=== PATIENT | female | born 1980 | race Two or more races ===

== ENCOUNTER 2019-12-21 | Outpatient (REF) | payer OTHER, SELFPAY | END 2019-12-23 00:01 | disposition home or self-care (01) | LOC: CF | PROVIDERS: Visit Provider Surgery Vascular Surgery | DX: K76.9 Liver disease, unspecified (principal); D50.0 Iron deficiency anemia secondary to blood loss (chronic) | CPT/HCPCS: 99213 ==

== ENCOUNTER → 2020-01-06 10:26 | Outpatient (BNVA) | payer OTHER, SELFPAY | PROVIDERS: PCP Internal Medicine; Referring Provider Internal Medicine; Visit Provider Internal Medicine Gastroenterology | DX: D50.0 Iron deficiency anemia secondary to blood loss (chronic) (principal); N92.0 Excessive and frequent menstruation with regular cycle; K21.9 Gastro-esophageal reflux disease without esophagitis; K76.9 Liver disease, unspecified; R18.8 Other ascites; D69.6 Thrombocytopenia, unspecified; Z87.19 Personal history of other diseases of the digestive system | CPT/HCPCS: 99213 ==

== ENCOUNTER 2020-01-19 09:05 | Emergency (ER) | payer OTHER, SELFPAY ==
--- NOTE | 2020-01-19 10:04 | XR_ITS ---
EXAMINATION: BILATERAL FOOT X-RAY CLINICAL INFORMATION: Atraumatic bilateral plantar foot pain COMPARISON: None TECHNIQUE: 3 views of each foot FINDINGS: Left: Bone alignment is normal. No fracture or dislocation is. The joint spaces are normal. There is an accessory peroneal ossicle. There is a small plantar calcaneal spur. Soft tissues are otherwise unremarkable. Right: Bone alignment is normal. No fracture or dislocation is seen. Joint spaces are normal. There is a small accessory peroneal ossicle. There is a small plantar calcaneal spur. Soft tissues are otherwise normal. XR/XR foot LT min 3V IMPRESSION: Bilateral calcaneal spurs.
--- NOTE | 2020-01-19 10:04 | XR_ITS ---
EXAMINATION: BILATERAL FOOT X-RAY CLINICAL INFORMATION: Atraumatic bilateral plantar foot pain COMPARISON: None TECHNIQUE: 3 views of each foot FINDINGS: Left: Bone alignment is normal. No fracture or dislocation is. The joint spaces are normal. There is an accessory peroneal ossicle. There is a small plantar calcaneal spur. Soft tissues are otherwise unremarkable. Right: Bone alignment is normal. No fracture or dislocation is seen. Joint spaces are normal. There is a small accessory peroneal ossicle. There is a small plantar calcaneal spur. Soft tissues are otherwise normal. XR/XR foot RT min 3V IMPRESSION: Bilateral calcaneal spurs.
--- NOTE | 2020-01-19 10:05 | ED.LOWEXIN ---
HPI - Extremity Injury (Lower) General Chief Complaint: Extremity Injury, Lower Stated Complaint: bilateral foot pain,no inj Time Seen by Provider: 01/19/20 09:56 Source: patient Mode of arrival: ambulatory Limitations: language barrier (Cypriot-speaking) History of Present Illness HPI Narrative: 39yoF c PMHx of chronic pain of both feet, varicose veins of right lower extremity with inflammation, hypertension, be liver disease, ascites, iron deficiency anemia due to chronic blood loss, thrombocytopenia, GERD, dementia and depression presenting to the ED with complaints of worsening pain to her chronic bilateral feet for the past few days worse today where she has to use a cane due to when walking she has extreme pain. Denies any other symptoms complaints or concerns. Denies any injuries. Related Data Home Medications Medication Instructions Recorded Confirmed albuterol sulfate 90 mcg/actuation 2 puff PO Q6H PRN 12/21/19 01/06/20 aerosol inhaler famotidine 20 mg tablet mg PO 12/21/19 01/06/20 ferrous sulfate 325 mg (65 mg 325 mg PO TID 12/21/19 01/06/20 iron) tablet ibuprofen 600 mg tablet 600 mg PO TID 12/21/19 01/06/20 pantoprazole 40 mg tablet,delayed 40 mg PO DAILY 12/21/19 01/06/20 release trazodone 50 mg tablet 50 mg PO BEDTIME 12/21/19 01/06/20 Previous Rx's Medication Instructions Recorded furosemide 20 mg tablet 20 mg PO QAM 30 Days #30 tab 01/06/20 sertraline 50 mg tablet 50 mg PO DAILY #30 tab 01/06/20 spironolactone 50 mg tablet 50 mg PO QAM 30 Days #30 tab 01/06/20 fluticasone propionate 50 1 spray INTRANASAL DAILY #16 ml 01/10/20 mcg/actuation nasal spray,suspension hydrocodone-acetaminophen [Bastian] 1 tab PO Q8H PRN #10 tab 01/19/20 Allergies Allergy/AdvReac Type Severity Reaction Status Date / Time aspirin [ASPIRIN] Allergy Intermediate ULCER; GI Verified 01/11/20 14:24 UPSET, internal bleeding sertraline [SERTRALINE] Allergy Intermediate CONFUSION; Verified 12/21/19 15:09 GI UPSET Review of Systems Review of Systems: Constitutional :No Fever, No Chills Cardiovascular : No Chest Pain, No SOB, No Dyspnea on Exertion, No Orthopnea, No Edema, No Palpitations Respiratory : No Cough, No Sputum, No Wheezing, No Smoke Exposure, No Dyspnea Musculoskeletal : + joint pain, No Myalgias, No Joint Swelling Skin : No Skin Lesions, No rash Neuro : No Weakness, No Numbness, No Paresthesias, No Loss of Consciousness, No Dizziness, No Headache Psych : No Anxiety/Panic, No Depression, No SI/HI/AH/VH, No Social Issues, Heme/Lymph: No Lymphadenopathy Yes all other systems are reviewed and are negative PENDING SALE TO [facility] Past Medical History Attestation statement: The following information was validated with the patient. Medical History Ascites Chronic pain of both feet Dementia Depression GERD (gastroesophageal reflux disease) History of esophageal varices Hypertension IBS (irritable bowel syndrome) Iron deficiency anemia due to chronic blood loss Liver disease Sprain of left knee Thrombocytopenia Varicose veins of right lower extremity with inflammation Surgical History History of esophagogastroduodenoscopy (EGD) History of liver biopsy (~04/2002) S/P TIPS (transjugular intrahepatic portosystemic shunt) (~10/2015) Family History Family History Father Diabetes mellitus Mother Diabetes mellitus Alzheimer's dementia Pneumothorax Maternal Aunt Ovarian cancer Daughter No problems noted. Maternal Aunt Cervical cancer Maternal Grandfather Pancreatic cancer Social History Social History Alcohol intake: never Smoking Status: Current every day smoker Tobacco Type: Cigarette Advance Directives: Yes Advance Directives Information Provided: Yes Advance Directives on File: No Physical Exam Vital Signs: Vital Signs: Vital Signs Temp Pulse Resp BP Pulse Ox 01/19/20 10:26 98.5 F 60 16 119/68 97 Body Mass Index 31.1 vital signs have been reviewed as normal and appeared to be correct. Blood pressure normal. Heart rate normal. Respiration rate normal. Temperature normal. Oxygen saturation normal. Appearance: Alert. Oriented X3. No acute distress. Head: Normal external exam. Normocephalic. Eyes: PERRLA. EOMI. Conjunctiva and sclera normal. Eyelids normal. ENT: Pharynx normal. Uvula midline. Moist mucous membranes. Neck: Normal inspection. Neck supple. FROM. No meningeal signs. CVS: Normal heart rate and rhythm. Heart sound normal. No murmurs noted. Pulses normal throughout. Respiratory: No respiratory distress. Painless inspiration. Breath sounds normal. No wheezes/rales/rhonchi noted. Chest nontender. No accessory muscle usage noted or decreased air movement noted. Back: Full range of motion noted. Skin: Skin warm and dry. Normal skin color. Normal skin turgor. No rashes/lesions/lacerations noted. Extremities: Pt ttp of b/l heels of plantar aspect of b/l feet worse c dorsiflexion while I palpate over the plantar fascia from the heel to the forefoot. No lower extremity edema. Extremities exhibit normal range of motion. Extremities nontender. All tendons appear to be intact. All ligaments appear to be intact. Neuro: Oriented X 3. No motor deficit. No sensory deficit. Reflexes normal. Course Course Course Narrative: 39yoF c PMHx of chronic pain of both feet, varicose veins of right lower extremity with inflammation, hypertension, be liver disease, ascites, iron deficiency anemia due to chronic blood loss, thrombocytopenia, GERD, dementia and depression presenting to the ED with complaints of worsening pain to her chronic bilateral feet for the past few days worse today where she has to use a cane due to when walking she has extreme pain. Denies any other symptoms complaints or concerns. Denies any injuries. - concern for bone spur versus plantar fasciitis. 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 Patient understands agrees the plan. MDM - Extremity Injury (Lower) Medical Records Attestation: I reviewed the patient's medical records. Imaging Data b/l foot xrays: Attestation: I personally reviewed and interpreted this imaging study as follows: Radiologist's impression: FINDINGS: Left: Bone alignment is normal. No fracture or dislocation is. The joint spaces are normal. There is an accessory peroneal ossicle. There is a small plantar calcaneal spur. Soft tissues are otherwise unremarkable. Right: Bone alignment is normal. No fracture or dislocation is seen. Joint spaces are normal. There is a small accessory peroneal ossicle. There is a small plantar calcaneal spur. Soft tissues are otherwise normal. XR/XR foot LT min 3V IMPRESSION: Bilateral calcaneal spurs. Discharge Plan Discharge Clinical Impression: Plantar fasciitis, Bone spur of foot Patient Disposition: Home, Self-Care Instructions: Plantar Fasciitis (ED), Plantar Fasciitis Exercises (ED) Prescriptions: New hydrocodone-acetaminophen [Bastian] 5-325 mg tablet 1 tab PO Q8H PRN (Reason: pain) Qty: 10 RF: 0 No Action sertraline 50 mg tablet 50 mg PO DAILY Qty: 30 RF: 5 fluticasone propionate 50 mcg/actuation spray,suspension 1 spray intranasal DAILY Qty: 16 RF: 0 albuterol sulfate 90 mcg/actuation HFA aerosol inhaler 2 puff PO Q6H PRNRF: 0 ferrous sulfate 325 mg (65 mg iron) tablet 325 mg PO TID RF: 0 famotidine 20 mg tablet PO RF: 0 trazodone 50 mg tablet 50 mg PO BEDTIME RF: 0 pantoprazole 40 mg tablet,delayed release (DR/EC) 40 mg PO DAILY RF: 0 ibuprofen 600 mg tablet 600 mg PO TID RF: 0 spironolactone 50 mg tablet 50 mg PO QAM 30 Days Qty: 30 RF: 3 furosemide [Lasix] 20 mg tablet 20 mg PO QAM 30 Days Qty: 30 RF: 3 Referrals: Sukhdeep Lemus [Physician] - 1 day (sherri buckner jorje appointment ) Stand Alone Forms: Work/School Release Print Language: Ukrainian
[2020-01-19 10:26] VITALS: BP 119/68; PULSE 60; RESP 16; TEMP 36.9; O2SAT 97; BMI 31.1
[2020-01-19] MEDS: HYDROcodone Bit/Acetam 5/325 TABLET 1 TAB PO (10:54)
[2020-01-19] MEDS: dexAMETHasone 2 MG TABLET 10 MG PO (10:54)
== END 2020-01-19 11:16 | disposition home or self-care (01) ==
PROVIDERS: Emergency Provider Emergency Medicine; PCP Internal Medicine
DX: M72.2 Plantar fascial fibromatosis (principal); M77.32 Calcaneal spur, left foot; M77.31 Calcaneal spur, right foot; M79.672 Pain in left foot; M79.671 Pain in right foot; Z79.899 Other long term (current) drug therapy
CPT/HCPCS: 73630; 99283; J8540

== ENCOUNTER 2020-01-24 11:54 | Outpatient (REF) | payer OTHER, SELFPAY ==
[2020-01-24 15:47] LABS: Basophils Percent Auto 0.6 % (0-2); MANUAL DIFF FLAG SCAN; PLT CLUMP 1; Red Cell Distribution Width 13.8 % (11.0-16.0); SCAN SMEAR FLAG 1
[2020-01-24 15:49] LABS: Eosinophils Absolute Auto 0.1 X10*3/uL (0.0-0.4); Eosinophils Percent Auto 1.7 % (0-4); Hematocrit 30.6 % (37-47); Imm Gran Abs Auto 0.01 X10*3/uL (0.00-0.03); Imm Gran Pct Auto 0.3 % (0.0-0.4); Lymphocytes Absolute Auto 0.7 X10*3/uL (1.2-4.9); Lymphocytes Percent Auto 19.9 % (20-40); Mean Corpuscular HGB Conc 32.7 g/dl (31.0-35.0); Mean Corpuscular Hemoglobin 25.8 pg (27.0-33.0); Mean Corpuscular Volume 79.1 fL (80-98); Mean Platelet Volume 11.8 fL (9.4-12.3); Monocytes Absolute Auto 0.2 X10*3/uL (0.1-1.2); Monocytes Percent Auto 6.9 % (2-11); Neutrophils Absolute Auto 2.5 X10*3/uL (2.0-8.3); Neutrophils Percent Auto 70.6 % (45-73); Red Blood Count 3.87 X10*6/uL (4.20-5.50); White Blood Count 3.5 X10*3/uL (4.8-10.8)
[2020-01-24 15:55] LABS: Platelet Count 52 X10*3/uL (160-400)
[2020-01-24 15:57] LABS: INTERNATIONAL NORM RATIO 1.3 (0.9-1.1); Prothrombin Time 15.1 SEC (10.8-13.0)
[2020-01-24 16:17] LABS: SLIDE REVIEW VERIFIED
[2020-01-24 16:21] LABS: Alanine Aminotransferase 23 U/L (0-31); Alkaline Phosphatase 63 U/L (39-117); Anion Gap 12 (12-20); Aspartate Amino Transferase 20 U/L (5-31); Bilirubin Total 0.5 mg/dL (0.0-1.0); Blood Urea Nitrogen 13 mg/dL (9-16); Calcium 8.4 mg/dL (8.4-10.2); Carbon Dioxide 23 mmol/L (22-29); Chloride 105 mmol/L (96-108); Estimated Glomerular Filt Rate > 60; Glucose Random 155 mg/dL (60-115); Potassium 3.8 mmol/l (3.3-5.1); Sodium 136 mmol/L (135-145); Total Protein 6.7 g/dL (6.5-8.0)
[2020-01-24 16:44] LABS: Ferritin 2 ng/mL (10-250)
== END 2020-01-24 11:55 | disposition home or self-care (01) ==
LOC: HO.LAB 11:54
PROVIDERS: PCP Internal Medicine; Visit Provider Internal Medicine Gastroenterology
DX: K76.9 Liver disease, unspecified (principal); D50.0 Iron deficiency anemia secondary to blood loss (chronic)
CPT/HCPCS: 36415; 80053; 82728; 85025; 85610

== ENCOUNTER → 2020-02-01 08:55 | Outpatient (BNV) | payer OTHER, SELFPAY | PROVIDERS: Visit Provider Internal Medicine | DX: D61.818 Other pancytopenia (principal); R16.1 Splenomegaly, not elsewhere classified | CPT/HCPCS: 99213; 99214; G2211 ==

== ENCOUNTER 2020-03-09 22:29 | Emergency (ER) | payer OTHER, SELFPAY ==
[2020-03-09 22:47] VITALS: BP 146/82; BP 147/72; PULSE 65; PULSE 97; RESP 19; TEMP 36.6; O2SAT 100; BMI 32.1
--- NOTE | 2020-03-09 22:50 | ED.URI ---
HPI - URI/Sore Throat General Chief Complaint: General Medical Stated Complaint: flu ?covid Source: patient and EMS Mode of arrival: EMS Limitations: language barrier History of Present Illness HPI Narrative: 39-year-old female with past medical history of anxiety and depression, splenomegaly, IBS, hypertension, GERD, dementia, liver disease, iron deficiency anemia, and chronic pain presents via EMS for upper respiratory symptoms. She was seen on 03/07/2020 by her primary care and given azithromycin and prednisone for similar complaints. MD elicited complaint: cough and nasal congestion Onset (ago): day(s) (Several) Consistency: constant Severity: moderate Description of mucous: clear and watery Able to tolerate fluids by mouth: Yes Relieving factors: nothing Associated symptoms: fever, chills, myalgias, headache, nasal congestion and cough Treatments prior to arrival: antibiotics Related Data Home Medications Medication Instructions Recorded Confirmed albuterol sulfate 90 mcg/actuation 2 puff PO Q6H PRN 12/21/19 02/01/20 aerosol inhaler ferrous sulfate 325 mg (65 mg 325 mg PO TID 12/21/19 02/01/20 iron) tablet ibuprofen 600 mg tablet 600 mg PO TID 12/21/19 02/01/20 pantoprazole 40 mg tablet,delayed 40 mg PO DAILY 12/21/19 02/01/20 release trazodone 50 mg tablet 50 mg PO BEDTIME 12/21/19 02/01/20 hydrochlorothiazide 12.5 mg tablet 12.5 mg PO DAILY 01/28/20 02/01/20 loratadine 10 mg tablet 10 mg PO DAILY 01/28/20 02/01/20 Previous Rx's Medication Instructions Recorded furosemide 20 mg tablet 20 mg PO QAM 30 Days #30 tab 01/06/20 sertraline 50 mg tablet 50 mg PO DAILY #30 tab 01/06/20 spironolactone 50 mg tablet 50 mg PO QAM 30 Days #30 tab 01/06/20 hydrocodone-acetaminophen [[place]] 1 tab PO Q8H PRN #10 tab 01/19/20 famotidine 20 mg tablet 20 mg PO BID 30 Days #60 tab 02/01/20 tramadol 50 mg tablet 50 mg PO TID PRN 15 Days #45 tab 02/14/20 fluticasone propionate 50 1 spray INTRANASAL DAILY #16 ml 12/20/20 mcg/actuation nasal spray,suspension azithromycin 250 mg tablet 250 mg PO DAILY 5 Days #6 tab 03/07/20 prednisone 10 mg tablet 10 mg PO DAILY 9 Days #18 tab 03/07/20 sertraline 100 mg tablet 100 mg PO DAILY 20 Days #20 tab 03/07/20 zolpidem 5 mg tablet 5 mg PO BEDTIME PRN 20 Days #20 tab 03/07/20 Allergies Allergy/AdvReac Type Severity Reaction Status Date / Time aspirin [ASPIRIN] AdvReac Intermediate ULCER; GI Verified 03/07/20 14:58 UPSET, internal bleeding sertraline [SERTRALINE] AdvReac Intermediate CONFUSION; Verified 01/31/20 01:03 GI UPSET Review of Systems Review of Systems: Constitutional: positive Fever, positive Chills, positive fatigue, positive Malaise ENT/Mouth: positive sore throat, positive runny nose Eyes: No Discharge Cardiovascular: No Chest Pain, No SOB Respiratory: No Cough, No Sputum, No Wheezing, No Smoke Exposure, No Dyspnea Gastrointestinal: No Nausea, No Vomiting, No Diarrhea Genitourinary: no irregular bleeding, No Dysuria, No Urinary Frequency, No Hematuria, No Urinary Incontinence, No Urgency, No Flank Pain, Musculoskeletal: positive Myalgia Skin: No rash Neuro: No Headache Yes all other systems are reviewed and are negative PMFSH Past Medical History Attestation statement: The following information was validated with the patient. Medical History (Updated 03/09/20 @ 23:10 by Yadira Schroeder NP) Anxiety and depression Ascites Bilateral calcaneal spurs Chronic pain of both feet Common cold Dementia Depression GERD (gastroesophageal reflux disease) History of esophageal varices Hypersplenism Hypertension IBS (irritable bowel syndrome) Iron deficiency anemia due to chronic blood loss Liver disease Obesity (BMI 30-39.9) Pancytopenia Smoker Sprain of left knee Thrombocytopenia Varicose veins of right lower extremity with inflammation Surgical History History of D&C History of esophagogastroduodenoscopy (EGD) History of liver biopsy (~04/2002) S/P TIPS (transjugular intrahepatic portosystemic shunt) (~10/2015) Family History Family History Father Diabetes mellitus Mother Diabetes mellitus Alzheimer's dementia Pneumothorax Maternal Aunt Ovarian cancer Daughter No problems noted. Maternal Aunt Cervical cancer Maternal Grandfather Pancreatic cancer Social History Social History Alcohol intake: never Smoking Status: Current every day smoker Tobacco Type: Cigarette Cigarettes Per Day: 8 Use of substances other than those prescribed or required for medical reasons: No Advance Directives: No Advance Directives Information Provided: No Physical Exam Vital Signs: Vital Signs: Last Vital Signs Temp 98 F 03/09/20 22:53 Pulse 97 03/09/20 22:53 Resp 19 03/09/20 22:53 BP 147/72 H 03/09/20 22:53 Pulse Ox 100 03/09/20 22:53 Body Mass Index 32.1 Appearance: Alert. Oriented X3. No acute distress. Eyes: Pupils equal, round and reactive to light. ENT: Pharynx normal. Neck: Normal inspection. Neck supple. CVS: Normal heart rate and rhythm. Pulses normal. Respiratory: No respiratory distress. Breath sounds normal. Abdomen: Soft and nontender. Skin: Skin warm and dry. Normal skin color. Normal skin turgor. Extremities: No lower extremity edema. Neuro: No motor deficit. No sensory deficit. Course Course Course Narrative: 39-year-old female presents via EMS for upper respiratory symptoms. In review of her medical records it is noted that she was given azithromycin and prednisone on 03/07/2020 during her office visit 2 days ago. Plan of care is for COVID-19 swab and discharged home. Patient verbalized understanding of and agrees to plan of care. MDM - URI/Sore Throat Differential Diagnosis Differential diagnosis: Likely upper respiratory infection, sinusitis, viral infection and influenza Medical Records Attestation: I reviewed the patient's medical records. Lab Data Attestation: I reviewed the patient's lab results. Imaging Data Chest x-ray: Attestation: I personally reviewed and interpreted this imaging study as follows: Discharge Plan Discharge Clinical Impression: Symptoms of upper respiratory infection (URI) Patient Disposition: Home, Self-Care Instructions: Viral Syndrome (ED), Cold Symptoms (ED) Additional Instructions: Se le evaluaron para los s?ntomas de las v?as respiratorias superiores. Herrera prueba COVID-19 est? pendiente y resultar? en aproximadamente 4 d?as. Por favor, mantenga el aislamiento social para las pautas estatales y federales. Por favor, contin?e tomando la azitromicina y la prednisona que le fueron prescritas el 03/07/2020. Gabrielle por elegir galina departamento de emergencias para la evaluaci?n. Por favor, elodia un seguimiento con el m?dico de atenci?n primaria seg?n sea necesario. Regrese al servicio de urgencias para cualquier s?ntoma nuevo, preocupante o que empeore. You were evaluated for upper respiratory symptoms. Her COVID-19 test is pending and will result in approximately 4 days. Please maintain social isolation for State and Federal guidelines. Please continue to take the azithromycin and the prednisone that was prescribed to you on 03/07/2020. Thank you for choosing this emergency department for evaluation. Please follow-up with primary care physician as needed. Return to the emergency department for any new, concerning, or worsening symptoms. Prescriptions: No Action sertraline 50 mg tablet 50 mg PO DAILY Qty: 30 RF: 5 famotidine 20 mg tablet 20 mg PO BID 30 Days Qty: 60 RF: 2 tramadol 50 mg tablet 50 mg PO TID PRN (Reason: pain) 15 Days Qty: 45 RF: 0 fluticasone propionate 50 mcg/actuation spray,suspension 1 spray intranasal DAILY Qty: 16 RF: 0 hydrocodone-acetaminophen [[place]] 5-325 mg tablet 1 tab PO Q8H PRN (Reason: pain) Qty: 10 RF: 0 hydrochlorothiazide 12.5 mg tablet 12.5 mg PO DAILY RF: 0 loratadine 10 mg tablet 10 mg PO DAILY RF: 0 sertraline 100 mg tablet 100 mg PO DAILY 20 Days Qty: 20 RF: 0 zolpidem [Ambien] 5 mg tablet 5 mg PO BEDTIME PRN (Reason: sleep) 20 Days Qty: 20 RF: 0 azithromycin 250 mg tablet 250 mg PO DAILY 5 Days Qty: 6 RF: 0 prednisone 10 mg tablet 10 mg PO DAILY 9 Days Qty: 18 RF: 0 albuterol sulfate 90 mcg/actuation HFA aerosol inhaler 2 puff PO Q6H PRN (Reason: Wheezing) RF: 0 ferrous sulfate 325 mg (65 mg iron) tablet 325 mg PO TID RF: 0 trazodone 50 mg tablet 50 mg PO BEDTIME RF: 0 pantoprazole 40 mg tablet,delayed release (DR/EC) 40 mg PO DAILY RF: 0 ibuprofen 600 mg tablet 600 mg PO TID RF: 0 spironolactone 50 mg tablet 50 mg PO QAM 30 Days Qty: 30 RF: 3 furosemide [Lasix] 20 mg tablet 20 mg PO QAM 30 Days Qty: 30 RF: 3 Interventions: ED Discharge Assessment Last Done: 03/09/20 23:29 Discharge Date/Time: 03/09/20 23:30
[2020-03-09 22:53] VITALS: BP 147/72; PULSE 97; RESP 19; TEMP 36.6; O2SAT 100
== END 2020-03-09 23:30 | disposition home or self-care (01) ==
PROVIDERS: Nurse Practitioner Family; Emergency Provider Internal Medicine
DX: J06.9 Acute upper respiratory infection, unspecified (principal); Z20.828 Contact with and (suspected) exposure to other viral communicable diseases; I10 Essential (primary) hypertension; F03.90 Unspecified dementia, unspecified severity, without behavioral disturbance, psychotic disturbance, mood disturbance, and anxiety; F41.9 Anxiety disorder, unspecified; Z79.899 Other long term (current) drug therapy
CPT/HCPCS: 99283; 99284; U0003

== ENCOUNTER 2020-04-06 11:44 | Outpatient (REF) | payer OTHER, SELFPAY ==
[2020-04-06 18:32] LABS: Basophils Percent Auto 0.9 % (0-2); Eosinophils Percent Auto 1.2 % (0-4); Hematocrit 30.4 % (37-47); Hemoglobin 9.2 g/dl (12.0-16.0); Imm Gran Abs Auto 0.01 X10*3/uL (0.00-0.03); Imm Gran Pct Auto 0.3 % (0.0-0.4); Lymphocytes Absolute Auto 0.7 X10*3/uL (1.2-4.9); Lymphocytes Percent Auto 19.9 % (20-40); MANUAL DIFF FLAG SCAN; Mean Corpuscular HGB Conc 30.3 g/dl (31.0-35.0); Mean Corpuscular Hemoglobin 21.9 pg (27.0-33.0); Mean Corpuscular Volume 72.4 fL (80-98); Mean Platelet Volume 10.6 fL (9.4-12.3); Monocytes Absolute Auto 0.3 X10*3/uL (0.1-1.2); Monocytes Percent Auto 8.5 % (2-11); Neutrophils Absolute Auto 2.3 X10*3/uL (2.0-8.3); Neutrophils Percent Auto 69.2 % (45-73); Red Cell Distribution Width 16.1 % (11.0-16.0); SCAN SMEAR FLAG 1; White Blood Count 3.3 X10*3/uL (4.8-10.8)
[2020-04-06 18:39] LABS: INTERNATIONAL NORM RATIO 1.3 (0.9-1.1); Prothrombin Time 15.3 SEC (10.8-13.0)
[2020-04-06 18:52] LABS: Platelet Count 66 X10*3/uL (160-400)
[2020-04-06 18:53] LABS: SLIDE REVIEW VERIFIED
[2020-04-06 18:58] LABS: Cholesterol 138 mg/dL; HDL Cholesterol 59 mg/dL; LDL Cholesterol Calculated 58 mg/dl; Triglycerides 108 mg/dL
[2020-04-06 19:04] LABS: Alanine Aminotransferase 13 U/L (0-31); Albumin Level 4.4 g/dL (3.5-5.0); Alkaline Phosphatase 69 U/L (39-117); Anion Gap 12 (12-20); Aspartate Amino Transferase 16 U/L (5-31); Bilirubin Total 0.4 mg/dL (0.0-1.0); Blood Urea Nitrogen 13 mg/dL (9-16); Calcium 8.9 mg/dL (8.4-10.2); Carbon Dioxide 24 mmol/L (22-29); Chloride 105 mmol/L (96-108); Estimated Glomerular Filt Rate > 60; Glucose Random 80 mg/dL (60-115); Iron 17 mcg/dL (30-160); Percent Iron Saturation 4 % (15-50); Potassium 3.9 mmol/l (3.3-5.1); Sodium 137 mmol/L (135-145); Total Iron Binding Capacity 426 mcg/dL (228-428); Total Protein 7.1 g/dL (6.5-8.0); Unsaturated Iron Binding 409 ug/dL
[2020-04-06 19:21] LABS: Ferritin 2 ng/mL (10-250)
== END 2020-04-06 11:45 | disposition home or self-care (01) ==
LOC: HO.LAB 11:44
PROVIDERS: Internal Medicine; PCP Internal Medicine; Referring Provider Internal Medicine; Visit Provider Internal Medicine Gastroenterology
DX: D50.0 Iron deficiency anemia secondary to blood loss (chronic) (principal); K76.9 Liver disease, unspecified; K59.09 Other constipation; Z98.890 Other specified postprocedural states; Z79.899 Other long term (current) drug therapy; Z79.891 Long term (current) use of opiate analgesic; F17.210 Nicotine dependence, cigarettes, uncomplicated
CPT/HCPCS: 36415; 80053; 80061; 82728; 83540; 85025; 85610

== ENCOUNTER 2020-05-17 07:50 | Outpatient (REF) | payer OTHER, SELFPAY | END 2020-05-17 07:51 | disposition home or self-care (01) | LOC: HO.MDS 07:50 | PROVIDERS: Visit Provider Internal Medicine | DX: D50.9 Iron deficiency anemia, unspecified (principal) | CPT/HCPCS: 96365; 96366; 96375; J1200; J1750; Q0163 ==

== ENCOUNTER 2020-09-05 15:39 | Outpatient (REF) | payer OTHER, SELFPAY ==
--- NOTE | ~2020-09-05 | XR_ITS ---
EXAMINATION: XR KNEE, BILATERAL CLINICAL INFORMATION: Bilateral knee pain. COMPARISON: 08/04/2018 TECHNIQUE: Three views each knee. FINDINGS: There may be some minimal narrowing of the medial compartments bilaterally but no other abnormality is seen. No joint effusion. No erosions or sclerosis. When compared to the study from 08/04/2018, there has been no significant interval change. XR/XR knee RT 3V IMPRESSION: Some equivocal narrowing of the medial compartments bilaterally. The knees otherwise appear normal.
--- NOTE | ~2020-09-05 | XR_ITS ---
EXAMINATION: XR KNEE, BILATERAL CLINICAL INFORMATION: Bilateral knee pain. COMPARISON: 08/04/2018 TECHNIQUE: Three views each knee. FINDINGS: There may be some minimal narrowing of the medial compartments bilaterally but no other abnormality is seen. No joint effusion. No erosions or sclerosis. When compared to the study from 08/04/2018, there has been no significant interval change. XR/XR knee LT 3V IMPRESSION: Some equivocal narrowing of the medial compartments bilaterally. The knees otherwise appear normal.
== END 2020-09-05 15:40 | disposition home or self-care (01) ==
LOC: HO.XRAY 15:39
PROVIDERS: PCP Internal Medicine; Visit Provider Internal Medicine
DX: M25.561 Pain in right knee (principal); M25.562 Pain in left knee
CPT/HCPCS: 73562

== ENCOUNTER 2020-09-05 16:54 | Emergency (ER) | payer OTHER, SELFPAY ==
[2020-09-05 17:16] VITALS: BP 132/70; PULSE 62; RESP 18; TEMP 37.1; O2SAT 99; BMI 34.7
--- NOTE | 2020-09-05 18:25 | ED.GENADULT ---
HPI - General Adult General Chief complaint: Extremity Injury, Lower Stated complaint: knee pain Time Seen by Provider: 09/05/20 18:03 History of Present Illness HPI narrative: wall patient complains of worsening pain in the left knee, she has had pain off and on left knee for years, no new injury, this is similar to prior episodes there is no fever no other complaint, pain is moderate and it is been worsening over past few days Related Data Home Medications Medication Instructions Recorded Confirmed trazodone 50 mg tablet 50 mg PO BEDTIME 12/21/19 08/09/20 hydrochlorothiazide 12.5 mg tablet 12.5 mg PO DAILY 01/28/20 08/09/20 prazosin 1 mg capsule 1 mg PO BEDTIME 05/10/20 08/23/20 clonidine HCl 0.2 mg tablet 0.2 mg PO BEDTIME 08/09/20 08/23/20 Previous Rx's Medication Instructions Recorded sertraline 100 mg tablet 100 mg PO DAILY 20 Days #20 tab 03/07/20 fluticasone propionate 50 1 spray INTRANASAL DAILY #16 ml 04/01/20 mcg/actuation nasal spray,suspension furosemide 20 mg tablet 20 mg PO QAM 30 Days #30 tab 04/27/20 famotidine 20 mg tablet 20 mg PO BID 30 Days #60 tab 05/10/20 loratadine 10 mg tablet 10 mg PO DAILY PRN 90 Days #90 tab 06/07/20 spironolactone 50 mg tablet 50 mg PO QAM 30 Days #30 tab 06/07/20 albuterol sulfate 90 mcg/actuation 2 puff PO Q6H PRN #6.7 g 09/01/20 aerosol inhaler hydrocodone-acetaminophen 1 tab PO Q6H PRN #10 tab 09/05/20 hydroxyzine pamoate 25 mg capsule 25 mg PO BID #60 cap 09/09/20 Allergies Allergy/AdvReac Type Severity Reaction Status Date / Time aspirin [ASPIRIN] AdvReac Intermediate ULCER; GI Verified 09/05/20 17:37 UPSET, internal bleeding dextran 40 AdvReac Itching Verified 09/05/20 17:37 Review of Systems Review of Systems: positive for left knee pain Negatives are no fever no chills no dizziness no weakness no fainting no headache no neck pain no back pain no radiating pain no numbness weakness or tingling no skin rash Yes all other systems are reviewed and are negative [facility] Past Medical History Source: nursing notes reviewed Medical History (Updated 09/06/20 @ 00:01 by Christopher Dawson) Allergic rhinitis Anxiety and depression Ascites Bilateral calcaneal spurs Chronic pain of both feet Common cold Dementia Depression GERD (gastroesophageal reflux disease) History of esophageal varices Hypersplenism Hypertension IBS (irritable bowel syndrome) Iron deficiency anemia due to chronic blood loss Liver disease Lower abdominal pain Obesity (BMI 30-39.9) Pancytopenia Smoker Sprain of left knee Thrombocytopenia Varicose veins of right lower extremity with inflammation Surgical History History of D&C History of esophagogastroduodenoscopy (EGD) History of liver biopsy (~04/2002) S/P TIPS (transjugular intrahepatic portosystemic shunt) (~10/2015) Family History Family History Father Diabetes mellitus Mother Diabetes mellitus Alzheimer's dementia Pneumothorax Maternal Aunt Ovarian cancer Daughter No problems noted. Maternal Aunt Cervical cancer Maternal Grandfather Pancreatic cancer Social History Social History Alcohol intake: current Alcohol intake frequency: holidays/special occasions only Patient Tobacco Use Status: Current everyday Tobacco user Cigarettes Per Day: 8 Years Smoked: 5 years Physical Exam Vital Signs: Vital Signs: Last Vital Signs Temp 98.8 F 09/05/20 17:16 Pulse 62 09/05/20 17:16 Resp 18 09/05/20 17:16 BP 132/70 09/05/20 17:16 Pulse Ox 99 09/05/20 17:16 Body Mass Index 34.7 general appearance no distress Head normocephalic atraumatic Neck is supple Respiratory no distress Extremities the left knee has some mild swelling and tenderness is no redness or warmth there is no obvious effusion, the knee extends to 180 and flexes past 90, skin is normal no wounds no rashes, neurovascular intact distal, no ligamentous laxity, patient can straight leg raise Other extremities normal Skin no rashes Neuro no gross motor or sensory deficit Course Course Course Narrative: left knee x-ray showed possible arthritic changes but no acute finding and patient is discharged home with analgesics to follow with orthopedics Discharge Plan Discharge Clinical Impression: Arthralgia Patient Disposition: Home, Self-Care Additional Instructions: You can use Tylenol or Vicodin narcotic for the knee pain Follow with orthopedist There is no evidence of infection or fracture or any dangerous condition today Prescriptions: New hydrocodone-acetaminophen 5-325 mg tablet 1 tab PO Q6H PRN (Reason: pain) Qty: 10 RF: 0 No Action fluticasone propionate 50 mcg/actuation spray,suspension 1 spray intranasal DAILY Qty: 16 RF: 2 furosemide [Lasix] 20 mg tablet 20 mg PO QAM 30 Days Qty: 30 RF: 3 loratadine 10 mg tablet 10 mg PO DAILY PRN (Reason: allergy symptoms) 90 Days Qty: 90 RF: 3 spironolactone 50 mg tablet 50 mg PO QAM 30 Days Qty: 30 RF: 3 hydroxyzine pamoate 25 mg capsule 25 mg PO BID Qty: 60 RF: 0 hydrochlorothiazide 12.5 mg tablet 12.5 mg PO DAILY RF: 0 prazosin 1 mg capsule 1 mg PO BEDTIME RF: 0 famotidine 20 mg tablet 20 mg PO BID 30 Days Qty: 60 RF: 2 sertraline 100 mg tablet 100 mg PO DAILY 20 Days Qty: 20 RF: 0 clonidine HCl 0.2 mg tablet 0.2 mg PO BEDTIME RF: 0 albuterol sulfate 90 mcg/actuation HFA aerosol inhaler 2 puff PO Q6H PRN (Reason: Wheezing) Qty: 6.7 RF: 0 trazodone 50 mg tablet 50 mg PO BEDTIME RF: 0 Referrals: Natividad Earl MD [Physician] - 2 days (Bilateral knee pain) Interventions: ED Discharge Assessment Last Done: 09/05/20 19:13 Discharge Date/Time: 09/05/20 19:15
--- NOTE | 2020-09-05 18:59 | PC.NURSE ---
RUBEN WRAPS APPLIED TO BILATERAL KNEES.
[2020-09-05] MEDS: HYDROcodone Bit/Acetam 5/325 TABLET 1 TAB PO (19:10)
== END 2020-09-05 19:15 | disposition home or self-care (01) ==
PROVIDERS: Emergency Provider Emergency Medicine; PCP Internal Medicine
DX: M25.562 Pain in left knee (principal); R22.42 Localized swelling, mass and lump, left lower limb; F17.210 Nicotine dependence, cigarettes, uncomplicated; I10 Essential (primary) hypertension
CPT/HCPCS: 99283; 99284

== ENCOUNTER → 2020-10-30 12:19 | Outpatient (BNVA) | payer OTHER, SELFPAY | PROVIDERS: PCP Internal Medicine; Visit Provider Internal Medicine Gastroenterology ==

== ENCOUNTER → 2020-12-18 08:09 | Outpatient (BNVA) | payer OTHER, SELFPAY | PROVIDERS: Visit Provider Internal Medicine Gastroenterology ==

== ENCOUNTER 2023-02-18 14:18 | Outpatient (AMB) | payer OTHER, SELFPAY ==
--- NOTE | 2023-02-18 14:23 | A.OFFPC_ITS ---
Vital Signs 02/18/23 14:24 Height 5 ft 2 in Weight 219 lb 4 oz BMI 40.1 BP 132/80 Blood Pressure Location Lt brachial Position Sitting Pulse 76 Pulse Source Pulse Oximeter Pulse Oximetry (%) 98 Oxygen Delivery Method Room Air Intake Visit Reasons: Asthma / DM Follow Up Physiology Teacher Required: No Accompanied by: Self / Same As Patient Allergies aspirin [ASPIRIN] Adverse Reaction (Intermediate, Verified 02/18/23 15:12) ULCER; GI UPSET, internal bleeding dextran 40 Adverse Reaction (Verified 02/18/23 15:12) Itching Medication List - Last Reconciled 02/18/23 by David Elizabeth MD albuterol sulfate 90 mcg/actuation 2 puffs PO Q6H PRN clonidine HCl 0.2 mg PO BEDTIME famotidine 20 mg PO BID 30 days fluticasone propionate 50 mcg/actuation 1 spray intranasal DAILY furosemide (Lasix) 20 mg PO QAM 30 days hydrochlorothiazide 12.5 mg PO DAILY hydroxyzine pamoate 25 mg PO BID loratadine 10 mg PO DAILY PRN 90 days metformin 500 mg PO DAILY prazosin 1 mg PO BEDTIME sertraline 100 mg PO DAILY 20 days spironolactone 50 mg PO QAM 30 days trazodone 50 mg PO BEDTIME Tobacco use date assessed: 02/18/23 Dental Screening Dental Screen Date: 02/18/23 Did you have a dental visit in the last 12 months?: Yes Did you have a dental problem in the last 6 months where you did not have access to dental care?: No Was dental information given to patient?: Patient has dentist HPI Asthma / DM Follow Up HPI Details Patient comes in today for her follow up visit - has not been back in over 2 years; was last seen by me on 08/09/2020 States that moved to [place] and stayed there for the past couple of years and just recently moved back here to [facility] about 2 weeks ago Relates that she was diagnosed with diabetes in [place] sometime last year and was started on Metformin Relates that she does have a strong family history of diabetes States that she will need this and all of her other Rx refilled States that she currently feels okay She denies any headaches or dizziness Denies any chest pains, no SOB - states that her asthma remains well-controlled and has been for a while now No nausea/vomiting, no abdominal pain No change in bowel habits noted [facility] Medical History (Updated 02/19/23 @ 18:15 by David Elizabeth MD) Obesity, Class III, BMI 40-49.9 (morbid obesity) Smoker Depression Anxiety Insomnia Esophageal varices Diabetes mellitus Lower abdominal pain Allergic rhinitis Common cold Anxiety and depression Obesity (BMI 30-39.9) Smoker Hypersplenism Pancytopenia Bilateral calcaneal spurs Thrombocytopenia Ascites Iron deficiency anemia due to chronic blood loss History of esophageal varices Chronic pain of both feet Varicose veins of right lower extremity with inflammation Sprain of left knee IBS (irritable bowel syndrome) GERD (gastroesophageal reflux disease) Depression Dementia Liver disease Hypertension Surgical History History of D&C S/P TIPS (transjugular intrahepatic portosystemic shunt) (~10/2015) History of liver biopsy (~04/2002) History of esophagogastroduodenoscopy (EGD) Family History Father Diabetes mellitus Mother Diabetes mellitus Alzheimer's dementia Pneumothorax Maternal Aunt Ovarian cancer Daughter No problems noted. Maternal Aunt Cervical cancer Maternal Grandfather Pancreatic cancer Social History Housing: Apartment Alcohol intake: current Alcohol intake frequency: holidays/special occasions only Patient Tobacco Use Status: Current everyday Tobacco user Cigarettes Per Day: 10 Years Smoked: 8 years Cognitive needs: No Hearing needs: No Vision needs: No Questionnaire PHQ-9 Over the last 2 weeks, how often have you been bothered by any of the following problems? 1. Little interest or pleasure in doing things: not at all 2. Feeling down, depressed, or hopeless: not at all 3. Trouble falling or staying asleep, or sleeping too much: not at all 4. Feeling tired or having little energy: not at all 5. Poor appetite or overeating: not at all 6. Feeling bad about yourself - or that you are a failure or have let yourself or your family down: not at all 7. Trouble concentrating on things, such as reading the newspaper or watching television: not at all 8. Moving or speaking so slowly that other people could have noticed. Or the opposite - being so fidgety or restless that you have been moving around a lot more than usual: not at all 9. Thoughts that you would be better off or of hurting yourself in some way: not at all Total score: 0 Depression Screening Interpretation: Negative Depression Screening Done: Yes [id number] - PHQ-9 Billing: Yes Source: Developed by Drs. Rashaad Franklin, Rosana Lechuga, Noé Neil and colleagues, with an educational marika from [employer]. Thrive Questionnaire Date Thrive assessed: 02/18/23 I am a: Patient What is your living situation today?: I have a steady place to live Within the past 12 months, did the food you bought not last and you didn't have the money to get more?: Never true Within the past 12 months, did you worry whether your food would run out before you got money to buy more?: Never true Do you have trouble paying for medicines?: No Do you have trouble getting transportation to medical appointments?: No Do you have trouble paying your heating and electricity bill?: No Do you have trouble taking care of your child, family member or friend?: No Do you have trouble with day-to-day activities such as bathing, preparing meals, shopping, managing finances, etc.?: No Are you currently unemployed and looking for a job?: No Are you interested in more education?: No Please select the resources that you would like help with: None Currently or been in a relationship where the following occur: no concerns reported AUDIT C Alcohol Use Questionnaire (AUDIT-C) 1. How often do you have a drink containing alcohol?: Monthly or less 2. How many drinks containing alcohol do you have on a typical day when you are drinking?: 1 or 2 3. How often do you have six or more drinks on one occasion?: Never Total Score: 1 Score Reviewed/Action Taken: Yes CALEB-7 AMB Questionnaire CALEB-7 Date CALEB - 7 assessed: 02/18/23 Feeling nervous, anxious, or on edge: 0 = Not at all Not being able to stop or control worryin = Not at all Worrying too much about different things: 0 = Not at all Trouble relaxin = Not at all Being so restless that it is hard to sit still: 0 = Not at all Becoming easily annoyed or irritable: 0 = Not at all Feeling afraid as if something awful might happen: 0 = Not at all Total CALEB-7 score (0-4 normal; 5-9 mild; 10-14 moderate; 15-21 severe): 0 Source: Developed by Drs. Rashaad Franklin, Rosana Lechuga, Noé Neil and colleagues, with an educational marika from [employer]. Review of Systems Const Denies chills, Denies fatigue, Denies fever(s) and Denies headache(s) ENT Denies dysphagia, Denies dizziness, Denies otalgia, Denies headache(s), Denies neck pain, Denies odynophagia and Denies sore throat Card Denies chest pain, Denies palpitations and Denies dyspnea Resp Denies cough and Denies dyspnea GI Denies abdominal pain, Denies constipation, Denies dysphagia, Denies heartburn, Denies diarrhea, Denies nausea, Denies odynophagia and Denies vomiting Denies difficulty voiding, Denies nocturia, Denies dysuria and Denies urinary urgency Musc Denies neck pain Skin/Breast Denies rash Neuro Denies dizziness and Denies headache(s) Endo Denies fatigue and Denies palpitations Physical exam (Primary Care) Vital Signs: Last Vital Signs Pulse 76 02/18/23 14:24 BP 132/80 02/18/23 14:24 Pulse Ox 98 02/18/23 14:24 Oxygen Delivery Method Room Air 02/18/23 14:24 BMI result Body Mass Index 40.1 Tobacco/Smoking Status: Tobacco use Status Tobacco use date assessed 02/18/23 02/18/23 14:25 Patient Tobacco Use Status Current everyday Tobacco 02/18/23 14:25 PHQ-9: PHQ-9 Score PHQ-9: Total score 0 02/18/23 15:13 Depression Screening Interpretation: Negative Thrive Assessment: Date of Thrive Assessment Date Thrive assessed 02/18/23 02/18/23 14:25 Currently or been in a relationship where the following occur: no concerns reported Const General: no acute distress and alert HENMT Ears: TM's normal bilaterally and EAC's normal Throat: Yes posterior oropharynx normal and Yes tonsils normal (no TP congestion) Neck Neck: Yes no lymphadenopathy and Yes supple Resp Auscultation: clear to auscultation bilaterally, no rales and no wheezes Cardio Rate: regular rate Rhythm: regular rhythm Heart sounds: no murmurs GI Palpation (GI): Soft to palpation and nontender Auscultation: normal bowel sounds General: Yes no CVA tenderness Back/Spine/Pelvis Back: no CVA tenderness Skin Rashes: no rashes Extrem General: Yes no clubbing, cyanosis or edema Results AMB Hemoglobin A1c AMB Hemoglobin A1c 7.3 % Last Edit by José Lloyd on 02/18/23 14:53 Results Reviewed Results Reviewed: Laboratory Last Values Hgb A1c (Clinic) 7.3 % (4.0-6.0) H 02/18/23 14:39 Assessment and Plan Assessment & Plan (1) Diabetes mellitus: Code(s): E11.9 - Type 2 diabetes mellitus without complications Qualifiers: Diabetes mellitus type: type 2 Diabetes mellitus group home insulin use: without superintendent terminal use Diabetes mellitus complication status: without complication Qualified Code(s): E11.9 - Type 2 diabetes mellitus without complications Plan: In-office HgbA1c done today is at 7.3% - goal is at least <7.0% Reinforced diabetic diet Was on Metformin 500 mg QD - will have her increase her Metformin now to 500 mg BID Will send her for some labs RENZO for further evaluation/follow up (2) Hypertension: Code(s): I10 - Essential (primary) hypertension Qualifiers: Hypertension type: primary hypertension Qualified Code(s): I10 - Essential (primary) hypertension Plan: Reinforced low sodium diet - goal is systolic BP of at least 130 mm or less Continue HCTZ 12.5 mg QD (3) Liver disease: Comment: Pre-hepatic portal hypertension Code(s): K76.9 - Liver disease, unspecified Plan: Patient has non-cirrhotic portal hypertension complicated by esophageal varices and with past Hx of GI bleeding She is S/P TIPS placement at [facility] in 10/2015, with no GI bleeding since She was seeing Dr. Mendoza for GI follow up but has not been back to see her since 2020 Her last imaging studies were done in 2019 - abdominal and pelvic CT in 10/2019 and abdominal US in 09/2019. Both tests showed (+) patent right TIPS stent at the time, with no free fluid or ascites noted Continue Spironolactone 50 mg QD and Furosemide 20 mg QD She is advised to reach out to GI and schedule a follow up appt with them RENZO (4) Thrombocytopenia: Code(s): D69.6 - Thrombocytopenia, unspecified Plan: Is most likely related to her hyperspenism / splenomegaly and liver disease Patient relates no increased bleeding lately Will recheck her CBC for follow up (5) Anemia: Code(s): D64.9 - Anemia, unspecified Qualifiers: Anemia type: iron deficiency Iron deficiency anemia type: chronic blood loss Qualified Code(s): D50.0 - Iron deficiency anemia secondary to blood loss (chronic) Plan: Most likely due to iron-deficiency anemia related to chronic blood loss Her H/H were normal when last checked in September 2020 She was supposed to get a hysterectomy at [facility] done a couple of years ago but cancelled this due to the COVID-19 pandemic Will recheck her CBC for follow up (6) Esophageal varices: Code(s): I85.00 - Esophageal varices without bleeding Qualifiers: Esophageal varices type: secondary Esophageal varices bleeding: without bleeding Qualified Code(s): I85.10 - Secondary esophageal varices without bleeding Plan: Are most likely secondary to her portal hypertension - has had no active bleeding lately Continue Famotidine 20 mg BID Will start her back on Pantoprazole 40 mg QD Follow up with GI as scheduled (7) Allergic rhinitis: Code(s): J30.9 - Allergic rhinitis, unspecified Qualifiers: Allergic rhinitis trigger: unspecified Allergic rhinitis seasonality: unspecified Qualified Code(s): J30.9 - Allergic rhinitis, unspecified Plan: Continue Fluticasone nasal spray 50 mcg QD PRN and Loratadine 10 mg QD PRN (8) Insomnia: Code(s): G47.00 - Insomnia, unspecified Qualifiers: Insomnia type: unspecified Qualified Code(s): G47.00 - Insomnia, unspecified Plan: Sleep hygiene reinforced Continue Trazodone 50 mg Q HS and Prazosin 1 mg Q HS (9) Anxiety: Code(s): F41.9 - Anxiety disorder, unspecified Plan: Continue Hydroxyzine 25 mg BID, Sertraline 100 mg QD and Clonidine 0.2 mg Q HS Follow up with psychiatry as scheduled (10) Depression: Code(s): F32.A - Depression, unspecified Qualifiers: Depression Type: major depressive disorder Major depression recurrence: recurrent Active/Remission status: currently active Major depression episode severity: unspecified Qualified Code(s): F33.9 - Major depressive disorder, recurrent, unspecified Plan: Continue Sertraline 100 mg QD Follow up with psychiatry as scheduled (11) Smoker: Code(s): F17.200 - Nicotine dependence, unspecified, uncomplicated Plan: Counseled again on smoking cessation (12) Obesity, Class III, BMI 40-49.9 (morbid obesity): Code(s): E66.01 - Morbid (severe) obesity due to excess calories Plan: Reinforced diet/exercise as tolerated/lose weight Plan Follow up in 2 months Orders: Orders Comprehensive [place]. Panel Fast 02/18/23 E78.00 - Pure hypercholesterolemia, unspecified Lipid Panel 02/18/23 E78.00 - Pure hypercholesterolemia, unspecified TSH reflex Free T4 02/18/23 E78.00 - Pure hypercholesterolemia, unspecified UA CC w/rflx Micro + Cult 02/18/23 R30.0 - Dysuria Vitamin D 25-OH Total 02/18/23 E55.9 - Vitamin D deficiency, unspecified IRON PROFILE 02/18/23 D50.9 - Iron deficiency anemia, unspecified AMB Hemoglobin A1c 02/18/23 Z13.9 - Encounter for screening, unspecified Complete Blood Count Auto Diff 02/18/23 I10 - Essential (primary) hypertension Microalbumin, Random (w Creat) 02/18/23 E11.9 - Type 2 diabetes mellitus without complications Liver Fibrosis Pnl 02/18/23 R79.89 - Other specified abnormal findings of blood chemistry Coding Level of Care Code Est Pt Level 4 (57328) Diagnoses Type 2 diabetes mellitus without complication, without long-term current use of insulin E11.9 Diabetes mellitus type: type 2 Diabetes mellitus group home insulin use: without group home use Diabetes mellitus complication status: without complication Primary hypertension I10 Hypertension type: primary hypertension Liver disease K76.9 Thrombocytopenia D69.6 Iron deficiency anemia due to chronic blood loss D50.0 Anemia type: iron deficiency Iron deficiency anemia type: chronic blood loss Secondary esophageal varices without bleeding I85.10 Esophageal varices type: secondary Esophageal varices bleeding: without bleeding Allergic rhinitis, unspecified seasonality, unspecified trigger J30.9 Allergic rhinitis trigger: unspecified Allergic rhinitis seasonality: unspecified Insomnia, unspecified type G47.00 Insomnia type: unspecified Anxiety F41.9 Episode of recurrent major depressive disorder, unspecified depression episode severity F33.9 Depression Type: major depressive disorder Major depression recurrence: recurrent Active/Remission status: currently active Major depression episode severity: unspecified Smoker F17.200 Obesity, Class III, BMI 40-49.9 (morbid obesity) E66.01
[2023-02-18 14:24] VITALS: BP 132/80; PULSE 76; O2SAT 98; BMI 40.1
== END 2023-02-18 15:21 | disposition home or self-care (01) ==
PROVIDERS: PCP Internal Medicine; Visit Provider Internal Medicine
DX: E11.9 Type 2 diabetes mellitus without complications (principal)
CPT/HCPCS: 83036; 99214

== ENCOUNTER 2023-03-24 08:44 | Outpatient (REF) | payer OTHER, SELFPAY ==
[2023-03-24 10:29] LABS: Alanine Aminotransferase 13 U/L (0-31); Albumin Level 4.3 g/dL (3.5-5.0); Alkaline Phosphatase 67 U/L (39-117); Anion Gap 12 (12-20); Aspartate Amino Transferase 14 U/L (5-31); Bilirubin Total 0.6 mg/dL (0.0-1.0); Blood Urea Nitrogen 9 mg/dL (9-16); Calcium 9.4 mg/dL (8.4-10.2); Carbon Dioxide 22 mmol/L (22-29); Chloride 107 mmol/L (96-108); Cholesterol 142 mg/dL (<200); Estimated Glomerular Filt Rate > 60; Glucose Fasting 134 mg/dL (60-99); HDL Cholesterol 52 mg/dL (>40); Iron 21 mcg/dL (30-160); LDL Cholesterol Calculated 70 mg/dL (<100); Percent Iron Saturation 6 % (15-50); Potassium 4.3 mmol/L (3.3-5.1); Sodium 137 mmol/L (135-145); Total Iron Binding Capacity 380 mcg/dL (228-428); Total Protein 7.2 g/dL (6.5-8.0); Triglycerides 104 mg/dL (<150); Unsaturated Iron Binding 359 ug/dL
[2023-03-24 10:45] LABS: Vitamin D 25-OH Total 29.5 ng/mL (>30)
[2023-03-31 15:04] LABS: FIB-ALT 11 U/L (6-29); FIB-Alpha-2-Macroglobulin 179 mg/dL (106-279); FIB-Apolipoprotein A1 159 mg/dL (101-198); FIB-GGT 9 U/L (3-55); FIB-Haptoglobin 67 mg/dL (43-212); FIB-Total Bilirubin 0.6 mg/dL (0.2-1.2); Liver Fibrosis Score 0.11; Liver Fibrosis Stage F0; Nec Inflam Act Grade A0; Nec Inflam Act Score 0.02
== END 2023-03-24 08:45 | disposition home or self-care (01) ==
LOC: HO.LAB 08:44
PROVIDERS: Absent Provider Internal Medicine; PCP Internal Medicine; Visit Provider Internal Medicine
DX: E78.00 Pure hypercholesterolemia, unspecified (principal); D50.9 Iron deficiency anemia, unspecified; R79.89 Other specified abnormal findings of blood chemistry; E11.9 Type 2 diabetes mellitus without complications; R30.0 Dysuria; E55.9 Vitamin D deficiency, unspecified
CPT/HCPCS: 36415; 80053; 80061; 81003; 81596; 82043; 82306; 82570; 83540; 84443

== ENCOUNTER 2023-04-03 08:10 | Outpatient (REF) | payer OTHER, SELFPAY | END 2023-04-03 08:11 | disposition home or self-care (01) | LOC: HO.MDS 08:10 | PROVIDERS: Visit Provider Internal Medicine | DX: D50.9 Iron deficiency anemia, unspecified (principal) | CPT/HCPCS: 96365; J1756 ==

== ENCOUNTER 2023-04-17 13:45 | Outpatient (REF) | payer OTHER, SELFPAY | END 2023-04-17 13:46 | disposition home or self-care (01) | LOC: HO.MDS 13:45 | PROVIDERS: Visit Provider Internal Medicine | DX: D50.9 Iron deficiency anemia, unspecified (principal) | CPT/HCPCS: 96374; J1756 ==

== ENCOUNTER 2023-04-24 13:40 | Outpatient (REF) | payer OTHER, SELFPAY | END 2023-04-24 13:41 | disposition home or self-care (01) | LOC: HO.MDS 13:40 | PROVIDERS: Visit Provider Internal Medicine | DX: D50.9 Iron deficiency anemia, unspecified (principal) | CPT/HCPCS: 96365; J1756; J2357 ==

== ENCOUNTER 2023-05-19 09:24 | Outpatient (REF) | payer OTHER, SELFPAY ==
[2023-05-22 11:39] LABS: HPV mRNA E6/E7 rflx Not Detected (Not Detected)
== END 2023-05-19 09:25 | disposition home or self-care (01) ==
LOC: HO.LNP 09:24
PROVIDERS: PCP Internal Medicine; Visit Provider Obstetrics & Gynecology
DX: Z01.419 Encounter for gynecological examination (general) (routine) without abnormal findings (principal); N85.2 Hypertrophy of uterus
CPT/HCPCS: 87624; 88142; 99386

== ENCOUNTER 2023-05-19 09:24 | Outpatient (AMB) | payer OTHER, SELFPAY ==
[2023-05-19 09:41] VITALS: BP 112/66; BMI 39.2
--- NOTE | 2023-05-19 09:41 | MHC.OFFVIS ---
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 Cyber Forensics Analyst Required: Yes Cyber Forensics Analyst Language: Shopfitter Name: Priscilla OMALLEY Information Interpreted: non-clinical & clinical Quality Assurance Test Program Manager: Quality Assurance Test Program Manager Present Accompanied by: Self / Same As Patient Allergies aspirin [ASPIRIN] Adverse Reaction (Intermediate, Verified 05/19/23 09:43) ULCER; GI UPSET, internal bleeding dextran 40 Adverse Reaction (Verified 05/19/23 09:43) Itching Is last menstrual period known: Yes (last month) Last menstrual period: 04/24/23 Post menopausal: Yes Patient : No HPI HPI Comments History of Present Illness Details Presenting for annual exam. No complaints. Last Pap/HPV was in 2019, colpo biopsy ELIJAH 1, this was preceded by ELIJAH 1 in 2017, no Pap smear since then Last Mammogram was many years ago [facility] Medical History (Updated 05/19/23 @ 10:28 by Bronson Khan MD) ELIJAH I (cervical intraepithelial neoplasia I) Obesity, Class III, BMI 40-49.9 (morbid obesity) Smoker Depression Anxiety Insomnia Esophageal varices Diabetes mellitus Lower abdominal pain Allergic rhinitis Common cold Anxiety and depression Obesity (BMI 30-39.9) Smoker Hypersplenism Pancytopenia Bilateral calcaneal spurs Thrombocytopenia Ascites Iron deficiency anemia due to chronic blood loss History of esophageal varices Chronic pain of both feet Varicose veins of right lower extremity with inflammation Sprain of left knee IBS (irritable bowel syndrome) GERD (gastroesophageal reflux disease) Depression Dementia Liver disease Hypertension Surgical History History of D&C S/P TIPS (transjugular intrahepatic portosystemic shunt) (~10/2015) History of liver biopsy (~04/2002) History of esophagogastroduodenoscopy (EGD) Family History Father Diabetes mellitus Mother Diabetes mellitus Alzheimer's dementia Pneumothorax Maternal Aunt Ovarian cancer Daughter No problems noted. Maternal Aunt Cervical cancer Maternal Grandfather Pancreatic cancer Social History Housing: Apartment Alcohol intake: current Alcohol intake frequency: holidays/special occasions only Patient Tobacco Use Status: Current everyday Tobacco user Cigarettes Per Day: 10 Years Smoked: 8 years Patient : No Cognitive needs: No Hearing needs: No Vision needs: No Female Reproductive History Menstrual Age of Menarche: 8 Duration of menses: 8-10 days Date of last menstrual period: 04/24/23 control method: none Total pregnancies: 2 Full term: 1 Ab spontaneous: 1 Review of Systems Const All systems reviewed & are unremarkable except as noted in HPI and below Card Reports as per HPI Resp Reports as per HPI GI Reports as per HPI and Reports no additional complaints Reports as per HPI Physical Exam Vital Signs: Last Vital Signs BP 112/66 05/19/23 09:41 BMI result Body Mass Index 39.2 Const General: cooperative, healthy appearing and comfortable Chest Chest palpation & inspection: normal inspection of the chest and normal palpation of entire chest wall Breast/axilla inspection: normal inspection of the breasts and normal inspection of the axillae Breast/axilla palpation: normal palpation of the breasts, normal palpation of the axillae and no axillary lymphadenopathy Resp Effort & Inspection: normal respiratory effort Auscultation: clear to auscultation bilaterally Percussion: percussion normal Cardio Palpation: normal PMI Rate: regular rate Rhythm: regular rhythm Heart sounds: no murmurs and no rubs Peripheral pulses: Peripheral pulses 2+ throughout GI Inspection: Yes normal to inspection Palpation (GI): Soft to palpation, nontender, no guarding, not rigid and No hepatosplenomegaly present Percussion: Yes normal to percussion Auscultation: normal bowel sounds Rectal Exam - Female: deferred General: Yes bladder normal to palpation External Female Exam: No lesion Speculum Exam - Vagina: normal appearance of the vagina, normal palpation, normal vaginal discharge and not erythematous Speculum Exam - Cervix: normal appearance of the cervix and normal palpation Bimanual exam- vagina & uterus: normal bimanual exam, normal palpation, uterine size normal, bladder normal to palpation, consistency normal, normal palpation and enlarged Bimanual Exam- Adnexa, other: normal adnexae, no masses and no tenderness Assessment & Plan Assessment & Plan (1) Well woman exam: Code(s): Z01.419 - Encounter for gynecological examination (general) (routine) without abnormal findings Plan: Cotesting done. Mammogram ordered. Counseled the patient about the recommended dietary allowance of 1000 mg of Calcium & 600 IU of vitamin D. The patient was instructed to perform monthly self-breast exams and to schedule an annual exam in a year; All questions answered and the patient verbalized understanding. Instructed the patient to schedule annual exam in a year (2) Enlarged uterus: Code(s): N85.2 - Hypertrophy of uterus Plan: Discussed with the patient the finding on pelvic exam, enlarged uterus. Pelvic ultrasound order. Instructions given the patient to schedule an ultrasound follow-up appointment. Orders: Orders US pelvic and transvaginal Today N85.2 - Hypertrophy of uterus MM tomosynthesis screening BI Today Z12.31 - Encounter for screening mammogram for malignant neoplasm of breast Coding Level of Care Code New Pt Prev Care 40-64y(59879) Diagnoses Well woman exam Z01.419 Enlarged uterus N85.2
== END 2023-05-19 10:31 | disposition home or self-care (01) ==
LOC: HO.HWS 09:25
PROVIDERS: PCP Internal Medicine; Visit Provider Obstetrics & Gynecology
DX: Z01.419 Encounter for gynecological examination (general) (routine) without abnormal findings (principal); N85.2 Hypertrophy of uterus
CPT/HCPCS: 99386

== ENCOUNTER 2023-05-23 10:52 | Outpatient (REF) | payer OTHER, SELFPAY ==
[2023-05-23 10:53] VITALS: BP 133/71; PULSE 66; RESP 16; TEMP 36.7; O2SAT 96
[2023-05-23] MEDS: Iron Sucrose Complex 200 MG in 0.9 % Sodium Chloride 100 ML 440 MG IV (11:26)
== END 2023-05-23 10:53 | disposition home or self-care (01) ==
LOC: HO.MDS 10:52
PROVIDERS: Visit Provider Internal Medicine
DX: D50.9 Iron deficiency anemia, unspecified (principal)
CPT/HCPCS: 96365; J1756

== ENCOUNTER 2023-06-03 11:20 | Outpatient (REF) | payer OTHER, SELFPAY ==
--- NOTE | ~2023-06-03 | US_ITS ---
EXAM: Pelvic Ultrasound CLINICAL INDICATION: Uterine hypertrophy COMPARISON: Pelvic ultrasound 10/21/2019 TECHNIQUE: The pelvis was evaluated using transabdominal and transvaginal imaging. FINDINGS: The uterus measures 12.8 x 3.7 x 4.5 cm in longitudinal by AP by transverse dimension. The endometrial stripe is thickened measuring up to 1.7 cm. There is a 1.2 cm echogenic focus within the endometrium which possibly represents a polyp. There are a few fibroids identified within the uterus, largest measuring 2.6 cm. Free fluid and nabothian cysts are noted within the cervix. There is a 1.1 cm echogenic focus within the cervix which may also represent a polyp. The left ovary measures approximately 2.2 x 2.3 x 2.0 cm and is normal. The right ovary was not clearly visualized. There is a small amount of free fluid within the pelvis. US/US pelvic and transvaginal IMPRESSION: 1. Thickened endometrium measuring up to 1.7 cm. There is a suspected 1.2 cm endometrial polyp. Direct inspection/biopsy recommended. 2. There is a 1.1 cm echogenic focus within the cervix which may also represent a polyp. Direct inspection/biopsy may be warranted. 3. Fibroid uterus. 4. Small amount of free fluid within the pelvis.
== END 2023-06-03 11:21 | disposition home or self-care (01) ==
LOC: HO.US 11:20
PROVIDERS: PCP Internal Medicine; Visit Provider Obstetrics & Gynecology
DX: N85.2 Hypertrophy of uterus (principal)
CPT/HCPCS: 76830; 76856

== ENCOUNTER 2023-06-03 13:02 | Outpatient (REF) | payer OTHER, SELFPAY ==
[2023-06-03 13:02] VITALS: BP 119/57; PULSE 73; RESP 16; TEMP 36.6; O2SAT 98
[2023-06-03] MEDS: Iron Sucrose Complex 200 MG in 0.9 % Sodium Chloride 100 ML 440 MG IV (13:11)
== END 2023-06-03 13:03 | disposition home or self-care (01) ==
LOC: HO.MDS 13:02
PROVIDERS: Visit Provider Internal Medicine
DX: D50.9 Iron deficiency anemia, unspecified (principal)
CPT/HCPCS: 96365; J1756

== ENCOUNTER 2023-06-11 14:15 | Outpatient (AMB) | payer OTHER, SELFPAY ==
--- NOTE | 2023-06-11 14:21 | A.OFFPC_ITS ---
Vital Signs 06/11/23 14:23 Height 5 ft 2 in Weight 220 lb BMI 40.2 BP 122/70 Blood Pressure Location Lt brachial Position Sitting Pulse 70 Pulse Source Pulse Oximeter Pulse Oximetry (%) 98 Oxygen Delivery Method Room Air Intake Visit Reasons: DM, liver disease Intake Note: Patient is here to follow up on DM, Liver disease. Registered Dietetic Technician Required: No Bulkhead Carpenter: Not Required per policy Accompanied by: Self / Same As Patient Allergies aspirin [ASPIRIN] Adverse Reaction (Intermediate, Verified 06/11/23 15:01) ULCER; GI UPSET, internal bleeding dextran 40 Adverse Reaction (Verified 06/11/23 15:01) Itching Medication List - Last Reconciled 06/11/23 by David Elizabeth MD albuterol sulfate 90 mcg/actuation 2 puffs PO Q6H PRN 30 days clonidine HCl 0.2 mg PO BEDTIME 30 days famotidine 20 mg PO BID 30 days fluticasone propionate 50 mcg/actuation 1 spray intranasal DAILY PRN furosemide (Lasix) 20 mg PO QAM 30 days hydrochlorothiazide 12.5 mg PO DAILY 30 days hydroxyzine pamoate 25 mg PO BID PRN 30 days loratadine 10 mg PO DAILY PRN 90 days metformin 500 mg PO BID 30 days nicotine 1 patch transdermal DAILY 7 days nicotine 1 patch transdermal DAILY 7 days nicotine 1 patch transdermal Q24H 28 days pantoprazole 40 mg PO DAILY 30 days prazosin 1 mg PO BEDTIME 30 days sertraline 100 mg PO DAILY 30 days spironolactone 50 mg PO QAM 30 days trazodone 50 mg PO BEDTIME PRN 30 days Tobacco use date assessed: 06/11/23 Dental Screening Dental Screen Date: 06/11/23 Did you have a dental visit in the last 12 months?: Yes Did you have a dental problem in the last 6 months where you did not have access to dental care?: No Was dental information given to patient?: Patient has dentist HPI DM, liver disease HPI Details Patient comes in today for her follow up visit States that she currently feels okay She received some blood transfusion through Dr. Dickens a couple of months ago and has been receiving IV Venofer since - states that she is feeling a lot better and less fatigued lately Reports that for the past few months, she has noticed that most of everything she tries to swallow feels like they get stuck in her throat often and she has a hard time clearing her throat up and pushing what she feels is stuck in her throat down even when she tries to drink a lot of water She denies any sore throat or any recent cough/cold symptoms She denies any headaches or dizziness Denies any chest pains, no SOB No nausea/vomiting, no abdominal pain No change in bowel habits noted Needs all of her Rx refilled Would also like to request for Rx for nicotine patches to help her quit smoking - states that she is currently still smoking up to 15 cigarettes a day [facility] Medical History ELIJAH I (cervical intraepithelial neoplasia I) Obesity, Class III, BMI 40-49.9 (morbid obesity) Smoker Depression Anxiety Insomnia Esophageal varices Diabetes mellitus Lower abdominal pain Allergic rhinitis Common cold Anxiety and depression Obesity (BMI 30-39.9) Smoker Hypersplenism Pancytopenia Bilateral calcaneal spurs Thrombocytopenia Ascites Iron deficiency anemia due to chronic blood loss History of esophageal varices Chronic pain of both feet Varicose veins of right lower extremity with inflammation Sprain of left knee IBS (irritable bowel syndrome) GERD (gastroesophageal reflux disease) Depression Dementia Liver disease Hypertension Surgical History History of D&C S/P TIPS (transjugular intrahepatic portosystemic shunt) (~10/2015) History of liver biopsy (~04/2002) History of esophagogastroduodenoscopy (EGD) Family History Father Diabetes mellitus Mother Diabetes mellitus Alzheimer's dementia Pneumothorax Maternal Aunt Ovarian cancer Daughter No problems noted. Maternal Aunt Cervical cancer Maternal Grandfather Pancreatic cancer Other Mental health disorder Social History Housing: Apartment Alcohol intake: current Alcohol intake frequency: holidays/special occasions only Patient Tobacco Use Status: Current everyday Tobacco user Tobacco use type: Cigarette Cigarette Packs Per Day: 0.5 Cigarettes Per Day: 10 Years Smoked: 8 years e-Cigarette/Vaping Use: Never Used Second Hand Smoke Exposure: Yes service: No Cognitive needs: No Hearing needs: No Vision needs: No Female Reproductive History Menstrual Age of Menarche: 8 Questionnaire PHQ-9 Over the last 2 weeks, how often have you been bothered by any of the following problems? 1. Little interest or pleasure in doing things: not at all 2. Feeling down, depressed, or hopeless: not at all 3. Trouble falling or staying asleep, or sleeping too much: not at all 4. Feeling tired or having little energy: not at all 5. Poor appetite or overeating: not at all 6. Feeling bad about yourself - or that you are a failure or have let yourself or your family down: not at all 7. Trouble concentrating on things, such as reading the newspaper or watching television: not at all 8. Moving or speaking so slowly that other people could have noticed. Or the opposite - being so fidgety or restless that you have been moving around a lot more than usual: not at all 9. Thoughts that you would be better off or of hurting yourself in some way: not at all Total score: 0 Depression Screening Interpretation: Negative Depression Screening Done: Yes 35051 - PHQ-9 Billing: Yes Source: Developed by Drs. Rashaad Franklin, Rosana Lechuga, Noé Neil and colleagues, with an educational marika from [employer]. Thrive Questionnaire Date Thrive assessed: 06/11/23 I am a: Patient What is your living situation today?: I have a steady place to live Within the past 12 months, did the food you bought not last and you didn't have the money to get more?: Never true Within the past 12 months, did you worry whether your food would run out before you got money to buy more?: Never true Do you have trouble paying for medicines?: No Do you have trouble getting transportation to medical appointments?: No Do you have trouble paying your heating and electricity bill?: No Do you have trouble taking care of your child, family member or friend?: No Do you have trouble with day-to-day activities such as bathing, preparing meals, shopping, managing finances, etc.?: No Are you currently unemployed and looking for a job?: No Are you interested in more education?: No Currently or been in a relationship where the following occur: no concerns reported THRIVE Score: 0 AUDIT C Alcohol Use Questionnaire (AUDIT-C) 1. How often do you have a drink containing alcohol?: Monthly or less 2. How many drinks containing alcohol do you have on a typical day when you are drinking?: 1 or 2 Total Score: 1 Score Reviewed/Action Taken: Yes CALEB-7 AMB Questionnaire CALEB-7 Date CALEB - 7 assessed: 06/11/23 Feeling nervous, anxious, or on edge: 0 = Not at all Not being able to stop or control worryin = Not at all Worrying too much about different things: 0 = Not at all Trouble relaxin = Not at all Being so restless that it is hard to sit still: 0 = Not at all Becoming easily annoyed or irritable: 0 = Not at all Feeling afraid as if something awful might happen: 0 = Not at all Total CALEB-7 score (0-4 normal; 5-9 mild; 10-14 moderate; 15-21 severe): 0 Source: Developed by Drs. Rashaad Franklin, Rosana Lechuga, Noé Neil and colleagues, with an educational marika from [employer]. Review of Systems Const Denies chills, Denies fatigue, Denies fever(s) and Denies headache(s) ENT Reports dysphagia (see HPI), Denies dizziness, Denies otalgia, Denies headache(s), Denies neck pain, Denies odynophagia and Denies sore throat Card Denies chest pain, Denies palpitations and Denies dyspnea Resp Denies cough and Denies dyspnea GI Denies abdominal pain, Denies constipation, Reports dysphagia (see HPI), Denies heartburn, Denies diarrhea, Denies nausea, Denies odynophagia and Denies vomiting Denies difficulty voiding, Denies nocturia, Denies dysuria and Denies urinary urgency Musc Denies neck pain Skin/Breast Denies rash Neuro Denies dizziness and Denies headache(s) Endo Denies fatigue and Denies palpitations Physical exam (Primary Care) Vital Signs: Last Vital Signs Pulse 70 06/11/23 14:23 BP 122/70 06/11/23 14:23 Pulse Ox 98 06/11/23 14:23 Oxygen Delivery Method Room Air 06/11/23 14:23 BMI result Body Mass Index 40.2 Tobacco/Smoking Status: Tobacco use Status Tobacco use date assessed 06/11/23 06/11/23 14:32 Patient Tobacco Use Status Current everyday Tobacco 06/11/23 14:32 Tobacco use type Cigarette 06/11/23 14:32 e-Cigarette/Vaping Use Never Used 06/11/23 14:32 PHQ-9: PHQ-9 Score PHQ-9: Total score 0 06/11/23 14:32 Depression Screening Interpretation: Negative Thrive Assessment: Date of Thrive Assessment Date Thrive assessed 06/11/23 06/11/23 14:32 Currently or been in a relationship where the following occur: no concerns reported Const General: no acute distress and alert HENMT Ears: TM's normal bilaterally and EAC's normal Throat: Yes posterior oropharynx normal and Yes tonsils normal (no TP congestion) Neck Neck: Yes no lymphadenopathy and Yes supple Thyroid: Thyroid normal Resp Auscultation: clear to auscultation bilaterally, no rales and no wheezes Cardio Rate: regular rate Rhythm: regular rhythm Heart sounds: no murmurs GI Palpation (GI): Soft to palpation and nontender Auscultation: normal bowel sounds General: Yes no CVA tenderness Back/Spine/Pelvis Back: no CVA tenderness Skin Rashes: no rashes Extrem General: Yes no clubbing, cyanosis or edema Results AMB Hemoglobin A1c AMB Hemoglobin A1c 6.0 % Last Edit by LYSSA Woo on 06/11/23 14:34 Results Reviewed Results Reviewed: Laboratory Last Values Hgb A1c (Clinic) 6.0 % (4.0-6.0) 06/11/23 14:21 Laboratory Tests 03/24/23 03/24/23 03/24/23 09:00 09:00 09:30 WBC Hgb Hct Plt Count Sodium 137 Potassium 4.3 Creatinine 0.79 Estimated GFR > 60 Fasting Glucose 134 H Calcium 9.4 Iron TIBC 380 % Saturation 6 L AST 14 ALT 13 Liver GGT 9 Liver Fibrosis Stage F0 Triglycerides 104 Cholesterol 142 LDL Cholesterol, Calc 70 HDL Cholesterol 52 25-OH Vitamin D Total 29.5 L TSH 1.20 Ur Specific [place] 1.020 Urine Protein Negative Urine Glucose (UA) Negative Urine Blood Negative Urine Nitrite Negative Ur Leukocyte Esterase Negative 03/24/23 04/03/23 09:30 10:36 WBC 4.2 L Hgb 8.2 L Hct 28.0 L Plt Count 80 L Sodium Potassium Creatinine Estimated GFR Fasting Glucose Calcium Iron 21 L TIBC % Saturation AST ALT Liver GGT Liver Fibrosis Stage Triglycerides Cholesterol LDL Cholesterol, Calc HDL Cholesterol 25-OH Vitamin D Total TSH Ur Specific [place] Urine Protein Urine Glucose (UA) Urine Blood Urine Nitrite Ur Leukocyte Esterase Assessment and Plan Assessment & Plan (1) Diabetes mellitus: Code(s): E11.9 - Type 2 diabetes mellitus without complications Qualifiers: Diabetes mellitus type: type 2 Diabetes mellitus [facility] insulin use: without truck terminal manager use Diabetes mellitus complication status: without complication Qualified Code(s): E11.9 - Type 2 diabetes mellitus without complications Plan: In-office HgbA1c done today is at 6.0%; was at 7.3% a couple of months ago - goal is at least <7.0% Reinforced diabetic diet Continue Metformin 500 mg BID Results of his labs done a couple of months ago reviewed and discussed with patient (2) Hypertension: Code(s): I10 - Essential (primary) hypertension Qualifiers: Hypertension type: primary hypertension Qualified Code(s): I10 - Essential (primary) hypertension Plan: Reinforced low sodium diet - goal is systolic BP of at least 130 mm or less Continue HCTZ 12.5 mg QD (3) Liver disease: Comment: Pre-hepatic portal hypertension Code(s): K76.9 - Liver disease, unspecified Plan: Patient has non-cirrhotic portal hypertension complicated by esophageal varices and with past Hx of GI bleeding She is S/P TIPS placement at [facility] in 10/2015, with no GI bleeding since She was seeing Dr. Mendoza for GI follow up but has not been back to see her since 2020 Her last imaging studies were done in 2019 - abdominal and pelvic CT in 10/2019 and abdominal US in 09/2019. Both tests showed (+) patent right TIPS stent at the time, with no free fluid or ascites noted Continue Spironolactone 50 mg QD and Furosemide 20 mg QD Follow up with GI as scheduled - she has appt scheduled to see Dr. Mendoza in August 2023 (4) Thrombocytopenia: Code(s): D69.6 - Thrombocytopenia, unspecified Plan: Is most likely related to her hyperspenism / splenomegaly and liver disease Patient relates no increased bleeding lately Will have her recheck her labs in 3 months for follow up (5) Anemia: Code(s): D64.9 - Anemia, unspecified Qualifiers: Anemia type: iron deficiency Iron deficiency anemia type: chronic blood loss Qualified Code(s): D50.0 - Iron deficiency anemia secondary to blood loss (chronic) Plan: Most likely due to iron-deficiency anemia related to chronic blood loss Her H/H were normal when last checked in September 2020 and again on her labs done a couple of months ago She was supposed to get a hysterectomy at [facility] done a couple of years ago but cancelled this due to the COVID-19 pandemic Follow up with Dr. Dickens as scheduled - she is now receiving IV Venofer as needed for her anemia (6) Dysphagia: Code(s): R13.10 - Dysphagia, unspecified Qualifiers: Dysphagia type: unspecified Qualified Code(s): R13.10 - Dysphagia, unspecified Plan: Will send her for a barium swallow for further evaluation (7) Esophageal varices: Code(s): I85.00 - Esophageal varices without bleeding Qualifiers: Esophageal varices type: secondary Esophageal varices bleeding: without bleeding Qualified Code(s): I85.10 - Secondary esophageal varices without bleeding Plan: Are most likely secondary to her portal hypertension - has had no active bleeding lately Continue Famotidine 20 mg BID She was started back on Pantoprazole 40 mg QD a couple of months ago Follow up with GI as scheduled (8) Allergic rhinitis: Code(s): J30.9 - Allergic rhinitis, unspecified Qualifiers: Allergic rhinitis trigger: unspecified Allergic rhinitis seasonality: unspecified Qualified Code(s): J30.9 - Allergic rhinitis, unspecified Plan: Continue Fluticasone nasal spray 50 mcg QD PRN and Loratadine 10 mg QD PRN (9) Insomnia: Code(s): G47.00 - Insomnia, unspecified Qualifiers: Insomnia type: unspecified Qualified Code(s): G47.00 - Insomnia, unspecified Plan: Sleep hygiene reinforced Continue Trazodone 50 mg Q HS and Prazosin 1 mg Q HS (10) Anxiety: Code(s): F41.9 - Anxiety disorder, unspecified Plan: Continue Hydroxyzine 25 mg BID, Sertraline 100 mg QD and Clonidine 0.2 mg Q HS Follow up with psychiatry as scheduled (11) Depression: Code(s): F32.A - Depression, unspecified Qualifiers: Depression Type: major depressive disorder Major depression recurrence: recurrent Active/Remission status: currently active Major depression episode severity: unspecified Qualified Code(s): F33.9 - Major depressive disorder, recurrent, unspecified Plan: Continue Sertraline 100 mg QD Follow up with psychiatry as scheduled (12) Smoker: Code(s): F17.200 - Nicotine dependence, unspecified, uncomplicated Plan: Counseled again on smoking cessation Per request, will send in Rx for nicotine patches to help her quit smoking (13) Obesity, Class III, BMI 40-49.9 (morbid obesity): Code(s): E66.01 - Morbid (severe) obesity due to excess calories Plan: Reinforced diet/exercise as tolerated/lose weight Plan Follow up in 3 months Orders: Orders Comprehensive [place]. Panel Fast 3 Months E78.00 - Pure hypercholesterolemia, unspecified UA CC w/rflx Micro + Cult 3 Months R30.0 - Dysuria Vitamin D 25-OH Total 3 Months E55.9 - Vitamin D deficiency, unspecified Microalbumin, Random (w Creat) 3 Months E11.9 - Type 2 diabetes mellitus without complications Hemoglobin A1c 3 Months E11.9 - Type 2 diabetes mellitus without complications AMB Hemoglobin A1c Today E11.9 - Type 2 diabetes mellitus without complications [place] barium swallow Today R13.10 - Dysphagia, unspecified Complete Blood Count Auto Diff 3 Months D64.9 - Anemia, unspecified Lipid Panel 3 Months E78.00 - Pure hypercholesterolemia, unspecified TSH reflex Free T4 3 Months E78.00 - Pure hypercholesterolemia, unspecified Medications: New nicotine 1 patch transdermal DAILY 7 days 7 ea 0RF F17.200 - Nicotine dependence, unspecified, uncomplicated nicotine 1 patch transdermal DAILY 7 days 7 ea 0RF F17.200 - Nicotine dependence, unspecified, uncomplicated nicotine 1 patch transdermal Q24H 28 days 28 ea 5RF F17.200 - Nicotine dependence, unspecified, uncomplicated Changed From albuterol sulfate 90 mcg/actuation 2 puffs PO Q6H PRN 6.7 grams 0RF Wheezing To albuterol sulfate 90 mcg/actuation 2 puffs PO Q6H 30 days PRN 8.5 grams 5RF shortness of breath or wheezing Refilled furosemide (Lasix) 20 mg PO QAM 30 days 30 tabs 2RF R18.8 - Other ascites hydrochlorothiazide 12.5 mg PO DAILY 30 days 30 tabs 2RF I10 - Essential (primary) hypertension metformin 500 mg PO BID 30 days 60 tabs 2RF pantoprazole 40 mg PO DAILY 30 days 30 tabs 2RF I85.10 - Secondary esophageal varices without bleeding prazosin 1 mg PO BEDTIME 30 days 30 caps 2RF spironolactone 50 mg PO QAM 30 days 30 tabs 2RF R18.8 - Other ascites clonidine HCl 0.2 mg PO BEDTIME 30 days 30 tabs 2RF famotidine 20 mg PO BID 30 days 60 tabs 2RF K21.9 - Gastro-esophageal reflux disease without esophagitis fluticasone propionate 50 mcg/actuation 1 spray intranasal DAILY PRN 16 mL 2RF allergy symptoms sertraline 100 mg PO DAILY 30 days 30 tabs 2RF F33.9 - Major depressive disorder, recurrent, unspecified, F41.9 - Anxiety disorder, unspecified trazodone 50 mg PO BEDTIME 30 days PRN 30 tabs 2RF insomnia Coding Level of Care Code Est Pt Level 4 (10026) Diagnoses Type 2 diabetes mellitus without complication, without long-term current use of insulin E11.9 Diabetes mellitus type: type 2 Diabetes mellitus [facility] insulin use: without truck terminal manager use Diabetes mellitus complication status: without complication Primary hypertension I10 Hypertension type: primary hypertension Liver disease K76.9 Thrombocytopenia D69.6 Iron deficiency anemia due to chronic blood loss D50.0 Anemia type: iron deficiency Iron deficiency anemia type: chronic blood loss Dysphagia, unspecified type R13.10 Dysphagia type: unspecified Secondary esophageal varices without bleeding I85.10 Esophageal varices type: secondary Esophageal varices bleeding: without bleeding Allergic rhinitis, unspecified seasonality, unspecified trigger J30.9 Allergic rhinitis trigger: unspecified Allergic rhinitis seasonality: unspecified Insomnia, unspecified type G47.00 Insomnia type: unspecified Anxiety F41.9 Episode of recurrent major depressive disorder, unspecified depression episode severity F33.9 Depression Type: major depressive disorder Major depression recurrence: recurrent Active/Remission status: currently active Major depression episode severity: unspecified Smoker F17.200 Obesity, Class III, BMI 40-49.9 (morbid obesity) E66.01
[2023-06-11 14:23] VITALS: BP 122/70; PULSE 70; O2SAT 98; BMI 40.2
== END 2023-06-11 14:54 | disposition home or self-care (01) ==
PROVIDERS: PCP Internal Medicine; Visit Provider Internal Medicine
DX: E11.9 Type 2 diabetes mellitus without complications (principal)
CPT/HCPCS: 83036; 99214

== ENCOUNTER → 2023-06-16 13:45 | Outpatient (BNV) | payer OTHER, SELFPAY | PROVIDERS: PCP Internal Medicine; Visit Provider Radiology Diagnostic Radiology | DX: Z12.31 Encounter for screening mammogram for malignant neoplasm of breast (principal) | CPT/HCPCS: 77063; 77067 ==

== ENCOUNTER 2023-06-16 13:46 | Outpatient (REF) | payer OTHER, SELFPAY ==
--- NOTE | ~2023-06-16 | MM_ITS ---
EXAMINATION: MM SCREENING DIGITAL BREAST TOMOSYNTHESIS, BILATERAL CLINICAL INFORMATION: Screening. Asymptomatic. COMPARISON: Mammography: This is a baseline mammogram. TECHNIQUE: Digital breast tomosynthesis is performed in both the craniocaudal and mediolateral oblique views along with computer-aided detection (CAD). Synthesized 2D images are generated from the tomosynthesis. FINDINGS: The breasts are heterogeneously dense, which may obscure small masses (ACR BI-RADS breast composition Category c). There are no significant masses, abnormal calcifications, or other abnormalities. MM/MM tomosynthesis screening BI IMPRESSION: No mammographic evidence of malignancy. ASSESSMENT: BI-RADS BI-RADS 1 - Negative RECOMMENDATION: Routine annual mammography screening. 1 year F/U This examination should not preclude the clinical evaluation of a suspicious palpable abnormality. This patient's information was entered into a reminder system with a target due date for their next mammogram.
== END 2023-06-16 13:47 | disposition home or self-care (01) ==
LOC: HO.MAMMO 13:46
PROVIDERS: PCP Internal Medicine; Visit Provider Obstetrics & Gynecology
DX: Z12.31 Encounter for screening mammogram for malignant neoplasm of breast (principal)
CPT/HCPCS: 77063; 77067

== ENCOUNTER 2023-06-30 11:40 | Emergency (ER) | payer OTHER, SELFPAY ==
--- NOTE | ~2023-06-30 | US_ITS ---
EXAMINATION: US PELVIS CLINICAL INFORMATION: Right ovarian torsion or cyst LMP: This month COMPARISON: Pelvic ultrasound 06/03/2023 TECHNIQUE: Ultrasound of the pelvis is performed using both transabdominal and transvaginal transducers along with Doppler. Transvaginal imaging is performed due to inadequate visualization transabdominally. Technically limited study due to body habitus and bowel gas. FINDINGS: Uterus: The uterus is anteverted and measures 11.2 x 4.7 x 5.1 cm. There are multiple fibroids including: ? 1.7 x 1.9 x 1.6 cm left fibroid,? Previously measured 2.6 x 2.4 x 2.3 cm 1.5 x 0.9 x 1.2 cm right posterior fundal fibroid previously measured 1.7 x 1.5 x 1.5 cm 1.1 x 0.8 x 0.9 cm anterior fundal fibroid previously measured 0.8 x 0.7 x 1.3 cm The endometrial thickness is 0.7 cm. Fluid is seen within the endocervical canal. Adnexa: The right ovary is not seen. The left ovary measures 1.2 x 2.5 x 1.7 cm. Volume 2.7 mL. The ovary is normal in appearance with normal arterial and venous flow. US/US pelvic and transvaginal IMPRESSION: 1. Multiple uterine fibroids. 2. Normal left ovary. 3. The right ovary is not seen.
--- NOTE | ~2023-06-30 | CT_ITS ---
EXAMINATION: CT ABDOMEN AND PELVIS WITHOUT CONTRAST CLINICAL INFORMATION: Right abdominal pain. Query kidney stone, appendicitis, ovarian cyst. COMPARISON: CT abdomen pelvis dated 10/26/2019. Pelvic ultrasound dated 06/30/2023. TECHNIQUE: Multidetector volumetric imaging was performed from the superior aspect of the liver through the pubic symphysis. Sagittal and coronal reformatted images were obtained on the technologist's workstation. This CT examination was performed using dose optimization techniques as appropriate, variously including the following: *Automated exposure control *Adjustment of mA and/or kV according to patient size (this includes techniques or standardized protocols for targeted exams where dose is matched to indication/reason for exam; i.e. extremities or head) *Use of iterative reconstruction technique DLP: 805 mGy-cm FINDINGS: LUNG BASES: The visualized lung bases are unremarkable. LIVER, GALLBLADDER, AND BILIARY TREE: The TIPS stent is redemonstrated. The liver is normal in size, shape, and attenuation. No focal hepatic lesion or biliary ductal dilatation is present. The gallbladder is unremarkable with no evidence of radiopaque gallstones, gallbladder wall thickening, or obvious pericholecystic inflammatory changes. PANCREAS: Unremarkable. SPLEEN: The spleen remains moderately enlarged, measuring up to 17 cm in length. It does appear, however, smaller than on the prior CT abdomen pelvis dated 10/26/2019. ADRENAL GLANDS: Unremarkable. KIDNEYS AND URETERS: The kidneys are normal in size, shape, and attenuation. No hydronephrosis, hydroureter, or calculi seen. No perinephric stranding. BLADDER: Unremarkable. GASTROINTESTINAL TRACT: The small bowel and colon are normal in caliber. There is no pericolonic inflammatory stranding. The appendix is normal in appearance. No free fluid within the abdomen or pelvis. ABDOMINAL WALL: Small fat-containing umbilical hernia. LYMPH NODES: No lymphadenopathy. VASCULAR: No abdominal aortic aneurysm. PELVIC VISCERA: The uterus is a lobular configuration. Suspect underlying fibroids. No adnexal mass. OSSEOUS STRUCTURES: Mild degenerative changes of the spine. CT/CT abdomen pelvis wo IV con IMPRESSION: No acute intra-abdominal/intrapelvic abnormality. The TIPS stent is redemonstrated. The spleen remains moderately enlarged, measuring up to 17 cm in length. It does appear, however, smaller than on the prior CT examination. No renal calculi. The appendix is normal in appearance. No adnexal mass lesion. Fleischner guidelines were followed.
--- NOTE | ~2023-06-30 | US_ITS ---
EXAMINATION: US PELVIS CLINICAL INFORMATION: Right ovarian torsion or cyst LMP: This month COMPARISON: Pelvic ultrasound 06/03/2023 TECHNIQUE: Ultrasound of the pelvis is performed using both transabdominal and transvaginal transducers along with Doppler. Transvaginal imaging is performed due to inadequate visualization transabdominally. Technically limited study due to body habitus and bowel gas. FINDINGS: Uterus: The uterus is anteverted and measures 11.2 x 4.7 x 5.1 cm. There are multiple fibroids including: ? 1.7 x 1.9 x 1.6 cm left fibroid,? Previously measured 2.6 x 2.4 x 2.3 cm 1.5 x 0.9 x 1.2 cm right posterior fundal fibroid previously measured 1.7 x 1.5 x 1.5 cm 1.1 x 0.8 x 0.9 cm anterior fundal fibroid previously measured 0.8 x 0.7 x 1.3 cm The endometrial thickness is 0.7 cm. Fluid is seen within the endocervical canal. Adnexa: The right ovary is not seen. The left ovary measures 1.2 x 2.5 x 1.7 cm. Volume 2.7 mL. The ovary is normal in appearance with normal arterial and venous flow. US/US pelvic ovarian doppler IMPRESSION: 1. Multiple uterine fibroids. 2. Normal left ovary. 3. The right ovary is not seen.
[2023-06-30 12:26] VITALS: BP 136/57; PULSE 75; RESP 16; TEMP 36.6; O2SAT 98; BMI 39.9
--- NOTE | 2023-06-30 12:35 | ED.GENADULT ---
HPI - General Adult General Chief complaint: Abdominal Pain Stated complaint: Back pain/Leg pain ? Time Seen by Provider: 06/30/23 13:59 Source: patient and family Mode of arrival: ambulatory Limitations: no limitations History of Present Illness HPI narrative: 43-year-old female came in for evaluation of suprapubic abdominal pain and right lower quadrant pain radiates to right flank area pain started a week ago started as intermittent pain, pain became constant since yesterday, declined dysuria, hematuria, and urinary frequency, last bowel movement was normal this morning with normal color and patient is passing flatus, no past intra-abdominal surgery, no vaginal bleed or discharge, patient declined being today. OBGYN exam by environmental protection officer last month revealed hypertrophy of uterus. Related Data Previous Rx's ?Medication ?Instructions ?Recorded loratadine 10 mg tablet 10 mg PO DAILY PRN allergy 02/19/23 symptoms 90 days #90 tabs hydroxyzine pamoate 25 mg capsule 25 mg PO BID PRN anxiety 30 days 05/19/23 #60 caps albuterol sulfate 90 mcg/actuation 2 puff PO Q6H PRN shortness of 06/11/23 aerosol inhaler breath or wheezing 30 days #8.5 grams clonidine HCl 0.2 mg tablet 0.2 mg PO BEDTIME 30 days #30 tabs 06/11/23 famotidine 20 mg tablet 20 mg PO BID 30 days #60 tabs 06/11/23 fluticasone propionate 50 1 spray intranasal DAILY PRN 06/11/23 mcg/actuation nasal allergy symptoms #16 mL spray,suspension furosemide 20 mg tablet (Lasix) 20 mg PO QAM 30 days #30 tabs 06/11/23 hydrochlorothiazide 12.5 mg tablet 12.5 mg PO DAILY 30 days #30 tabs 06/11/23 metformin 500 mg tablet 500 mg PO BID 30 days #60 tabs 06/11/23 nicotine 14 mg/24 hr daily 1 patch transdermal DAILY 7 days 06/11/23 transdermal patch #7 ea nicotine 21 mg/24 hr daily 1 patch transdermal DAILY 7 days 06/11/23 transdermal patch #7 ea nicotine 7 mg/24 hr daily 1 patch transdermal Q24H 28 days 06/11/23 transdermal patch #28 ea pantoprazole 40 mg tablet,delayed 40 mg PO DAILY 30 days #30 tabs 06/11/23 release prazosin 1 mg capsule 1 mg PO BEDTIME 30 days #30 caps 06/11/23 sertraline 100 mg tablet 100 mg PO DAILY 30 days #30 tabs 06/11/23 spironolactone 50 mg tablet 50 mg PO QAM 30 days #30 tabs 06/11/23 trazodone 50 mg tablet 50 mg PO BEDTIME PRN insomnia 30 06/11/23 days #30 tabs Allergies Allergy/AdvReac Type Severity Reaction Status Date / Time aspirin [ASPIRIN] AdvReac Intermediate ULCER; GI Verified 06/30/23 12:27 UPSET, internal bleeding dextran 40 AdvReac Itching Verified 06/30/23 12:27 Review of Systems Review of Systems: all other systems are reviewed and are negative Constitutional: Reports as per HPI and Reports no additional constitutional complaints Eyes: Reports as per HPI and Reports no additional eye complaints Reports system reviewed and no additional complaints, except as documented Cardiovascular: Reports as per HPI and Reports no additional cardiovascular complaints Respiratory: Reports as per HPI and Reports no additional respiratory complaints Gastrointestinal: Reports as per HPI and Reports no additional gastrointestinal complaints Genitourinary: Reports no additional female genitourinary complaints Musculoskeletal: Reports no additional musculoskeletal complaints Skin/Breast: Reports system reviewed and no additional complaints, except as docu Psychiatric: Reports no additional psychiatric complaints Endocrine: Reports no additional endocrine complaints Hematologic/Lymphatic: Reports no additional hematologic/lymphatic complaints Allergic/Immunologic: Reports no additional allergic/immunologic complaints Reports system reviewed and no additional complaints, except as documented and Reports Abnormal speech present [facility] Past Medical History Medical History ELIJAH I (cervical intraepithelial neoplasia I) Obesity, Class III, BMI 40-49.9 (morbid obesity) Smoker Depression Anxiety Insomnia Esophageal varices Diabetes mellitus Lower abdominal pain Allergic rhinitis Common cold Anxiety and depression Obesity (BMI 30-39.9) Smoker Hypersplenism Pancytopenia Bilateral calcaneal spurs Thrombocytopenia Ascites Iron deficiency anemia due to chronic blood loss History of esophageal varices Chronic pain of both feet Varicose veins of right lower extremity with inflammation Sprain of left knee IBS (irritable bowel syndrome) GERD (gastroesophageal reflux disease) Depression Dementia Liver disease Hypertension Surgical History History of D&C S/P TIPS (transjugular intrahepatic portosystemic shunt) (~10/2015) History of liver biopsy (~04/2002) History of esophagogastroduodenoscopy (EGD) Family History Family History Father Diabetes mellitus Mother Diabetes mellitus Alzheimer's dementia Pneumothorax Maternal Aunt Ovarian cancer Daughter No problems noted. Maternal Aunt Cervical cancer Maternal Grandfather Pancreatic cancer Other Mental health disorder Social History Social History Housing: Apartment Alcohol intake: current Alcohol intake frequency: holidays/special occasions only Patient Tobacco Use Status: Current everyday Tobacco user Tobacco use type: Cigarette Cigarette Packs Per Day: 0.5 Cigarettes Per Day: 10 Years Smoked: 8 years e-Cigarette/Vaping Use: Never Used Second Hand Smoke Exposure: Yes Advance Directives: No Advance Directives Information Provided: No service: No Cognitive needs: No Hearing needs: No Vision needs: No Physical Exam ED Vital Signs: Vital Signs - 24 hr 06/30/23 12:26 06/30/23 15:27 Temperature 97.8 F 98.1 F Pulse Rate 75 53 Respiratory Rate 16 16 Blood Pressure 136/57 L 130/55 L Pulse Oximetry 98 99 Oxygen Delivery Method Room Air Room Air BMI result Body Mass Index 39.9 Vital signs have been reviewed and appear to be correct. Blood pressure elevated. Heart rate normal. Respiratory rate normal. Temperature normal. Oxygen saturation normal. Appearance: Alert. Oriented X3. No acute distress. Head: Normal external exam. Normocephalic. Atraumatic. No Patterson signs noted. No raccoon eyes noted Eyes: PERRLA. EOMI. Conjunctiva and sclera normal. Eyelids normal. ENT: TM's Normal. Pharynx normal. Uvula midline. Moist mucous membranes. No trismus noted. No drooling noted. No muffled voice noted. Neck: Normal inspection. Neck supple. FROM. No adenopathy. Thyroid Normal. No meningeal signs. No neck mass noted. CVS: Normal heart rate and rhythm. Heart sound normal. No murmurs noted. Pulses normal throughout. Respiratory: No respiratory distress. Painless inspiration. Breath sounds normal. No wheezes/rales/rhonchi noted. Chest nontender. No accessory muscle usage noted or decreased air movement noted. Abdomen: mild RLQ tenderness, no rebound tenderness, guarding.Bowel sounds normal in all 4 quadrants. No distention noted. No organomegaly noted. No visible injury noted. Back: R CVA tenderness. Full range of motion noted. Skin: Skin warm and dry. Normal skin color. Normal skin turgor. No rashes/lesions/lacerations noted. Extremities: No lower extremity edema. Extremities exhibit normal range of motion. Extremities nontender. Neuro: Oriented X 3. Cranial nerve exam: II-XII are grossly intact No motor deficit. No sensory deficit. Reflexes normal. Course Course Course Narrative: RME- 43-year-old female presents for evaluation of lower abdominal pain that radiates around to her right flank. Plan for labs and UA Reevaluation(s) Reevaluation #1: 43-year-old female presented for evaluation of chronic lower abdominal pain, CT abdomen pelvis reveals no acute intra abdominal pathology, ultrasound of the pelvis is consistent with multiple uterine fibroids, patient was instructed to follow-up with OBGYN. CBC/ chemistry/UA are unremarkable. Time: 17:46 Medical Decision Making Differential Diagnosis Differential Diagnoses: The differential diagnosis associated with the presentation includes ( Acute appendicitis, colitis, diverticulitis, renal colic, pyelonephritis, ovarian cyst, ovarian torsion, fibroid uterus, UTI, , electrolyte derangement, severe anemia.) Admission/Observation Consideration of admission/observation: Escalation of care including admission/observation considered Lab Data MDM Lab Attestation statement: I reviewed the patient's lab results. 06/30/23 14:10 06/30/23 14:10 Labs: Lab Results 06/30/23 06/30/23 06/30/23 Range/Units 14:10 14:39 15:30 WBC 4.8 (4.8-10.8) X10*3/uL RBC 4.46 (4.20-5.50) X10*6/uL Hgb 11.7 L D (12.0-16.0) g/dl Hct 35.7 L D (37.0-47.0) % MCV 80.0 (80.0-98.0) fL MCH 26.2 L (27.0-33.0) pg MCHC 32.8 (31.0-35.0) g/dl RDW 16.8 H (11.0-16.0) % Plt Count 75 L (160-400) X10*3/uL MPV 10.1 (9.4-12.3) fL Immature Gran % (Auto) 0.2 (0.0-0.4) % Neut % (Auto) 67.2 (45-73) % Lymph % (Auto) 24.6 (20-40) % [place] % (Auto) 6.4 (2-11) % Eos % (Auto) 1.0 (0-4) % Baso % (Auto) 0.6 (0-2) % Lymph # (Auto) 1.2 (1.2-4.9) X10*3/uL [place] # (Auto) 0.3 (0.1-1.2) X10*3/uL Eos # (Auto) 0.1 (0.0-0.4) X10*3/uL Baso # (Auto) 0.0 (0.0-0.2) X10*3/uL Abs Immat Gran (auto) 0.01 (0.00-0.03) X10*3/uL Absolute Neuts (auto) 3.2 (2.0-8.3) x10*3/uL Absolute Nucleated RBC 0.000 (0.0-0.012) X10*3/uL Nucleated RBC % (auto) 0.0 (0.0-0.2) /100WBC Sodium 138 (135-145) mmol/L Potassium 4.2 (3.3-5.1) mmol/L Chloride 106 (96-108) mmol/L Carbon Dioxide 25 (22-29) mmol/L Anion Gap 11 L (12-20) BUN 13 (9-16) mg/dL Creatinine 0.74 (0.5-1.4) mg/dL Estim Creat Clear Calc 106.7 Estimated GFR > 60 Random Glucose 136 H (60-115) mg/dL Calcium 9.6 (8.4-10.2) mg/dL Total Bilirubin 0.4 (0.0-1.0) mg/dL AST 19 (5-31) U/L ALT 20 (0-31) U/L Alkaline Phosphatase 62 (39-117) U/L Total Protein 7.0 (6.5-8.0) g/dL Albumin 4.1 (3.5-5.0) g/dL Lipase 24 (8-78) U/L Urine Color Yellow Urine Appearance Clear Urine pH 5.5 (5.0-9.0) Ur Specific [place] 1.015 (1.005-1.025) Urine Protein Negative (Neg-Trace) mg/dL Urine Glucose (UA) Negative (Negative) mg/dL Urine Ketones Trace (Negative) mg/dL Urine Blood Negative (Negative) Urine Nitrite Negative (Negative) Ur Leukocyte Esterase Negative (Negative) Urine RBC 0-2 (0-2) /HPF Urine WBC 0-5 (0-5) /HPF Ur Squamous Epith Cells 0-2 (0-2) /HPF Urine Bacteria None Seen (None Seen) Hyaline Casts 0-2 (0-2) /LPF Urine Test NEGATIVE (NEGATIVE) Independent Interpretation I performed an independent interpretation of an: Ultrasound ( Pelvis:1. Multiple uterine fibroids. 2. Normal left ovary. 3. The right ovary is not seen. ) and CT Scan ( CT abdomen pelvis:No acute intra-abdominal/intrapelvic abnormality. The TIPS stent is redemonstrated. The spleen remains moderately enlarged, measuring up to 17 cm in length. It does appear, however, smaller than on the prior CT examination. No renal calculi. The appendix is normal in appearan) Radiology Impression Discussion of test interpretation with radiology: I have reviewed the radiologist's reading. Discharge Plan Discharge Clinical Impression: Abdominal pain, Fibroid uterus Patient Disposition: Home, Self-Care Instructions: Abdominal Pain (ED) Prescriptions: No Action loratadine 10 mg tablet 10 mg PO DAILY PRN (Reason: allergy symptoms) 90 Days Qty: 90 3RF hydroxyzine pamoate 25 mg capsule 25 mg PO BID PRN (Reason: anxiety) 30 Days Qty: 60 0RF albuterol sulfate 90 mcg/actuation HFA aerosol inhaler 2 puff PO Q6H PRN (Reason: shortness of breath or wheezing) 30 Days Qty: 8.5 5RF clonidine HCl 0.2 mg tablet 0.2 mg PO BEDTIME 30 Days Qty: 30 2RF famotidine 20 mg tablet 20 mg PO BID 30 Days Qty: 60 2RF fluticasone propionate 50 mcg/actuation spray,suspension 1 spray intranasal DAILY PRN (Reason: allergy symptoms) Qty: 16 2RF furosemide [Lasix] 20 mg tablet 20 mg PO QAM 30 Days Qty: 30 2RF hydrochlorothiazide 12.5 mg tablet 12.5 mg PO DAILY 30 Days Qty: 30 2RF metformin 500 mg tablet 500 mg PO BID 30 Days Qty: 60 2RF pantoprazole 40 mg tablet,delayed release (DR/EC) 40 mg PO DAILY 30 Days Qty: 30 2RF prazosin 1 mg capsule 1 mg PO BEDTIME 30 Days Qty: 30 2RF sertraline 100 mg tablet 100 mg PO DAILY 30 Days Qty: 30 2RF spironolactone 50 mg tablet 50 mg PO QAM 30 Days Qty: 30 2RF trazodone 50 mg tablet 50 mg PO BEDTIME PRN (Reason: insomnia) 30 Days Qty: 30 2RF nicotine 21 mg/24 hr patch 24 hour 1 patch transdermal DAILY 7 Days Qty: 7 0RF nicotine 14 mg/24 hr patch 24 hour 1 patch transdermal DAILY 7 Days Qty: 7 0RF nicotine 7 mg/24 hr patch 24 hour 1 patch transdermal Q24H 28 Days Qty: 28 5RF Referrals: David Elizabeth MD [Primary Care Provider] - Bronson Khan MD [Physician] - Print Language: Uzbek
[2023-06-30 14:14] LABS: MANUAL DIFF FLAG NO
[2023-06-30 14:17] LABS: Basophils Percent Auto 0.6 % (0-2); Eosinophils Absolute Auto 0.1 X10*3/uL (0.0-0.4); Hematocrit 35.7 % (37.0-47.0); Hemoglobin 11.7 g/dl (12.0-16.0); Imm Gran Abs Auto 0.01 X10*3/uL (0.00-0.03); Imm Gran Pct Auto 0.2 % (0.0-0.4); Lymphocytes Absolute Auto 1.2 X10*3/uL (1.2-4.9); Lymphocytes Percent Auto 24.6 % (20-40); Mean Corpuscular HGB Conc 32.8 g/dl (31.0-35.0); Mean Corpuscular Hemoglobin 26.2 pg (27.0-33.0); Mean Platelet Volume 10.1 fL (9.4-12.3); Monocytes Absolute Auto 0.3 X10*3/uL (0.1-1.2); Monocytes Percent Auto 6.4 % (2-11); Neutrophils Absolute Auto 3.2 x10*3/uL (2.0-8.3); Neutrophils Percent Auto 67.2 % (45-73); Platelet Count 75 X10*3/uL (160-400); Red Blood Count 4.46 X10*6/uL (4.20-5.50); Red Cell Distribution Width 16.8 % (11.0-16.0); White Blood Count 4.8 X10*3/uL (4.8-10.8)
[2023-06-30 14:29] LABS: Alanine Aminotransferase 20 U/L (0-31); Albumin Level 4.1 g/dL (3.5-5.0); Alkaline Phosphatase 62 U/L (39-117); Anion Gap 11 (12-20); Aspartate Amino Transferase 19 U/L (5-31); Bilirubin Total 0.4 mg/dL (0.0-1.0); Blood Urea Nitrogen 13 mg/dL (9-16); Calcium 9.6 mg/dL (8.4-10.2); Carbon Dioxide 25 mmol/L (22-29); Chloride 106 mmol/L (96-108); Creatinine Clr Calc Pharmacy 106.7; Estimated Glomerular Filt Rate > 60; Glucose Random 136 mg/dL (60-115); Lipase 24 U/L (8-78); Potassium 4.2 mmol/L (3.3-5.1); Sodium 138 mmol/L (135-145)
[2023-06-30 14:46] LABS: Appearance Urine Clear; Color Urine Yellow; Glucose Urine UA Negative (Negative); Leukocyte Esterase Urine Negative (Negative); Nitrite Urine Negative (Negative); PH 5.5 (5.0-9.0); Specific Gravity - Urine 1.015 (1.005-1.025); Urine Blood Negative (Negative); Urine Ketones Trace mg/dL (Negative); Urine Protein Negative (Neg-Trace)
[2023-06-30 14:48] LABS: Bacteria Urine None Seen (None Seen); Hyaline Casts Urine 0-2 /LPF (0-2); RBC Urine 0-2 /HPF (0-2); Squamous Epithelial Cell Urine 0-2 /HPF (0-2); WBC Urine 0-5 /HPF (0-5)
[2023-06-30 15:27] VITALS: BP 130/55; PULSE 53; RESP 16; TEMP 36.7; O2SAT 99
[2023-06-30 15:53] LABS: UPreg QC Valid YES; Urine Pregnancy NEGATIVE (NEGATIVE)
[2023-06-30 18:07] VITALS: BP 130/55; PULSE 53; RESP 16; TEMP 36.7; O2SAT 99
== END 2023-06-30 18:08 | disposition home or self-care (01) ==
PROVIDERS: Physician Assistant; Emergency Provider Emergency Medicine; PCP Internal Medicine
DX: R10.31 Right lower quadrant pain (principal); D25.9 Leiomyoma of uterus, unspecified; E11.9 Type 2 diabetes mellitus without complications; I10 Essential (primary) hypertension
CPT/HCPCS: 36415; 74176; 76830; 76856; 80053; 81001; 81025; 83690; 85025; 93975; 99283; 99284

== ENCOUNTER 2023-08-05 09:03 | Outpatient (AMB) | payer OTHER, SELFPAY ==
[2023-08-05 10:13] VITALS: BP 110/72; BMI 39.9
--- NOTE | 2023-08-05 10:13 | MHC.OFFVIS ---
Vital Signs 08/05/23 10:13 Height 5 ft 2 in Weight 218 lb BMI 39.9 BP 110/72 Blood Pressure Location Lt brachial Position Sitting Intake Visit Reasons: Pre op Allergies aspirin [ASPIRIN] Adverse Reaction (Intermediate, Verified 07/14/23 15:39) ULCER; GI UPSET, internal bleeding dextran 40 Adverse Reaction (Verified 07/14/23 15:39) Itching HPI Comments Details: Presenting for ultrasound follow-up. The patient is complaining of heavy menstrual cycles associated with passage of blood clot. Pelvic ultrasound done in 06/07 showed the following: Uterus: The uterus is anteverted and measures 11.2 x 4.7 x 5.1 cm. There are multiple fibroids including: ? 1.7 x 1.9 x 1.6 cm left fibroid,? Previously measured 2.6 x 2.4 x 2.3 cm 1.5 x 0.9 x 1.2 cm right posterior fundal fibroid previously measured 1.7 x 1.5 x 1.5 cm 1.1 x 0.8 x 0.9 cm anterior fundal fibroid previously measured 0.8 x 0.7 x 1.3 cm The endometrial thickness is 0.7 cm. Fluid is seen within the endocervical canal. Adnexa: The right ovary is not seen. The left ovary measures 1.2 x 2.5 x 1.7 cm. Volume 2.7 mL. The ovary is normal in appearance with normal arterial and venous flow. Co testing done in 06/07 was negative Last mammogram in 07/08 was BI-RADS 1 [facility] Medical History ELIJAH I (cervical intraepithelial neoplasia I) Obesity, Class III, BMI 40-49.9 (morbid obesity) Smoker Depression Anxiety Insomnia Esophageal varices Diabetes mellitus Lower abdominal pain Allergic rhinitis Common cold Anxiety and depression Obesity (BMI 30-39.9) Smoker Hypersplenism Pancytopenia Bilateral calcaneal spurs Thrombocytopenia Ascites Iron deficiency anemia due to chronic blood loss History of esophageal varices Chronic pain of both feet Varicose veins of right lower extremity with inflammation Sprain of left knee IBS (irritable bowel syndrome) GERD (gastroesophageal reflux disease) Depression Dementia Liver disease Hypertension Surgical History History of D&C S/P TIPS (transjugular intrahepatic portosystemic shunt) (~10/2015) History of liver biopsy (~04/2002) History of esophagogastroduodenoscopy (EGD) Family History Father Diabetes mellitus Mother Diabetes mellitus Alzheimer's dementia Pneumothorax Maternal Aunt Ovarian cancer Daughter No problems noted. Maternal Aunt Cervical cancer Maternal Grandfather Pancreatic cancer Other Mental health disorder Social History Housing: Apartment Alcohol intake: current Alcohol intake frequency: holidays/special occasions only Patient Tobacco Use Status: Current everyday Tobacco user Tobacco use type: Cigarette Cigarette Packs Per Day: 0.5 Cigarettes Per Day: 10 Years Smoked: 8 years e-Cigarette/Vaping Use: Never Used Second Hand Smoke Exposure: Yes service: No Cognitive needs: No Hearing needs: No Vision needs: No Female Reproductive History Menstrual Age of Menarche: 8 Review of Systems Const All systems reviewed & are unremarkable except as noted in HPI and below Reports as per HPI and Reports no additional complaints GI Reports no additional complaints Reports no additional complaints Physical Exam Vital Signs: Last Vital Signs BP 110/72 08/05/23 10:13 BMI result Body Mass Index 39.9 Assessment & Plan Assessment & Plan (1) Fibroid uterus: Code(s): D25.9 - Leiomyoma of uterus, unspecified Category: Medical Plan: Discussed with the patient the results of the ultrasound and the size of the myomas. Discussed with the patient risk of myosarcoma and symptoms that are caused by myomas including but not limited to pelvic pain, pressure symptoms, abnormal uterine bleeding. In addition discussed with the patient options of treatment for myomas including: Serial ultrasounds periodically to follow-up on the size of the myoma while targeting the treatment against fibroids related symptoms ( control pills, Mirena IUD, progesterone treatment, GnRH agonist/antagonist, uterine artery embolization or endometrial ablation) versus surgical treatment including hysterectomy and or myomectomy. All pros and cons, risks and benefits of all options were discussed with the patient. The patient understands that delay in surgical treatment in case of myosarcoma can affect her prognosis, after further discussion, the patient decided to think about it and get back to us next visit (2) Abnormal uterine bleeding (AUB): Code(s): N93.9 - Abnormal uterine and vaginal bleeding, unspecified Category: Medical Plan: Co testing recently done and were negative, CBC, TSH, prolactin, HCG,ordered. Discussed with the patient the different causes of abnormal bleeding including thyroid disorders, uterine and ovarian pathology, endometrial hyperplasia, carcinoma and other potential causes. Discussed with the patient the work up including CBC (to r/o anemia), TSH, prolactin, pelvic Ultrasound, endometrial biopsy to r/o endometrial pathology. All questions answered and the patient verbalized understanding. Instructed the patient to schedule an appointment for an endometrial biopsy with GC/CT in 2 weeks. Orders: Orders Prolactin Today N93.9 - Abnormal uterine and vaginal bleeding, unspecified HCG Quantitative Today N93.9 - Abnormal uterine and vaginal bleeding, unspecified Complete Blood Count no Diff Today N93.9 - Abnormal uterine and vaginal bleeding, unspecified TSH reflex Free T4 Today N93.9 - Abnormal uterine and vaginal bleeding, unspecified Coding Level of Care Code Est Pt Level 3 (92296) Diagnoses Fibroid uterus D25.9 Abnormal uterine bleeding (AUB) N93.9
== END 2023-08-05 10:28 | disposition home or self-care (01) ==
LOC: HO.HWS 09:03
PROVIDERS: PCP Internal Medicine; Visit Provider Obstetrics & Gynecology
DX: D25.9 Leiomyoma of uterus, unspecified (principal); N93.9 Abnormal uterine and vaginal bleeding, unspecified
CPT/HCPCS: 99213

== ENCOUNTER → 2023-08-05 09:03 | Outpatient (BNVA) | payer OTHER, SELFPAY | PROVIDERS: PCP Internal Medicine; Visit Provider Obstetrics & Gynecology | DX: D25.9 Leiomyoma of uterus, unspecified (principal); N93.9 Abnormal uterine and vaginal bleeding, unspecified | CPT/HCPCS: 99212 ==

== ENCOUNTER 2023-09-04 07:14 | Outpatient (AMB) | payer OTHER, SELFPAY ==
--- NOTE | 2023-09-04 07:19 | MHC.OFFVIS ---
Vital Signs 09/04/23 07:21 Height 5 ft 2 in Weight 218 lb 4.122 oz BMI 39.9 BP 136/64 Blood Pressure Location Lt brachial Position Sitting Pulse 67 Intake Visit Reasons: follow up req by Intake Note: Georgie presents in the office as a follow up today requested by Dr Dickens. CC: She states that she is not having any concerns at this time. 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 Required: Yes 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 Name: [id number] [place] Allergies aspirin [ASPIRIN] Adverse Reaction (Intermediate, Verified 10/16/23 09:25) ULCER; GI UPSET, internal bleeding dextran 40 Adverse Reaction (Verified 10/16/23 09:25) Itching Medication List - Last Reconciled 09/04/23 by Obed Mendoza MD albuterol sulfate 90 mcg/actuation 2 puffs PO Q6H PRN 30 days bupropion HCl XL 150 mg PO QAM clonidine HCl 0.2 mg PO BEDTIME 30 days famotidine 20 mg PO BID 30 days fluticasone propionate 50 mcg/actuation 1 spray intranasal DAILY PRN furosemide (Lasix) 20 mg PO QAM 30 days hydrochlorothiazide 12.5 mg PO DAILY 30 days hydroxyzine pamoate 25 mg PO BID PRN 30 days loratadine 10 mg PO DAILY PRN 90 days metformin 500 mg PO BID 30 days pantoprazole 40 mg PO DAILY 30 days prazosin 1 mg PO BEDTIME 30 days sertraline 100 mg PO DAILY 30 days spironolactone 50 mg PO QAM 30 days trazodone 50 mg PO BEDTIME PRN 30 days HPI HPI follow up req by : Details: GI CLINIC VISIT FOR THIS 43-YEAR-OLD FRENCH-SPEAKING FEMALE FOR for FU of NONCIRRHOTIC PORTAL HYPERTENSION COMPLICATED BY ESOPHAGEAL VARICES AND PAST HISTORY OF GI BLEEDING. Patient is status post TIPPS placement at [facility] in 10/2015 without subsequent bleeding. Patient returns after hiatus of 3 years (Last seen in 12/2020) Patient was advised to follow up in the GI clinic by Dr. Dickens for recurrent anemia: In September her hemoglobin dropped significantly and she required blood transfusion. She has iron deficiency, she is intolerant of oral iron. She has tolerated iron infusions well in the past. She received Venofer infusions which she tolerated well in April 2023. She was also advised to follow-up with GI she may have occult GI bleeding secondary to esophageal varices. She will be closely for recurrent anemia . ? CHRONIC ILLNESSES:?hypertension, liver disease - pre hepatic portal hypertension, dementia, depression, GERD (gastroesophageal reflux disease), Sprain of left knee and IBS (irritable bowel syndrome) ? LABS IN [facility]:?09/22/19 H & H of 10.5 & 35.6, plt 48 K, Haptoglobin was 47 - normal, INR 1.3, ? LFTs were normal, Iron studies cw WEN ? 08/02 Liver Fibrosis Score of 0.16 with Fibrosis Stage of F0, GEORGIE was negative ?IMAGING STUDIES: 06/30/[address] SCAN SHOWED: No acute intra-abdominal/intrapelvic abnormality. The TIPS stent is redemonstrated. The spleen remains moderately enlarged, measuring up to 17 cm in length. It does appear, however, smaller than on the prior CT examination. No renal calculi. The appendix is normal in appearance. No adnexal mass lesion. 09/29/19 abdominal ultrasound showed: ? Small gallbladder echogenic polyps. No lytic stones or hydronephrosis seen. ? Echogenic liver without focal lesion. A focal lesion seen. ? Mild splenomegaly. ? Widely patent stent with normal velocities visualized through the stent and distally at the hepatic/IVC confluence. The splenic vein and hepatic veins are patent. ?TODAY'S VISIT ? 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 Pt complains of intermittent RUQ pain sometimes associated with constipation. Denies taking any medications for constipation Denies black stools or rectal bleeding. Admits to wt gain ?PAST VISITS: Did not go for abd US due to lack of transportation - willing to reschedule ?In September her hemoglobin dropped significantly and she required blood transfusion.? She has iron deficiency, she is intolerant of oral iron.? Since her recent iron infusion, her blood counts have improved, anemia is better.? Platelet counts are stable. ? Doing so so.? Did not have a hysterectomy due to COVID 19 pandemic. ? Continues to feel tired with low energy.? Stopped taking iron pills two months ago due to side effects (upset stomach and abdominal pain) ? I have pains in my legs and pain in my belly - present for past several yrs. ? Notes burning and stinging in the legs and unable to sleep due to the pain. ? Pt was transfused 2 units of PRBC end of September/ early October. ? Fatigue improved after blood transfusion. ? ? ? Pt was seen by Computer Sciences Professor and is waiting for a call from [facility] to schedule a hysterectomy. ?? ? Complains of upset stomach due to iron and was advised to decrease iron from twice daily to once a day and monitor labs. ?? ? current weight is 175 lbs? -? increased from 145 lbs a year ago [facility] Medical History ELIJAH I (cervical intraepithelial neoplasia I) Obesity, Class III, BMI 40-49.9 (morbid obesity) Smoker Depression Anxiety Insomnia Esophageal varices Diabetes mellitus Lower abdominal pain Allergic rhinitis Common cold Anxiety and depression Obesity (BMI 30-39.9) Smoker Hypersplenism Pancytopenia Bilateral calcaneal spurs Thrombocytopenia Ascites Iron deficiency anemia due to chronic blood loss History of esophageal varices Chronic pain of both feet Varicose veins of right lower extremity with inflammation Sprain of left knee IBS (irritable bowel syndrome) GERD (gastroesophageal reflux disease) Depression Dementia Liver disease Hypertension Surgical History History of D&C S/P TIPS (transjugular intrahepatic portosystemic shunt) (~10/2015) History of liver biopsy (~04/2002) History of esophagogastroduodenoscopy (EGD) Family History Father Diabetes mellitus Mother Diabetes mellitus Alzheimer's dementia Pneumothorax Maternal Aunt Ovarian cancer Daughter No problems noted. Maternal Aunt Cervical cancer Maternal Grandfather Pancreatic cancer Other Mental health disorder Social History Housing: Apartment Alcohol intake: current Alcohol intake frequency: holidays/special occasions only Patient Tobacco Use Status: Current everyday Tobacco user Tobacco use type: Cigarette Cigarette Packs Per Day: 0.5 Cigarettes Per Day: 12 Years Smoked: 8 years e-Cigarette/Vaping Use: Never Used Second Hand Smoke Exposure: Yes service: No Current occupational status: unemployed Current occupational exposures/hazards: No Cognitive needs: No Hearing needs: No Vision needs: No Female Reproductive History Menstrual Age of Menarche: 8 Physical Exam Vital Signs: Last Vital Signs Pulse 67 09/04/23 07:21 BP 136/64 09/04/23 07:21 BMI result Body Mass Index 39.9 Const General: healthy appearing and no acute distress Nutritional Appearance: obese Orientation/consciousness: patient oriented x3 Limitations: language barrier HEENT Head: Yes normal to inspection Ears: hearing grossly normal bilaterally Eyes Sclerae: sclerae normal Pupils: Equal, round and reactive pupils present Neck Neck: Yes normal visual inspection Chest Chest palpation & inspection: normal inspection of the chest Resp Effort & Inspection: normal respiratory effort Auscultation: clear to auscultation bilaterally Cardio Palpation: normal PMI Rate: regular rate Rhythm: regular rhythm Heart sounds: S1 normal heart sound present, S2 normal heart sound present and no murmurs GI Palpation (GI): Soft to palpation, nontender and No hepatosplenomegaly present Auscultation: normal bowel sounds Rectal Exam - Female: deferred Skin General skin exam: no rashes or lesions noted Neuro General: patient oriented x3, gait normal and moves all extremities Cranial nerves: Yes Equal, round and reactive pupils present Psych Appearance: grossly normal Mental Status: mental status grossly normal Assessment & Plan Assessment & Plan (1) GERD (gastroesophageal reflux disease): Code(s): K21.9 - Gastro-esophageal reflux disease without esophagitis Category: Medical Qualifiers: Esophagitis presence: without esophagitis Qualified Code(s): K21.9 - Gastro-esophageal reflux disease without esophagitis (2) IBS (irritable bowel syndrome): Code(s): K58.9 - Irritable bowel syndrome without diarrhea Category: Medical (3) Esophageal varices: Code(s): I85.00 - Esophageal varices without bleeding Category: Medical Qualifiers: Esophageal varices bleeding: without bleeding Esophageal varices type: secondary Qualified Code(s): I85.10 - Secondary esophageal varices without bleeding (4) S/P TIPS (transjugular intrahepatic portosystemic shunt): Onset Date: ~10/2015 Comment: at [place] Code(s): Z95.828 - Presence of other vascular implants and grafts Category: Surgical Plan 43 year-old Slovenian-speaking female followed in GI for non cirrhotic portal hypertension complicated by esophageal varices with past history of GI Bleed. Patient is status post TIPPS placement at [facility] in 10/2015 without subsequent bleeding. She likely has early cirrhosis since past abdominal US showed ascites - no ascites seen on recent US. Patient has had intermittent GI FU and has not been taking her medications. Liver Fibrosis Score of 0.16 with Fibrosis Stage of F0, INR is 1.3. Plan is to monitor labs to assess her liver disease. A duplex US confirmed TIPPS patency and no free fluid was seen - she is over due for FU US. History of esophageal varices with bleeding: Likely resolved after TIPPS placement. Iron deficiency anemia is likely related to menstrual blood loss. Follow-up with the OBGYN. Pt postponed her hysterectomy due to COVID-19 pandemic 09/04/23 Pt states she was in [place] x 3 years. Pt complains of intermittent RUQ pain sometimes associated with constipation. Pt advised to schedule an abd US, an EGD and a colonoscopy GI follow-up in 6 month Orders: Orders US abdomen complete 09/04/23 Z95.828 - Presence of other vascular implants and grafts Medications: New sennosides-docusate sodium 8.6-50 mg (Senna with Docusate Sodium) Please take daily at bedtime 1 tab-cap PO BEDTIME 60 tabs 2RF 60 days Coding Level of Care Code Est Pt Level 4 (89626) Diagnoses Gastroesophageal reflux disease without esophagitis K21.9 Esophagitis presence: without esophagitis IBS (irritable bowel syndrome) K58.9 Secondary esophageal varices without bleeding I85.10 Esophageal varices bleeding: without bleeding Esophageal varices type: secondary S/P TIPS (transjugular intrahepatic portosystemic shunt) Z95.828 Time Spent (min) 20
[2023-09-04 07:21] VITALS: BP 136/64; PULSE 67; BMI 39.9
== END 2023-09-04 08:02 | disposition home or self-care (01) ==
PROVIDERS: PCP Internal Medicine; Visit Provider Internal Medicine Gastroenterology
DX: K21.9 Gastro-esophageal reflux disease without esophagitis (principal); K58.9 Irritable bowel syndrome, unspecified; I85.10 Secondary esophageal varices without bleeding; Z95.828 Presence of other vascular implants and grafts
CPT/HCPCS: 99214

== ENCOUNTER → 2023-09-04 07:14 | Outpatient (BNVA) | payer OTHER, SELFPAY | PROVIDERS: PCP Internal Medicine; Visit Provider Internal Medicine Gastroenterology | DX: K76.6 Portal hypertension (principal); I85.10 Secondary esophageal varices without bleeding; K21.9 Gastro-esophageal reflux disease without esophagitis; K58.9 Irritable bowel syndrome, unspecified; Z95.828 Presence of other vascular implants and grafts | CPT/HCPCS: 99212 ==

== ENCOUNTER 2023-09-29 09:58 | Outpatient (AMB) | payer OTHER, SELFPAY ==
[2023-09-29 10:08] VITALS: BP 140/78; PULSE 79; O2SAT 96; BMI 40.4
--- NOTE | 2023-09-29 10:08 | A.OFFPC_ITS ---
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 Allergies aspirin [ASPIRIN] Adverse Reaction (Intermediate, Verified 09/29/23 10:28) ULCER; GI UPSET, internal bleeding dextran 40 Adverse Reaction (Verified 09/29/23 10:28) Itching Medication List - Last Reconciled 09/29/23 by Amy Gutierrez PA-C albuterol sulfate 90 mcg/actuation 2 puffs PO Q6H PRN 30 days bupropion HCl XL 150 mg PO QAM clonidine HCl 0.2 mg PO BEDTIME 30 days famotidine 20 mg PO BID 30 days fluticasone propionate 50 mcg/actuation 1 spray intranasal DAILY PRN furosemide (Lasix) 20 mg PO QAM 30 days hydrochlorothiazide 12.5 mg PO DAILY 30 days hydroxyzine pamoate 25 mg PO BID PRN 30 days loratadine 10 mg PO DAILY PRN 90 days metformin 500 mg PO BID 30 days pantoprazole 40 mg PO DAILY 30 days prazosin 1 mg PO BEDTIME 30 days sennosides-docusate sodium 8.6-50 mg (Senna with Docusate Sodium) 1 tab-cap PO BEDTIME 60 days sertraline 100 mg PO DAILY 30 days spironolactone 50 mg PO QAM 30 days trazodone 50 mg PO BEDTIME PRN 30 days Tobacco use date assessed: 06/11/23 Dental Screening Dental Screen Date: 06/11/23 HPI Follow Up HPI Details 43-year-old female with past medical his tory of liver disease status post tips procedure with ascites and esophageal varices, dementia, GERD, hypertension, and diabetes mellitus last seen by Dr. Elizabeth 06/11/2023 coming in for follow up. In review of the notes patient was seen by GI 09/04/23 for follow up on non cirrhotic portal hypertension.?She received Venofer infusions April 2023. Abdominal CT done 06/30/23 which showed a tips stent intact and splenomegaly. Advised to follow up in 6 months. Patient also seen by Gynecology 08/05/23 after pelvic ultrasound which found several myomas. Treatment options were discussed and will follow up 10/16/23. Seen by Hematology for 12/05/23 and is followed closely for recurrent anemia follow up in 4 months. Patient completed mammogram 06/16/23 BI-RADS 1. Patient was seen in the [facility] [place] [facility] 07/01/23 for suprapubic abdominal pain in right lower quadrant pain. CT abdomen pelvis reveals no acute intra-abdominal pathology, ultrasound of the pelvis consistent with multiple uterine fibroids was discharged to follow up with Gynecology. interpreter and translator was used for the duration of this appointment. Patient states had to reschedule barium swallow which is now scheduled for 10/13/23. She is also following with GI and states they are arranging for a colonoscopy and endoscopy for her. She endorses continued difficulty swallowing with heartburn and is using the pantoprazole and famotidine with good relief, certain foods make it worse. She has not required anymore infusions but we will continue to follow with Hematology Oncology. She denies any symptoms of bleeding. She does complain of swelling in the feet which appears to be chronic along with occasional numbness and tingling. [facility] Medical History ELIJAH I (cervical intraepithelial neoplasia I) Obesity, Class III, BMI 40-49.9 (morbid obesity) Smoker Depression Anxiety Insomnia Esophageal varices Diabetes mellitus Lower abdominal pain Allergic rhinitis Common cold Anxiety and depression Obesity (BMI 30-39.9) Smoker Hypersplenism Pancytopenia Bilateral calcaneal spurs Thrombocytopenia Ascites Iron deficiency anemia due to chronic blood loss History of esophageal varices Chronic pain of both feet Varicose veins of right lower extremity with inflammation Sprain of left knee IBS (irritable bowel syndrome) GERD (gastroesophageal reflux disease) Depression Dementia Liver disease Hypertension Surgical History History of D&C S/P TIPS (transjugular intrahepatic portosystemic shunt) (~10/2015) History of liver biopsy (~04/2002) History of esophagogastroduodenoscopy (EGD) Family History Father Diabetes mellitus Mother Diabetes mellitus Alzheimer's dementia Pneumothorax Maternal Aunt Ovarian cancer Daughter No problems noted. Maternal Aunt Cervical cancer Maternal Grandfather Pancreatic cancer Other Mental health disorder Social History Housing: Apartment Alcohol intake: current Alcohol intake frequency: holidays/special occasions only Patient Tobacco Use Status: Current everyday Tobacco user Tobacco use type: Cigarette Cigarette Packs Per Day: 0.5 Cigarettes Per Day: 12 Years Smoked: 8 years e-Cigarette/Vaping Use: Never Used Second Hand Smoke Exposure: Yes service: No Current occupational status: unemployed Current occupational exposures/hazards: No Cognitive needs: No Hearing needs: No Vision needs: No Female Reproductive History Menstrual Age of Menarche: 8 Questionnaire PHQ-9 Over the last 2 weeks, how often have you been bothered by any of the following problems? 1. Little interest or pleasure in doing things: not at all 2. Feeling down, depressed, or hopeless: not at all 3. Trouble falling or staying asleep, or sleeping too much: not at all 4. Feeling tired or having little energy: not at all 5. Poor appetite or overeating: not at all 6. Feeling bad about yourself - or that you are a failure or have let yourself or your family down: not at all 7. Trouble concentrating on things, such as reading the newspaper or watching television: not at all 8. Moving or speaking so slowly that other people could have noticed. Or the opposite - being so fidgety or restless that you have been moving around a lot more than usual: not at all 9. Thoughts that you would be better off or of hurting yourself in some way: not at all Total score: 0 Depression Screening Interpretation: Negative Depression Screening Done: Yes 30303 - PHQ-9 Billing: Yes Source: Developed by Drs. Rashaad Franklin, Rosana Lechuga, Noé Neil and colleagues, with an educational marika from [employer]. Thrive Questionnaire Date Thrive assessed: 06/11/23 AUDIT C Alcohol Use Questionnaire (AUDIT-C) 1. How often do you have a drink containing alcohol?: Monthly or less 2. How many drinks containing alcohol do you have on a typical day when you are drinking?: 1 or 2 Total Score: 1 Score Reviewed/Action Taken: Yes CALEB-7 AMB Questionnaire CALEB-7 Date CALEB - 7 assessed: 06/11/23 Source: Developed by Drs. Rashaad Franklin, Rosana Lechuga, Noé Neil and colleagues, with an educational marika from [employer]. Review of Systems Const Denies body aches, Denies chills, Denies fever(s), Denies headache(s) and Denies poor appetite Eyes Reports no additional complaints ENT Reports dysphagia, Denies dizziness, Denies headache(s) and Denies odynophagia Card Details: Chronic bilateral leg and foot swelling Denies chest pain, Denies syncope, Denies edema, Denies irregular heart rhythm, Denies lightheadedness and Denies dyspnea Resp Denies cough and Denies dyspnea GI Denies abdominal pain, Denies constipation, Reports dysphagia, Denies diarrhea, Denies nausea, Denies odynophagia and Denies vomiting Reports no additional complaints Musc Reports no additional complaints and Denies abnormal gait Skin/Breast Reports system reviewed and no additional complaints, except as documented Neuro Denies abnormal gait, Denies dizziness, Denies syncope and Denies headache(s) Psych Reports no additional complaints Physical exam (Primary Care) Vital Signs: Last Vital Signs Pulse 79 09/29/23 10:08 BP 140/78 H 09/29/23 10:08 Pulse Ox 96 09/29/23 10:08 Oxygen Delivery Method Room Air 09/29/23 10:08 BMI result Body Mass Index 40.4 Tobacco/Smoking Status: Tobacco use Status Tobacco use date assessed 06/11/23 09/29/23 10:10 Patient Tobacco Use Status Current everyday Tobacco 09/29/23 10:10 Tobacco use type Cigarette 09/29/23 10:10 e-Cigarette/Vaping Use Never Used 09/29/23 10:10 PHQ-9: PHQ-9 Score PHQ-9: Total score 0 09/29/23 11:43 Depression Screening Interpretation: Negative Thrive Assessment: Date of Thrive Assessment Date Thrive assessed 06/11/23 09/29/23 10:10 Const General: cooperative, healthy appearing, comfortable and no acute distress Orientation/consciousness: patient oriented x3 HENMT Head: Yes normocephalic Ears: hearing grossly normal bilaterally General nose exam: Normal external nose present Eyes General: appearance normal, both eyes and all related structures Conjunctivae: conjunctivae normal Neck Neck: Yes full ROM and Yes no lymphadenopathy Resp Effort & Inspection: normal respiratory effort Auscultation: clear to auscultation bilaterally, no crackles, no rales, no rhonchi and no wheezes Cardio Rate: regular rate Rhythm: regular rhythm Skin General skin exam: no rashes or lesions noted Neuro General: patient oriented x3 Gait exam (Neuro): Normal gait present Extrem Other: Bilateral lower extremity 1+ pitting edema. No overlying skin changes or redness. No tenderness to palpation General: Yes normal to inspection and Yes full ROM Psych Affect: normal affect Attitude: cooperative Insight: Good insight present (Psych) Judgement: Good judgement present (Psych) Results AMB Hemoglobin A1c AMB Hemoglobin A1c 6.7 % Last Edit by Ginger Delcid CMA on 09/29/23 10 :34 Results Reviewed Results Reviewed: Laboratory Last Values Hgb A1c (Clinic) 6.7 % (4.0-6.0) H 09/29/23 10:10 Assessment and Plan Assessment & Plan (1) Diabetes mellitus: Code(s): E11.9 - Type 2 diabetes mellitus without complications Qualifiers: Diabetes mellitus complication status: without complication Diabetes mellitus alf insulin use: without alf use Diabetes mellitus type: type 2 Qualified Code(s): E11.9 - Type 2 diabetes mellitus without complications Plan: In-office HgbA1c done today is at 6.7%; was at 6.0% at last visit which is still within goal less than 7% however with the large increase we will refer to diet and nutrition. Decrease the amount of carbohydrates such as pasta, bread, rice, and potatoes and limit the amount of sweets. Although fruits are generally healthy they should be eaten in moderation as they are still high in sugar. Continue Metformin 500 mg BID. We will follow up in 3 months to further monitor A1c. (2) Hypertension: Code(s): I10 - Essential (primary) hypertension Qualifiers: Hypertension type: primary hypertension Qualified Code(s): I10 - Essential (primary) hypertension Plan: Continue on HCTZ 12.5 mg QD. Avoid salt intake and encourage healthy diet and regular exercise. Goal is less than 140/90. (3) Liver disease: Comment: Pre-hepatic portal hypertension Code(s): K76.9 - Liver disease, unspecified Plan: Patient has non-cirrhotic portal hypertension complicated by esophageal varices and with past Hx of GI bleeding. She is S/P TIPS placement at [facility] in 10/2015, with no GI bleeding since. Recently seen by GI who is arranging for endoscopy and colonoscopy per patient report. Abdominal CT showed patent right TIPS stent. Continue Spironolactone 50 mg and Furosemide 20 mg. Next GI follow up 02/26/2024. (4) Anemia: Code(s): D64.9 - Anemia, unspecified Qualifiers: Anemia type: iron deficiency Iron deficiency anemia type: chronic blood loss Qualified Code(s): D50.0 - Iron deficiency anemia secondary to blood loss (chronic) Plan: Has not required additional IV Venofer since April. Her last labs were considered stable we will continue to follow with Hematology Oncology. Reminded patient about overdue labs. (5) Dysphagia: Code(s): R13.10 - Dysphagia, unspecified Qualifiers: Dysphagia type: unspecified Qualified Code(s): R13.10 - Dysphagia, unspecified Plan: Barium swallow ordered and will be completed later this month. (6) Esophageal varices: Code(s): I85.00 - Esophageal varices without bleeding Qualifiers: Esophageal varices bleeding: without bleeding Esophageal varices type: secondary Qualified Code(s): I85.10 - Secondary esophageal varices without bleeding Plan: Are most likely secondary to her portal hypertension - has had no active bleeding lately. Continue Famotidine 20 mg and Pantoprazole 40 mg. Continue to follow up with GI as scheduled Plan Thank you for allowing me to participate in the care of this patient. I personally spent 30 minutes reviewing, examining and charting on this patient. 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
== END 2023-09-29 10:44 | disposition home or self-care (01) ==
PROVIDERS: PCP Internal Medicine
DX: E11.9 Type 2 diabetes mellitus without complications (principal); I85.10 Secondary esophageal varices without bleeding; I10 Essential (primary) hypertension; K76.9 Liver disease, unspecified; D50.0 Iron deficiency anemia secondary to blood loss (chronic); R13.10 Dysphagia, unspecified; F17.210 Nicotine dependence, cigarettes, uncomplicated
CPT/HCPCS: 83036; 99214

== ENCOUNTER 2023-09-29 10:58 | Outpatient (REF) | payer OTHER, SELFPAY ==
[2023-09-29 11:14] LABS: MANUAL DIFF FLAG NO
[2023-09-29 11:36] LABS: Basophils Percent Auto 0.7 % (0-2); Hematocrit 31.5 % (37.0-47.0); Hemoglobin 9.8 g/dl (12.0-16.0); Imm Gran Abs Auto 0.01 X10*3/uL (0.00-0.03); Imm Gran Pct Auto 0.2 % (0.0-0.4); Lymphocytes Percent Auto 24.2 % (20-40); Mean Corpuscular HGB Conc 31.1 g/dl (31.0-35.0); Mean Corpuscular Hemoglobin 23.4 pg (27.0-33.0); Mean Corpuscular Volume 75.4 fL (80.0-98.0); Mean Platelet Volume 10.7 fL (9.4-12.3); Monocytes Absolute Auto 0.3 X10*3/uL (0.1-1.2); Neutrophils Absolute Auto 2.8 x10*3/uL (2.0-8.3); Neutrophils Percent Auto 67.9 % (45-73); Red Blood Count 4.18 X10*6/uL (4.20-5.50); White Blood Count 4.2 X10*3/uL (4.8-10.8)
[2023-09-29 11:40] LABS: Hematocrit 32.2 % (37.0-47.0); Hemoglobin 9.8 g/dl (12.0-16.0); Mean Corpuscular HGB Conc 30.4 g/dl (31.0-35.0); Mean Corpuscular Hemoglobin 23.1 pg (27.0-33.0); Mean Corpuscular Volume 75.8 fL (80.0-98.0); Mean Platelet Volume 11.1 fL (9.4-12.3); Platelet Count 92 X10*3/uL (160-400); Platelet Count 93 X10*3/uL (160-400); Red Blood Count 4.25 X10*6/uL (4.20-5.50); Red Cell Distribution Width 14.9 % (11.0-16.0); White Blood Count 4.1 X10*3/uL (4.8-10.8)
[2023-09-29 11:45] LABS: Estimated Average Glucose 140 mg/dL; Hemoglobin A1c % 6.5 % (<6.0)
[2023-09-29 12:28] LABS: Alanine Aminotransferase 15 U/L (0-31); Albumin Level 4.1 g/dL (3.5-5.0); Alkaline Phosphatase 67 U/L (39-117); Anion Gap 11 (12-20); Aspartate Amino Transferase 14 U/L (5-31); Bilirubin Total 0.4 mg/dL (0.0-1.0); Blood Urea Nitrogen 9 mg/dL (9-16); Calcium 9.1 mg/dL (8.4-10.2); Carbon Dioxide 24 mmol/L (22-29); Chloride 109 mmol/L (96-108); Cholesterol 146 mg/dL (<200); Estimated Glomerular Filt Rate > 60; Glucose Fasting 124 mg/dL (60-99); HDL Cholesterol 51 mg/dL (>40); LDL Cholesterol Calculated 74 mg/dL (<100); Potassium 4.1 mmol/L (3.3-5.1); Sodium 140 mmol/L (135-145); Total Protein 6.7 g/dL (6.5-8.0); Triglycerides 106 mg/dL (<150)
[2023-09-29 12:39] LABS: HCG Quantitative < 2 mIU/mL; TSH reflex Free T4 1.28 uIU/mL (0.32-4.0); TSH reflex Free T4 1.29 uIU/mL (0.32-4.0); Vitamin D 25-OH Total 30.8 ng/mL (>30)
[2023-09-29 13:22] LABS: Appearance Urine Clear; Color Urine Yellow; Glucose Urine UA Negative (Negative); Leukocyte Esterase Urine Negative (Negative); Nitrite Urine Negative (Negative); PH 5.5 (5.0-9.0); UMIC TRIGGER UACC YES; Urine Blood Large (3+) (Negative); Urine Ketones Negative (Negative); Urine Protein Trace mg/dL (Neg-Trace)
[2023-09-29 13:31] LABS: Bacteria Urine None Seen (None Seen); Hyaline Casts Urine 0-2 /LPF (0-2); RBC Urine >20 /HPF (0-2); Squamous Epithelial Cell Urine 0-2 /HPF (0-2); WBC Urine 0-5 /HPF (0-5)
[2023-09-29 14:03] LABS: Creatinine Urine 111.67 mg/dL; Microalbum/Creatinine Ratio Ur 51.9 ug/mg cr (<30)
[2023-09-30 08:18] LABS: Prolactin 7.4 ng/mL
== END 2023-09-29 10:59 | disposition home or self-care (01) ==
LOC: HO.LAB 10:58
PROVIDERS: Absent Provider Internal Medicine; PCP Internal Medicine; Visit Provider Obstetrics & Gynecology
DX: N93.9 Abnormal uterine and vaginal bleeding, unspecified (principal); R30.0 Dysuria; E55.9 Vitamin D deficiency, unspecified; E78.00 Pure hypercholesterolemia, unspecified; E11.9 Type 2 diabetes mellitus without complications; D64.9 Anemia, unspecified
CPT/HCPCS: 36415; 80053; 80061; 81001; 81003; 82043; 82306; 82570; 83036; 84146; 84443; 84702; 85025; 85027

== ENCOUNTER 2023-10-01 08:44 | Outpatient (REF) | payer OTHER, SELFPAY ==
--- NOTE | ~2023-10-01 | US_ITS ---
EXAMINATION: US ABDOMEN COMPLETE CLINICAL INFORMATION: Presence of other vascular implants and grafts. Ultrasound with Doppler to check TIPPS patency. COMPARISON: CT abdomen and pelvis 06/30/2023. Ultrasound abdomen 09/29/2019 and 10/13/2018. MRI abdomen 03/04/2015. TECHNIQUE: Real-time imaging of the abdominal viscera. FINDINGS: PANCREAS: Visualized portions of the pancreas are unremarkable however portions are obscured by bowel gas limiting evaluation. ABDOMINAL AORTA: The proximal, mid, and distal segments are normal in caliber. INFERIOR VENA CAVA: Visualized portions are normal. LIVER: The liver is normal in size. The liver contour is normal. Heterogeneous parenchymal echogenicity which can be seen in the setting of underlying liver disease. TIPS shunt catheter in place and patent. Yunior hepatic varices. No focal hepatic lesion. There is no intrahepatic biliary duct dilatation seen. GALLBLADDER: Few tiny 2 mm gallbladder polyps. The gallbladder is physiologically distended without evidence of stones, sludge, wall thickening or pericholecystic fluid. COMMON BILE DUCT: Normal in caliber measuring 0.4 cm in diameter. RIGHT KIDNEY: Normal. No hydronephrosis. No renal calculi or focal parenchymal lesions. The kidney measures 11.4 cm in maximum dimension. LEFT KIDNEY: Normal. No hydronephrosis. No renal calculi or focal parenchymal lesions. The kidney measures 12.8 cm in maximum dimension. SPLEEN: The spleen is enlarged. The spleen measures 15.3 cm in maximum dimension. FREE FLUID: None. US/US abdomen complete IMPRESSION: 1. TIPS shunt catheter is patent. 2. Heterogeneous parenchymal echogenicity which can be seen in the setting of underlying liver disease. 3. Few tiny 2 mm gallbladder polyps. 4. Splenomegaly and yunior hepatic varices.
== END 2023-10-01 08:45 | disposition home or self-care (01) ==
LOC: HO.US 08:44
PROVIDERS: PCP Internal Medicine; Visit Provider Internal Medicine Gastroenterology
DX: Z95.828 Presence of other vascular implants and grafts (principal)
CPT/HCPCS: 76700

== ENCOUNTER 2023-10-13 08:11 | Outpatient (REF) | payer OTHER, SELFPAY ==
--- NOTE | ~2023-10-13 | FL_ITS ---
EXAMINATION: XR FLUOROSCOPY UPPER GI WITH AIR CLINICAL INFORMATION: Dysphagia COMPARISON: None TECHNIQUE: Fluoroscopic air contrast upper GI examination was performed utilizing standard techniques with thin and thick barium and effervescent granules. Numerous spot images were obtained. FINDINGS: Lateral cine images of the oropharynx and hypopharynx demonstrate normal swallow mechanism with normal epiglottic inversion and soft palate elevation. There is trace laryngeal penetration with thick barium. No tracheal penetration, glottic or subglottic aspiration identified. No nasopharyngeal reflux present. Hypopharyngeal structures appear normal without evidence of mass or diverticulum. There was no significant cricopharyngeal achalasia. Dual and single contrast images of the esophagus demonstrate a patulous esophagus. No evidence of stricture, mass, or ulcerations identified. Esophageal peristalsis was normal. A small type I hiatal hernia is present. Significant gastroesophageal reflux is seen up to the thoracic inlet. The GE junction demonstrates smooth moderate narrowing, suggestive of achalasia. Dual contrast and single contrast images of the stomach demonstrated a normal contour. There are multiple foci of contrast pooling in the body the stomach that may represent small superficial aphthous ulcers. No masses are present. Contrast freely passed into the gastric antrum and duodenal bulb without delay. Single and air-contrast images of the duodenal bulb demonstrate no abnormality. The duodenal sweep has a normal appearance, course, and mucosal fold appearance. The imaged proximal jejunum demonstrates mild diffuse fold thickening. A metal stent is present in the right upper quadrant consistent with history of TIPS. FLUOROSCOPY TIME: 4 minutes 20 seconds Number of Spot Images: 8 Number of Cine: 15 DOSE AREA PRODUCT: 3188 uGy-m2 (microgray-meter squared) FL/FL barium swallow with air IMPRESSION: 1. Trace pharyngeal penetration with thick barium. No subglottic aspiration. 2. Dilated esophagus, with moderate smooth narrowing at the GE junction suggestive of moderate achalasia. 3. Small type I hiatal hernia with severe gastroesophageal reflux 4. Multiple foci of contrast pooling in the body the stomach that may represent small superficial aphthous ulcers. Recommend correlation with EGD. 5. Mild fold thickening in the proximal jejunum suggesting jejunitis versus small bowel edema. 6. TIPS stent in place. This procedure was performed by Harley Valiente PA-C, and supervised by Dr. Rebolledo
== END 2023-10-13 08:12 | disposition home or self-care (01) ==
LOC: HO.XRAY 08:11
PROVIDERS: PCP Internal Medicine; Visit Provider Internal Medicine
DX: R13.10 Dysphagia, unspecified (principal)
CPT/HCPCS: 74221

== ENCOUNTER → 2023-10-13 08:12 | Outpatient (BNV) | payer OTHER, SELFPAY | PROVIDERS: PCP Internal Medicine; Visit Provider Physician Assistant Surgical | DX: R13.10 Dysphagia, unspecified (principal) | CPT/HCPCS: 74246 ==

== ENCOUNTER 2023-10-16 08:44 | Outpatient (REF) | payer OTHER, SELFPAY ==
[2023-10-16 15:49] LABS: CT PCR NOT DETECTED (Not Detect.); NG PCR NOT DETECTED (Not Detect.)
== END 2023-10-16 08:45 | disposition home or self-care (01) ==
LOC: HO.LNP 08:44
PROVIDERS: PCP Internal Medicine; Visit Provider Obstetrics & Gynecology
DX: Z32.02 Encounter for pregnancy test, result negative (principal); N93.9 Abnormal uterine and vaginal bleeding, unspecified
CPT/HCPCS: 58100; 81025; 87491; 87591; 88305

== ENCOUNTER 2023-10-16 08:44 | Outpatient (AMB) | payer OTHER, SELFPAY ==
--- NOTE | 2023-10-16 09:10 | MHC.OFFVIS ---
Vital Signs 10/16/23 09:20 Height 5 ft 2 in Weight 220 lb 7.396 oz BMI 40.3 Intake Visit Reasons: EMB/GC cultures/DO NOT RS Senior Clinical Study Manager Required: Yes Senior Clinical Study Manager Language: Knocker Off Services: Senior Clinical Study Manager Present (in person) Senior Clinical Study Manager Name: Priscilla OMALLEY Information Interpreted: non-clinical & clinical Multimedia Instructional Designer: Multimedia Instructional Designer Present (Priscilla OMALLEY) Accompanied by: Self / Same As Patient Allergies aspirin [ASPIRIN] Adverse Reaction (Intermediate, Verified 10/16/23 09:25) ULCER; GI UPSET, internal bleeding dextran 40 Adverse Reaction (Verified 10/16/23 09:25) Itching HPI Comments Details: Presenting for EMB and GC /CT [facility] Medical History ELIJAH I (cervical intraepithelial neoplasia I) Obesity, Class III, BMI 40-49.9 (morbid obesity) Smoker Depression Anxiety Insomnia Esophageal varices Diabetes mellitus Lower abdominal pain Allergic rhinitis Common cold Anxiety and depression Obesity (BMI 30-39.9) Smoker Hypersplenism Pancytopenia Bilateral calcaneal spurs Thrombocytopenia Ascites Iron deficiency anemia due to chronic blood loss History of esophageal varices Chronic pain of both feet Varicose veins of right lower extremity with inflammation Sprain of left knee IBS (irritable bowel syndrome) GERD (gastroesophageal reflux disease) Depression Dementia Liver disease Hypertension Surgical History History of D&C S/P TIPS (transjugular intrahepatic portosystemic shunt) (~10/2015) History of liver biopsy (~04/2002) History of esophagogastroduodenoscopy (EGD) Family History Father Diabetes mellitus Mother Diabetes mellitus Alzheimer's dementia Pneumothorax Maternal Aunt Ovarian cancer Daughter No problems noted. Maternal Aunt Cervical cancer Maternal Grandfather Pancreatic cancer Other Mental health disorder Social History Housing: Apartment Alcohol intake: current Alcohol intake frequency: holidays/special occasions only Patient Tobacco Use Status: Current everyday Tobacco user Tobacco use type: Cigarette Cigarette Packs Per Day: 0.5 Cigarettes Per Day: 12 Years Smoked: 8 years e-Cigarette/Vaping Use: Never Used Second Hand Smoke Exposure: Yes service: No Current occupational status: unemployed Current occupational exposures/hazards: No Cognitive needs: No Hearing needs: No Vision needs: No Female Reproductive History Menstrual Age of Menarche: 8 Review of Systems Const All systems reviewed & are unremarkable except as noted in HPI and below Physical Exam General: Yes no CVA tenderness External Female Exam: normal external appearance and normal appearance of the urethra Speculum Exam - Vagina: normal appearance of the vagina, normal palpation, no lesions and no masses Speculum Exam - Cervix: normal appearance of the cervix, normal palpation, no lesions, no masses and nontender Bimanual exam- vagina & uterus: normal bimanual exam, normal palpation, uterine size normal, normal palpation, uterine shape normal, No Cervical tenderness present and non-tender Bimanual Exam- Adnexa, other: normal adnexae Back/Spine/Pelvis Back: no CVA tenderness Office Procedures Endometrial Biopsy Details: The patient was counseled regarding the indication and benefits of endometrial sampling to rule out endometrial pathology including not limited to endometrial hyperplasia or endometrial cancer and others; The alternatives (Either do nothing vs. hysteroscopy D&C) & the risks were discussed with the patient including but not limited: pain, uterine perforation, bleeding, infection, possible injury to bladder, bowel, ureter, possible need for blood transfusion with all its possible risks. The patient verbalized understanding all questions answered and signed consent. Urine test done in the office was negative The patient was placed into the dorsal lithotomy position; a speculum was inserted in the vagina. Using aseptic technique for the procedure, the cervix was cleansed with Betadine. The anterior lip of the cervix was grasped with a single tooth tenaculum. The uterus was sounded to 10 cm with a 4 mm Pipelle was used. Tissues samples were obtained and placed in formalin, in a patient labeled container and sent to the pathology department. At the end of the procedure, there was minimal bleeding noted The patient tolerated the procedure well and was discharged in good condition with the following instructions: Nothing in the vagina until the bleeding stops. No sex until the bleeding stops, to call if any of the following occurs: fever (>100.4), flu-like symptoms, abdominal pain, heavy bleeding, four smelling vaginal discharge. The patient was instructed to schedule a Follow up appointment in 2 weeks to discuss pathology results of the biopsy and treatment options. This note was generated with a voice recognition program. Some errors may have been overlooked during the review of this note. Sometimes these errors may affect the content or meaning of a given sentence. 08165-[id number] Biopsy Assessment & Plan Assessment & Plan (1) Abnormal uterine bleeding (AUB): Code(s): N93.9 - Abnormal uterine and vaginal bleeding, unspecified Category: Medical Plan: GC/CT collected, EMB done, see procedure note Orders: Orders AMB Endometrial Biopsy Today N93.9 - Abnormal uterine and vaginal bleeding, unspecified Coding Level of Care Code Procedure Only Diagnoses Abnormal uterine bleeding (AUB) N93.9 CPT Codes Endometrial Biopsy - CPT: 08168-Vypfnvrsaei Biopsy ([id number])
[2023-10-16 09:20] VITALS: BMI 40.3
== END 2023-10-16 09:27 | disposition home or self-care (01) ==
PROVIDERS: PCP Internal Medicine; Visit Provider Obstetrics & Gynecology
DX: N93.9 Abnormal uterine and vaginal bleeding, unspecified (principal); Z32.02 Encounter for pregnancy test, result negative
CPT/HCPCS: 58100

== ENCOUNTER 2023-11-25 08:53 | Outpatient (AMB) | payer OTHER, SELFPAY ==
[2023-11-25 09:12] VITALS: BMI 39.7
--- NOTE | 2023-11-25 09:12 | MHC.AMNUTRGE ---
VS Expanded 11/25/23 09:12 11/25/23 09:25 Height 5 ft 2 in 5 ft 2 in Weight 216 lb 14.958 oz 217 lb BMI 39.7 39.7 Intake Visit Reasons: T2DM Allergies aspirin [ASPIRIN] Adverse Reaction (Intermediate, Verified 11/12/23 09:38) ULCER; GI UPSET, internal bleeding dextran 40 Adverse Reaction (Verified 11/12/23 09:38) Itching Nutrition Presentation Details: Pt presents for MNT for T2DM. Pt was referred by PCP Pt reports having irregular eating patterns. Typically 10 am Breakfast: hot cereal : farina or cornmeal read or sand (ham/cheese/lettuce/tomato) , coffee snack on crackers , juices, breads 7 pm : nuggets/potato or rice/beans/chicken or sand, water or juice physical activity: daily life etoh: 1-2 weekend smokin cig/day (no changes) food frequency fish: 0-2 x/m dairy: 0-1/d (reports gassiness with dairy) fruits: 0/d veg : 1 /day BS Monitoring Most Recent Diabetes Results: Microalb/Creat Ratio 51.9 ug/mg cr (<30) H 09/29/23 Cholesterol 146 mg/dL (<200) 09/29/23 HDL Cholesterol 51 mg/dL (>40) 09/29/23 Triglycerides 106 mg/dL (<150) 09/29/23 Creatinine 0.77 mg/dL (0.5-1.4) 09/29/23 Blood Urea Nitrogen 9 mg/dL (9-16) 09/29/23 Sodium 140 mmol/L (135-145) 09/29/23 Potassium 4.1 mmol/L (3.3-5.1) 09/29/23 Chloride 109 mmol/L (96-108) H 09/29/23 Carbon Dioxide 24 mmol/L (22-29) 09/29/23 Calcium 9.1 mg/dL (8.4-10.2) 09/29/23 AST 14 U/L (5-31) 09/29/23 ALT 15 U/L (0-31) 09/29/23 Total Protein 6.7 g/dL (6.5-8.0) 09/29/23 Albumin 4.1 g/dL (3.5-5.0) 09/29/23 LMX-Zozvahb-Ms.Jeor Equation Height: 5 ft 2 in Weight: 217 lb Resting Metabolic Rate: 1590.08 Calculated Activity Level: Sedentary Calories Needed to Maintain Weight: 1908.10 Diagnosis Nutrition problem #1: food nutri know defi As related to (etiology) #1: diagnosis As evidenced by (sign/symptom) #1: knowledge deficit of diet [facility] Medical History ELIJAH I (cervical intraepithelial neoplasia I) Obesity, Class III, BMI 40-49.9 (morbid obesity) Smoker Depression Anxiety Insomnia Esophageal varices Diabetes mellitus Lower abdominal pain Allergic rhinitis Common cold Anxiety and depression Obesity (BMI 30-39.9) Smoker Hypersplenism Pancytopenia Bilateral calcaneal spurs Thrombocytopenia Ascites Iron deficiency anemia due to chronic blood loss History of esophageal varices Chronic pain of both feet Varicose veins of right lower extremity with inflammation Sprain of left knee IBS (irritable bowel syndrome) GERD (gastroesophageal reflux disease) Depression Dementia Liver disease Hypertension Surgical History History of D&C S/P TIPS (transjugular intrahepatic portosystemic shunt) (~10/2015) History of liver biopsy (~04/2002) History of esophagogastroduodenoscopy (EGD) Family History Father Diabetes mellitus Mother Diabetes mellitus Alzheimer's dementia Pneumothorax Maternal Aunt Ovarian cancer Daughter No problems noted. Maternal Aunt Cervical cancer Maternal Grandfather Pancreatic cancer Other Mental health disorder Social History Housing: Apartment Alcohol intake: current Alcohol intake frequency: holidays/special occasions only Patient Tobacco Use Status: Current everyday Tobacco user Tobacco use type: Cigarette Cigarette Packs Per Day: 0.5 Cigarettes Per Day: 12 Years Smoked: 8 years e-Cigarette/Vaping Use: Never Used Second Hand Smoke Exposure: Yes service: No Current occupational status: unemployed Current occupational exposures/hazards: No Cognitive needs: No Hearing needs: No Vision needs: No Female Reproductive History Menstrual Age of Menarche: 8 Assessment & Plan Assessment & Plan (1) Diabetes mellitus: Code(s): E11.9 - Type 2 diabetes mellitus without complications Category: Medical Qualifiers: Diabetes mellitus type: type 2 Diabetes mellitus technician terminal and repeater insulin use: without retirement use Diabetes mellitus complication status: without complication Qualified Code(s): E11.9 - Type 2 diabetes mellitus without complications Plan: Wt: 99 Kg ( 12/08 ) Est kcal needs as per MSJ: 1900 (40% carb, 30% protein/fat) Est fluid needs as per 25-30 ml/d: 3000 Est prot per day as per 1 g/kg bw: 99 Recommend fiber intake : 8-10 g per day and gradually increase to 25-28 g per day for women and 35-38 g for men or as tolerated Recommend sodium intake per day : less than 2000 mg Educated patient on: ( R = reviewed V = verbalizes understanding N/R = needs review N/A = not applicable Food sources of carbohydrate, adequate serving sizes and its role in various health conditions: R Differences between complex carbohydrates a simple carbohydrates, role of fiber in diet: R Lean protein sources of foods: R Differences between types of fats and role in diet (mono on saturated fat fatty acids, saturated fatty acids, trans fats): R V N/R Food sources of sodium in salt and healthy modifications for heart health in kidney health: R V R/V Vitamins and minerals: R V N/R Healthy plate method concept: R Physical activity: Benefits a precaution: R V N/R Hypoglycemia protocol (rule of 15): R V N/R Dietary prevention of Hyperglycemia: R Patient Instructions: Work on having 3 meals per day following the healthy plate method Have water with meals Coding Level of Care Code Nutr Indiv Intake (33623) Diagnoses Type 2 diabetes mellitus without complication, without long-term current use of insulin E11.9 Diabetes mellitus type: type 2 Diabetes mellitus technician terminal and repeater insulin use: without technician terminal and repeater use Diabetes mellitus complication status: without complication Time Spent (min) 30
[2023-11-25 09:25] VITALS: BMI 39.7
== END 2023-11-25 09:49 | disposition home or self-care (01) ==
PROVIDERS: PCP Internal Medicine; Visit Provider Dietitian, Registered
DX: E11.9 Type 2 diabetes mellitus without complications (principal)

== ENCOUNTER → 2023-11-25 08:53 | Outpatient (BNVA) | payer OTHER, SELFPAY | PROVIDERS: PCP Internal Medicine; Visit Provider Dietitian, Registered | DX: E11.9 Type 2 diabetes mellitus without complications (principal) | CPT/HCPCS: 97802 ==

== ENCOUNTER 2023-12-01 16:33 | Emergency (ER) | payer OTHER, SELFPAY ==
--- NOTE | ~2023-12-01 | CT_ITS ---
EXAMINATION: CT ABDOMEN AND PELVIS WITHOUT CONTRAST CLINICAL INFORMATION: Right-sided renal colic. COMPARISON: Abdominal ultrasound from 10/01/2023. CT abdomen and pelvis from 06/30/2023.. TECHNIQUE: Multidetector volumetric imaging was performed from the lung bases to the pubic without contrast. Sagittal and coronal reformatted images were obtained on the technologist workstation. This CT examination was performed using dose optimization techniques as appropriate, variously including the following: *Automated exposure control. *Adjustment of mA and/or kV according to patient size (this includes techniques or standardized protocols for targeted exams where dose is matched to indication/reason for exam; i.e. extremities or head). *Use of iterative reconstruction technique. DLP: 731 mGy-cm FINDINGS: LUNG BASES: Mild bilateral dependent atelectasis. Otherwise, no abnormalities of the visualized lung bases. Global cardiac enlargement. Small pericardial effusion. ABDOMEN/PELVIS: Liver, Biliary Ducts, and Gallbladder: Changes of prior TIPS. The unenhanced liver is small in size and normal in attenuation without focal hepatic lesions or biliary ductal dilatation. The gallbladder is physiologically distended without radiopaque gallstones, pericholecystic fluid, or significant gallbladder wall thickening. Pancreas: The pancreas is normal in appearance. Adrenal Glands: The adrenal glands are normal in appearance. Spleen: Chronic enlargement of the spleen, measuring up to 17.2 cm in long axis. No demonstrated additional focal splenic lesions. Kidneys and Ureters: The unenhanced kidneys are normal in size without evidence of nephrolithiasis or hydronephrosis. No ureterolithiasis or hydroureter. Urinary Bladder: The urinary bladder is partially distended without focal wall thickening. No bladder calculi are demonstrated. Gastrointestinal System: The stomach is decompressed and therefore not well evaluated on this exam. The small bowel is of normal caliber. The colon is normal in appearance without focal wall thickening or pericolonic inflammatory change. The appendix is not definitively visualized; however, there is no demonstrated inflammatory change in its expected location to suggest appendicitis. Genitourinary: No demonstrated adnexal soft tissue masses. Intra-abdominal and Retroperitoneal Spaces: No intra-abdominal free fluid collections or gas. No mesenteric, retroperitoneal, or inguinal lymphadenopathy. VASCULATURE: The abdominal aorta is of normal contour and caliber. MUSCULOSKELETAL: Transitional vertebral anatomy. There is partial lumbarization of S1 with rudimentary S1-S2 intervertebral disc. Mild multilevel degenerative changes of the spine. No lytic or sclerotic osseous lesions demonstrated. No soft tissue masses demonstrated. CT/CT abdomen pelvis wo IV con IMPRESSION: 1. No evidence of nephrolithiasis or hydronephrosis/hydroureter. 2. Changes of prior TIPS. Chronic splenomegaly. 3. Cardiomegaly. Small pericardial effusion. 4. No additional CT abnormalities of the abdomen and pelvis to explain the patient's symptoms. Electronically signed by: Srikanth Ladd DO 12/02/2023 01:44 AM EDT
--- NOTE | ~2023-12-01 | XR_ITS ---
EXAMINATION: XR HIP, RIGHT CLINICAL INFORMATION: Atraumatic right hip pain COMPARISON: CT abdomen pelvis June 30, 2023 TECHNIQUE: Two views of the right hip. FINDINGS: Visualized portion of the proximal right femur demonstrate no fracture. Right femoral head is well-seated within the acetabulum. Right femoral acetabular joint space is well maintained. No appreciable degenerative changes of the right hip. The pelvic ring is intact. Sacroiliac joints appear symmetric. Limited imaging of the left hip is grossly unremarkable. XR/XR hip RT w PEL1V IMPRESSION: Unremarkable radiographs of the right hip. Electronically signed by: Hakeem Calero MD 12/01/2023 05:53 PM EDT
[2023-12-01 16:51] VITALS: BP 146/92; PULSE 67; RESP 20; TEMP 37.2; O2SAT 100; BMI 34.7
--- NOTE | 2023-12-01 16:52 | ED.BACK ---
HPI - Back Pain/Injury General Chief Complaint: General Medical Stated Complaint: back pain into legs Time Seen by Provider: 12/01/23 20:39 Source: patient Mode of arrival: ambulatory Limitations: no limitations History of Present Illness ED Provider: rocky BLAKE Narrative: Patient's history of noncirrhotic portal hypertension complicated by esophageal varices status post tips placement comes here for pain in the right flank area with dysuria and frequency no fever no chills patient does have a remote history of kidney stone but CT scan in 07/08 was negative no fever no chills Related Data Home Medications ?Medication ?Instructions ?Recorded ?Confirmed bupropion HCl 150 mg 24 hr tablet, 150 mg PO QAM 09/04/23 11/12/23 extended release Previous Rx's ?Medication ?Instructions ?Recorded loratadine 10 mg tablet 10 mg PO DAILY PRN allergy 02/19/23 symptoms 90 days #90 tabs hydroxyzine pamoate 25 mg capsule 25 mg PO BID PRN anxiety 30 days 05/19/23 #60 caps albuterol sulfate 90 mcg/actuation 2 puff PO Q6H PRN shortness of 06/11/23 aerosol inhaler breath or wheezing 30 days #8.5 grams famotidine 20 mg tablet 20 mg PO BID 30 days #60 tabs 06/11/23 fluticasone propionate 50 1 spray intranasal DAILY PRN 06/11/23 mcg/actuation nasal allergy symptoms #16 mL spray,suspension hydrochlorothiazide 12.5 mg tablet 12.5 mg PO DAILY 30 days #30 tabs 06/11/23 pantoprazole 40 mg tablet,delayed 40 mg PO DAILY 30 days #30 tabs 06/11/23 release prazosin 1 mg capsule 1 mg PO BEDTIME 30 days #30 caps 06/11/23 sertraline 100 mg tablet 100 mg PO DAILY 30 days #30 tabs 08/12/23 trazodone 50 mg tablet 50 mg PO BEDTIME PRN insomnia 30 08/12/23 days #30 tabs sennosides 8.6 mg-docusate sodium 1 tab-cap PO BEDTIME 60 days #60 09/04/23 50 mg tablet (Senna with Docusate tabs Sodium) furosemide 20 mg tablet (Lasix) 20 mg PO QAM 30 days #30 tabs 09/08/23 spironolactone 50 mg tablet 50 mg PO QAM 30 days #30 tabs 09/08/23 clonidine HCl 0.2 mg tablet 0.2 mg PO BEDTIME 30 days #30 tabs 11/15/23 metformin 500 mg tablet 500 mg PO BID #180 tabs 11/28/23 cefuroxime axetil 250 mg tablet 250 mg PO BID 7 days #14 tabs 12/02/23 Allergies Allergy/AdvReac Type Severity Reaction Status Date / Time aspirin [ASPIRIN] AdvReac Intermediate ULCER; GI Verified 12/01/23 16:54 UPSET, internal bleeding dextran 40 AdvReac Itching Verified 12/01/23 16:54 Review of Systems Review of Systems: Yes all other systems are reviewed and are negative [facility] Past Medical History Medical History ELIJAH I (cervical intraepithelial neoplasia I) Obesity, Class III, BMI 40-49.9 (morbid obesity) Smoker Depression Anxiety Insomnia Esophageal varices Diabetes mellitus Lower abdominal pain Allergic rhinitis Common cold Anxiety and depression Obesity (BMI 30-39.9) Smoker Hypersplenism Pancytopenia Bilateral calcaneal spurs Thrombocytopenia Ascites Iron deficiency anemia due to chronic blood loss History of esophageal varices Chronic pain of both feet Varicose veins of right lower extremity with inflammation Sprain of left knee IBS (irritable bowel syndrome) GERD (gastroesophageal reflux disease) Depression Dementia Liver disease Hypertension Surgical History History of D&C S/P TIPS (transjugular intrahepatic portosystemic shunt) (~10/2015) History of liver biopsy (~04/2002) History of esophagogastroduodenoscopy (EGD) Family History Family History Father Diabetes mellitus Mother Diabetes mellitus Alzheimer's dementia Pneumothorax Maternal Aunt Ovarian cancer Daughter No problems noted. Maternal Aunt Cervical cancer Maternal Grandfather Pancreatic cancer Other Mental health disorder Social History Social History Housing: Apartment Alcohol intake: never Patient Tobacco Use Status: Current everyday Tobacco user Tobacco use type: Cigarette Cigarette Packs Per Day: 0.5 Cigarettes Per Day: 12 Years Smoked: 8 years Smoked in Last 30 Days: No e-Cigarette/Vaping Use: Never Used Second Hand Smoke Exposure: Yes Any prior treatment program specific to substance use: No Advance Directives: No Advance Directives Information Provided: No Do you have a plan to hurt others: No Plan Patient : No service: No Current occupational status: unemployed Current occupational exposures/hazards: No Cognitive needs: No Hearing needs: No Vision needs: No Physical Exam Vital Signs: Vital Signs: Last Vital Signs Temp 98.2 F 12/02/23 02:20 Pulse 69 12/02/23 02:20 Resp 18 12/02/23 02:20 BP 122/57 L 12/02/23 02:20 Pulse Ox 100 12/02/23 02:20 O2 Del Method Room Air 12/02/23 02:20 BMI result Body Mass Index 34.7 Appearance: Alert. Oriented X3. No acute distress. Eyes: No pallor ENT: Pharynx normal. Oral Mucosa moist Neck: Normal inspection. Neck supple. CVS: Normal heart rate and rhythm. Pulses normal. Respiratory: No respiratory distress. Equal air entry bilateral, no wheezing/rales/rhonchi Abdomen: Soft and nontender. Bowel sounds are present, no mass palpable, right CVA tenderness Skin: Skin warm and dry. Normal skin color. Normal skin turgor. Extremities: No lower extremity edema. No calf tenderness Neuro: Oriented X 3. No motor deficit. Course Course Course Narrative: This is a Rapid Medical Examination (RME) performed by Greg Akers PA-C in triage. Full HPI, ROS, assessment and treatment plan per primary provider in the Main ED. 43 yo female hx of HTN, anxiety, depression, splenomegaly, IBS, GERD, dementia, liver disease, iron deficiency anemia, and chronic pain here for eval of right low back/ hip pain beginning yesterday, now radiating down right LE. pain is worse w/ movement. admits to hx of renals stones - states pain is similar. + no midline spinous tenderness or step off. no cvat. Plan: labs, UA, xr Medications Administered Discontinued Medications Generic Name Dose Route Start Last Admin Trade Name Freq PRN Reason Stop Dose Admin Cefuroxime Axetil 250 mg 12/02/23 01:56 12/02/23 02:13 Cefuroxime Axetil 250 Mg Tablet PO 09/17/24 01:57 250 mg ONCE ONE Administration Morphine Sulfate 15 mg 12/01/23 21:58 12/01/23 22:19 Morphine Sulfate Immed Release 15 Mg Tablet PO 12/01/23 21:59 15 mg ONCE ONE Administration Ondansetron HCl 4 mg 12/01/23 21:21 12/01/23 22:19 Ondansetron Hcl 4 Mg/2 Ml Vial IVPUSH 12/01/23 21:22 Not Given ONCE ONE Medical Decision Making Medical Decision Making [facility] Narrative: Patient with UTI CT scan negative for kidney stone any major pathology will discharge patient home on Ceftin Differential Diagnosis Differential Diagnoses: The differential diagnosis associated with the presentation includes UTI/pyelonephritis/kidney stone Admission/Observation Consideration of admission/observation: Escalation of care including admission/observation considered Lab Data [facility] Lab Attestation statement: I reviewed the patient's lab results. 12/01/23 19:58 12/01/23 18:03 Labs: Lab Results 12/01/23 12/01/23 Range/Units 18:03 19:58 WBC 4.4 L (4.8-10.8) X10*3/uL RBC 4.30 (4.20-5.50) X10*6/uL Hgb 9.4 L (12.0-16.0) g/dl Hct 30.9 L (37.0-47.0) % MCV 71.9 L (80.0-98.0) fL MCH 21.9 L (27.0-33.0) pg MCHC 30.4 L (31.0-35.0) g/dl RDW 20.9 H (11.0-16.0) % Plt Count 79 L (160-400) X10*3/uL MPV 10.7 (9.4-12.3) fL Immature Gran % (Auto) 0.2 (0.0-0.4) % Neut % (Auto) 66.9 (45-73) % Lymph % (Auto) 24.7 (20-40) % Butts % (Auto) 5.9 (2-11) % Eos % (Auto) 1.6 (0-4) % Baso % (Auto) 0.7 (0-2) % Lymph # (Auto) 1.1 L (1.2-4.9) X10*3/uL Butts # (Auto) 0.3 (0.1-1.2) X10*3/uL Eos # (Auto) 0.1 (0.0-0.4) X10*3/uL Baso # (Auto) 0.0 (0.0-0.2) X10*3/uL Abs Immat Gran (auto) 0.01 (0.00-0.03) X10*3/uL Absolute Neuts (auto) 2.9 (2.0-8.3) x10*3/uL Absolute Nucleated RBC 0.000 (0.0-0.012) X10*3/uL Nucleated RBC % (auto) 0.0 (0.0-0.2) /100WBC Sodium 137 (135-145) mmol/L Potassium 4.4 (3.3-5.1) mmol/L Chloride 111 H (96-108) mmol/L Carbon Dioxide 19 L (22-29) mmol/L Anion Gap 11 L (12-20) BUN 12 (9-16) mg/dL Creatinine 0.83 (0.5-1.4) mg/dL Estim Creat Clear Calc 101.8 Estimated GFR > 60 Random Glucose 112 (60-115) mg/dL Calcium 9.2 (8.4-10.2) mg/dL Magnesium 2.0 (1.6-2.6) mg/dL Total Bilirubin 0.4 (0.0-1.0) mg/dL AST 32 H (5-31) U/L ALT 19 (0-31) U/L Alkaline Phosphatase 62 (39-117) U/L Total Protein 6.9 (6.5-8.0) g/dL Albumin 4.1 (3.5-5.0) g/dL Lipase 39 (8-78) U/L Urine Color Dark Yellow Urine Appearance Cloudy Urine pH 5.5 (5.0-9.0) Ur Specific [place] >= 1.030 H (1.005-1.025) Urine Protein Trace (Neg-Trace) mg/dL Urine Glucose (UA) Negative (Negative) mg/dL Urine Ketones Trace (Negative) mg/dL Urine Blood Negative (Negative) Urine Nitrite Negative (Negative) Ur Leukocyte Esterase Trace H (Negative) Urine RBC 0-2 (0-2) /HPF Urine WBC 11-20 H (0-5) /HPF Ur Squamous Epith Cells 11-20 (0-2) /HPF Urine Bacteria 2+ (None Seen) Hyaline Casts 0-2 (0-2) /LPF Urine Test NEGATIVE (NEGATIVE) Independent Interpretation I performed an independent interpretation of an: CT Scan Radiology Impression Discussion of test interpretation with radiology: I have reviewed the radiologist's reading. Radiologist Impression: CT/CT abdomen pelvis wo IV con IMPRESSION: 1. No evidence of nephrolithiasis or hydronephrosis/hydroureter. 2. Changes of prior TIPS. Chronic splenomegaly. 3. Cardiomegaly. Small pericardial effusion. 4. No additional CT abnormalities of the abdomen and pelvis to explain the patient's symptoms. Electronically signed by: Srikanth Ladd DO 12/02/2023 01:44 AM EDT RP Discharge Plan Discharge Clinical Impression: UTI (urinary tract infection) Patient Disposition: Home, Self-Care Instructions: Urinary Tract Infection in Women (ED) Additional Instructions: Drink plenty of fluids Antibiotic as prescribed for UTI Your CT scan negative for acute pathology no stones were seen Follow with your PCP Prescriptions: New cefuroxime axetil 250 mg tablet 250 mg PO BID 7 Days Qty: 14 0RF No Action loratadine 10 mg tablet 10 mg PO DAILY PRN (Reason: allergy symptoms) 90 Days Qty: 90 3RF hydroxyzine pamoate 25 mg capsule 25 mg PO BID PRN (Reason: anxiety) 30 Days Qty: 60 0RF trazodone 50 mg tablet 50 mg PO BEDTIME PRN (Reason: insomnia) 30 Days Qty: 30 2RF sertraline 100 mg tablet 100 mg PO DAILY 30 Days Qty: 30 2RF spironolactone 50 mg tablet 50 mg PO QAM 30 Days Qty: 30 2RF furosemide [Lasix] 20 mg tablet 20 mg PO QAM 30 Days Qty: 30 2RF clonidine HCl 0.2 mg tablet 0.2 mg PO BEDTIME 30 Days Qty: 30 2RF metformin 500 mg tablet 500 mg PO BID Qty: 180 0RF albuterol sulfate 90 mcg/actuation HFA aerosol inhaler 2 puff PO Q6H PRN (Reason: shortness of breath or wheezing) 30 Days Qty: 8.5 5RF famotidine 20 mg tablet 20 mg PO BID 30 Days Qty: 60 2RF fluticasone propionate 50 mcg/actuation spray,suspension 1 spray intranasal DAILY PRN (Reason: allergy symptoms) Qty: 16 2RF hydrochlorothiazide 12.5 mg tablet 12.5 mg PO DAILY 30 Days Qty: 30 2RF pantoprazole 40 mg tablet,delayed release (DR/EC) 40 mg PO DAILY 30 Days Qty: 30 2RF prazosin 1 mg capsule 1 mg PO BEDTIME 30 Days Qty: 30 2RF bupropion HCl 150 mg tablet extended release 24 hr 150 mg PO QAM sennosides-docusate sodium [Senna with Docusate Sodium] 8.6-50 mg tablet 1 tab-cap PO BEDTIME 60 Days Qty: 60 2RF Rx Instructions: Please take daily at bedtime Interventions: ED Discharge Assessment Last Done: 12/02/23 02:20 Discharge Date/Time: 12/02/23 02:15 Print Language: Syriac
[2023-12-01 18:16] LABS: Appearance Urine Cloudy; Color Urine Dark Yellow; Glucose Urine UA Negative (Negative); Leukocyte Esterase Urine Trace (Negative); Nitrite Urine Negative (Negative); PH 5.5 (5.0-9.0); Specific Gravity - Urine >= 1.030 (1.005-1.025); UMIC TRIGGER UACC YES; Urine Blood Negative (Negative); Urine Ketones Trace mg/dL (Negative); Urine Protein Trace mg/dL (Neg-Trace)
[2023-12-01 18:33] LABS: Alanine Aminotransferase 19 U/L (0-31); Albumin Level 4.1 g/dL (3.5-5.0); Alkaline Phosphatase 62 U/L (39-117); Anion Gap 11 (12-20); Aspartate Amino Transferase 32 U/L (5-31); Bilirubin Total 0.4 mg/dL (0.0-1.0); Blood Urea Nitrogen 12 mg/dL (9-16); Calcium 9.2 mg/dL (8.4-10.2); Carbon Dioxide 19 mmol/L (22-29); Chloride 111 mmol/L (96-108); Creatinine Clr Calc Pharmacy 101.8; Estimated Glomerular Filt Rate > 60; Glucose Random 112 mg/dL (60-115); Lipase 39 U/L (8-78); Potassium 4.4 mmol/L (3.3-5.1); Sodium 137 mmol/L (135-145); Total Protein 6.9 g/dL (6.5-8.0)
[2023-12-01 18:52] LABS: Bacteria Urine 2+ (None Seen); Hyaline Casts Urine 0-2 /LPF (0-2); RBC Urine 0-2 /HPF (0-2); UACC Culture Trigger YES
[2023-12-01 20:05] LABS: MANUAL DIFF FLAG NO
[2023-12-01 20:06] LABS: Basophils Percent Auto 0.7 % (0-2); Eosinophils Absolute Auto 0.1 X10*3/uL (0.0-0.4); Eosinophils Percent Auto 1.6 % (0-4); Hematocrit 30.9 % (37.0-47.0); Hemoglobin 9.4 g/dl (12.0-16.0); Imm Gran Abs Auto 0.01 X10*3/uL (0.00-0.03); Imm Gran Pct Auto 0.2 % (0.0-0.4); Lymphocytes Absolute Auto 1.1 X10*3/uL (1.2-4.9); Lymphocytes Percent Auto 24.7 % (20-40); Mean Corpuscular HGB Conc 30.4 g/dl (31.0-35.0); Mean Corpuscular Hemoglobin 21.9 pg (27.0-33.0); Mean Corpuscular Volume 71.9 fL (80.0-98.0); Mean Platelet Volume 10.7 fL (9.4-12.3); Monocytes Absolute Auto 0.3 X10*3/uL (0.1-1.2); Monocytes Percent Auto 5.9 % (2-11); Neutrophils Absolute Auto 2.9 x10*3/uL (2.0-8.3); Neutrophils Percent Auto 66.9 % (45-73); Red Cell Distribution Width 20.9 % (11.0-16.0); White Blood Count 4.4 X10*3/uL (4.8-10.8)
[2023-12-01 20:21] LABS: Platelet Count 79 X10*3/uL (160-400)
--- NOTE | 2023-12-01 21:40 | PC.NURSE ---
This RN attempted 2X to get IV access but unsuccessful. CC-Heydi going to try to get IV access.
[2023-12-01 21:43] LABS: UPreg QC Valid YES; Urine Pregnancy NEGATIVE (NEGATIVE)
[2023-12-01 22:00] VITALS: BP 129/70; PULSE 58; RESP 16; TEMP 37; O2SAT 100
--- NOTE | 2023-12-01 22:10 | MHC.EDTECH ---
Hourly rounds and vitals completed,family at bedside,call lassiter in reach
[2023-12-01] MEDS: Morphine Sulfate Immed Release 15 MG TABLET PO (22:19)
[2023-12-02] MEDS: cefuroxime axetiL 250 MG TABLET PO (02:13)
[2023-12-02 02:15] VITALS: BP 122/57; PULSE 69; RESP 18; TEMP 36.8; O2SAT 100
[2023-12-02 02:20] VITALS: BP 122/57; PULSE 69; RESP 18; TEMP 36.8; O2SAT 100
== END 2023-12-02 02:15 | disposition home or self-care (01) ==
PROVIDERS: Physician Assistant Medical; Emergency Provider Internal Medicine; PCP Internal Medicine
DX: N39.0 Urinary tract infection, site not specified (principal); M54.50 Low back pain, unspecified; R30.0 Dysuria; R35.0 Frequency of micturition; M25.551 Pain in right hip; Z79.899 Other long term (current) drug therapy
CPT/HCPCS: 36415; 73502; 74176; 80053; 81001; 81025; 83690; 83735; 85025; 87086; 99284

== ENCOUNTER 2023-12-03 07:35 | Outpatient (AMB) | payer OTHER, SELFPAY ==
--- NOTE | 2023-12-03 07:36 | A.OFFVIS_ITS ---
Vital Signs 12/03/23 07:38 Height 5 ft 6 in Weight 213 lb 13.574 oz BMI 34.5 Intake Visit Reasons: emb results Freight Broker Agent Required: Yes Freight Broker Agent Language: Shredder Tender Peat Services: Freight Broker Agent Present (in person) Freight Broker Agent Name: Priscilla OMALLEY Information Interpreted: non-clinical & clinical Accompanied by: Self / Same As Patient Allergies aspirin [ASPIRIN] Adverse Reaction (Intermediate, Verified 12/03/23 07:51) ULCER; GI UPSET, internal bleeding dextran 40 Adverse Reaction (Verified 12/03/23 07:51) Itching HPI Comments Details: The patient is presenting for follow-up to discuss the results of her abnormal uterine bleeding workup and options of treatment. The following workup was done.: H&H= 9.4/30.9 TSH, prolactin, hCG, GC and chlamydia were negative. Endometrial biopsy pathology showed the following: Secretory endometrium; negative for atypia or hyperplasia. Co testing was done was negative. Mammogram was BI-RADS 1 Pelvic ultrasound showed the following: Uterus: The uterus is anteverted and measures 11.2 x 4.7 x 5.1 cm. There are multiple fibroids including: ? 1.7 x 1.9 x 1.6 cm left fibroid,? Previously measured 2.6 x 2.4 x 2.3 cm 1.5 x 0.9 x 1.2 cm right posterior fundal fibroid previously measured 1.7 x 1.5 x 1.5 cm 1.1 x 0.8 x 0.9 cm anterior fundal fibroid previously measured 0.8 x 0.7 x 1.3 cm The endometrial thickness is 0.7 cm. Fluid is seen within the endocervical canal. Adnexa: The right ovary is not seen. The left ovary measures 1.2 x 2.5 x 1.7 cm. Volume 2.7 mL. The ovary is normal in appearance with normal arterial and venous flow. [facility] Medical History ELIJAH I (cervical intraepithelial neoplasia I) Obesity, Class III, BMI 40-49.9 (morbid obesity) Smoker Depression Anxiety Insomnia Esophageal varices Diabetes mellitus Lower abdominal pain Allergic rhinitis Common cold Anxiety and depression Obesity (BMI 30-39.9) Smoker Hypersplenism Pancytopenia Bilateral calcaneal spurs Thrombocytopenia Ascites Iron deficiency anemia due to chronic blood loss History of esophageal varices Chronic pain of both feet Varicose veins of right lower extremity with inflammation Sprain of left knee IBS (irritable bowel syndrome) GERD (gastroesophageal reflux disease) Depression Dementia Liver disease Hypertension Surgical History History of D&C S/P TIPS (transjugular intrahepatic portosystemic shunt) (~10/2015) History of liver biopsy (~04/2002) History of esophagogastroduodenoscopy (EGD) Family History Father Diabetes mellitus Mother Diabetes mellitus Alzheimer's dementia Pneumothorax Maternal Aunt Ovarian cancer Daughter No problems noted. Maternal Aunt Cervical cancer Maternal Grandfather Pancreatic cancer Other Mental health disorder Social History Housing: Apartment Alcohol intake: never Patient Tobacco Use Status: Current everyday Tobacco user Tobacco use type: Cigarette Cigarette Packs Per Day: 0.5 Cigarettes Per Day: 12 Years Smoked: 8 years e-Cigarette/Vaping Use: Never Used Second Hand Smoke Exposure: Yes service: No Current occupational status: unemployed Current occupational exposures/hazards: No Cognitive needs: No Hearing needs: No Vision needs: No Female Reproductive History Menstrual Age of Menarche: 8 Review of Systems Const All systems reviewed & are unremarkable except as noted in HPI and below Reports as per HPI and Reports no additional complaints GI Reports no additional complaints Reports no additional complaints Physical Exam Vital Signs: BMI result Body Mass Index 34.5 Assessment & Plan Assessment & Plan (1) Abnormal uterine bleeding (AUB): Comment: Pre portal hypertension Diabetes Hypersplenism Thrombocytopenia Code(s): N93.9 - Abnormal uterine and vaginal bleeding, unspecified Category: Medical Plan: Discussed with the patient the results of the work up done and options of treatment options. All pros, cons, risks and benefits if each option was discussed with the patient and the patient decided to go ahead with definitive surgical hysterectomy. Discussed with the patient the different types of hysterectomies including, vaginal, laparoscopic assisted vaginal, robotic assisted laparoscopic,& abdominal with BSO. All pros, cons, r/b of each approach were discussed the patient including evidence that morbidity is less and recovery is shorter with minimally invasive approaches to hysterectomy. Discussed with the patient the lack of availability of the robot DaVinci robot and/or minimally invasive hat brusher machine specialist at [facility]. The patient was scheduled for hysterectomy at [facility] but it was canceled secondary to the pandemic. Will refer to [facility] for minimally invasive hysterectomy (2) Fibroid uterus: Code(s): D25.9 - Leiomyoma of uterus, unspecified Category: Medical Plan: Discussed with the patient the results of the ultrasound and the size of the myomas. Discussed with the patient risk of myosarcoma and symptoms that are caused by myomas including but not limited to pelvic pain, pressure symptoms, abnormal uterine bleeding. In addition discussed with the patient options of treatment for myomas. All pros and cons, risks and benefits of all options were discussed with the patient. The patient decided to proceed with definite of structures treatment, hysterectomy. Will refer to [facility] with the patient was scheduled previously for hysterectomy. All questions answered, the patient verbalized understanding. Instructed the patient to call our office back in case a referral appointment is not scheduled, missed or canceled so that we will assist on rescheduling another appointment, the patient verbalized understanding agreed with the plan. Coding Level of Care Code Est Pt Level 3 (70451) Diagnoses Abnormal uterine bleeding (AUB) N93.9 Fibroid uterus D25.9
[2023-12-03 07:38] VITALS: BMI 34.5
== END 2023-12-03 08:25 | disposition home or self-care (01) ==
LOC: HO.HWS 07:35
PROVIDERS: PCP Internal Medicine; Visit Provider Obstetrics & Gynecology
DX: N93.9 Abnormal uterine and vaginal bleeding, unspecified (principal); D25.9 Leiomyoma of uterus, unspecified
CPT/HCPCS: 99213

== ENCOUNTER → 2023-12-03 07:35 | Outpatient (BNVA) | payer OTHER, SELFPAY | PROVIDERS: PCP Internal Medicine; Visit Provider Obstetrics & Gynecology | DX: N93.9 Abnormal uterine and vaginal bleeding, unspecified (principal); D25.9 Leiomyoma of uterus, unspecified | CPT/HCPCS: 99212 ==

== ENCOUNTER 2023-12-18 10:15 | Outpatient (RCR) | payer OTHER, SELFPAY ==
[2023-11-20 08:47] VITALS: BP 133/48; PULSE 86; RESP 16; TEMP 37.2; O2SAT 97
[2023-11-20 08:50] VITALS: BP 133/48; PULSE 68; RESP 18; TEMP 36.3
[2023-11-20] MEDS: Iron Sucrose Complex 200 MG in 0.9 % Sodium Chloride 100 ML IV (09:07)
--- NOTE | 2023-11-20 09:07 | HO.INF ---
INFUSION RUNNING AT 200 ML/HOUR DUE TO 24 G IV IN LEFT HAND
[2023-11-27 08:27] VITALS: BP 129/59; PULSE 73; RESP 16; TEMP 36.6; O2SAT 98
[2023-11-27] MEDS: Iron Sucrose Complex 200 MG in 0.9 % Sodium Chloride 100 ML 440 MG IV (08:44)
[2023-12-04] MEDS: Iron Sucrose Complex 200 MG in 0.9 % Sodium Chloride 100 ML 440 MG IV (09:53)
[2023-12-04 09:54] VITALS: BP 127/83; PULSE 73; RESP 16; TEMP 36.7; O2SAT 98
[2023-12-04] MEDS: 0.9 % Sodium Chloride Flush 10 ML SYRINGE 5 ML IVFLUSH (10:12)
[2023-12-18 09:41] VITALS: BP 137/78; PULSE 78; RESP 14; TEMP 36.6; O2SAT 98
[2023-12-18] MEDS: Iron Sucrose Complex 200 MG in 0.9 % Sodium Chloride 100 ML 440 MG IV (09:51)
== END 2023-12-18 10:45 | disposition home or self-care (01) ==
LOC: HO.INF 10:15
PROVIDERS: Visit Provider Internal Medicine
DX: D64.9 Anemia, unspecified (principal)
CPT/HCPCS: 96365; 96374; J1756

== ENCOUNTER 2024-01-21 09:41 | Outpatient (AMB) | payer OTHER, SELFPAY ==
[2024-01-21 09:58] VITALS: BMI 34.0
--- NOTE | 2024-01-21 09:58 | A.OFFVIS_ITS ---
VS Expanded 01/21/24 09:58 Height 5 ft 6 in Weight 210 lb 15.718 oz BMI 34.0 Intake Visit Reasons: T2DM Allergies aspirin [ASPIRIN] Adverse Reaction (Intermediate, Verified 12/03/23 07:51) ULCER; GI UPSET, internal bleeding dextran 40 Adverse Reaction (Verified 12/03/23 07:51) Itching Nutrition Presentation Details: Pt presents for MNT f/u for T2DM. Pt was referred by Tio Gutierrez Pt currently on no dm meds,no glucometer Pt reports working on reduction of portion sizes and reducing on pastries/sugars , feeling well, no concerns at this time BS Monitoring Most Recent Diabetes Results: Creatinine 0.83 mg/dL (0.5-1.4) 12/01/23 Blood Urea Nitrogen 12 mg/dL (9-16) 12/01/23 Sodium 137 mmol/L (135-145) 12/01/23 Potassium 4.4 mmol/L (3.3-5.1) 12/01/23 Chloride 111 mmol/L (96-108) H 12/01/23 Carbon Dioxide 19 mmol/L (22-29) L 12/01/23 Calcium 9.2 mg/dL (8.4-10.2) 12/01/23 AST 32 U/L (5-31) H 12/01/23 ALT 19 U/L (0-31) 12/01/23 Total Protein 6.9 g/dL (6.5-8.0) 12/01/23 Albumin 4.1 g/dL (3.5-5.0) 12/01/23 COUNT INCLUDES THE [facility] Medical History ELIJAH I (cervical intraepithelial neoplasia I) Obesity, Class III, BMI 40-49.9 (morbid obesity) Smoker Depression Anxiety Insomnia Esophageal varices Diabetes mellitus Lower abdominal pain Allergic rhinitis Common cold Anxiety and depression Obesity (BMI 30-39.9) Smoker Hypersplenism Pancytopenia Bilateral calcaneal spurs Thrombocytopenia Ascites Iron deficiency anemia due to chronic blood loss History of esophageal varices Chronic pain of both feet Varicose veins of right lower extremity with inflammation Sprain of left knee IBS (irritable bowel syndrome) GERD (gastroesophageal reflux disease) Depression Dementia Liver disease Hypertension Surgical History History of D&C S/P TIPS (transjugular intrahepatic portosystemic shunt) (~10/2015) History of liver biopsy (~04/2002) History of esophagogastroduodenoscopy (EGD) Family History Father Diabetes mellitus Mother Diabetes mellitus Alzheimer's dementia Pneumothorax Maternal Aunt Ovarian cancer Daughter No problems noted. Maternal Aunt Cervical cancer Maternal Grandfather Pancreatic cancer Other Mental health disorder Social History Housing: Apartment Alcohol intake: never Patient Tobacco Use Status: Current everyday Tobacco user Tobacco use type: Cigarette Cigarette Packs Per Day: 0.5 Cigarettes Per Day: 12 Years Smoked: 8 years e-Cigarette/Vaping Use: Never Used Second Hand Smoke Exposure: Yes service: No Current occupational status: unemployed Current occupational exposures/hazards: No Cognitive needs: No Hearing needs: No Vision needs: No Female Reproductive History Menstrual Age of Menarche: 8 Assessment & Plan Assessment & Plan (1) Diabetes mellitus: Code(s): E11.9 - Type 2 diabetes mellitus without complications Category: Medical Qualifiers: Diabetes mellitus type: type 2 Diabetes mellitus alf insulin use: without alf use Diabetes mellitus complication status: without complication Qualified Code(s): E11.9 - Type 2 diabetes mellitus without complications Plan: Wt: 99 Kg ( 12/08 ), 96 kg (02/07) Est kcal needs as per MSJ: 1900 (40% carb, 30% protein/fat) Est fluid needs as per 25-30 ml/d: 3000 Est prot per day as per 1 g/kg bw: 99 Recommend fiber intake : 8-10 g per day and gradually increase to 25-28 g per day for women and 35-38 g for men or as tolerated Recommend sodium intake per day : less than 2000 mg Educated patient on: ( R = reviewed V = verbalizes understanding N/R = needs review N/A = not applicable * Food sources of carbohydrate, adequate serving sizes and its role in various health conditions: R * Differences between complex carbohydrates a simple carbohydrates, role of fiber in diet: R * Lean protein sources of foods: R * Differences between types of fats and role in diet (mono on saturated fat fatty acids, saturated fatty acids, trans fats): R * Food sources of sodium in salt and healthy modifications for heart health in kidney health: R * Vitamins and minerals: R * Healthy plate method concept: R * Physical activity: Benefits a precaution: R * Hypoglycemia protocol (rule of 15): R V N/R * Dietary prevention of Hyperglycemia: R Patient Instructions: Continue working on choosing high fiber foods with iron (legumes, spinach, broccoli, asparagus) Engage in physical activity, walk 30 min 3 times a week Coding Level of Care Code Nutr Indiv Subseq (57915) Diagnoses Type 2 diabetes mellitus without complication, without long-term current use of insulin E11.9 Diabetes mellitus type: type 2 Diabetes mellitus alf insulin use: without termite inspector use Diabetes mellitus complication status: without complication Time Spent (min) 30
== END 2024-01-21 15:20 | disposition home or self-care (01) ==
LOC: HO.ENCR 09:42
PROVIDERS: PCP Internal Medicine; Visit Provider Dietitian, Registered
DX: E11.9 Type 2 diabetes mellitus without complications (principal)

== ENCOUNTER → 2024-01-21 09:41 | Outpatient (BNVA) | payer OTHER, SELFPAY | PROVIDERS: PCP Internal Medicine; Visit Provider Dietitian, Registered | DX: E11.9 Type 2 diabetes mellitus without complications (principal); Z71.3 Dietary counseling and surveillance; E66.9 Obesity, unspecified; Z68.34 Body mass index [BMI] 34.0-34.9, adult | CPT/HCPCS: 97803 ==

== ENCOUNTER 2024-02-02 10:56 | Outpatient (AMB) | payer OTHER, SELFPAY ==
[2024-02-02 11:03] VITALS: BP 110/80; PULSE 75; O2SAT 96; BMI 33.7
--- NOTE | 2024-02-02 11:03 | MHC.PC.OV ---
Vital Signs 02/02/24 11:03 Height 5 ft 6 in Weight 209 lb BMI 33.7 BP 110/80 Blood Pressure Location Lt brachial Position Sitting Pulse 75 Pulse Source Pulse Oximeter Pulse Oximetry (%) 96 Oxygen Delivery Method Room Air Intake Visit Reasons: 3 Month F/U Protective Signal Operator Required: No Accompanied by: Self / Same As Patient Allergies aspirin [ASPIRIN] Adverse Reaction (Intermediate, Verified 02/09/24 06:22) ULCER; GI UPSET, internal bleeding dextran 40 Adverse Reaction (Verified 02/09/24 06:22) Itching Medication List - Last Reconciled 02/09/24 by David Elizabeth MD albuterol sulfate 90 mcg/actuation 2 puffs PO Q6H PRN 30 days blood sugar diagnostic (FreeStyle Lite Strips) As directed once a day blood-glucose meter (FreeStyle Lite Meter kit) As directed bupropion HCl XL 150 mg PO QAM cefuroxime axetil 250 mg PO BID 7 days citalopram 20 mg PO DAILY clonidine HCl 0.2 mg PO BEDTIME 30 days famotidine 20 mg PO BID 30 days fluticasone propionate 50 mcg/actuation 1 spray intranasal DAILY PRN furosemide 20 mg PO QAM hydrochlorothiazide 12.5 mg PO DAILY 30 days hydroxyzine pamoate 25 mg PO BID PRN 30 days lancets (FreeStyle Lancets) As directed once a day loratadine 10 mg PO DAILY PRN 90 days metformin 500 mg PO BID pantoprazole 40 mg PO DAILY 30 days prazosin 1 mg PO BEDTIME 30 days sennosides-docusate sodium 8.6-50 mg (Senna with Docusate Sodium) 1 tab-cap PO BEDTIME 60 days sertraline 100 mg PO DAILY 30 days spironolactone 50 mg PO QAM trazodone 50 mg PO BEDTIME PRN 30 days Tobacco use date assessed: 02/02/24 Dental Screening Dental Screen Date: 02/02/24 Did you have a dental visit in the last 12 months?: No Did you have a dental problem in the last 6 months where you did not have access to dental care?: No Was dental information given to patient?: No HPI 3 Month F/U HPI Details Patient comes in today for her follow-up visit States that she feels okay except for increasing pain in both knees often lately She denies any recent injury or trauma to her knees She denies any headaches or dizziness Denies any chest pains, no shortness of breath No nausea/vomiting, no abdominal pain No change in bowel habits noted [facility] Medical History (Updated 02/02/24 @ 12:08 by David Elizabeth MD) Bilateral chronic knee pain ELIJAH I (cervical intraepithelial neoplasia I) Obesity, Class III, BMI 40-49.9 (morbid obesity) Smoker Depression Anxiety Insomnia Esophageal varices Diabetes mellitus Lower abdominal pain Allergic rhinitis Common cold Anxiety and depression Obesity (BMI 30-39.9) Smoker Hypersplenism Pancytopenia Bilateral calcaneal spurs Thrombocytopenia Ascites Iron deficiency anemia due to chronic blood loss History of esophageal varices Chronic pain of both feet Varicose veins of right lower extremity with inflammation Sprain of left knee IBS (irritable bowel syndrome) GERD (gastroesophageal reflux disease) Depression Dementia Liver disease Hypertension Surgical History History of D&C S/P TIPS (transjugular intrahepatic portosystemic shunt) (~10/2015) History of liver biopsy (~04/2002) History of esophagogastroduodenoscopy (EGD) Family History Father Diabetes mellitus Mother Diabetes mellitus Alzheimer's dementia Pneumothorax Maternal Aunt Ovarian cancer Daughter No problems noted. Maternal Aunt Cervical cancer Maternal Grandfather Pancreatic cancer Other Mental health disorder Social History Housing: Apartment Alcohol intake: never Patient Tobacco Use Status: Current everyday Tobacco user Tobacco use type: Cigarette Cigarette Packs Per Day: 0.5 Cigarettes Per Day: 12 Years Smoked: 8 years e-Cigarette/Vaping Use: Never Used Second Hand Smoke Exposure: Yes service: No Current occupational status: unemployed Current occupational exposures/hazards: No Cognitive needs: No Hearing needs: No Vision needs: No Female Reproductive History Menstrual Age of Menarche: 8 Questionnaire PHQ-9 Over the last 2 weeks, how often have you been bothered by any of the following problems? 1. Little interest or pleasure in doing things: not at all 2. Feeling down, depressed, or hopeless: not at all 3. Trouble falling or staying asleep, or sleeping too much: not at all 4. Feeling tired or having little energy: not at all 5. Poor appetite or overeating: not at all 6. Feeling bad about yourself - or that you are a failure or have let yourself or your family down: not at all 7. Trouble concentrating on things, such as reading the newspaper or watching television: not at all 8. Moving or speaking so slowly that other people could have noticed. Or the opposite - being so fidgety or restless that you have been moving around a lot more than usual: not at all 9. Thoughts that you would be better off or of hurting yourself in some way: not at all Total score: 0 Depression Screening Interpretation: Negative Depression Screening Done: Yes 22653 - PHQ-9 Billing: Yes Source: Developed by Drs. Rashaad Franklin, Rosana Lechuga, Néo Neil and colleagues, with an educational marika from [employer] Thrive Questionnaire Date Thrive assessed: 02/02/24 I am a: Patient What is your living situation today?: I have a steady place to live Within the past 12 months, did the food you bought not last and you didn't have the money to get more?: Never true Within the past 12 months, did you worry whether your food would run out before you got money to buy more?: Never true Do you have trouble paying for medicines?: No Do you have trouble getting transportation to medical appointments?: No Do you have trouble paying your heating and electricity bill?: No Do you have trouble taking care of your child, family member or friend?: No Do you have trouble with day-to-day activities such as bathing, preparing meals, shopping, managing finances, etc.?: No Are you currently unemployed and looking for a job?: No Are you interested in more education?: No Please select the resources that you would like help with: None Currently or been in a relationship where the following occur: No concerns reported THRIVE Score: 0 AUDIT C Alcohol Use Questionnaire (AUDIT-C) 1. How often do you have a drink containing alcohol?: Monthly or less 2. How many drinks containing alcohol do you have on a typical day when you are drinking?: 1 or 2 Total Score: 1 Score Reviewed/Action Taken: Yes CALEB-7 AMB Questionnaire CALEB-7 Date CALEB - 7 assessed: 02/02/24 Feeling nervous, anxious, or on edge: 0 = Not at all Not being able to stop or control worryin = Not at all Worrying too much about different things: 0 = Not at all Trouble relaxin = Not at all Being so restless that it is hard to sit still: 0 = Not at all Becoming easily annoyed or irritable: 0 = Not at all Feeling afraid as if something awful might happen: 0 = Not at all Total CALEB-7 score (0-4 normal; 5-9 mild; 10-14 moderate; 15-21 severe): 0 Source: Developed by Drs. Rashaad Franklin, Rosana Lechuga, Noé Neil and colleagues, with an educational marika from [employer] Review of Systems Const Denies chills, Denies fatigue, Denies fever(s) and Denies headache(s) ENT Denies dysphagia, Denies dizziness, Denies otalgia, Denies headache(s), Denies neck pain, Denies odynophagia and Denies sore throat Card Denies chest pain, Denies palpitations and Denies dyspnea Resp Denies chest congestion, Denies cough and Denies dyspnea GI Denies abdominal pain, Denies constipation, Denies dysphagia, Denies heartburn, Denies diarrhea, Denies nausea, Denies odynophagia and Denies vomiting Denies difficulty voiding, Denies nocturia, Denies dysuria and Denies urinary urgency Musc Denies back pain, Reports arthralgias (increased over both knees) and Denies neck pain Skin/Breast Denies rash Neuro Denies dizziness and Denies headache(s) Endo Denies fatigue and Denies palpitations Physical exam (Primary Care) Vital Signs: Last Vital Signs Pulse 75 02/02/24 11:03 BP 110/80 02/02/24 11:03 Pulse Ox 96 02/02/24 11:03 Oxygen Delivery Method Room Air 02/02/24 11:03 BMI result Body Mass Index 33.7 Tobacco/Smoking Status: Tobacco use Status Tobacco use date assessed 02/02/24 02/02/24 11:06 Patient Tobacco Use Status Current everyday Tobacco 02/02/24 11:06 Tobacco use type Cigarette 02/02/24 11:06 e-Cigarette/Vaping Use Never Used 02/02/24 11:06 PHQ-9: PHQ-9 Score PHQ-9: Total score 0 02/02/24 12:11 Depression Screening Interpretation: Negative Thrive Assessment: Date of Thrive Assessment Date Thrive assessed 02/02/24 02/02/24 11:06 Currently or been in a relationship where the following occur: No concerns reported Const General: no acute distress and alert HENMT Ears: TM's normal bilaterally and EAC's normal Throat: Yes posterior oropharynx normal and Yes tonsils normal (no TP congestion) Neck Neck: Yes no lymphadenopathy and Yes supple Thyroid: Thyroid normal Resp Auscultation: clear to auscultation bilaterally, no rales and no wheezes Cardio Rate: regular rate Rhythm: regular rhythm Heart sounds: no murmurs GI Palpation (GI): Soft to palpation and nontender Auscultation: normal bowel sounds General: Yes no CVA tenderness Back/Spine/Pelvis Back: no CVA tenderness Skin Rashes: no rashes Extrem General: Yes no clubbing, cyanosis or edema Coding Level of Care Code Est Pt Level 4 (89741) Complex EM visit Add On G2211 Diagnoses Bilateral chronic knee pain M25.561; M25.562; G89.29 Type 2 diabetes mellitus without complication, without long-term current use of insulin E11.9 Diabetes mellitus type: type 2 Diabetes mellitus exterminator helper insulin use: without exterminator helper use Diabetes mellitus complication status: without complication Primary hypertension I10 Hypertension type: primary hypertension Liver disease K76.9 Thrombocytopenia D69.6 Iron deficiency anemia due to chronic blood loss D50.0 Anemia type: iron deficiency Iron deficiency anemia type: chronic blood loss Dysphagia, unspecified type R13.10 Dysphagia type: unspecified Secondary esophageal varices without bleeding I85.10 Esophageal varices type: secondary Esophageal varices bleeding: without bleeding Allergic rhinitis, unspecified seasonality, unspecified trigger J30.9 Allergic rhinitis trigger: unspecified Allergic rhinitis seasonality: unspecified Insomnia, unspecified type G47.00 Insomnia type: unspecified Anxiety F41.9 Episode of recurrent major depressive disorder, unspecified depression episode severity F33.9 Depression Type: major depressive disorder Major depression recurrence: recurrent Active/Remission status: currently active Major depression episode severity: unspecified Smoker F17.200 Obesity, Class III, BMI 40-49.9 (morbid obesity) E66.01 Additional Codes PHQ-9 - 15634 - PHQ-9 Billing: Yes ([id number]) Assessment & Plan Assessment & Plan (1) Bilateral chronic knee pain: Code(s): M25.561 - Pain in right knee; M25.562 - Pain in left knee; G89.29 - Other chronic pain Category: Medical Plan: Will send patient for x-rays of both knees for further evaluation (2) Diabetes mellitus: Code(s): E11.9 - Type 2 diabetes mellitus without complications Category: Medical Qualifiers: Diabetes mellitus type: type 2 Diabetes mellitus exterminator helper insulin use: without exterminator helper use Diabetes mellitus complication status: without complication Qualified Code(s): E11.9 - Type 2 diabetes mellitus without complications Plan: Her in-office HgbA1c was at 6.0% when last checked months ago; was previously at 7.3% early this year - goal is at least <7.0% Reinforced diabetic diet Continue Metformin 500 mg BID (3) Hypertension: Code(s): I10 - Essential (primary) hypertension Category: Medical Qualifiers: Hypertension type: primary hypertension Qualified Code(s): I10 - Essential (primary) hypertension Plan: Reinforced low sodium diet - goal is systolic BP of at least 130 mm or less Continue HCTZ 12.5 mg QD (4) Liver disease: Comment: Pre-hepatic portal hypertension Code(s): K76.9 - Liver disease, unspecified Category: Medical Plan: Patient has non-cirrhotic portal hypertension complicated by esophageal varices and with past Hx of GI bleeding She is S/P TIPS placement at [facility] in 10/2015, with no GI bleeding since She was seeing Dr. Mendoza for GI follow up but has not been back to see her since 2020 Her last imaging studies were done in 2019 - abdominal and pelvic CT in 10/2019 and abdominal US in 09/2019. Both tests showed (+) patent right TIPS stent at the time, with no free fluid or ascites noted Continue Spironolactone 50 mg QD and Furosemide 20 mg QD Follow up with GI as scheduled (5) Thrombocytopenia: Code(s): D69.6 - Thrombocytopenia, unspecified Category: Medical Plan: This is most likely related to her hypersplenism / splenomegaly and liver disease Patient relates no increased bleeding lately Will have her recheck her labs in 3 months for follow up (6) Anemia: Code(s): D64.9 - Anemia, unspecified Category: Medical Qualifiers: Anemia type: iron deficiency Iron deficiency anemia type: chronic blood loss Qualified Code(s): D50.0 - Iron deficiency anemia secondary to blood loss (chronic) Plan: This is most likely due to iron-deficiency anemia related to chronic blood loss Her H/H were normal when last checked in September 2020 and again on her labs done a couple of months ago She was supposed to get a hysterectomy at [facility] done a couple of years ago but cancelled this due to the COVID-19 pandemic Follow up with Dr. Dickens as scheduled - she is now receiving IV Venofer as needed for her anemia (7) Dysphagia: Code(s): R13.10 - Dysphagia, unspecified Category: Medical Qualifiers: Dysphagia type: unspecified Qualified Code(s): R13.10 - Dysphagia, unspecified Plan: Her barium swallow done in September 2023 revealed findings suggestive of achalasia - (+) dilated esophagus, with moderate smooth narrowing at the GE junction suggestive of moderate achalasia Follow up with GI as scheduled (8) Esophageal varices: Code(s): I85.00 - Esophageal varices without bleeding Category: Medical Qualifiers: Esophageal varices type: secondary Esophageal varices bleeding: without bleeding Qualified Code(s): I85.10 - Secondary esophageal varices without bleeding Plan: These are most likely secondary to her portal hypertension - has had no active bleeding lately Continue Famotidine 20 mg BID She was started back on Pantoprazole 40 mg QD a couple of months ago Follow up with GI as scheduled (9) Allergic rhinitis: Code(s): J30.9 - Allergic rhinitis, unspecified Category: Medical Qualifiers: Allergic rhinitis trigger: unspecified Allergic rhinitis seasonality: unspecified Qualified Code(s): J30.9 - Allergic rhinitis, unspecified Plan: Continue Fluticasone nasal spray 50 mcg QD PRN and Loratadine 10 mg QD PRN (10) Insomnia: Code(s): G47.00 - Insomnia, unspecified Category: Medical Qualifiers: Insomnia type: unspecified Qualified Code(s): G47.00 - Insomnia, unspecified Plan: Sleep hygiene reinforced Continue Trazodone 50 mg Q HS and Prazosin 1 mg Q HS (11) Anxiety: Code(s): F41.9 - Anxiety disorder, unspecified Category: Medical Plan: Continue Hydroxyzine 25 mg BID, Sertraline 100 mg QD and Clonidine 0.2 mg Q HS Follow up with psychiatry as scheduled (12) Depression: Code(s): F32.A - Depression, unspecified Category: Medical Qualifiers: Depression Type: major depressive disorder Major depression recurrence: recurrent Active/Remission status: currently active Major depression episode severity: unspecified Qualified Code(s): F33.9 - Major depressive disorder, recurrent, unspecified Plan: Continue Sertraline 100 mg QD Follow up with psychiatry as scheduled (13) Smoker: Code(s): F17.200 - Nicotine dependence, unspecified, uncomplicated Category: Social Hx Plan: Counseled again on smoking cessation (14) Obesity, Class III, BMI 40-49.9 (morbid obesity): Code(s): E66.01 - Morbid (severe) obesity due to excess calories Category: Medical Plan: Reinforced diet/exercise as tolerated/lose weight Plan Follow up in 3 months Orders: Orders Comprehensive [place]. Panel Fast 3 Months E78.00 - Pure hypercholesterolemia, unspecified Lipid Panel 3 Months E78.00 - Pure hypercholesterolemia, unspecified Hemoglobin A1c 3 Months E11.9 - Type 2 diabetes mellitus without complications XR knee LT 4V 11/18/24 G89.29 - Other chronic pain, M25.561 - Pain in right knee, M25.562 - Pain in left knee XR knee RT 4V 11/18/24 G89.29 - Other chronic pain, M25.561 - Pain in right knee, M25.562 - Pain in left knee Complete Blood Count Auto Diff 3 Months D64.9 - Anemia, unspecified Medications: New blood-glucose meter (FreeStyle Lite Meter kit) As directed 1 ea 0RF E11.9 - Type 2 diabetes mellitus without complications lancets (FreeStyle Lancets) As directed once a day 100 ea 12RF E11.9 - Type 2 diabetes mellitus without complications blood sugar diagnostic (FreeStyle Lite Strips) As directed once a day 100 ea 12RF E11.9 - Type 2 diabetes mellitus without complications
== END 2024-02-02 12:14 | disposition home or self-care (01) ==
PROVIDERS: PCP Internal Medicine; Visit Provider Internal Medicine
DX: M25.561 Pain in right knee (principal); M25.562 Pain in left knee; G89.29 Other chronic pain; E11.9 Type 2 diabetes mellitus without complications; I10 Essential (primary) hypertension; K76.9 Liver disease, unspecified; D69.6 Thrombocytopenia, unspecified; D50.0 Iron deficiency anemia secondary to blood loss (chronic); R13.10 Dysphagia, unspecified; I85.10 Secondary esophageal varices without bleeding; F33.9 Major depressive disorder, recurrent, unspecified; E66.01 Morbid (severe) obesity due to excess calories; J30.9 Allergic rhinitis, unspecified; G47.00 Insomnia, unspecified; F41.9 Anxiety disorder, unspecified; F17.200 Nicotine dependence, unspecified, uncomplicated

== ENCOUNTER → 2024-02-02 10:56 | Outpatient (BNVA) | payer OTHER, SELFPAY | PROVIDERS: PCP Internal Medicine; Visit Provider Internal Medicine | DX: M25.561 Pain in right knee (principal); M25.562 Pain in left knee; E11.9 Type 2 diabetes mellitus without complications; K76.9 Liver disease, unspecified; D69.6 Thrombocytopenia, unspecified; D50.0 Iron deficiency anemia secondary to blood loss (chronic); R13.10 Dysphagia, unspecified; I85.10 Secondary esophageal varices without bleeding; J30.9 Allergic rhinitis, unspecified; G47.00 Insomnia, unspecified; F41.9 Anxiety disorder, unspecified | CPT/HCPCS: 96127; 99212 ==

== ENCOUNTER 2024-03-12 10:04 | Emergency (ER) | payer OTHER, SELFPAY ==
--- NOTE | ~2024-03-12 | XR_ITS ---
EXAMINATION: XR CHEST CLINICAL INFORMATION: cough, SOB COMPARISON: 11/30/2018. TECHNIQUE: 2 views of the chest were obtained. FINDINGS: The cardiac, hilar, and mediastinal contours are normal. The lungs demonstrate low lung volumes. Mildly increased vascular markings without overt CHF. No consolidations or focal opacities. There is no pneumothorax or pleural effusion. TIPS catheter noted overlying the medial liver. No soft tissue or osseous abnormalities. XR/XR chest 2V IMPRESSION: No active pulmonary disease. Electronically signed by: Fredy Rebolledo MD 03/12/2024 11:37 AM EST
--- OUTSIDE RECORDS SUMMARY | 2024-03-12 10:08 | XMS_ITS | Continuity of Care Document ---
Author Organization [facility] Address [address] [place] [address] Phone Care Team Providers Care Pool Finisher Name Role Phone Nino Armstrong OD Unavailable Unavailable Allergies, Adverse Reactions, Alerts Substance Reaction Status Criticality No Known Allergies Active No Inform ation Medications Medication Instructions Dosage Effective Dates (start - stop) Status Comments Eye Allergy Relief (Naphazoline-Pheniram ine) 0.01320 %-0.315 % Drops - Active Singulair 10 mg tablet take 1 tablet (10MG) by oral route every day in the evening 10 MG - Active Procedures Procedure Date REFRACTION EYE EXAM, NEW PATIENT OFFICE/OUTPATIENT VISIT, EST REFRACTION EYE EXAM & TREATMENT REFRACTION EYE EXAM & TREATMENT DISPENSED CTL POSTOP FOLLOW-UP VISIT REFRACTION CONTACT LENS FITTING EYE EXAM & TREATMENT Contact lens hydrophilic DISPENSED GLASSES REFRACTION EYE EXAM, NEW PATIENT FRAMES,PURCHASES Eyeglasses delux frames SINGLE VISION DISPENSING FEE Advance Directives Directive Yes / No Effective Date File Name No Information Encounters Encounter Description Practice Location Reason(s) For Visit Diagnoses Date Provider Providers Copied on Encounter [facility], [address], [place], [id number], [place] tel:[phone] Garcia blurry vision (chief complaint) Presbyopia 3 Patti Oneill. [address], [place], [address], [place]. tel:[phone] OFFICE/OUTPAT IENT VISIT, EST [facility], [address], [place], [place], [id number], [place] tel:[phone] Garcia Watery Eyes (chief complaint) Dry eyes, bilateral 9 Patti Oneill. [address], [place], [address], [place]. tel:[phone] [facility], [address], [place], [place], [id number], [place] tel:[phone] Garcia Complete exam (chief complaint) Myopia, bilateral 8 Patti Oneill. [address], [place], [address], [place]. tel:[phone] [facility], [address], [place], [place], [id number], [place] tel:[phone] Garcia decreased vision (chief complaint) Myopia, bilateral 6 Patti Oneill. [address], [place], [address], [place]. tel:[phone] [facility], [address], [place], [place], [id number], [place] tel:[phone] Garcia No Information 5 No Information [facility], [address], [place], [place], [id number], [place] tel:[phone] Garcia Contact lens followup (chief complaint) Myopia 5 No Information [facility], [address], [place], [place], [id number], tel:[phone] Garcia decreased vision (chief complaint) Myopia 5 No Information [facility], [address], [place], [place], [id number], tel:[phone] Garcia No Information 3 Habib Angeles. [address], [place], [address], . tel:[phone] [facility], [address], [place], [place], [id number], tel:[phone] Garcia blurry vision (chief complaint) Myopia Nov- 3 Habib Angeles. [address], [place], [address], . tel:[phone] [facility], [address], [place], [place], [id number], tel:[phone] Garcia CTL/Optica l/Misc No Information 3 Habib Angeles. [address], [place], [address], . tel:[phone] Family History Family Member Type Diagnosis Age At Onset Mother Problem (finding) HBP Grandmother (m) Problem (finding) Heart Disease Payers Payer name Insurance type Covered libertarian ID Authorchantellea tijason(s) [facility] STANDARD 11 [id number] Social History Type Description Quantity Date Captured Comments Alcohol Use Details occasional w ine/beer occasionally Caffeine Use Details 3 cups per day Tobacco Use Status Current non-smoker Smoking Status Never smoker Non-Smoking Tobacco Use Details : No Details Available : No Details Available Sex Female Chief Complaint And Reason For Visit From encounter dated '02/10/2023 16:35'. blurry vision (chief complaint). Description: The 42 year old patient presents for evaluation of blurry vision in the right eye and left eye.Pt states seeing glares from headlights and difficulty reading street signs C/o itchiness in OU, doesn't use gtts Reason For Referral Reason For Referral No Information Plan Of Treatment Date Type Action Status Appointment Georgie Mcneil BOOKED Patient Education Nearsightedness (Myopia ): Care Instructions completed Patient Education Nearsightedness (Myopia ): Care Instru~ completed Patient Education Nearsightedness (Myopia ): After Your V completed History Of Present Illness Encounter Date Complaint History Of Prese nt Illness blurry vision The 42 year old patient presents for evaluation of blurry vision in the right eye and left eye.Pt states seeing glares from headlights and difficulty reading street signs C/o itchiness in OU, doesn't use gtts Watery Eyes 38 y/o female pt in for Watery eyes to OD x1 week no injury to OD , OS is stable sudden onset, has been having discomfort, irritation and crustiness has noticed OD is blurry, has tired OTC allergy gtts for 2 days has not helpedNo other concerns at this time Complete exam The 37 year old female presents for evaluation of Complete exam in the right eye and left eye.pt states vision quality is stable w. gls denies pain and discomfort. decreased vision The 35 year old female presents for evaluation of decreased vision in the right eye and left eye. It started about 6 month(s) ago. It occurs when focusing. The onset was gradual. It affects distance vision. The symptom is intermittent. The condition is mild. The condition is described as blurring. Pt here to update gls rx and to check ocular health. Contact lens followup Pt here fo r ctl check. Pt was give replacement ctl for OD Air Optix Aqua- which she prefers vs Avu Oasys. Pt states va good. decreased vision The 34 year old female presents for evaluation of decreased vision in the right eye and left eye. It started about 1 year(s) ago. It occurs when focusing. The onset was gradual. It affects distance vision. The symptom is intermittent. The condition is mild. The condition is described as blurring. Pt here to update gls rx and to check ocular health. Pt states she feels more dependent on gls. Functional Status Date Functional Assessmen t No Information Instructions Date Instruction Additional Infor edinson Return in 1 year danny don Patti Nino OD for Complete Exam or sooner if any problems Related to Presbyopia Impression/Plan Related to Presb yopia Return in PRN Related to Dry e yes, bilateral Impression/Plan Related to Dry e yes, bilateral Return in 1 year wit arian UribePatti, Nino OD for Complete Exam or sooner if any problems Related to Myopia, bilateral Impression/Plan Related to Myopi a, bilateral Impression/Plan - Di scussed diagnosis in detail with patient. New glasses Rx was given today. Follow up - RTC 1 ye ar for complete exam with Dr. Breen Impression/Plan - CT L Check: Good vision, fit and comfort. Released CTL-Rx to patient today. Follow up - RTC 1-2 weeks for contact lens check with Dr. Breen Impression/Plan - Di scussed diagnosis in detail. Released new sRx to patient today. CTL fit: Good vision, fit and comfort. Released CTL-Rx to patient today. - Return in 1 year w Angeles Marquez OD for Complete Exam. Related to Myopia Myopia - Discussed d iagnosis in detail with patient. New glasses Rx was given today. Educational materials provided:Refractive error. Related to Myopia Assessments Type Assessment Date assessment Presbyopia impression Presbyopia: H52.4 Patient Care Teams Name Effective Dates (start - stop) Status Members No Information
--- OUTSIDE RECORDS SUMMARY | 2024-03-12 10:08 | XMS_ITS | Continuity of Care Document ---
Author Organization [facility] Address [address] [place] [address] Phone Care Team Providers Care Satellite Communications Engineer Name Role Phone Brad Butler MD, MD Unavailable Unavailable Procedures Procedure Date PREV VISIT, EST, AGE 40-64 OFFICE/OUTPATIENT VISIT, EST SPECIMEN HANDLING PREV VISIT, EST, AGE 40-64 Advance Directives Directive Yes / No Effective Date File Name No Information Encounters Encounter Description Practice Location Reason(s) For Visit Diagnoses Date Provider Providers Copied on Encounter PREV VISIT, EST, AGE 40-64 [facility], [address] [place] [address] Dr [address] [place] [address], [id number], tel:[phone] [facility] No Information Luke Salinas. [address] [place] [address], [id number], [place]. tel:[phone] PREV VISIT, EST, AGE 40-[address] Mc [address] [place] [address], [id number], tel:[phone] [facility] No Information Luke Salinas. [address] [place] [address], [id number], . tel:[phone] Family History Family Member Type Diagnosis Age At Onset No Information Payers Payer name Insurance type Covered constitution party ID Authorchristine mckenzie(s) [facility] [id number] Social History Type Description Quantity Date Captured Comments Sex Female Smoking Status No Information Chief Complaint And Reason For Visit No Information Reason For Referral Reason For Referral No Information History Of Present Illness Encounter Date Complaint History Of Prese nt Illness No Information Functional Status Date Functional Assessmen t No Information Instructions Date Instruction Additional Infor mation No Information Assessments Type Assessment Date No Information Patient Care Teams Name Effective Dates (start - stop) Status Members No Information
[2024-03-12 10:20] VITALS: PULSE 60; RESP 22; TEMP 36.7; O2SAT 100; BMI 37.2
[2024-03-12 10:37] VITALS: BP 170/44; PULSE 60; RESP 17; TEMP 36.1; O2SAT 100
--- OUTSIDE RECORDS SUMMARY | 2024-03-12 10:38 | XMS_ITS | Continuity of Care Document ---
Author Organization [facility] Address [address] [place] [address] Phone Care Team Providers Care Butt Maker Name Role Phone Nino Armstrong OD Unavailable Unavailable Allergies, Adverse Reactions, Alerts Substance Reaction Status Criticality No Known Allergies Active No Inform ation Medications Medication Instructions Dosage Effective Dates (start - stop) Status Comments Eye Allergy Relief (Naphazoline-Pheniram ine) 0.76366 %-0.315 % Drops - Active Singulair 10 [...] Provider Providers Copied on Encounter [facility], [address], [place], [id number], [place] tel:[phone] Garcia blurry vision (chief complaint) Presbyopia 3 Patti Oneill. [address], [place], [address], [place]. tel:[phone] OFFICE/OUTPAT IENT VISIT, EST [facility], [address], [place], [place], [id number], [place] tel:[phone] Garcia Watery Eyes (chief complaint) Dry eyes, bilateral 9 Patti Oneill. [address], [place], [address], [place]. tel:[phone] [facility], [address], [place], [place], [id number], [place] tel:[phone] Garcia Complete exam (chief complaint) Myopia, bilateral 8 Patti Oneill. [address], [place], [address], [place]. tel:[phone] [facility], [address], [place], [place], [id number], [place] tel:[phone] Garcia decreased vision (chief complaint) Myopia, bilateral 6 Patti Oneill. [address], [place], [address], [place]. tel:[phone] [facility], [address], [place], [place], [id number], [place] tel:[phone] Garcia No Information 5 No Information [facility], [address], [place], [place], [id number], [place] tel:[phone] Garcia Contact lens followup (chief complaint) Myopia 5 No Information [facility], [address], [place], [place], [id number], tel:[phone] Garcia decreased vision (chief complaint) Myopia 5 No Information [facility], [address], [place], [place], [id number], tel:[phone] Garcia No Information 3 Habib Angeles. [address], [place], [address], . tel:[phone] [facility], [address], [place], [place], [id number], tel:[phone] Garcia blurry vision (chief complaint) Myopia Nov- 3 Habib Angeles. [address], [place], [address], . tel:[phone] [facility], [address], [place], [place], [id number], tel:[phone] Garcia CTL/Optica l/Misc No Information 3 Habib Angeles. [address], [place], [address], . tel:[phone] Family History Family Member Type Diagnosis Age At Onset Mother Problem (finding) HBP Grandmother (m) Problem (finding) Heart Disease Payers Payer name Insurance type Covered democrat ID Authorchantellea tijason(s) [facility] STANDARD 11 [id number] Social History Type Description Quantity Date Captured [...]
[2024-03-12 11:30] VITALS: PULSE 62; RESP 18; O2SAT 100
[2024-03-12] MEDS: Albuterol Sulfate 2.5 MG, Albuterol/Iprat 2.5/0.5MG 3 ML 3 ML INHALE (11:30)
[2024-03-12] MEDS: methylPREDNISolone Sod Succ 125 MG/2 ML VIAL 60 MG IM (11:33)
[2024-03-12 12:00] VITALS: BP 126/64; PULSE 65; RESP 12; TEMP 36.2; O2SAT 100
--- NOTE | 2024-03-12 12:21 | ED_ITS ---
HPI - Asthma General Chief Complaint: Asthma Stated Complaint: Asthma Time Seen by Provider: 03/12/24 12:21 Source: patient and RN notes reviewed Mode of arrival: ambulatory Limitations: no limitations History of Present Illness ED Provider: Brooklynn Feng PA-C HPI Narrative: This is a 43-year-old female, with a history of asthma, who presents emergency department with complaints of shortness for breath with cough since last night. Patient reports that yesterday she developed some chest tightness, and a dry cough. She states that her symptoms continued through the night. She states that she was unable to use her inhaler as she does not have 1 at home. Patient also reports that she has had some pleuritic chest pain. Denies any recent travel, surgery, hospitalizations. No history of blood clots. She was a smoker, 5 pack year history. She states that her current presentation feels typical of her asthma. Denies any severe abdominal pain, nausea, vomiting or diarrhea. No sick contacts. No other complaints or concerns at this time. MD complaint: shortness of breath and wheezing Severity: moderate Context: none known Associated symptoms: dry cough Related Data Current Asthma Therapy: none Home Medications ?Medication ?Instructions ?Recorded ?Confirmed bupropion HCl 150 mg 24 hr tablet, 150 mg PO QAM 09/04/23 02/09/24 extended release citalopram 20 mg tablet 20 mg PO DAILY 02/02/24 02/09/24 Previous Rx's ?Medication ?Instructions ?Recorded loratadine 10 mg tablet 10 mg PO DAILY PRN allergy 02/19/23 symptoms 90 days #90 tabs hydroxyzine pamoate 25 mg capsule 25 mg PO BID PRN anxiety 30 days 05/19/23 #60 caps albuterol sulfate 90 mcg/actuation 2 puff PO Q6H PRN shortness of 06/11/23 aerosol inhaler breath or wheezing 30 days #8.5 grams famotidine 20 mg tablet 20 mg PO BID 30 days #60 tabs 06/11/23 hydrochlorothiazide 12.5 mg tablet 12.5 mg PO DAILY 30 days #30 tabs 06/11/23 pantoprazole 40 mg tablet,delayed 40 mg PO DAILY 30 days #30 tabs 06/11/23 release prazosin 1 mg capsule 1 mg PO BEDTIME 30 days #30 caps 06/11/23 sertraline 100 mg tablet 100 mg PO DAILY 30 days #30 tabs 08/12/23 trazodone 50 mg tablet 50 mg PO BEDTIME PRN insomnia 30 08/12/23 days #30 tabs sennosides 8.6 mg-docusate sodium 1 tab-cap PO BEDTIME 60 days #60 09/04/23 50 mg tablet (Senna with Docusate tabs Sodium) clonidine HCl 0.2 mg tablet 0.2 mg PO BEDTIME 30 days #30 tabs 11/15/23 cefuroxime axetil 250 mg tablet 250 mg PO BID 7 days #14 tabs 12/02/23 fluticasone propionate 50 1 spray intranasal DAILY PRN 12/20/23 mcg/actuation nasal allergy symptoms #16 mL spray,suspension blood sugar diagnostic (FreeStyle #100 ea 02/02/24 Lite Strips) lancets 28 gauge (FreeStyle #100 ea 02/02/24 Lancets) ferrous sulfate 325 mg (65 mg 325 mg PO DAILY #60 tabs 02/09/24 iron) tablet blood-glucose meter (FreeStyle #1 ea 02/10/24 Lite Meter kit) metformin 500 mg tablet 500 mg PO BID #180 tabs 02/24/24 furosemide 20 mg tablet 20 mg PO QAM #90 tabs 03/04/24 spironolactone 50 mg tablet 50 mg PO QAM #90 tabs 03/04/24 albuterol sulfate 90 mcg/actuation 2 inh inhalation Q6H PRN shortness 03/12/24 aerosol inhaler of breath 30 days #6.7 grams prednisone 20 mg tablet 40 mg (2 x 20 mg) PO DAILY 5 days 03/12/24 #10 tabs Allergies Allergy/AdvReac Type Severity Reaction Status Date / Time aspirin [ASPIRIN] AdvReac Intermediate ULCER; GI Verified 03/12/24 10:21 UPSET, internal bleeding dextran 40 AdvReac Itching Verified 02/09/24 09:09 Review of Systems 2 Review of Systems: Yes all other systems are reviewed and are negative Constitutional: Constitutional: Reports as per [facility] Past Medical History Attestation statement: The following information was validated with the patient. Medical History Bilateral chronic knee pain ELIJAH I (cervical intraepithelial neoplasia I) Obesity, Class III, BMI 40-49.9 (morbid obesity) Smoker Depression Anxiety Insomnia Esophageal varices Diabetes mellitus Lower abdominal pain Allergic rhinitis Common cold Anxiety and depression Obesity (BMI 30-39.9) Smoker Hypersplenism Pancytopenia Bilateral calcaneal spurs Thrombocytopenia Ascites Iron deficiency anemia due to chronic blood loss History of esophageal varices Chronic pain of both feet Varicose veins of right lower extremity with inflammation Sprain of left knee IBS (irritable bowel syndrome) GERD (gastroesophageal reflux disease) Depression Dementia Liver disease Hypertension Surgical History History of D&C S/P TIPS (transjugular intrahepatic portosystemic shunt) (~10/2015) History of liver biopsy (~04/2002) History of esophagogastroduodenoscopy (EGD) Family History Family History Father Diabetes mellitus Mother Diabetes mellitus Alzheimer's dementia Pneumothorax Maternal Aunt Ovarian cancer Daughter No problems noted. Maternal Aunt Cervical cancer Maternal Grandfather Pancreatic cancer Other Mental health disorder Social History Social History Housing: Apartment Alcohol intake: never Patient Tobacco Use Status: Current everyday Tobacco user Tobacco use type: Cigarette Cigarette Packs Per Day: 0.5 Cigarettes Per Day: 12 Years Smoked: 8 years e-Cigarette/Vaping Use: Never Used Second Hand Smoke Exposure: Yes Advance Directives: Yes Advance Directives Information Provided: Yes Advance Directives on File: No service: No Current occupational status: unemployed Current occupational exposures/hazards: No Cognitive needs: No Hearing needs: No Vision needs: No Physical Exam 2 Vital Signs: Vital Signs: Last Vital Signs Temp 97.1 F 03/12/24 12:00 Pulse 65 03/12/24 12:00 Resp 12 03/12/24 12:00 BP 126/64 03/12/24 12:00 Pulse Ox 100 03/12/24 12:00 O2 Del Method Room Air 03/12/24 12:00 BMI result Body Mass Index 37.2 Const: General: cooperative, comfortable and no acute distress O rientation/consciousness: patient oriented x3 Limitations: no limitations HEENT: Head: Yes normal to inspection, Yes normocephalic and Yes atraumatic Ears: hearing grossly normal bilaterally General nose exam: Normal external nose present Face and sinus: Yes normal facial exam Mouth: Normal oral and palatal mucosa present, oropharynx normal and moist mucous membranes Throat: Yes posterior oropharynx normal Eyes: General: appearance normal, both eyes and all related structures E yelids: Yes eyelids normal Conjunctivae: conjunctivae normal Sclerae: s clerae normal Pupils: Equal, round and reactive pupils present EOM: EOMs intact bilaterally Neck: Neck: Yes normal visual inspection, Yes full ROM and Yes no lymphadenopathy Lymphatic: no lymphadenopathy noted Chest: Chest palpation & inspection: normal inspection of the chest Resp: Other: Faint expiratory wheeze noted in the upper left lung portillo. Effort & Inspection: normal respiratory effort and able to speak in complete sentences Auscultation: clear to auscultation bilaterally, no crackles, no rales and no rhonchi Cardio: Rate: regular rate Rhythm: regular rhythm Heart sounds: S1 normal heart sound present and S2 normal heart sound present GI: Inspection: Yes normal to inspection Skin: General skin exam: no rashes or lesions noted Trauma: no lacerations or abrasions Wounds: no wounds Neuro: General: patient oriented x3 and moves all extremities Cranial nerves: Yes Equal, round and reactive pupils present Extrem: General: Yes normal to inspection Right upper extremity: normal to inspection Left upper extremity: normal to inspection Right lower extremity: normal to inspection Left lower extremity: normal to inspection Course Reevaluation(s) Reevaluation #1: Chest x-ray unremarkable, she tested negative for COVID, flu, RSV. Labs revealing leukopenia at 3.8, platelet count of 73, she does have a history of low platelets, this is seems to be around her baseline. Patient received Solu- Medrol, as well as updraft, symptoms improve. EKG normal sinus rhythm, D-dimer negative. Trop. Unlikely ACS, patient's symptoms consistent with viral URI. Vital signs within normal limits. Will treat as a viral URI. Given wheezes, will treat with prednisone as well as albuterol. Given strict return precautions. She understands agrees with plan. Patient stable for discharge. Time: 13:58 Medications Administered Discontinued Medications Generic Name Dose Route Start Last Admin Trade Name Freq PRN Reason Stop Dose Admin Albuterol Sulfate 2.5 mg/ 0 mg 03/12/24 11:28 03/12/24 11:30 Albuterol/Ipratropium 3 ml INHALE 03/12/24 11:29 1 dose ONCE ONE Administration Methylprednisolone Sodium Succinate 60 mg 03/12/24 11:14 03/12/24 11:33 Methylprednisolone Sod Succ 125 Mg/2 Ml Vial IM 03/12/24 11:15 60 mg ONCE ONE Administration Medical Decision Making Medical Decision Making [facility] Narrative: This is a 43-year-old female who presents emergency department with complaints of dry cough, shortness for breath since yesterday. On arrival, she is hypertensive at 170/44, respiration 22, all other vital signs within normal limits. She is speaking full sentences under no acute distress. Patient was medicated with updraft and Solu-Medrol prior to my assessment. She has faint expiratory wheeze noted in the left upper lung field. Patient states that she is feeling much better after receiving these medications. Patient does endorse some pleuritic chest pain, given this finding, will obtain labs. Differential Diagnosis Differential Diagnoses: The differential diagnosis associated with the presentation includes Pneumonia, viral URI, asthma exacerbation, ACS-unlikely Lab Data [facility] Lab Attestation statement: I reviewed the patient's lab results. See course comment 03/12/24 13:10 03/12/24 13:10 Labs: Lab Results 03/12/24 03/12/24 Range/Units 12:10 13:10 WBC 3.8 L (4.8-10.8) X10*3/uL RBC 4.34 (4.20-5.50) X10*6/uL Hgb 10.1 L (12.0-16.0) g/dl Hct 31.9 L (37.0-47.0) % MCV 73.5 L (80.0-98.0) fL MCH 23.3 L (27.0-33.0) pg MCHC 31.7 (31.0-35.0) g/dl RDW 15.9 (11.0-16.0) % Plt Count 73 L (160-400) X10*3/uL MPV 10.3 (9.4-12.3) fL Immature Gran % (Auto) 0.3 (0.0-0.4) % Neut % (Auto) 85.1 H (45-73) % Lymph % (Auto) 10.9 L (20-40) % Hand % (Auto) 2.9 (2-11) % Eos % (Auto) 0.5 (0-4) % Baso % (Auto) 0.3 (0-2) % Lymph # (Auto) 0.4 L (1.2-4.9) X10*3/uL Hand # (Auto) 0.1 (0.1-1.2) X10*3/uL Eos # (Auto) 0.0 (0.0-0.4) X10*3/uL Baso # (Auto) 0.0 (0.0-0.2) X10*3/uL Abs Immat Gran (auto) 0.01 (0.00-0.03) X10*3/uL Absolute Neuts (auto) 3.2 (2.0-8.3) x10*3/uL Absolute Nucleated RBC 0.000 (0.0-0.012) X10*3/uL Nucleated RBC % (auto) 0.0 (0.0-0.2) /100WBC D-Dimer High Sensitivty 164 NG/ML Sodium 136 (135-145) mmol/L Potassium 3.5 D (3.3-5.1) mmol/L Chloride 109 H (96-108) mmol/L Carbon Dioxide 21 L (22-29) mmol/L Anion Gap 10 L (12-20) BUN 10 (9-16) mg/dL Creatinine 0.64 (0.5-1.4) mg/dL Estim Creat Clear Calc 118.6 Estimated GFR > 60 Random Glucose 126 H (60-115) mg/dL Calcium 8.7 (8.4-10.2) mg/dL Magnesium 1.9 (1.6-2.6) mg/dL Total Bilirubin 0.4 (0.0-1.0) mg/dL Direct Bilirubin 0.2 (0.0-0.5) mg/dL AST 17 (5-31) U/L ALT 19 (0-31) U/L Alkaline Phosphatase 55 (39-117) U/L Troponin I High Sens < 2.7 (<3.5-17.0) ng/L Total Protein 6.7 (6.5-8.0) g/dL Albumin 4.1 (3.5-5.0) g/dL Influenza Type A (PCR) NEGATIVE (Negative) Influenza Type B (PCR) NEGATIVE (Negative) RSV RNA Qual (PCR) NEGATIVE (Negative) SARS-CoV-2 RNA (RT-PCR) NEGATIVE (Negative) Independent Interpretation I performed an independent interpretation of an: EKG Interpretation: EKG normal sinus rhythm at a ventricular rate of 66 beats per minute, no ST elevation or depression. Radiology Impression Discussion of test interpretation with radiology: I have reviewed the radiologist's reading. Radiologist Impression: EXAMINATION: XR CHEST CLINICAL INFORMATION: cough, SOB COMPARISON: 11/30/2018. TECHNIQUE: 2 views of the chest were obtained. FINDINGS: The cardiac, hilar, and mediastinal contours are normal. The lungs demonstrate low lung volumes. Mildly increased vascular markings without overt CHF. No consolidations or focal opacities. There is no pneumothorax or pleural effusion. TIPS catheter noted overlying the medial liver. No soft tissue or osseous abnormalities. XR/XR chest 2V IMPRESSION: No active pulmonary disease. Electronically signed by: Fredy Rebolledo MD 03/12/2024 11:37 AM [facility] Dictated By: Fredy Rebolledo MD Discharge Plan Discharge Clinical Impression: Viral URI Patient Disposition: Home, Self-Care Instructions: Upper Respiratory Infection (ED), Wheezing (ED) Additional Instructions: You were seen in the emergency department due to wheezing, dry cough. Your workup today was reassuring. You tested negative for COVID, flu, RSV. Your chest x-ray does not show a pneumonia. Please take prescribed prednisone as directed, start tomorrow as you already received a dose today. Use albuterol inhaler as prescribed. If any new or worsening symptoms occur including but not limited to worsening shortness breath, wheezing, please seek emergent care. Prescriptions: New prednisone 20 mg tablet 40 mg PO DAILY 5 Days Qty: 10 0RF albuterol sulfate 90 mcg/actuation HFA aerosol inhaler 2 inh inhalation Q6H PRN (Reason: shortness of breath) 30 Days Qty: 6.7 0RF No Action loratadine 10 mg tablet 10 mg PO DAILY PRN (Reason: allergy symptoms) 90 Days Qty: 90 3RF hydroxyzine pamoate 25 mg capsule 25 mg PO BID PRN (Reason: anxiety) 30 Days Qty: 60 0RF trazodone 50 mg tablet 50 mg PO BEDTIME PRN (Reason: insomnia) 30 Days Qty: 30 2RF sertraline 100 mg tablet 100 mg PO DAILY 30 Days Qty: 30 2RF clonidine HCl 0.2 mg tablet 0.2 mg PO BEDTIME 30 Days Qty: 30 2RF fluticasone propionate 50 mcg/actuation spray,suspension 1 spray intranasal DAILY PRN (Reason: allergy symptoms) Qty: 16 1RF (DME) blood-glucose meter [FreeStyle Lite Meter] Kit See Rx Instructions .ROUTE .MEDSUPPLY Qty: 1 0RF Rx Instructions: As directed metformin 500 mg tablet 500 mg PO BID Qty: 180 0RF furosemide 20 mg tablet 20 mg PO QAM Qty: 90 0RF spironolactone 50 mg tablet 50 mg PO QAM Qty: 90 0RF ferrous sulfate 325 mg (65 mg iron) Tablet 325 mg PO DAILY Qty: 60 3RF cefuroxime axetil 250 mg tablet 250 mg PO BID 7 Days Qty: 14 0RF albuterol sulfate 90 mcg/actuation HFA aerosol inhaler 2 puff PO Q6H PRN (Reason: shortness of breath or wheezing) 30 Days Qty: 8.5 5RF famotidine 20 mg tablet 20 mg PO BID 30 Days Qty: 60 2RF hydrochlorothiazide 12.5 mg tablet 12.5 mg PO DAILY 30 Days Qty: 30 2RF pantoprazole 40 mg tablet,delayed release (DR/EC) 40 mg PO DAILY 30 Days Qty: 30 2RF prazosin 1 mg capsule 1 mg PO BEDTIME 30 Days Qty: 30 2RF bupropion HCl 150 mg tablet extended release 24 hr 150 mg PO QAM sennosides-docusate sodium [Senna with Docusate Sodium] 8.6-50 mg tablet 1 tab-cap PO BEDTIME 60 Days Qty: 60 2RF Rx Instructions: Please take daily at bedtime citalopram 20 mg tablet 20 mg PO DAILY (DME) lancets [FreeStyle Lancets] 28 gauge misc See Rx Instructions .ROUTE .MEDSUPPLY Qty: 100 12RF Rx Instructions: As directed once a day (DME) FreeStyle Lite Strips Strip See Rx Instructions .ROUTE .MEDSUPPLY Qty: 100 12RF Rx Instructions: As directed once a day Print Language: Slovenian
--- NOTE | 2024-03-12 12:39 | ECG_ITS ---
Test Reason : sob Blood Pressure : / mmHG Vent. Rate : 066 BPM Atrial Rate : 066 BPM P-R Int : 130 ms QRS Dur : 090 ms QT Int : 434 ms P-R-T Axes : 025 010 043 degrees QTc Int : 454 ms Normal sinus rhythm Minimal voltage criteria for LVH, may be normal variant ( R in aVL ) Cannot rule out Inferior infarct , age undetermined Abnormal ECG When compared to the previous EKG of Poor R wave progression seen, ? lead placement Referred By: Brooklynn Feng Electronically Signed By:RAJINDER JUAREZ MD
[2024-03-12 12:58] LABS: Influenza A PCR NEGATIVE (Negative); Influenza B PCR NEGATIVE (Negative); Resp Syncy Virus RNA Qual PCR NEGATIVE (Negative); SARS COV2 PCR INHOUSE NEGATIVE (Negative)
[2024-03-12 13:15] LABS: MANUAL DIFF FLAG NO
--- NOTE | 2024-03-12 13:18 | MHC.EDTECH ---
delay on ekg, do to all ekg machine being used on the unit. nurse aware
[2024-03-12 13:20] LABS: Basophils Percent Auto 0.3 % (0-2); Eosinophils Percent Auto 0.5 % (0-4); Hematocrit 31.9 % (37.0-47.0); Hemoglobin 10.1 g/dl (12.0-16.0); Imm Gran Abs Auto 0.01 X10*3/uL (0.00-0.03); Imm Gran Pct Auto 0.3 % (0.0-0.4); Lymphocytes Absolute Auto 0.4 X10*3/uL (1.2-4.9); Lymphocytes Percent Auto 10.9 % (20-40); Mean Corpuscular HGB Conc 31.7 g/dl (31.0-35.0); Mean Corpuscular Hemoglobin 23.3 pg (27.0-33.0); Mean Corpuscular Volume 73.5 fL (80.0-98.0); Mean Platelet Volume 10.3 fL (9.4-12.3); Monocytes Absolute Auto 0.1 X10*3/uL (0.1-1.2); Monocytes Percent Auto 2.9 % (2-11); Neutrophils Absolute Auto 3.2 x10*3/uL (2.0-8.3); Neutrophils Percent Auto 85.1 % (45-73); Platelet Count 73 X10*3/uL (160-400); Red Blood Count 4.34 X10*6/uL (4.20-5.50); Red Cell Distribution Width 15.9 % (11.0-16.0); White Blood Count 3.8 X10*3/uL (4.8-10.8)
[2024-03-12 13:24] LABS: D Dimer High Sensitivity 164 NG/ML
[2024-03-12 13:33] LABS: Alanine Aminotransferase 19 U/L (0-31); Albumin Level 4.1 g/dL (3.5-5.0); Alkaline Phosphatase 55 U/L (39-117); Anion Gap 10 (12-20); Aspartate Amino Transferase 17 U/L (5-31); Bilirubin Direct 0.2 mg/dL (0.0-0.5); Bilirubin Total 0.4 mg/dL (0.0-1.0); Blood Urea Nitrogen 10 mg/dL (9-16); Calcium 8.7 mg/dL (8.4-10.2); Carbon Dioxide 21 mmol/L (22-29); Chloride 109 mmol/L (96-108); Creatinine Clr Calc Pharmacy 118.6; Estimated Glomerular Filt Rate > 60; Glucose Random 126 mg/dL (60-115); Magnesium 1.9 mg/dL (1.6-2.6); Potassium 3.5 mmol/L (3.3-5.1); Sodium 136 mmol/L (135-145); Total Protein 6.7 g/dL (6.5-8.0)
[2024-03-12 13:50] LABS: Troponin-I High Sensitivity < 2.7 ng/L (<3.5-17.0)
[2024-03-12 14:25] VITALS: BP 153/72; PULSE 66; RESP 16; TEMP 36.6; O2SAT 97
[2024-03-12] MEDS: Albuterol Sulfate 90 MCG 8 GM INHALER 2 PUFF INHALE (14:33)
[2024-03-12 14:41] VITALS: BP 153/72; PULSE 66; RESP 16; TEMP 36.6; O2SAT 97
== END 2024-03-12 14:42 | disposition home or self-care (01) ==
PROVIDERS: Physician Assistant Medical; Emergency Provider Emergency Medicine; PCP Internal Medicine
DX: J06.9 Acute upper respiratory infection, unspecified (principal); J45.909 Unspecified asthma, uncomplicated; R07.89 Other chest pain; R05.9 Cough, unspecified; R06.02 Shortness of breath; F17.210 Nicotine dependence, cigarettes, uncomplicated; Z03.818 Encounter for observation for suspected exposure to other biological agents ruled out; Z79.899 Other long term (current) drug therapy
CPT/HCPCS: 0241U; 36415; 71046; 80048; 80076; 83735; 84484; 85025; 85379; 93005; 94640; 96372; 99284; 99285; J2919

== ENCOUNTER → 2024-03-12 11:14 | Outpatient (BNV) | payer OTHER, SELFPAY | PROVIDERS: PCP Internal Medicine; Visit Provider Radiology Diagnostic Radiology | DX: R06.02 Shortness of breath (principal) | CPT/HCPCS: 71046 ==

== ENCOUNTER → 2024-03-12 12:39 | Outpatient (BNV) | payer OTHER, SELFPAY | PROVIDERS: Emergency Provider Emergency Medicine; PCP Internal Medicine; Visit Provider Internal Medicine Cardiovascular Disease | DX: R06.02 Shortness of breath (principal) | CPT/HCPCS: 93010 ==

== ENCOUNTER 2024-03-14 11:00 | Observation (INO) | payer OTHER, SELFPAY ==
[2024-03-14] VITALS (14 sets, daily range): BP systolic 108–132; BP diastolic 50–64; PULSE 56–76; RESP 16–22; TEMP 36.4–36.9; O2SAT 97–100; BMI 37.1
--- NOTE | ~2024-03-14 | CT_ITS ---
CLINICAL HISTORY: ?CHF VS PNEUMONIA CT chest without contrast Comparison: CT/SR - CHEST WITH IV CONTRAST [id number] - 09/29/18 16:16 EDT Findings: The heart is normal size. 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 There is an enlarged right paratracheal lymph node measuring 2 cm in short axis dimension without change. Trace bilateral pleural effusions. Mild dependent changes within the bilateral lower lobes. No consolidative process. There is a tips within the liver. The spleen is mildly enlarged. No acute fractures. IMPRESSION: Trace bilateral pleural effusions. This document has been electronically signed by: Heydi Marroquin MD on 03/14/2024 16:56:27
--- NOTE | ~2024-03-14 | XR_ITS ---
CLINICAL HISTORY: worsening SOB 2 view chest x-ray. Comparison: CR/SR - XR CHEST 2V - 03/12/2024 11:26 AM EST CR/SR - CHEST 2 VIEWS - 11/30/2018 06:03 PM EDT Findings: Normal lung volumes. Stable interstitial thickening. No pneumothorax or pleural effusion. Heart size normal. Mild passive venous congestion suspected. No midline shift or tracheal deviation. No acute fracture. Impression: 1. Suspect mild passive venous congestion and interstitial thickening . The cardiac silhouette is not enlarged. This document has been electronically signed by: Jb Clemente MD on 03/14/2024 12:18:38
--- NOTE | 2024-03-14 11:01 | ECG_ITS ---
Test Reason : CP Blood Pressure : / mmHG Vent. Rate : 067 BPM Atrial Rate : 067 BPM P-R Int : 120 ms QRS Dur : 078 ms QT Int : 386 ms P-R-T Axes : 035 025 068 degrees QTc Int : 407 ms Normal sinus rhythm Cannot rule out Anterior infarct , age undetermined Abnormal ECG When compared with ECG of 12-MAR-2024 13:16, Minimal criteria for Inferior infarct are no longer Present QT has shortened Referred By: Generic ED Physician Electronically Signed By:RAJINDER JUAREZ MD
--- NOTE | 2024-03-14 11:15 | ED_ITS ---
HPI - SOB/Dyspnea General Chief Complaint: Asthma Stated Complaint: Diff breathing, chest pressure Time Seen by Provider: 03/14/24 13:49 Source: patient and family Mode of arrival: ambulatory Limitations: no limitations History of Present Illness ED Provider: DR. Grimaldo HPI Narrative: 43-year-old female history of asthma presented today for shortness of breath, difficulty breathing, exertional dyspnea, orthopnea, lower extremity edema. Patient was seen in the emergency department 2 days ago for similar symptoms diagnosed with viral bronchitis patient is sent home on prednisone and albuterol despite the treatment patient is not feeling any better can not lay supine at night sleep because of the shortness of breath. Related Data Home Medications ?Medication ?Instructions ?Recorded ?Confirmed bupropion HCl 150 mg 24 hr tablet, 150 mg PO QAM 09/04/23 02/09/24 extended release citalopram 20 mg tablet 20 mg PO DAILY 02/02/24 02/09/24 Previous Rx's ?Medication ?Instructions ?Recorded loratadine 10 mg tablet 10 mg PO DAILY PRN allergy 02/19/23 symptoms 90 days #90 tabs hydroxyzine pamoate 25 mg capsule 25 mg PO BID PRN anxiety 30 days 05/19/23 #60 caps albuterol sulfate 90 mcg/actuation 2 puff PO Q6H PRN shortness of 06/11/23 aerosol inhaler breath or wheezing 30 days #8.5 grams famotidine 20 mg tablet 20 mg PO BID 30 days #60 tabs 06/11/23 hydrochlorothiazide 12.5 mg tablet 12.5 mg PO DAILY 30 days #30 tabs 06/11/23 pantoprazole 40 mg tablet,delayed 40 mg PO DAILY 30 days #30 tabs 06/11/23 release prazosin 1 mg capsule 1 mg PO BEDTIME 30 days #30 caps 06/11/23 sertraline 100 mg tablet 100 mg PO DAILY 30 days #30 tabs 08/12/23 trazodone 50 mg tablet 50 mg PO BEDTIME PRN insomnia 30 08/12/23 days #30 tabs sennosides 8.6 mg-docusate sodium 1 tab-cap PO BEDTIME 60 days #60 09/04/23 50 mg tablet (Senna with Docusate tabs Sodium) clonidine HCl 0.2 mg tablet 0.2 mg PO BEDTIME 30 days #30 tabs 11/15/23 cefuroxime axetil 250 mg tablet 250 mg PO BID 7 days #14 tabs 12/02/23 fluticasone propionate 50 1 spray intranasal DAILY PRN 12/20/23 mcg/actuation nasal allergy symptoms #16 mL spray,suspension blood sugar diagnostic (FreeStyle #100 ea 02/02/24 Lite Strips) lancets 28 gauge (FreeStyle #100 ea 02/02/24 Lancets) ferrous sulfate 325 mg (65 mg 325 mg PO DAILY #60 tabs 02/09/24 iron) tablet blood-glucose meter (FreeStyle #1 ea 02/10/24 Lite Meter kit) metformin 500 mg tablet 500 mg PO BID #180 tabs 02/24/24 furosemide 20 mg tablet 20 mg PO QAM #90 tabs 03/04/24 spironolactone 50 mg tablet 50 mg PO QAM #90 tabs 03/04/24 albuterol sulfate 90 mcg/actuation 2 inh inhalation Q6H PRN shortness 03/12/24 aerosol inhaler of breath 30 days #6.7 grams prednisone 20 mg tablet 40 mg (2 x 20 mg) PO DAILY 5 days 03/12/24 #10 tabs Allergies Allergy/AdvReac Type Severity Reaction Status Date / Time aspirin [ASPIRIN] AdvReac Intermediate ULCER; GI Verified 03/14/24 11:15 UPSET, internal bleeding dextran 40 AdvReac Itching Verified 03/14/24 11:15 Review of Systems 2 Review of Systems: All other systems are reviewed and are negative Constitutional: Reports as per HPI and Reports no additional constitutional complaints Eyes: Reports as per HPI and Reports no additional eye complaints Reports system reviewed and no additional complaints, except as documented Cardiovascular: Reports as per HPI and Reports no additional cardiovascular complaints Respiratory: Reports as per HPI and Reports no additional respiratory complaints Gastrointestinal: Reports as per HPI and Reports no additional gastrointestinal complaints Genitourinary: Reports no additional female genitourinary complaints Musculoskeletal: Reports no additional musculoskeletal complaints Skin/Breast: Reports system reviewed and no additional complaints, except as docu Psychiatric: Reports no additional psychiatric complaints Endocrine: Reports no additional endocrine complaints Hematologic/Lymphatic: Reports no additional hematologic/lymphatic complaints Allergic/Immunologic: Reports no additional allergic/immunologic complaints Reports system reviewed and no additional complaints, except as documented and Reports Abnormal speech present [facility] Past Medical History Medical History Bilateral chronic knee pain ELIJAH I (cervical intraepithelial neoplasia I) Obesity, Class III, BMI 40-49.9 (morbid obesity) Smoker Depression Anxiety Insomnia Esophageal varices Diabetes mellitus Lower abdominal pain Allergic rhinitis Common cold Anxiety and depression Obesity (BMI 30-39.9) Smoker Hypersplenism Pancytopenia Bilateral calcaneal spurs Thrombocytopenia Ascites Iron deficiency anemia due to chronic blood loss History of esophageal varices Chronic pain of both feet Varicose veins of right lower extremity with inflammation Sprain of left knee IBS (irritable bowel syndrome) GERD (gastroesophageal reflux disease) Depression Dementia Liver disease Hypertension Surgical History History of D&C S/P TIPS (transjugular intrahepatic portosystemic shunt) (~10/2015) History of liver biopsy (~04/2002) History of esophagogastroduodenoscopy (EGD) Family History Family History Father Diabetes mellitus Mother Diabetes mellitus Alzheimer's dementia Pneumothorax Maternal Aunt Ovarian cancer Daughter No problems noted. Maternal Aunt Cervical cancer Maternal Grandfather Pancreatic cancer Other Mental health disorder Social History Social History Housing: Apartment Alcohol intake: current Alcohol intake frequency: holidays/special occasions only Patient Tobacco Use Status: Current everyday Tobacco user Tobacco use type: Cigarette Cigarette Packs Per Day: 0.5 Cigarettes Per Day: 12 Years Smoked: 8 years Smoked in Last 30 Days: Yes e-Cigarette/Vaping Use: Never Used Second Hand Smoke Exposure: Yes Use of substances other than those prescribed or required for medical reasons: No Advance Directives: No Advance Directives Information Provided: No service: No Current occupational status: unemployed Current occupational exposures/hazards: No Cognitive needs: No Hearing needs: No Vision needs: No Physical Exam 2 Vital Signs: Vital Signs: Last Vital Signs Temp 98.3 F 03/14/24 12:39 Pulse 65 03/14/24 13:02 Resp 16 03/14/24 13:02 BP 116/50 L 03/14/24 12:39 Pulse Ox 99 03/14/24 12:39 O2 Del Method Room Air 03/14/24 12:39 BMI result Body Mass Index 37.1 Vital signs have been reviewed and appear to be correct. Blood pressure elevated. Heart rate normal. Respiratory rate normal. Temperature normal. Oxygen saturation normal. Appearance: Alert. Oriented X3. In acute respiratory distress. Head: Normal external exam. Normocephalic. Atraumatic. No Patterson signs noted. No raccoon eyes noted Eyes: PERRLA. EOMI. Conjunctiva and sclera normal. Eyelids normal. ENT: TM's Normal. Pharynx normal. Uvula midline. Moist mucous membranes. No trismus noted. No drooling noted. No muffled voice noted. Neck: Normal inspection. Neck supple. FROM. No adenopathy. Thyroid Normal. No meningeal signs. No neck mass noted. CVS: Normal heart rate and rhythm. Heart sound normal. No murmurs noted. Pulses normal throughout. Respiratory: Mild respiratory distress. Painless inspiration. Breath sounds normal. No wheezes/rales/rhonchi noted. Chest nontender. No accessory muscle usage noted or decreased air movement noted. Abdomen: Soft and nontender. Bowel sounds normal in all 4 quadrants. No distention noted. No organomegaly noted. No visible injury noted. Back: No CVA tenderness. Full range of motion noted. Skin: Skin warm and dry. Normal skin color. Normal skin turgor. No rashes/lesions/lacerations noted. Extremities: Bilateral+1 lower extremity edema. Extremities exhibit normal range of motion. Extremities nontender. Neuro: Oriented X 3. Cranial nerve exam: II-XII are grossly intact No motor deficit. No sensory deficit. Reflexes normal. Course Course Course Narrative: This is a Rapid Medical Examination (RME) performed by Greg Akers PA-C in triage. Full HPI, ROS, assessment and treatment plan per primary provider in the Main ED. 43 year old female with hx of asthma here for eval of SOB, wheezing, cough, and chest tightness x4 days. seen here 3 days ago, dx w/ viral uri, discharged home w/ prednisone and albuterol. SOB now is worse with lying flat. + audible wheezing, expiratory wheezes on auscultation Plan: viral serology, CXR, labs, ed bronch protocol Reevaluation(s) Reevaluation #1: Asthma exacerbation, pulmonary congestion. Second visit to the ED. 1. Pulmonary congestion without cardiomegaly will consider diuresis. 2. Asthma exacerbation not improving will start on Solu-Medrol, magnesium. 3. Admit. Time: 14:07 Medications Administered Discontinued Medications Generic Name Dose Route Start Last Admin Trade Name Freq PRN Reason Stop Dose Admin Albuterol Sulfate 5 mg/ 0 mg 03/14/24 11:50 03/14/24 11:53 Albuterol/Ipratropium 3 ml INHALE 03/14/24 11:51 1 each ONCE ONE Administration Levalbuterol HCl 2.5 mg 03/14/24 13:00 03/14/24 13:01 Levalbuterol Hcl 1.25 Mg/3 Ml Vial.Neb INHALE 03/14/24 13:01 2.5 mg ONCE ONE Administration Medical Decision Making Differential Diagnosis Differential Diagnoses: The differential diagnosis associated with the presentation includes (Pneumonia, pneumothorax, pleural effusion, severe anemia, CHF, pulmonary congestion, electrolyte derangement, severe anemia.) Admission/Observation Consideration of admission/observation: Escalation of care including admission/observation considered Consult Healthcare Provider Management of the patient was discussed with: Hospitalist (Dr. Petty) Lab Data MDM Lab Attestation statement: I reviewed the patient's lab results. 03/14/24 11:20 03/14/24 11:20 Labs: Lab Results 03/14/24 Range/Units 11:20 WBC 5.5 (4.8-10.8) X10*3/uL RBC 4.19 L (4.20-5.50) X10*6/uL Hgb 9.9 L (12.0-16.0) g/dl Hct 30.6 L (37.0-47.0) % MCV 73.0 L (80.0-98.0) fL MCH 23.6 L (27.0-33.0) pg MCHC 32.4 (31.0-35.0) g/dl RDW 16.4 H (11.0-16.0) % Plt Count 84 L (160-400) X10*3/uL MPV 10.0 (9.4-12.3) fL Immature Gran % (Auto) 0.5 H (0.0-0.4) % Neut % (Auto) 84.7 H (45-73) % Lymph % (Auto) 11.1 L (20-40) % [place] % (Auto) 3.1 (2-11) % Eos % (Auto) 0.2 (0-4) % Baso % (Auto) 0.4 (0-2) % Lymph # (Auto) 0.6 L (1.2-4.9) X10*3/uL [place] # (Auto) 0.2 (0.1-1.2) X10*3/uL Eos # (Auto) 0.0 (0.0-0.4) X10*3/uL Baso # (Auto) 0.0 (0.0-0.2) X10*3/uL Abs Immat Gran (auto) 0.03 (0.00-0.03) X10*3/uL Absolute Neuts (auto) 4.6 (2.0-8.3) x10*3/uL Absolute Nucleated RBC 0.000 (0.0-0.012) X10*3/uL Nucleated RBC % (auto) 0.0 (0.0-0.2) /100WBC Sodium 139 (135-145) mmol/L Potassium 3.5 (3.3-5.1) mmol/L Chloride 110 H (96-108) mmol/L Carbon Dioxide 19 L (22-29) mmol/L Anion Gap 14 (12-20) BUN 13 (9-16) mg/dL Creatinine 0.81 (0.5-1.4) mg/dL Estim Creat Clear Calc 93.4 Estimated GFR > 60 Random Glucose 154 H (60-115) mg/dL Calcium 9.1 (8.4-10.2) mg/dL Magnesium 1.8 (1.6-2.6) mg/dL Total Bilirubin 0.3 (0.0-1.0) mg/dL AST 18 (5-31) U/L ALT 20 (0-31) U/L Alkaline Phosphatase 60 (39-117) U/L Troponin I High Sens < 2.7 (<3.5-17.0) ng/L B-Natriuretic Peptide 87 (<100) pg/mL Total Protein 6.7 (6.5-8.0) g/dL Albumin 4.1 (3.5-5.0) g/dL Influenza Type A (PCR) NEGATIVE (Negative) Influenza Type B (PCR) NEGATIVE (Negative) RSV RNA Qual (PCR) NEGATIVE (Negative) SARS-CoV-2 RNA (RT-PCR) NEGATIVE (Negative) Independent Interpretation I performed an independent interpretation of an: Plain X-Ray (Chest:. Suspect mild passive venous congestion and interstitial thickening . The cardiac silhouette is not enlarged.) Radiology Impression Discussion of test interpretation with radiology: I have reviewed the radiologist's reading. Discharge Plan Discharge Clinical Impression: Asthma exacerbation, Pulmonary congestion Patient Disposition: Admitted As Inpatient Prescriptions: No Action loratadine 10 mg tablet 10 mg PO DAILY PRN (Reason: allergy symptoms) 90 Days Qty: 90 3RF hydroxyzine pamoate 25 mg capsule 25 mg PO BID PRN (Reason: anxiety) 30 Days Qty: 60 0RF trazodone 50 mg tablet 50 mg PO BEDTIME PRN (Reason: insomnia) 30 Days Qty: 30 2RF sertraline 100 mg tablet 100 mg PO DAILY 30 Days Qty: 30 2RF clonidine HCl 0.2 mg tablet 0.2 mg PO BEDTIME 30 Days Qty: 30 2RF fluticasone propionate 50 mcg/actuation spray,suspension 1 spray intranasal DAILY PRN (Reason: allergy symptoms) Qty: 16 1RF (DME) blood-glucose meter [FreeStyle Lite Meter] Kit See Rx Instructions .ROUTE .MEDSUPPLY Qty: 1 0RF Rx Instructions: As directed metformin 500 mg tablet 500 mg PO BID Qty: 180 0RF furosemide 20 mg tablet 20 mg PO QAM Qty: 90 0RF spironolactone 50 mg tablet 50 mg PO QAM Qty: 90 0RF ferrous sulfate 325 mg (65 mg iron) Tablet 325 mg PO DAILY Qty: 60 3RF prednisone 20 mg tablet 40 mg PO DAILY 5 Days Qty: 10 0RF albuterol sulfate 90 mcg/actuation HFA aerosol inhaler 2 inh inhalation Q6H PRN (Reason: shortness of breath) 30 Days Qty: 6.7 0RF cefuroxime axetil 250 mg tablet 250 mg PO BID 7 Days Qty: 14 0RF albuterol sulfate 90 mcg/actuation HFA aerosol inhaler 2 puff PO Q6H PRN (Reason: shortness of breath or wheezing) 30 Days Qty: 8.5 5RF famotidine 20 mg tablet 20 mg PO BID 30 Days Qty: 60 2RF hydrochlorothiazide 12.5 mg tablet 12.5 mg PO DAILY 30 Days Qty: 30 2RF pantoprazole 40 mg tablet,delayed release (DR/EC) 40 mg PO DAILY 30 Days Qty: 30 2RF prazosin 1 mg capsule 1 mg PO BEDTIME 30 Days Qty: 30 2RF bupropion HCl 150 mg tablet extended release 24 hr 150 mg PO QAM sennosides-docusate sodium [Senna with Docusate Sodium] 8.6-50 mg tablet 1 tab-cap PO BEDTIME 60 Days Qty: 60 2RF Rx Instructions: Please take daily at bedtime citalopram 20 mg tablet 20 mg PO DAILY (DME) lancets [FreeStyle Lancets] 28 gauge misc See Rx Instructions .ROUTE .MEDSUPPLY Qty: 100 12RF Rx Instructions: As directed once a day (DME) FreeStyle Lite Strips Strip See Rx Instructions .ROUTE .MEDSUPPLY Qty: 100 12RF Rx Instructions: As directed once a day Print Language: Micronesian
[2024-03-14 11:26] LABS: MANUAL DIFF FLAG NO
[2024-03-14 11:27] LABS: Basophils Percent Auto 0.4 % (0-2); Eosinophils Percent Auto 0.2 % (0-4); Hematocrit 30.6 % (37.0-47.0); Hemoglobin 9.9 g/dl (12.0-16.0); Imm Gran Abs Auto 0.03 X10*3/uL (0.00-0.03); Imm Gran Pct Auto 0.5 % (0.0-0.4); Lymphocytes Absolute Auto 0.6 X10*3/uL (1.2-4.9); Lymphocytes Percent Auto 11.1 % (20-40); Mean Corpuscular HGB Conc 32.4 g/dl (31.0-35.0); Mean Corpuscular Hemoglobin 23.6 pg (27.0-33.0); Monocytes Absolute Auto 0.2 X10*3/uL (0.1-1.2); Monocytes Percent Auto 3.1 % (2-11); Neutrophils Absolute Auto 4.6 x10*3/uL (2.0-8.3); Neutrophils Percent Auto 84.7 % (45-73); Platelet Count 84 X10*3/uL (160-400); Red Blood Count 4.19 X10*6/uL (4.20-5.50); Red Cell Distribution Width 16.4 % (11.0-16.0); White Blood Count 5.5 X10*3/uL (4.8-10.8)
[2024-03-14 11:47] LABS: Alanine Aminotransferase 20 U/L (0-31); Albumin Level 4.1 g/dL (3.5-5.0); Alkaline Phosphatase 60 U/L (39-117); Anion Gap 14 (12-20); Aspartate Amino Transferase 18 U/L (5-31); Bilirubin Total 0.3 mg/dL (0.0-1.0); Blood Urea Nitrogen 13 mg/dL (9-16); Calcium 9.1 mg/dL (8.4-10.2); Carbon Dioxide 19 mmol/L (22-29); Chloride 110 mmol/L (96-108); Creatinine Clr Calc Pharmacy 93.4; Estimated Glomerular Filt Rate > 60; Glucose Random 154 mg/dL (60-115); Magnesium 1.8 mg/dL (1.6-2.6); Potassium 3.5 mmol/L (3.3-5.1); Sodium 139 mmol/L (135-145); Total Protein 6.7 g/dL (6.5-8.0)
[2024-03-14 11:52] LABS: B Type Natriuretic Peptide 87 pg/mL (<100)
[2024-03-14] MEDS: Albuterol Sulfate 5 MG, Albuterol/Iprat 2.5/0.5MG 3 ML 3 ML INHALE (11:53)
[2024-03-14 11:54] LABS: Troponin-I High Sensitivity < 2.7 ng/L (<3.5-17.0)
[2024-03-14 12:20] LABS: Influenza A PCR NEGATIVE (Negative); Influenza B PCR NEGATIVE (Negative); Resp Syncy Virus RNA Qual PCR NEGATIVE (Negative); SARS COV2 PCR INHOUSE NEGATIVE (Negative)
--- NOTE | 2024-03-14 12:46 | PC.NURSE ---
Patient admitted from home via triage for asthma exacerbatio x3 days with chest pain. Patient was seen here on friday for the same thing, medication of Prednisone/Albuterol prescribed, patient reports medication not helping. Alert and oriented. OOB ambulating to bathroom, gait steady. Wheezing auscultated to bilateral lungs. Pt c/o of chest tightness.
[2024-03-14] MEDS: levalbuterol HCL 1.25 MG/3 ML VIAL.NEB 2.5 MG INHALE (13:01)
[2024-03-14] MEDS: methylPREDNISolone Sod Succ 125 MG/2 ML VIAL IVPUSH (14:37)
[2024-03-14] MEDS: guaiFEN/Codeine SF 200/20/10ML 10 ML LIQUID PO (14:38)
[2024-03-14] MEDS: Furosemide 40 MG/4 ML VIAL IVPUSH (14:38)
[2024-03-14] MEDS: Magnesium Sulfate/H2O 2 GM/50 ML PIGGYBACK IV (14:38)
--- NOTE | 2024-03-14 15:32 | P.HPHOSP_ITS ---
History of Present Illness Date of Service: 03/14/24 Attending physician on admission: Antoni Petty Chief Complaint: SOB 43 y/o M with hx asthma( mild intermittent), non cirrhotic portal hypotension complicated by esophageal viruses and past history of GI bleed, also had tips in [facility] in October, chronic anemia, anxiety, depression, morbid obesity, current smoker who presented for sob ,difficulty breathing, exertional dyspnea, orthopnea , she says she has cold like symptoms recently for which she came toed 2 days back -given inhaler and prednisone -went home -sob was not improving and progressivley getting worse so decided to come to the hospital. She said she had dry cough, no fever or chills. She does not drink excessive water or uncertain if she gained any weight, says does not do excessive salt or fried food. In the hospital patient has sats are fine, but has exertional dyspnea, denies any chest pain or palpitations. She said she had similar symptoms ear or so back in [place] ? Related to asthma. Lab imaging reviewed: No leukocytosis, anemia/thrombocytopenia BMP seems fine,mild low bicarb. bnp fine trops negative ddimer on 03/12/24 normal cxr-? mild congestion and interstitial thickening EKG seems NSR Patient was given nebs, steroids, IV Lasix in the ED and requested admission for shortness of breaths/possible asthma exacerbations/question of? viral sickness. Review of Systems 2 Review of Systems: Yes all other systems are reviewed and are negative [facility] Medical History Bilateral chronic knee pain ELIJAH I (cervical intraepithelial neoplasia I) Obesity, Class III, BMI 40-49.9 (morbid obesity) Smoker Depression Anxiety Insomnia Esophageal varices Diabetes mellitus Lower abdominal pain Allergic rhinitis Common cold Anxiety and depression Obesity (BMI 30-39.9) Smoker Hypersplenism Pancytopenia Bilateral calcaneal spurs Thrombocytopenia Ascites Iron deficiency anemia due to chronic blood loss History of esophageal varices Chronic pain of both feet Varicose veins of right lower extremity with inflammation Sprain of left knee IBS (irritable bowel syndrome) GERD (gastroesophageal reflux disease) Depression Dementia Liver disease Hypertension Family History Father Diabetes mellitus Mother Diabetes mellitus Alzheimer's dementia Pneumothorax Maternal Aunt Ovarian cancer Daughter No problems noted. Maternal Aunt Cervical cancer Maternal Grandfather Pancreatic cancer Other Mental health disorder Surgical History History of D&C S/P TIPS (transjugular intrahepatic portosystemic shunt) (~10/2015) History of liver biopsy (~04/2002) History of esophagogastroduodenoscopy (EGD) Social History Housing: Apartment Alcohol intake: current Alcohol intake frequency: holidays/special occasions only Patient Tobacco Use Status: Current everyday Tobacco user Tobacco use type: Cigarette Cigarette Packs Per Day: 0.5 Cigarettes Per Day: 12 Years Smoked: 8 years Smoked in Last 30 Days: Yes e-Cigarette/Vaping Use: Never Used Second Hand Smoke Exposure: Yes Use of substances other than those prescribed or required for medical reasons: No Advance Directives: No Advance Directives Information Provided: No service: No Current occupational status: unemployed Current occupational exposures/hazards: No Cognitive needs: No Hearing needs: No Vision needs: No Meds Allergies Allergy/AdvReac Type Severity Reaction Status Date / Time aspirin [ASPIRIN] AdvReac Intermediate ULCER; GI Verified 03/14/24 11:15 UPSET, internal bleeding dextran 40 AdvReac Itching Verified 03/14/24 11:15 Active Medications: Current Medications Acetaminophen (Acetaminophen 325 Mg Tablet) 650 mg PO Q6H PRN PRN Reason: Pain, Mild 1-3,fever,headache Albuterol/Ipratropium (Albuterol/Iprat 2.5/0.5mg 3 Ml Ampul.Neb) 3 ml INHALE Q4H CARRILLO Albuterol/Ipratropium (Albuterol/Iprat 2.5/0.5mg 3 Ml Ampul.Neb) 3 ml INHALE Q3H PRN PRN Reason: Shortness of Breath Calcium Carbonate (Calcium Carbonate 750 Mg Tab.Chew) 750 mg PO Q4H PRN PRN Reason: Heartburn Furosemide (Furosemide 20 Mg/2 Ml Vial) 20 mg IVPUSH BID CARRILLO; Protocol Magnesium Sulfate (Magnesium Sulfate/H2o) 2 gm in 50 mls @ 25 mls/hr IV ONCE ONE Stop: 03/14/24 16:13 Last Infusion: 03/14/24 14:58 Dose: Infused Magnesium Hydroxide (Milk Of Magnesia 30 Ml Oral.Susp) 30 ml PO DAILY PRN PRN Reason: Constipation Melatonin (Melatonin 3 Mg Tablet) 6 mg PO BEDTIME PRN PRN Reason: Insomnia Omeprazole (Omeprazole 40 Mg Capsule.Dr) 40 mg PO BID CARRILLO Prednisone (Prednisone 20 Mg Tablet) 40 mg PO DAILY CARRILLO Sodium Chloride (0.9 % Sodium Chloride Flush 3 Ml Syringe) 3 ml IVFLUSH QSHIFT CARRILLO Home Medications ?Medication ?Instructions ?Recorded ?Confirmed ?Last Taken ?Type bupropion HCl 150 mg 24 hr tablet, 150 mg PO QAM 09/04/23 02/09/24 Unknown History extended release citalopram 20 mg tablet 20 mg PO DAILY 02/02/24 02/09/24 Unknown History furosemide 20 mg tablet 20 mg PO DAILY 03/14/24 Unknown History spironolactone 50 mg tablet 50 mg PO DAILY 03/14/24 Unknown History Physical Exam 2 Vital Signs and Narrative: Vital Signs: Last Vital Signs Temp 98.0 F 03/14/24 14:54 Pulse 74 03/14/24 14:54 Resp 19 03/14/24 14:54 BP 120/61 03/14/24 14:54 Pulse Ox 99 03/14/24 14:54 O2 Del Method Room Air 03/14/24 14:54 BMI result Body Mass Index 37.1 Appearance: Alert.? Oriented X3.? has sob with excesrion Eyes: Pupils equal, round and reactive to light.? Sclera nonicteric.? ENT: Pharynx normal.? Moist mucous membranes. cvs: rrr, [id number] res:air entry diminshed ,has few wheezing b/l. abd: no rebound or guarding ,nt, bs present. ext pulses present , no cyanosis . neuro: axo3 , nonfocal. Results Labs 03/14/24 11:20 03/14/24 11:20 Labs: Laboratory Results - last 24 hr 03/14/24 11:20 MCV 73.0 L MCH 23.6 L MCHC 32.4 RDW 16.4 H Plt Count 84 L MPV 10.0 Immature Gran % (Auto) 0.5 H Neut % (Auto) 84.7 H Lymph % (Auto) 11.1 L [place] % (Auto) 3.1 Eos % (Auto) 0.2 Baso % (Auto) 0.4 Lymph # (Auto) 0.6 L [place] # (Auto) 0.2 Eos # (Auto) 0.0 Baso # (Auto) 0.0 Abs Immat Gran (auto) 0.03 Absolute Neuts (auto) 4.6 Absolute Nucleated RBC 0.000 Nucleated RBC % (auto) 0.0 Anion Gap 14 Estim Creat Clear Calc 93.4 Estimated GFR > 60 Random Glucose 154 H Calcium 9.1 Magnesium 1.8 Total Bilirubin 0.3 AST 18 ALT 20 Alkaline Phosphatase 60 Troponin I High Sens < 2.7 B-Natriuretic Peptide 87 Total Protein 6.7 Albumin 4.1 Influenza Type A (PCR) NEGATIVE Influenza Type B (PCR) NEGATIVE RSV RNA Qual (PCR) NEGATIVE SARS-CoV-2 RNA (RT-PCR) NEGATIVE Assessment and Plan (1) Pulmonary congestion: Status: Acute (2) Asthma exacerbation: Qualifiers: Asthma severity: mild Asthma persistence: intermittent Qualified Code(s): J45.21 - Mild intermittent asthma with (acute) exacerbation Status: Acute Plan 43 y/o M with hx asthma( mild intermittent), non cirrhotic portal hypotension complicated by esophageal varcies and past history of GI bleed, also had tips in [facility] in October, chronic anemia, anxiety, depression, morbid obesity, current smoker who presented for sob ,difficulty breathing, exertional dyspnea, orthopnea . Asthma excerebation(mild intermittent) sob with minimum excersion. trops flat,bnp negative cxr-mild congetsion /interstitial changes- will add ct chest to clearify ? congestion continue nebs, prednisone , moniter respiratory status , respiratory viral panel. Pulm congestion:? related to liver dis vs viral sickness trops negative,bnp normal, no edema ddimer on 03/12 neg has excersional dyspnea ? ct chest to clearify above. take lasix at home for liver dis -switched to iv lasix moniter i/o,daily weight ,moniter on tele non cirrhotic portal hypotension complicated by esophageal varcies and pancytopenia: s/p tips in [facility] in October moniter cbc anxiety/depression: medical reconcillation pending morbid obesity: encouraged to lose weight and cut down calories. current smoker: added nicotein patch. dvt porphylax: [facility] devices. patient will benefit from hospital stay due to asthma exacerbation/excersional dyspnea: Need nebs, steroids, Lasix, close monitoring of respiratory status and also if dyspnea does not improve may need further workup. Above management discussed with the patient in detail length with the help of deaf interpreter, patient understand and in agreement with the above plan, time spent 70 minute. Quality Stroke Does the patient have a stroke diagnosis?: No VTE Prior VTE?: No VTE Risk Level:: Medical - moderate - high VTE Device Contraindication: N/A - Device Ordered VTE Drug Contraindication: N/A - Med Ordered
[2024-03-14 16:37] LABS: Amphetamine Screen Urine Not Detected (Not Detect); Barbiturates, Urine Not Detected (Not Detect); Benzodiazepines Screen Urine Not Detected (Not Detect); Buprenorphine Scr Not Detected (Not Detect); Cannabinoid Screen Urine Not Detected (Not Detect); Cocaine Screen Urine Not Detected (Not Detect); Fentanyl, urine Not Detected (Not Detect); Methadone Screen, Urine Not Detected (Not Detect); Opiate Screen Urine POSITIVE (Not Detect); Oxycodone Screen Urine Not Detected (Not Detect); Phencyclidine Screen Urine Not Detected (Not Detect)
[2024-03-14] MEDS: Albuterol/Iprat 2.5/0.5MG 3 ML AMPUL.NEB INHALE ×2 (16:53→19:54)
--- NOTE | 2024-03-14 18:02 | PHA.MEDREC ---
Addendum entered by Korin Abad RPh 03/14/24 18:10: reviewed by [facility]. Original Note: Pharmacy Consult ? Medication Reconciliation Pharmacy has completed the medication reconciliation. Utilized line worker services. Spoke to the pt to confirm meds. Per pt, no longer taking sertraline, iron, HCTZ, senna-docusate. States to take celexa and buproprion, as sertraline was replaced.
[2024-03-14] MEDS: Furosemide 20 MG/2 ML VIAL IVPUSH (20:58)
[2024-03-14] MEDS: 0.9 % Sodium Chloride Flush 3 ML SYRINGE IVFLUSH (21:01)
[2024-03-14] MEDS: traZODone HCL 50 MG TABLET PO (22:28)
[2024-03-15 03:17] VITALS: BP 110/63; PULSE 56; RESP 18; TEMP 36.2; O2SAT 100
[2024-03-15] MEDS: Benzonatate 100 MG CAPSULE 200 MG PO (04:02)
--- NOTE | 2024-03-15 07:00 | CA_ITS ---
Transthoracic Echocardiogram Patient (Last, First, Middle): Georgie Castellon, Sammy Gender: Female Date of : 1980 Age: 43 Procedure Date: 03/15/2024 Procedure Type: Transthoracic Echocardiogram Location: [facility] [place] Height: 157.48 cm Weight: 91.63 kg BSA: 1.92 m2 Heart Rate: 59 bpm BP: 115 / 69 mmHg [employer] Consultant: Referring MD: Antoni Petty MD Admission Nurse: Bernardino Roa MD Symptoms: pleural effusions/dyspnea -?chf Study Quality: Fair ECG Rhythm: Bradycardia Conclusions: - 1. Normal LV ejection fraction of 65-70% 2. Mild aortic stenosis by gradients 3. No gross pericardial effusion Findings Left Ventricle Normal left ventricular size, thickness, and systolic function. The visually estimated ejection fraction is between 65-70%. Spectral Doppler is indicative of a normal filling pattern. Right Ventricle Normal right ventricular cavity size and systolic function. Atria Both atria are normal in size. There is no evidence of interatrial shunt. Aortic Valve The aortic valve was not well visualized. There is mild aortic valve stenosis. The peak aortic velocity is 2.44 m/s with a calculated peak gradient of 24 mmHg. The mean gradient is 11 mmHg. The aortic valve area is 1.93 cm2. There is no aortic valve regurgitation. Mitral Valve Likely normal mitral valve structure and function. There is no mitral valve regurgitation. There is no mitral valve stenosis. Pulmonic Valve The pulmonic valve was not well visualized. Tricuspid Valve Likely normal tricuspid valve structure and function. Tricuspid regurgitation envelope is inadequate for calculation of right ventricular systolic pressure. Normal right atrial pressure. Great Vessels The aorta was not well visualized. The pulmonary artery was not well visualized. There is no dilatation of the ascending aorta measuring 2.80 cm. Venous The inferior vena cava is normal in size and collapses greater than 50% with inspiration. Pericardium/Pleural There is no evidence of pericardial effusion. Prior Study Comparison No prior study available for comparison. Measurements 2D Linear Measurements IVSd: 1.05 0.6-0.9/0.6-1.0 cm LVIDd: 4.54 3.9-5.3/4.2-5.9 cm LVIDd Index: 2.36 2.4-3.2/2.2-3.1 cm/m2 LVIDs: 2.89 2.0-3.6 cm LVPWd: 1.08 0.7-1.1 cm LA Diam: 4.10 2.7-3.8/3.0-4.0 cm LAIDs Index: 2.14 1.5-2.3 cm/m2 LV Mass: 211.29 67-162/88-224 g LV Mass Index: 110.05 43-95/49-115 g/m2 LVOT Diam: 2.00 3.0+(-)1.3 cm 2D Systolic Function EF 4C: 66.90 >55% EF 2C: 69.30 >55% EF BiP: 68.20 >55% Mitral Valve MV Pk E: 1.32 MV PK A: 0.84 MV Decel Time: 234.00 E/A: 1.60 E'Lateral: 9.36 E'Medial: 9.03 E/E' Med: 14.60 E/E' Lat: 14.10 PHT: 69.00 MVA PHT: 3.19 Decel [place]: 5.64 Aortic Valve AoV Pk Pop: 2.44 AoV Mn Pop: 1.48 AoV VTI: 0.50 AoV Pk Grad: 24.00 Aov Mn Grad: 11.00 BRANDI Cont.VTI: 1.93 LVOT LVOT Pk Pop: 1.31 LVOT Mn Pop: 0.90 LVOT VTI: 0.31 LVOT Pk Grad: 7.00 LVOT Mn Grad: 4.00 LVOT Diam: 2.00 LVOT Area: 3.14 Diastolic Function MV Pk E: 1.32 MV Pk A: 0.84 E/A: 1.60 E'Medial: 9.03 E/E' Med: 14.60 E' Laterial: 9.36 E/E' Lat: 14.10 Right Ventricle TAPSE (mm): 38.40 TVS' Pop: 16.90 Tricuspid Valve TR Pk Pop: 2.29 TR Pk Grad: 21.00 Great Vessels Aorta Sinus of Valsalva: 3.00 2.0-3.5 cm Ao Asc: 2.80 2.1-3.4 cm Pulmonary Valve PV Pk Pop: 1.57 Peak PV Grad: 10.00 Updated in Other Vendor System with Status of Final Bernardino Roa MD electronically signed on 03/15/2024 2:15:27 PM with status of Final
[2024-03-15 07:12] VITALS: BP 115/69; PULSE 56; RESP 16; TEMP 36.3; O2SAT 96
[2024-03-15 07:13] LABS: Anion Gap 12 (12-20); Blood Urea Nitrogen 19 mg/dL (9-16); Calcium 8.9 mg/dL (8.4-10.2); Carbon Dioxide 25 mmol/L (22-29); Chloride 105 mmol/L (96-108); Creatinine Clr Calc Pharmacy 98.3; Estimated Glomerular Filt Rate > 60; Glucose Random 184 mg/dL (60-115); Potassium 3.5 mmol/L (3.3-5.1); Sodium 138 mmol/L (135-145)
[2024-03-15] MEDS: Omeprazole 40 MG CAPSULE.DR PO (07:15)
[2024-03-15 07:25] LABS: B Type Natriuretic Peptide 55 pg/mL (<100)
[2024-03-15] MEDS: Spironolactone 25 MG TABLET 50 MG PO (07:55)
[2024-03-15] MEDS: buPROPion HCl XL 150 MG TAB.ER.24H PO (07:56)
[2024-03-15] MEDS: hydrOXYzine HCL 25 MG TABLET PO (07:56)
[2024-03-15] MEDS: predniSONE 20 MG TABLET 40 MG PO (07:56)
[2024-03-15] MEDS: Escitalopram Oxalate 10 MG TABLET PO (07:56)
[2024-03-15] MEDS: 0.9 % Sodium Chloride Flush 3 ML SYRINGE IVFLUSH (07:56)
[2024-03-15] MEDS: Furosemide 20 MG/2 ML VIAL IVPUSH (07:56)
[2024-03-15] MEDS: Albuterol/Iprat 2.5/0.5MG 3 ML AMPUL.NEB INHALE ×2 (08:19→11:05)
[2024-03-15 08:21] VITALS: PULSE 61; RESP 22; O2SAT 100
--- NOTE | 2024-03-15 09:32 | P.DS_ITS ---
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 She said she had dry cough, no fever or chills. She does not drink excessive water or uncertain if she gained any weight, says does not do excessive salt or fried food. In the hospital patient has sats are fine, but has exertional dyspnea, denies any chest pain or palpitations. She said she had similar symptoms ear or so back in [place] ? Related to asthma. Lab imaging reviewed: No leukocytosis, anemia/thrombocytopenia BMP seems fine,mild low bicarb. bnp fine trops negative ddimer on 03/12/24 normal cxr-? mild congestion and interstitial thickening EKG seems NSR Patient was given nebs, steroids, IV Lasix in the ED and requested admission for shortness of breaths/possible asthma exacerbations/question of? viral sickness. Hospital course: The patient presented with shortness of breath and upper airway congestion, was admitted for an asthma exacerbation, and treated in the hospital with IV steroids and nebulized bronchodilators. She has made a [id number]-csrk-[id number] recovery and will be discharged home with an oral steroid and bronchodilator via [facility]. The patient will follow up with her PCP and is comfortable with the plan. Time Attestation Discharge Coordination Time (in mins): 35 Quality: Safe Use of Opioids Does Pt have an Active Cancer Diagnosis on the Problem List?: No Quality: Stroke Does the patient have a stroke diagnosis?: No Physical Exam Vital Signs: Vital Signs: Last Vital Signs Temp 97.4 F 03/15/24 07:12 Pulse 61 03/15/24 08:21 Resp 22 H 03/15/24 08:21 BP 115/69 03/15/24 07:12 Pulse Ox 96 03/15/24 07:12 O2 Del Method Room Air 03/15/24 07:12 BMI result Body Mass Index 37.1 General: AO X 3, no acute distress Resp: CTA bilateral CVS: S1,S2,RRR GI: +BS, NT, no distention Skin: No rash Neuro: motor grossly intact Psych: appropriate affect DS: Data Data Completed and Pending Labs on day of discharge: Laboratory Results - last 24 hr 03/14/24 03/14/24 03/15/24 11:20 16:00 06:22 WBC 5.5 RBC 4.19 L Hgb 9.9 L Hct 30.6 L MCV 73.0 L MCH 23.6 L MCHC 32.4 RDW 16.4 H Plt Count 84 L MPV 10.0 Immature Gran % (Auto) 0.5 H Neut % (Auto) 84.7 H Lymph % (Auto) 11.1 L [place] % (Auto) 3.1 Eos % (Auto) 0.2 Baso % (Auto) 0.4 Lymph # (Auto) 0.6 L [place] # (Auto) 0.2 Eos # (Auto) 0.0 Baso # (Auto) 0.0 Abs Immat Gran (auto) 0.03 Absolute Neuts (auto) 4.6 Absolute Nucleated RBC 0.000 Nucleated RBC % (auto) 0.0 Sodium 139 138 Potassium 3.5 3.5 Chloride 110 H 105 Carbon Dioxide 19 L 25 Anion Gap 14 12 BUN 13 19 H Creatinine 0.81 0.77 Estim Creat Clear Calc 93.4 98.3 Estimated GFR > 60 > 60 Random Glucose 154 H 184 H Calcium 9.1 8.9 Magnesium 1.8 Total Bilirubin 0.3 AST 18 ALT 20 Alkaline Phosphatase 60 Troponin I High Sens < 2.7 B-Natriuretic Peptide 87 55 Total Protein 6.7 Albumin 4.1 Urine Opiates Screen POSITIVE H Ur Buprenorphine Scrn Not Detected Ur Oxycodone Screen Not Detected Urine Methadone Screen Not Detected Urine Fentanyl Screen Not Detected Ur Barbiturates Screen Not Detected Ur Phencyclidine Scrn Not Detected Ur Amphetamines Screen Not Detected U Benzodiazepines Scrn Not Detected Urine Cocaine Screen Not Detected U Marijuana (THC) Screen Not Detected Influenza Type A (PCR) NEGATIVE Influenza Type B (PCR) NEGATIVE RSV RNA Qual (PCR) NEGATIVE SARS-CoV-2 RNA (RT-PCR) NEGATIVE Discharge Plan Discharge Anticipated Discharge Date/Time: 03/15/24 09:33 Patient Disposition: Home, Self-Care Discharge Diagnosis: Asthma exacerbation Referrals: David Elizabeth MD [Primary Care Provider] - 1 Week Discharge Medications: New prednisone 20 mg tablet 40 mg PO DAILY Qty: 6 0RF Rx Instructions: next dose 03/16 morning Continued loratadine 10 mg tablet 10 mg PO DAILY PRN (Reason: allergy symptoms) 90 Days Qty: 90 3RF hydroxyzine pamoate 25 mg capsule 25 mg PO BID PRN (Reason: anxiety) 30 Days Qty: 60 0RF trazodone 50 mg tablet 50 mg PO BEDTIME PRN (Reason: insomnia) 30 Days Qty: 30 2RF clonidine HCl 0.2 mg tablet 0.2 mg PO BEDTIME 30 Days Qty: 30 2RF fluticasone propionate 50 mcg/actuation spray,suspension 1 spray intranasal DAILY PRN (Reason: allergy symptoms) Qty: 16 1RF (DME) blood-glucose meter [FreeStyle Lite Meter] Kit See Rx Instructions .ROUTE .MEDSUPPLY Qty: 1 0RF Rx Instructions: As directed metformin 500 mg tablet 500 mg PO BID Qty: 180 0RF (DME) nebulizers [AeroEclipse II Nebulizer] Misc See Rx Instructions .Route Qty: 1 0RF Rx Instructions: As directed prednisone 20 mg tablet 40 mg PO DAILY 5 Days Qty: 10 0RF Rx Instructions: END DATE: 03/16/24 albuterol sulfate 90 mcg/actuation HFA aerosol inhaler 2 inh inhalation Q6H PRN (Reason: shortness of breath) 30 Days Qty: 6.7 0RF furosemide 20 mg tablet 20 mg PO DAILY spironolactone 50 mg tablet 50 mg PO DAILY famotidine 20 mg tablet 20 mg PO DAILY pantoprazole 40 mg tablet,delayed release (DR/EC) 40 mg PO BEDTIME PRN (Reason: Heartburn) prazosin 1 mg capsule 1 mg PO BEDTIME 30 Days Qty: 30 2RF bupropion HCl 150 mg tablet extended release 24 hr 150 mg PO DAILY citalopram 20 mg tablet 20 mg PO DAILY (DME) lancets [FreeStyle Lancets] 28 gauge misc See Rx Instructions .ROUTE .MEDSUPPLY Qty: 100 12RF Rx Instructions: As directed once a day (DME) FreeStyle Lite Strips Strip See Rx Instructions .ROUTE .MEDSUPPLY Qty: 100 12RF Rx Instructions: As directed once a day Diet: Diabetic diet Activity on Discharge: As tolerated Stand Alone Forms: Patient Portal Discharge page Print Language: French Care Plan Goals: recovery from asthma exacerbation Health Concerns: asthma exacerbation viral Upper respiratory infection Plan of Treatment: Take Prednisone as directed 40 mg daily for 3 more days Follow up with your Doctor in a week, call for appointment Assessment: see above
--- NOTE | 2024-03-15 09:35 | MHC.CM.PN ---
Addendum entered by Tasia Richmond 03/15/24 09:41: CM conducted the Initial Assessment with the assistance of a [facility] Inclusion Intern. Original Note: CM met with Patient and her Boyfriend at bedside and addressed WILSON with them; Original was given to them and a copy has been placed on the chart. 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 Home/self care is the goal and CM has initiated and will follow for dc planning. PCP is Dr. David Elizabeth and Patient's Boyfriend will transport to home.
[2024-03-15 10:36] LABS: Adenovirus PCR Not Detected (Not Detect.); Bordetella parapertussis PCR Not Detected (Not Detect.); Bordetella pertussis PCR Not Detected (Not Detect.); Chlamydia pneumoniae PCR Not Detected (Not Detect.); Coronavirus 229E PCR Not Detected (Not Detect.); Coronavirus HKU1 PCR Not Detected (Not Detect.); Coronavirus NL63 PCR Not Detected (Not Detect.); Coronavirus OC43 PCR Not Detected (Not Detect.); Human metapneumovirus PCR Not Detected (Not Detect.); Influenza A PCR Not Detected (Not Detect.); Influenza B PCR Not Detected (Not Detect.); Mycoplasma pneumoniae PCR Not Detected (Not Detect.); Parainfluenza 1 PCR Not Detected (Not Detect.); Parainfluenza 2 PCR Not Detected (Not Detect.); Parainfluenza 3 PCR Not Detected (Not Detect.); Parainfluenza 4 PCR Not Detected (Not Detect.); RSV PCR Not Detected (Not Detect.); Rhino/Enterovirus PCR Detected (Not Detect.)
[2024-03-15 10:53] LABS: SARS-CoV-2 PCR Not Detected (Not Detect.)
[2024-03-15 11:08] VITALS: PULSE 61; RESP 18; O2SAT 97
--- NOTE | 2024-03-15 11:14 | MHC.CM.PN ---
Patient has been medically cleared for dc to home today, self care.
[2024-03-15 11:20] VITALS: BP 121/62; PULSE 59; RESP 17; TEMP 36.7; O2SAT 95
== END 2024-03-15 12:45 | disposition home or self-care (01) ==
LOC: HO.ED 14:14 → HO.EDOVER 15:35 → HO.IMC 16:14
PROVIDERS: Physician Assistant Medical; Admitting Provider Internal Medicine; Emergency Provider Emergency Medicine; PCP Internal Medicine; Visit Provider Internal Medicine
DX: J45.21 Mild intermittent asthma with (acute) exacerbation (principal); R06.02 Shortness of breath; R05.9 Cough, unspecified; R07.9 Chest pain, unspecified; I10 Essential (primary) hypertension; E11.9 Type 2 diabetes mellitus without complications; F17.200 Nicotine dependence, unspecified, uncomplicated; E66.9 Obesity, unspecified; Z68.37 Body mass index [BMI] 37.0-37.9, adult; Z79.899 Other long term (current) drug therapy; Z03.818 Encounter for observation for suspected exposure to other biological agents ruled out
CPT/HCPCS: 0241U; 36415; 71046; 71250; 80048; 80053; 80307; 83735; 83880; 84484; 85025; 87633; 93005; 93306; 94640; 96365; 96375; 96376; 99222; 99285; J1940; J2919; J3475; Q9957

== ENCOUNTER → 2024-03-14 11:01 | Outpatient (BNV) | payer OTHER, SELFPAY | PROVIDERS: Admitting Provider Internal Medicine; Emergency Provider Emergency Medicine; PCP Internal Medicine; Visit Provider Internal Medicine Cardiovascular Disease | DX: R07.9 Chest pain, unspecified (principal); R94.31 Abnormal electrocardiogram [ECG] [EKG] | CPT/HCPCS: 93010 ==

== ENCOUNTER → 2024-03-14 11:14 | Outpatient (BNV) | payer OTHER, SELFPAY | PROVIDERS: PCP Internal Medicine; Visit Provider Radiology Diagnostic Radiology | DX: R06.02 Shortness of breath (principal) | CPT/HCPCS: 71046; 71250 ==

== ENCOUNTER 2024-03-14 15:25 | Outpatient (BNV) | payer OTHER, SELFPAY | END 2024-03-15 07:00 | PROVIDERS: Admitting Provider Internal Medicine; Emergency Provider Emergency Medicine; PCP Internal Medicine; Visit Provider Internal Medicine Cardiovascular Disease | DX: I35.0 Nonrheumatic aortic (valve) stenosis (principal) | CPT/HCPCS: 93306 ==

== ENCOUNTER → 2024-03-14 15:25 | Outpatient (BNV) | payer OTHER, SELFPAY | PROVIDERS: Admitting Provider Internal Medicine; Emergency Provider Emergency Medicine; PCP Internal Medicine; Visit Provider Internal Medicine | DX: J45.21 Mild intermittent asthma with (acute) exacerbation (principal); R09.89 Other specified symptoms and signs involving the circulatory and respiratory systems | CPT/HCPCS: 99222 ==

== ENCOUNTER 2024-03-18 12:01 | Outpatient (AMB) | payer OTHER, SELFPAY ==
[2024-03-18 12:03] VITALS: BP 120/72; PULSE 59; O2SAT 98; BMI 38.2
--- NOTE | 2024-03-18 12:03 | MHC.PC.OV ---
Vital Signs 03/18/24 12:03 Height 5 ft 2 in Weight 209 lb BMI 38.2 BP 120/72 Blood Pressure Location Lt brachial Position Sitting Pulse 59 Pulse Source Pulse Oximeter Pulse Oximetry (%) 98 Oxygen Delivery Method Room Air Intake [place] [facility] [place] Heating Systems Installer Required: No Accompanied by: Self / Same As Patient Allergies aspirin [ASPIRIN] Adverse Reaction (Intermediate, Verified 03/18/24 12:18) ULCER; GI UPSET, internal bleeding dextran 40 Adverse Reaction (Verified 03/18/24 12:18) Itching Medication List - Last Reconciled 03/18/24 by David Elizabeth MD albuterol sulfate 90 mcg/actuation 2 inhalations inhalation Q6H PRN 30 days blood sugar diagnostic (FreeStyle Lite Strips) As directed once a day blood-glucose meter (FreeStyle Lite Meter kit) As directed bupropion HCl XL 150 mg PO DAILY citalopram 20 mg PO DAILY clonidine HCl 0.2 mg PO BEDTIME 30 days famotidine 20 mg PO DAILY fluticasone propionate 50 mcg/actuation 1 spray intranasal DAILY PRN furosemide 20 mg PO DAILY hydroxyzine pamoate 25 mg PO BID PRN 30 days lancets (FreeStyle Lancets) As directed once a day loratadine 10 mg PO DAILY PRN 90 days metformin 500 mg PO BID nebulizers (AeroEclipse II Nebulizer) As directed pantoprazole 40 mg PO BEDTIME PRN prazosin 1 mg PO BEDTIME 30 days prednisone 40 mg (2 x 20 mg) PO DAILY prednisone 40 mg (2 x 20 mg) PO DAILY 5 days spironolactone 50 mg PO DAILY trazodone 50 mg PO BEDTIME PRN 30 days Tobacco use date assessed: 03/18/24 Dental Screening Dental Screen Date: 03/18/24 Did you have a dental visit in the last 12 months?: No Did you have a dental problem in the last 6 months where you did not have access to dental care?: No Was dental information given to patient?: No [place] [facility] [place] HPI Details Patient comes in today for her HDF follow-up visit She presented to the ER at [facility] this past weekend for increasing shortness of breath, exertional dyspnea and nonproductive cough that she felt were due to asthma exacerbation She was treated in the hospital with IV steroids and nebulized bronchodilators, after which her symptoms significantly improved She was then sent home with prescriptions for oral prednisone 20 mg daily for 5 days as well as an Albuterol inhaler Patient states that his symptoms have been gradually since her ER visit although her chest still feels tight often and she still has on and off nonproductive cough States that she requested for a prescription for a nebulizer for home use a couple of days ago but she has not yet heard back from anyone regarding this request She is also concerned about COPD and would like to get tested for her breathing Patient states that other than her recurrent chest tightness and nonproductive cough, she feels okay She denies any fever or sore throat; denies any headaches or dizziness Denies any chest pains No nausea/vomiting, no abdominal pain No change in bowel habits noted [facility] Medical History Bilateral chronic knee pain ELIJAH I (cervical intraepithelial neoplasia I) Obesity, Class III, BMI 40-49.9 (morbid obesity) Smoker Depression Anxiety Insomnia Esophageal varices Diabetes mellitus Lower abdominal pain Allergic rhinitis Common cold Anxiety and depression Obesity (BMI 30-39.9) Smoker Hypersplenism Pancytopenia Bilateral calcaneal spurs Thrombocytopenia Ascites Iron deficiency anemia due to chronic blood loss History of esophageal varices Chronic pain of both feet Varicose veins of right lower extremity with inflammation Sprain of left knee IBS (irritable bowel syndrome) GERD (gastroesophageal reflux disease) Depression Dementia Liver disease Hypertension Surgical History History of D&C S/P TIPS (transjugular intrahepatic portosystemic shunt) (~10/2015) History of liver biopsy (~04/2002) History of esophagogastroduodenoscopy (EGD) Family History Father Diabetes mellitus Mother Diabetes mellitus Alzheimer's dementia Pneumothorax Maternal Aunt Ovarian cancer Daughter No problems noted. Maternal Aunt Cervical cancer Maternal Grandfather Pancreatic cancer Other Mental health disorder Social History Household Members: Significant Other Housing: Apartment Do you presently have visiting nurse or other home services: No Alcohol intake: current Alcohol intake frequency: holidays/special occasions only Patient Tobacco Use Status: Current everyday Tobacco user Tobacco use type: Cigarette Cigarette Packs Per Day: 0.5 Cigarettes Per Day: 12 Years Smoked: 8 years e-Cigarette/Vaping Use: Never Used Second Hand Smoke Exposure: Yes service: No Current occupational status: unemployed Current occupational exposures/hazards: No Cognitive needs: No Hearing needs: No Vision needs: No Female Reproductive History Menstrual Age of Menarche: 8 Questionnaire PHQ-9 Over the last 2 weeks, how often have you been bothered by any of the following problems? 1. Little interest or pleasure in doing things: not at all 2. Feeling down, depressed, or hopeless: not at all 3. Trouble falling or staying asleep, or sleeping too much: not at all 4. Feeling tired or having little energy: not at all 5. Poor appetite or overeating: not at all 6. Feeling bad about yourself - or that you are a failure or have let yourself or your family down: not at all 7. Trouble concentrating on things, such as reading the newspaper or watching television: not at all 8. Moving or speaking so slowly that other people could have noticed. Or the opposite - being so fidgety or restless that you have been moving around a lot more than usual: not at all 9. Thoughts that you would be better off or of hurting yourself in some way: not at all Total score: 0 Depression Screening Interpretation: Negative Depression Screening Done: Yes 63723 - PHQ-9 Billing: Yes Source: Developed by Drs. Rashaad Franklin, Rosana Lechuga, Noé Neil and colleagues, with an educational marika from [employer] Thrive Questionnaire Date Thrive assessed: 03/18/24 I am a: Patient What is your living situation today?: I have a steady place to live Within the past 12 months, did the food you bought not last and you didn't have the money to get more?: Never true Within the past 12 months, did you worry whether your food would run out before you got money to buy more?: Never true Do you have trouble paying for medicines?: No Do you have trouble getting transportation to medical appointments?: No Do you have trouble paying your heating and electricity bill?: No Do you have trouble taking care of your child, family member or friend?: No Do you have trouble with day-to-day activities such as bathing, preparing meals, shopping, managing finances, etc.?: No Are you currently unemployed and looking for a job?: No Are you interested in more education?: No Please select the resources that you would like help with: None Currently or been in a relationship where the following occur: No concerns reported THRIVE Score: 0 AUDIT C Alcohol Use Questionnaire (AUDIT-C) 1. How often do you have a drink containing alcohol?: Monthly or less 2. How many drinks containing alcohol do you have on a typical day when you are drinking?: 1 or 2 Total Score: 1 Score Reviewed/Action Taken: Yes CALEB-7 AMB Questionnaire CALEB-7 Date CALEB - 7 assessed: 03/18/24 Feeling nervous, anxious, or on edge: 0 = Not at all Not being able to stop or control worryin = Not at all Worrying too much about different things: 0 = Not at all Trouble relaxin = Not at all Being so restless that it is hard to sit still: 0 = Not at all Becoming easily annoyed or irritable: 0 = Not at all Feeling afraid as if something awful might happen: 0 = Not at all Total CALEB-7 score (0-4 normal; 5-9 mild; 10-14 moderate; 15-21 severe): 0 Source: Developed by Drs. Rashaad Franklin, Rosana Lechuga, Noé Neil and colleagues, with an educational marika from [employer] Review of Systems Const Denies chills, Denies fatigue, Denies fever(s) and Denies headache(s) ENT Denies dysphagia, Denies dizziness, Denies otalgia, Denies headache(s), Denies neck pain, Denies odynophagia and Denies sore throat Card Denies chest pain, Denies palpitations and Reports dyspnea (on and off - see HPI) Resp Denies chest congestion (but chest feels tight at times), Reports cough (recurrent; non-productive), Reports dyspnea (on and off - see HPI) and Denies wheezing GI Denies abdominal pain, Denies constipation, Denies dysphagia, Denies heartburn, Denies diarrhea, Denies nausea, Denies odynophagia and Denies vomiting Denies difficulty voiding, Denies nocturia, Denies dysuria and Denies urinary urgency Musc Denies back pain, Reports arthralgias (over both knees) and Denies neck pain Skin/Breast Denies rash Neuro Denies dizziness and Denies headache(s) Endo Denies fatigue and Denies palpitations Aller/Immun Denies wheezing Physical exam (Primary Care) Vital Signs: Last Vital Signs Pulse 59 03/18/24 12:03 BP 120/72 03/18/24 12:03 Pulse Ox 98 03/18/24 12:03 Oxygen Delivery Method Room Air 03/18/24 12:03 BMI result Body Mass Index 38.2 Tobacco/Smoking Status: Tobacco use Status Tobacco use date assessed 03/18/24 03/18/24 12:06 Patient Tobacco Use Status Current everyday Tobacco 03/18/24 12:06 Tobacco use type Cigarette 03/18/24 12:06 e-Cigarette/Vaping Use Never Used 03/18/24 12:06 PHQ-9: PHQ-9 Score PHQ-9: Total score 0 03/18/24 12:18 Depression Screening Interpretation: Negative Thrive Assessment: Date of Thrive Assessment Date Thrive assessed 03/18/24 03/18/24 12:06 Currently or been in a relationship where the following occur: No concerns reported Const General: no acute distress and alert HENMT Ears: TM's normal bilaterally and EAC's normal Throat: Yes posterior oropharynx normal and Yes tonsils normal (no TP congestion) Neck Neck: Yes supple and No lymphadenopathy Thyroid: Thyroid normal Resp Auscultation: no crackles, no rales, no wheezes and diminished lung sounds bilateral Cardio Rate: regular rate Rhythm: regular rhythm Heart sounds: no murmurs GI Palpation (GI): Soft to palpation and nontender Auscultation: normal bowel sounds General: Yes no CVA tenderness Back/Spine/Pelvis Back: no CVA tenderness Skin Rashes: no rashes Extrem General: Yes no clubbing, cyanosis or edema Coding Level of Care Code Est Pt Level 3 (60317) Diagnoses Mild intermittent asthma with exacerbation J45.21 Asthma persistence: intermittent Asthma severity: mild Additional Codes PHQ-9 - 04839 - PHQ-9 Billing: Yes ([id number]) Assessment & Plan Assessment & Plan (1) Asthma exacerbation: Code(s): J45.901 - Unspecified asthma with (acute) exacerbation Category: Medical Qualifiers: Asthma persistence: intermittent Asthma severity: mild Qualified Code(s): J45.21 - Mild intermittent asthma with (acute) exacerbation Plan: Will start patient empirically on Azithromycin QD x 5 days Will also start her additionally on oral Prednisone taper - patient just finished her Rx for oral Prednisone 40 mg QD x 6 days but her asthma exacerbation still has not yet calmed down, as evidenced by tight air entry on auscultation of her lungs Continue Albuterol HFA 2 inhalations Q 6 hours PRN for now and she has been advised to reach out to [facility] (medical supply division) regarding her nebulizer - Rx was already faxed to them about 2 to 3 days ago Have advised patient that it would not be appropriate to have her do a pulmonary function test at present as for asthma is still active and would affect the accuracy of the test results Per request, will refer her to Pulmonary for further evaluation and management Plan Follow up as scheduled in April 2024 Orders: Referrals Pulmonology Referral J45.21 - Mild intermittent asthma with (acute) exacerbation Medications: New prednisone 4 tablets x 2 days, then 3 tablets x 2 days, then 2 tablets x 2 days, then 1 tablet x 2 days 20 tabs 0RF 8 days J45.901 - Unspecified asthma with (acute) exacerbation, M25.50 - Pain in unspecified joint azithromycin take 500 mg today (day 1), then 250 mg for 4 days (days 2-5) PO 6 tabs 0RF
== END 2024-03-18 12:38 | disposition home or self-care (01) ==
PROVIDERS: PCP Internal Medicine; Visit Provider Internal Medicine
DX: J45.21 Mild intermittent asthma with (acute) exacerbation (principal)

== ENCOUNTER 2024-04-02 14:39 | Outpatient (REF) | payer OTHER, SELFPAY | END 2024-04-02 14:40 | disposition home or self-care (01) | LOC: HO.XRAY 14:39 | PROVIDERS: PCP Internal Medicine; Visit Provider Internal Medicine | DX: M25.561 Pain in right knee (principal); M25.562 Pain in left knee; G89.29 Other chronic pain | CPT/HCPCS: 73564 ==

== ENCOUNTER → 2024-04-02 14:44 | Outpatient (BNV) | payer OTHER, SELFPAY | PROVIDERS: PCP Internal Medicine; Visit Provider Radiology Diagnostic Radiology | DX: M25.561 Pain in right knee (principal); M25.562 Pain in left knee | CPT/HCPCS: 73564 ==

== ENCOUNTER 2024-04-16 07:34 | Day surgery (SDC) | payer OTHER, SELFPAY ==
[2024-04-14 14:05] VITALS: BMI 39.9
--- NOTE | 2024-04-15 11:55 | HO.ANESPROP2 ---
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) PMF Active Problems Active Problems: All Active Problems Asthma exacerbation (Acute) Bilateral chronic knee pain (Acute) S/P TIPS (transjugular intrahepatic portosystemic shunt) (Acute ~10/2015) Abnormal uterine bleeding (AUB) (Acute) Dysphagia (Acute) Enlarged uterus (Acute) Well woman exam (Acute) Obesity, Class III, BMI 40-49.9 (morbid obesity) (Acute) Smoker (Acute) Depression (Acute) Anxiety (Acute) Insomnia (Acute) Esophageal varices (Acute) Anemia (Acute) Diabetes mellitus (Acute) Liver disease (Acute) Lower abdominal pain (Acute) Allergic rhinitis (Acute) H/O transjugular intrahepatic portosystemic shunt (Acute) Chronic constipation (Acute) Common cold (Acute) Anxiety and depression (Acute) Obesity (BMI 30-39.9) (Acute) Smoker (Acute) Hypersplenism (Acute) Pancytopenia (Chronic) Bilateral calcaneal spurs (Acute) Varicose veins of right lower extremity with inflammation (Acute) IBS (irritable bowel syndrome) (Acute) Hypertension (Acute) GERD (gastroesophageal reflux disease) (Acute) Depression (Acute) Dementia (Acute) Thrombocytopenia (Acute) Ascites (Acute) History of esophageal varices (Acute) Liver disease (Acute) Iron deficiency anemia due to chronic blood loss (Acute) Chronic pain of both feet (Acute) Past Medical History Medical History Bilateral chronic knee pain ELIJAH I (cervical intraepithelial neoplasia I) Obesity, Class III, BMI 40-49.9 (morbid obesity) Smoker Depression Anxiety Insomnia Esophageal varices Diabetes mellitus Lower abdominal pain Allergic rhinitis Common cold Anxiety and depression Obesity (BMI 30-39.9) Smoker Hypersplenism Pancytopenia Bilateral calcaneal spurs Thrombocytopenia Ascites Iron deficiency anemia due to chronic blood loss History of esophageal varices Chronic pain of both feet Varicose veins of right lower extremity with inflammation Sprain of left knee IBS (irritable bowel syndrome) GERD (gastroesophageal reflux disease) Depression Dementia Liver disease Hypertension Family History Family History Father Diabetes mellitus Mother Diabetes mellitus Alzheimer's dementia Pneumothorax Maternal Aunt Ovarian cancer Daughter No problems noted. Maternal Aunt Cervical cancer Maternal Grandfather Pancreatic cancer Other Mental health disorder Surgical History Surgical History History of D&C S/P TIPS (transjugular intrahepatic portosystemic shunt) (~10/2015) History of liver biopsy (~04/2002) History of esophagogastroduodenoscopy (EGD) Social History Social History Household Members: Significant Other Housing: Apartment Do you presently have visiting nurse or other home services: No Alcohol intake: current Alcohol intake frequency: holidays/special occasions only Patient Tobacco Use Status: Never used Tobacco Tobacco use type: Cigarette Cigarette Packs Per Day: 0.5 Cigarettes Per Day: 12 Years Smoked: 8 years e-Cigarette/Vaping Use: Never Used Second Hand Smoke Exposure: Yes Use of substances other than those prescribed or required for medical reasons: No Are you DNR?: No Advance Directives: No Advance Directives Information Provided: Yes service: No Current occupational status: unemployed Current occupational exposures/hazards: No Cognitive needs: No Hearing needs: No Vision needs: No Meds Allergies Allergy/AdvReac Type Severity Reaction Status Date / Time aspirin [ASPIRIN] AdvReac Intermediate ULCER; GI Verified 04/16/24 07:51 UPSET, internal bleeding dextran 40 AdvReac Itching Verified 04/16/24 07:51 Home Medications ?Medication ?Instructions ?Recorded ?Confirmed ?Last Taken ?Type bupropion HCl 150 mg 24 hr tablet, 150 mg PO DAILY 09/04/23 04/16/24 03/14/24 History extended release citalopram 20 mg tablet 20 mg PO DAILY 02/02/24 04/16/24 03/14/24 History furosemide 20 mg tablet 20 mg PO DAILY 03/14/24 04/16/24 03/14/24 History pantoprazole 40 mg tablet,delayed 40 mg PO BEDTIME PRN Heartburn 03/14/24 04/16/24 Unknown History release spironolactone 50 mg tablet 50 mg PO DAILY 03/14/24 03/18/24 03/14/24 History Exam Height,Weight and Vital Signs: Height 5 ft 2 in Weight 98.883 kg Pertinent Lab Results Pertinent Lab Results: Laboratory Tests 03/14/24 03/15/24 11:20 06:22 WBC 5.5 Hgb 9.9 L Hct 30.6 L Plt Count 84 L Sodium 138 Potassium 3.5 Chloride 105 Carbon Dioxide 25 BUN 19 H Creatinine 0.77 Narrative Narrative: ECHO 02/2024 Conclusions: - 1. Normal LV ejection fraction of 65-70% 2. Mild aortic stenosis by gradients 3. No gross pericardial effusion EKG 02/2024 Vent. Rate : 067 BPM Atrial Rate : 067 BPM P-R Int : 120 ms QRS Dur : 078 ms QT Int : 386 ms P-R-T Axes : 035 025 068 degrees QTc Int : 407 ms Normal sinus rhythm Cannot rule out Anterior infarct , age undetermined Abnormal ECG When compared with ECG of 12-MAR-2024 13:16, Minimal criteria for Inferior infarct are no longer Present QT has shortened CT abdomen pelvis wo IV con 11/2023 IMPRESSION: 1. No evidence of nephrolithiasis or hydronephrosis/hydroureter. 2. Changes of prior TIPS. Chronic splenomegaly. 3. Cardiomegaly. Small pericardial effusion. 4. No additional CT abnormalities of the abdomen and pelvis to explain the patient's symptoms. Assessment and Plan Assessment Anesthesia Assessment: Chart Reviewed Documented by User: Cindi Maria MD 04/16/24 09:35 [facility] Past Medical History Medical History Bilateral chronic knee pain ELIJAH I (cervical intraepithelial neoplasia I) Obesity, Class III, BMI 40-49.9 (morbid obesity) Smoker Depression Anxiety Insomnia Esophageal varices Diabetes mellitus Lower abdominal pain Allergic rhinitis Common cold Anxiety and depression Obesity (BMI 30-39.9) Smoker Hypersplenism Pancytopenia Bilateral calcaneal spurs Thrombocytopenia Ascites Iron deficiency anemia due to chronic blood loss History of esophageal varices Chronic pain of both feet Varicose veins of right lower extremity with inflammation Sprain of left knee IBS (irritable bowel syndrome) GERD (gastroesophageal reflux disease) Depression Dementia Liver disease Hypertension Family History Family History Father Diabetes mellitus Mother Diabetes mellitus Alzheimer's dementia Pneumothorax Maternal Aunt Ovarian cancer Daughter No problems noted. Maternal Aunt Cervical cancer Maternal Grandfather Pancreatic cancer Other Mental health disorder Family history of problems with anesthesia: No Surgical History Surgical History History of D&C S/P TIPS (transjugular intrahepatic portosystemic shunt) (~10/2015) History of liver biopsy (~04/2002) History of esophagogastroduodenoscopy (EGD) History of Problems with Anesthesia: No Social History Social History Household Members: Significant Other Housing: Apartment Do you presently have visiting nurse or other home services: No Alcohol intake: current Alcohol intake frequency: holidays/special occasions only Patient Tobacco Use Status: Never used Tobacco Tobacco use type: Cigarette Cigarette Packs Per Day: 0.5 Cigarettes Per Day: 12 Years Smoked: 8 years e-Cigarette/Vaping Use: Never Used Second Hand Smoke Exposure: Yes Use of substances other than those prescribed or required for medical reasons: No Are you DNR?: No Advance Directives: No Advance Directives Information Provided: Yes service: No Current occupational status: unemployed Current occupational exposures/hazards: No Cognitive needs: No Hearing needs: No Vision needs: No Meds Allergies Allergy/AdvReac Type Severity Reaction Status Date / Time aspirin [ASPIRIN] AdvReac Intermediate ULCER; GI Verified 04/16/24 07:51 UPSET, internal bleeding dextran 40 AdvReac Itching Verified 04/16/24 07:51 Home Medications ?Medication ?Instructions ?Recorded ?Confirmed ?Last Taken ?Type bupropion HCl 150 mg 24 hr tablet, 150 mg PO DAILY 09/04/23 04/16/24 03/14/24 History extended release citalopram 20 mg tablet 20 mg PO DAILY 02/02/24 04/16/24 03/14/24 History furosemide 20 mg tablet 20 mg PO DAILY 03/14/24 04/16/24 03/14/24 History pantoprazole 40 mg tablet,delayed 40 mg PO BEDTIME PRN Heartburn 03/14/24 04/16/24 Unknown History release spironolactone 50 mg tablet 50 mg PO DAILY 03/14/24 03/18/24 03/14/24 History Exam Airway Mallampati Class: II TM Dist: >3cm Neck ROM: Full Heart: rrr Lungs: cta Assessment and Plan Assessment Anesthesia Assessment: Anesthesia Plan Discussed Final Anesthetic Review Family History of Problems with Anesthesia: No History of Problems with Anesthesia: No NPO: Yes ASA Class: III Final Preanesthetic Review: No Changes in Pt Med Stat, Meds/Allgs Chart Reviewed and Consent Obtained/Reviewed Patient Risk: Intermediate Procedure Risk: Intermediate Anesthetic Plan Anesthetic Plan: MAC: Disposition: Standard PACU
[2024-04-16 07:56] VITALS: BMI 37.5
[2024-04-16 08:01] LABS: UPreg QC Valid YES
[2024-04-16 08:02] VITALS: BP 133/58; PULSE 58; RESP 16; TEMP 36.6; O2SAT 97
[2024-04-16 08:02] LABS: Urine Pregnancy NEGATIVE (NEGATIVE)
[2024-04-16 08:05] LABS: Hemoglobin 9.1 g/dl (12.0-16.0); Mean Corpuscular HGB Conc 30.3 g/dl (31.0-35.0); Mean Corpuscular Hemoglobin 21.3 pg (27.0-33.0); Mean Corpuscular Volume 70.1 fL (80.0-98.0); Mean Platelet Volume 9.3 fL (9.4-12.3); Platelet Count 135 X10*3/uL (160-400); Red Blood Count 4.28 X10*6/uL (4.20-5.50); Red Cell Distribution Width 15.9 % (11.0-16.0); White Blood Count 3.8 X10*3/uL (4.8-10.8)
[2024-04-16 08:22] LABS: Glucose, Whole Blood 112 mg/dL (60-115)
[2024-04-16] MEDS: Lactated Ringers 1,000 ML 100 ML IVCONT (08:30)
--- NOTE | 2024-04-16 08:49 | MHC.SHP ---
Pre-Procedural Eval Section A - 24 Hr Update-Section A only Date of Service: 04/16/24 The patient is an INPATIENT: No The patient has been examined within 24 hours of the surgical procedure. The History & Physical has been completed within 30 days and I have reviewed it.: No Section B - Complete if H&P > 30 days Chief Complaint: Iron deficiency anemia Relevant Family History (Specify if Yes): No Relevant Social History: Tobacco Use Present Medications: see Short Stay Collaborative assessment Medical History: Significant History (Esophageal varices Diabetes mellitus Lower abdominal pain Allergic rhinitis Common cold Anxiety and depression Obesity (BMI 30-39.9) Smoker Hypersplenism Pancytopenia Bilateral calcaneal spurs Thrombocytopenia Ascites Iron deficiency anemia due to chronic blood loss) History of Previous Operations: Relevant previous surgery/procedure and date(s) (History of D&C S/P TIPS (transjugular intrahepatic portosystemic shunt) (~10/2015) History of liver biopsy (~04/2002) History of esophagogastroduodenoscopy (EGD)) Allergies: Allergies Allergy/AdvReac Type Severity Reaction Status Date / Time aspirin [ASPIRIN] AdvReac Intermediate ULCER; GI Verified 04/16/24 07:51 UPSET, internal bleeding dextran 40 AdvReac Itching Verified 04/16/24 07:51 Review of Systems Sugical H&P ROS: Negative: Constitution, Cardiovascular, Respiratory and Gastrointestinal Exam Surgical H&P Exam: Normal: Heart, Normal: Lungs, Normal: Extremities and Normal: Abdomen Plan Diagnosis/Plan: Unchanged I have reviewed the history and physical and performed a pertinent physical examination on my patient. No changes have occurred unless specified. Time Spent With Patient Time: Total time managing care of this patient today ____ minutes.
--- NOTE | 2024-04-16 09:55 | HO.OPN-COLON ---
Colonoscopy Operative Note Operative Note Date of Service: 04/16/24 Narrative: FLEXIBLE TRANSORAL UPPER GASTROINTESTINAL ENDOSCOPY WITH BIOPSIES AND COLONOSCOPY TILL CECUM WITH BIOPSIES AND SNARE POLYPECTOMY Pre-op diagnosis: Colon cancer screening, Iron def anemia, FU of esophageal varices Post-op diagnosis: Small esophageal varices, Gastritis, Colon Polyps, Diverticulosis, hemorrhoids Endoscopist:? Obed Mendoza MD Anesthesia:?MAC UPPER ENDOSCOPY Consent: Indications for the procedure and potential complications of bleeding, perforation, reaction to medications and missed diagnosis were discussed with the patient and informed consent was obtained. Instrument: Olympus GIF H 190 mid size upper endoscope Monitoring: Vital signs and clinical assessment, continuous EKG monitoring, Pulse oximetry, Carbon Dioxide monitoring and blood pressure monitoring were done throughout the procedure. Procedure: The patient was placed in the left lateral decubitis position and pre-procedure medications were administered and a bite block was placed. The endoscope was inserted into the mouth and advanced under direct vision to the third part of duodenum. A careful inspection was made as the upper endoscope was withdrawn including a retroflexed examination of the proximal stomach; Findings and interventions are described below. Findings: Larynx: Normal Esophagus: Two columns of Grade 1 varices from 30 to 36 cms without high risk stigmata for bleeding. Dilated esophagus without stricture or ring. GE junction at 36 cms. . No esophagitis or Mo's. Stomach: Moderate diffuse gastric erythema - biopsies were obtained from the antrum. Grade 2 flap valve on retroflexed examination of the cardia. Duodenum: Normal bulb and descending duodenum Biopsies were obtained from descending duodenum to check for celiac sprue Intervention: Biopsies as noted above COLONOSCOPY PROCEDURE NOTE Instrument: Olympus PCF H 190 L variable stiffness pediatric colonoscope Monitoring: Vital signs and clinical assessment, intermittent blood pressure monitoring, continuous EKG monitoring, Pulse oximetry and Carbon Dioxide monitoring were done throughout the procedure. Please see anesthesia flowsheet. Colon withdrawl time was 29 minutes. Procedure: The patient was placed in the left lateral decubitis position and pre-procedure medications were administered. After a digital rectal examination of the ano-rectum, the video colonoscope was inserted into the rectum and advanced through the colon to the cecum. The colonoscope was slowly withdrawn in a retrograde panoramic fashion and the colon mucosa was carefully examined including a retroflexed view of the rectum. Findings and interventions are described below. Procedure Difficulty: without difficulty Findings: Terminal Ileum: Not evaluated Cecum: Normal Ascending Colon: Normal Transverse Colon: A 2 to 2.5 cms pedunculated polyp at 70 cms. Polyp was removed with a hot snare. Polypectomy site was closed with 1 hemoclip and marked with [employer] Descending Colon: Three 2 cms pedunculated polyps at 55 to 60 cms. Polyps were removed with a hot snare. Polypectomy sites were closed with one hemoclip at each polypectomy site. Sigmoid Colon: Normal Rectum: Normal Ano-rectum: Normal Colon preparation: Good after copious irrigation. [place] Bowel Preparation Scale Right colon; 2 Transverse colon: 2 Left colon; 2 (0 = Unprepared colon segment with mucosa not seen due to solid stool that cannot be cleared. 1 = Portion of mucosa of the colon segment seen, but other areas of the colon segment not well seen due to staining, residual stool and/or opaque liquid. 2 = Minor amount of residual staining, small fragments of stool and/or opaque liquid, but mucosa of colon segment seen well. 3 = Entire mucosa of colon segment seen well with no residual staining, small fragments of stool or opaque liquid) Impression and Post Procedure Diagnosis: Endoscopy Findings: ESOPHAGUS: Dilated esophagus without stricture or ring. Two columns of Grade 1 varices from 30 to 36 cms without high risk stigmata for bleeding (band ligation not needed) STOMACH: Moderate diffuse gastric erythema - biopsies were obtained from the antrum. DUODENUM: Normal - biopsied to check for celiac sprue Colonoscopy Findings: Four medium sized polyps were removed Iron def anemia - possibly related to slow GI blood loss from 4 medium sized polyps Plan: Pt has a FU appointment on 04/29/[address] Mendoza Repeat Colonoscopy in 1 year if polyps are adenomatous and 10 year if polyps are hyperplastic. (Dulcolax 10 mg daily starting 5 days prior to next colon appt) Above findings were reviewed with the patient and relevant handouts were given and the discharge area. BIOPSIES SHOWED: A. Small bowel, biopsy: Small bowel mucosa within normal limits; preserved villous architecture and no increased intraepithelial lymphocytes seen. B. Stomach, antrum, biopsy: Gastric antral mucosa within normal limits; negative for Helicobacter pylori, intestinal metaplasia and dysplasia. C. Colon, transverse at 70 cm, polypectomy: Tubular adenoma; negative for high-grade dysplasia. D. Colon, descending at 60 cm, polypectomy: Tubular adenoma; negative for high-grade dysplasia Letter sent with biopsy results. Pt placed on the colonoscopy recall list for repeat colon in 1 year.
[2024-04-16 10:39] VITALS: BP 129/69; PULSE 71; RESP 16; TEMP 36.1; O2SAT 97
[2024-04-16 10:54] VITALS: BP 134/68; PULSE 57; RESP 16; O2SAT 99
== END 2024-04-16 14:45 | disposition home or self-care (01) ==
PROVIDERS: Nurse Practitioner; PCP Internal Medicine; Visit Provider Internal Medicine Gastroenterology
PROC: (CPT 45385; principal; 2024-04-16 09:30)
DX: D50.0 Iron deficiency anemia secondary to blood loss (chronic) (principal); D12.3 Benign neoplasm of transverse colon; D12.4 Benign neoplasm of descending colon; K58.9 Irritable bowel syndrome, unspecified; K57.30 Diverticulosis of large intestine without perforation or abscess without bleeding; K64.8 Other hemorrhoids; K22.89 Other specified disease of esophagus; K76.6 Portal hypertension; I85.10 Secondary esophageal varices without bleeding; Z95.828 Presence of other vascular implants and grafts; K21.9 Gastro-esophageal reflux disease without esophagitis; I10 Essential (primary) hypertension; K29.70 Gastritis, unspecified, without bleeding; E11.9 Type 2 diabetes mellitus without complications; R18.8 Other ascites; D73.1 Hypersplenism; D61.818 Other pancytopenia; D69.6 Thrombocytopenia, unspecified; F03.90 Unspecified dementia, unspecified severity, without behavioral disturbance, psychotic disturbance, mood disturbance, and anxiety; F41.8 Other specified anxiety disorders; E66.9 Obesity, unspecified; Z68.39 Body mass index [BMI] 39.0-39.9, adult; J30.9 Allergic rhinitis, unspecified; Z79.51 Long term (current) use of inhaled steroids; Z79.84 Long term (current) use of oral hypoglycemic drugs; Z79.899 Other long term (current) drug therapy; Z88.6 Allergy status to analgesic agent; Z88.8 Allergy status to other drugs, medicaments and biological substances; Z98.890 Other specified postprocedural states
CPT/HCPCS: 45385; 45380; 45381; 43239; 36415; 81025; 82947; 85027; 88305; 88313; 88342; J0290; J2003; J2704

== ENCOUNTER → 2024-04-16 07:34 | Outpatient (BNV) | payer OTHER, SELFPAY | PROVIDERS: PCP Internal Medicine; Visit Provider Internal Medicine Gastroenterology | DX: Z12.11 Encounter for screening for malignant neoplasm of colon (principal); D12.3 Benign neoplasm of transverse colon; D12.4 Benign neoplasm of descending colon; D50.9 Iron deficiency anemia, unspecified; I85.00 Esophageal varices without bleeding; K29.70 Gastritis, unspecified, without bleeding | CPT/HCPCS: 43239; 45385 ==

== ENCOUNTER 2024-05-18 09:40 | Outpatient (AMB) | payer OTHER, SELFPAY ==
--- NOTE | 2024-05-18 09:44 | A.OFFVIS_ITS ---
Vital Signs 05/18/24 09:46 Height 5 ft 2 in Weight 206 lb BMI 37.7 BP 126/53 L Blood Pressure Location Lt brachial Position Sitting Pulse 67 Oxygen Delivery Method Room Air Intake Visit Reasons: s/p double results Intake Note: Patient post op for s/p double, US and BS results. Patient cc: Nauseas, acid reflex with burping, diarrhea, denies any other GI issues for today visit. 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 Name: Samuel Hearn LM Accompanied by: Self / Same As Patient Allergies aspirin [ASPIRIN] Adverse Reaction (Intermediate, Verified 05/18/24 09:44) ULCER; GI UPSET, internal bleeding dextran 40 Adverse Reaction (Verified 05/18/24 09:44) Itching Medication List - Last Reconciled 05/18/24 by Obed Mendoza MD albuterol sulfate 90 mcg/actuation 2 inhalations inhalation Q6H PRN 30 days albuterol sulfate 2.5 mg (3 mL) continuous nebulization QID PRN 30 days blood sugar diagnostic (FreeStyle Lite Strips) As directed once a day blood-glucose meter (FreeStyle Lite Meter kit) As directed bupropion HCl XL 150 mg PO DAILY citalopram 20 mg PO DAILY clonidine HCl 0.2 mg PO BEDTIME 30 days famotidine 20 mg PO DAILY fluticasone propionate 50 mcg/actuation 1 spray intranasal DAILY PRN furosemide 20 mg PO DAILY hydroxyzine pamoate 25 mg PO BID PRN 30 days lancets (FreeStyle Lancets) As directed once a day loratadine 10 mg PO DAILY PRN 90 days [Medline Aeromist Nebulizert As directed] metformin 500 mg PO BID nebulizers (AeroEclipse II Nebulizer) As directed pantoprazole 40 mg PO BEDTIME PRN prazosin 1 mg PO BEDTIME 30 days spironolactone 50 mg PO DAILY trazodone 50 mg PO BEDTIME PRN 30 days HPI HPI s/p double results: Details: GI CLINIC VISIT FOR THIS 44-YEAR-OLD ARABIC-SPEAKING FEMALE FOR for FU of NONCIRRHOTIC PORTAL HYPERTENSION COMPLICATED BY ESOPHAGEAL VARICES AND PAST HISTORY OF GI BLEEDING. Patient is status post TIPPS placement at [facility] in 10/2015 without subsequent bleeding. Patient returns after hiatus of 3 years (Last seen in 12/2020) Patient was advised to follow up in the GI clinic by Dr. Dickens for recurrent anemia: In September her hemoglobin dropped significantly and she required blood transfusion. She has iron deficiency, she is intolerant of oral iron. She has tolerated iron infusions well in the past. She received Venofer infusions which she tolerated well in April 2023. She was also advised to follow-up with GI she may have occult GI bleeding secondary to esophageal varices. She will be closely for recurrent anemia . ? CHRONIC ILLNESSES:?hypertension, liver disease - pre hepatic portal hypertension, dementia, depression, GERD (gastroesophageal reflux disease), Sprain of left knee and IBS (irritable bowel syndrome) TODAY'S VISIT [facility] # Wang Patient cc: Nauseas, acid reflex with burping, diarrhea, EGD and colon results reviewed with the patient Continues to have heavy menstrual bleeding (lasted 4 days this month) PAST VISITS: Pt states she was in [place] x 3 years. Pt complains of intermittent RUQ pain sometimes associated with constipation. Denies taking any medications for constipation Denies black stools or rectal bleeding. Admits to wt gain ? Did not go for [facility] US due to lack of transportation - willing to reschedule ?In September her hemoglobin dropped significantly and she required blood transfusion.? She has iron deficiency, she is intolerant of oral iron.? Since her recent iron infusion, her blood counts have improved, anemia is better.? Platelet counts are stable. ? Doing so so.? Did not have a hysterectomy due to COVID 19 pandemic. ? Continues to feel tired with low energy.? Stopped taking iron pills two months ago due to side effects (upset stomach and abdominal pain) ? I have pains in my legs and pain in my belly - present for past several yrs. ? Notes burning and stinging in the legs and unable to sleep due to the pain. ? Pt was transfused 2 units of PRBC end of September/ early October. ? Fatigue improved after blood transfusion. ? ? ? Pt was seen by [employer] and is waiting for a call from [employer] to schedule a hysterectomy. ?? ? Complains of upset stomach due to iron and was advised to decrease iron from twice daily to once a day and monitor labs. ?? ? current weight is 175 lbs? -? increased from 145 lbs a year ago ? LABS IN [facility]:?09/22/19 H & H of 10.5 & 35.6, plt 48 K, Haptoglobin was 47 - normal, INR 1.3, ? LFTs were normal, Iron studies cw WEN ? 08/02 Liver Fibrosis Score of 0.16 with Fibrosis Stage of F0, RONAK was negative ?IMAGING STUDIES: 06/30/[address] SCAN SHOWED: No acute intra-abdominal/intrapelvic abnormality. The TIPS stent is redemonstrated. The spleen remains moderately enlarged, measuring up to 17 cm in length. It does appear, however, smaller than on the prior CT examination. No renal calculi. The appendix is normal in appearance. No adnexal mass lesion. 09/29/19 abdominal ultrasound showed: ? Small gallbladder echogenic polyps. No lytic stones or hydronephrosis seen. ? Echogenic liver without focal lesion. A focal lesion seen. ? Mild splenomegaly. ? Widely patent stent with normal velocities visualized through the stent and distally at the hepatic/IVC confluence. The splenic vein and hepatic veins are patent. [facility] Medical History Bilateral chronic knee pain ELIJAH I (cervical intraepithelial neoplasia I) Obesity, Class III, BMI 40-49.9 (morbid obesity) Smoker Depression Anxiety Insomnia Esophageal varices Diabetes mellitus Lower abdominal pain Allergic rhinitis Common cold Anxiety and depression Obesity (BMI 30-39.9) Smoker Hypersplenism Pancytopenia Bilateral calcaneal spurs Thrombocytopenia Ascites Iron deficiency anemia due to chronic blood loss History of esophageal varices Chronic pain of both feet Varicose veins of right lower extremity with inflammation Sprain of left knee IBS (irritable bowel syndrome) GERD (gastroesophageal reflux disease) Depression Dementia Liver disease Hypertension Surgical History Hx of colonoscopy History of D&C S/P TIPS (transjugular intrahepatic portosystemic shunt) (~10/2015) History of liver biopsy (~04/2002) History of esophagogastroduodenoscopy (EGD) Family History Father Diabetes mellitus Mother Diabetes mellitus Alzheimer's dementia Pneumothorax Maternal Aunt Ovarian cancer Daughter No problems noted. Maternal Aunt Cervical cancer Maternal Grandfather Pancreatic cancer Other Mental health disorder Social History Household Members: Significant Other Housing: Apartment Do you presently have visiting nurse or other home services: No Alcohol intake: current Alcohol intake frequency: holidays/special occasions only Patient Tobacco Use Status: Never used Tobacco Tobacco use type: Cigarette Cigarette Packs Per Day: 0.5 Cigarettes Per Day: 12 Years Smoked: 8 years e-Cigarette/Vaping Use: Never Used Second Hand Smoke Exposure: Yes service: No Current occupational status: unemployed Current occupational exposures/hazards: No Cognitive needs: No Hearing needs: No Vision needs: No Female Reproductive History Menstrual Age of Menarche: 8 Review of Systems Const All systems reviewed & are unremarkable except as noted in HPI and below Physical Exam Vital Signs: Last Vital Signs Pulse 67 05/18/24 09:46 BP 126/53 L 05/18/24 09:46 Oxygen Delivery Method Room Air 05/18/24 09:46 BMI result Body Mass Index 37.7 Const General: no acute distress Nutritional Appearance: obese Orientation/consciousness: patient oriented x3 Limitations: language barrier HEENT Head: Yes normal to inspection Ears: hearing grossly normal bilaterally Eyes Sclerae: sclerae normal Pupils: Equal, round and reactive pupils present Neck Neck: Yes normal visual inspection Chest Chest palpation & inspection: normal inspection of the chest Resp Effort & Inspection: normal respiratory effort Auscultation: clear to auscultation bilaterally Cardio Palpation: normal PMI Rate: regular rate Rhythm: regular rhythm Heart sounds: S1 normal heart sound present, S2 normal heart sound present and no murmurs GI Palpation (GI): Soft to palpation, nontender and No hepatosplenomegaly present Auscultation: normal bowel sounds Rectal Exam - Female: deferred Skin General skin exam: no rashes or lesions noted Neuro General: patient oriented x3, gait normal and moves all extremities Cranial nerves: Yes Equal, round and reactive pupils present Psych Appearance: grossly normal Mental Status: mental status grossly normal Assessment & Plan Assessment & Plan (1) Liver disease: Comment: prehepatic portal hypertension Code(s): K76.9 - Liver disease, unspecified Category: Medical (2) GERD (gastroesophageal reflux disease): Code(s): K21.9 - Gastro-esophageal reflux disease without esophagitis Category: Medical Qualifiers: Esophagitis presence: without esophagitis Qualified Code(s): K21.9 - Gastro-esophageal reflux disease without esophagitis (3) IBS (irritable bowel syndrome): Code(s): K58.9 - Irritable bowel syndrome, unspecified Category: Medical (4) S/P TIPS (transjugular intrahepatic portosystemic shunt): Onset Date: ~10/2015 Comment: at [facility] Code(s): Z95.828 - Presence of other vascular implants and grafts Category: Surgical (5) Esophageal varices: Code(s): I85.00 - Esophageal varices without bleeding Category: Medical Qualifiers: Esophageal varices bleeding: without bleeding Esophageal varices type: secondary Qualified Code(s): I85.10 - Secondary esophageal varices without bleeding (6) Dysphagia: Code(s): R13.10 - Dysphagia, unspecified Category: Medical Qualifiers: Dysphagia type: unspecified Qualified Code(s): R13.10 - Dysphagia, unspecified Plan 44 year-old Yoruba-speaking female followed in GI for non cirrhotic portal hypertension complicated by esophageal varices with past history of GI Bleed. Patient is status post TIPPS placement at [facility] in 10/2015 without subsequent bleeding. She likely has early cirrhosis since past abdominal US showed ascites - no ascites seen on recent US. Patient has had intermittent GI FU and has not been taking her medications. Liver Fibrosis Score of 0.16 with Fibrosis Stage of F0, INR is 1.3. Plan is to monitor labs to assess her liver disease. A duplex US confirmed TIPPS patency and no free fluid was seen - she is over due for FU US. History of esophageal varices with bleeding: Likely resolved after TIPPS p lacement. Iron deficiency anemia is likely related to menstrual blood loss. Follow-up with the OBGYN. Pt postponed her hysterectomy due to COVID-19 pandemic 09/04/23 Pt states she was in [place] x 3 years. Pt complains of intermittent RUQ pain sometimes associated with constipation. 04/16/24 EGD AND COLON SHOWED: Endoscopy Findings: ESOPHAGUS: Dilated esophagus without stricture or ring. Two columns of Grade 1 varices from 30 to 36 cms without high risk stigmata for bleeding (band ligation not needed) STOMACH: Moderate diffuse gastric erythema - biopsies were obtained from the antrum. DUODENUM: Normal - biopsied to check for celiac sprue Colonoscopy Findings: Four medium sized polyps were removed Iron def anemia - possibly related to slow GI blood loss from 4 medium sized polyps Repeat Colonoscopy in 1 year if polyps are adenomatous and 10 year if polyps are hyperplastic. (Dulcolax 10 mg daily starting 5 days prior to next colon appt) BIOPSIES SHOWED: A. Small bowel, biopsy: Small bowel mucosa within normal limits; preserved villous architecture and no increased intraepithelial lymphocytes seen. B. Stomach, antrum, biopsy: Gastric antral mucosa within normal limits; negative for Helicobacter pylori, intestinal metaplasia and dysplasia. C. Colon, transverse at 70 cm, polypectomy: Tubular adenoma; negative for high- grade dysplasia. D. Colon, descending at 60 cm, polypectomy: Tubular adenoma; negative for high- grade dysplasia Letter sent with biopsy results. 05/11/[address] Dickens for pancytopenia with worsening anemia and is being scheduled for Venofer infusions for worsening WEN. GI follow-up in 6 months Coding Level of Care Code Est Pt Level 4 (87957) Diagnoses Liver disease K76.9 Gastroesophageal reflux disease without esophagitis K21.9 Esophagitis presence: without esophagitis IBS (irritable bowel syndrome) K58.9 S/P TIPS (transjugular intrahepatic portosystemic shunt) Z95.828 Secondary esophageal varices without bleeding I85.10 Esophageal varices bleeding: without bleeding Esophageal varices type: secondary Dysphagia, unspecified type R13.10 Dysphagia type: unspecified Time Spent (min) 24
[2024-05-18 09:46] VITALS: BP 126/53; PULSE 67; BMI 37.7
== END 2024-05-18 10:25 | disposition home or self-care (01) ==
PROVIDERS: PCP Internal Medicine; Visit Provider Internal Medicine Gastroenterology
DX: K76.9 Liver disease, unspecified (principal); K21.9 Gastro-esophageal reflux disease without esophagitis; K58.9 Irritable bowel syndrome, unspecified; Z95.828 Presence of other vascular implants and grafts; I85.10 Secondary esophageal varices without bleeding; R13.10 Dysphagia, unspecified
CPT/HCPCS: 99214

== ENCOUNTER → 2024-05-18 09:40 | Outpatient (BNVA) | payer OTHER, SELFPAY | PROVIDERS: PCP Internal Medicine; Visit Provider Internal Medicine Gastroenterology | DX: K76.9 Liver disease, unspecified (principal); K21.9 Gastro-esophageal reflux disease without esophagitis; K58.9 Irritable bowel syndrome, unspecified; I85.10 Secondary esophageal varices without bleeding; R13.10 Dysphagia, unspecified; Z95.828 Presence of other vascular implants and grafts | CPT/HCPCS: 99212 ==

== ENCOUNTER 2024-05-28 08:11 | Outpatient (REF) | payer OTHER, SELFPAY ==
--- NOTE | ~2024-05-28 | XR_ITS ---
EXAMINATION: XR KNEE AP STANDING CLINICAL INFORMATION: M25.561 - Pain in right knee COMPARISON: 04/02/2024. TECHNIQUE: AP bilateral standing view of the knees was obtained. FINDINGS: Right Knee: There is mild to moderate medial and mild lateral compartment narrowing with small marginal osteophytes. Normal alignment. Normal soft tissues. Left Knee: There is very mild medial compartment joint space narrowing with tiny marginal osteophytes. Lateral compartment is preserved. Normal alignment. Normal soft tissues.. XR/XR knee standing BI IMPRESSION: 1. Mild to moderate medial and mild lateral compartment osteoarthrosis right knee. 2. Very mild medial compartment osteoarthritis left knee. Electronically signed by: Fredy Reoblledo MD 05/28/2024 02:22 PM EDT
== END 2024-05-28 08:12 | disposition home or self-care (01) ==
LOC: HO.HOSX 08:11
PROVIDERS: Visit Provider Physician Assistant
DX: M25.561 Pain in right knee (principal); M25.562 Pain in left knee; G89.29 Other chronic pain; E11.9 Type 2 diabetes mellitus without complications
CPT/HCPCS: 20610; 73565; 99202; J1010; J2003

== ENCOUNTER 2024-05-28 08:47 | Outpatient (AMB) | payer OTHER, SELFPAY ==
--- NOTE | 2024-05-28 09:03 | A.OFFVIS_ITS ---
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 patient reports ongoing pain for about 4 - 5 year. She states that her pain is worse on the right knee than the left knee. Patient notices that her knees are a bit swollen and they give out on her. She notices that her pain gets worse when she is bending, walking, and using the stairs(up/down). She has tried cortisone injections in the past and they lasted her for about 3 + months. She has tried and failed 3 + months of NSAIDs, Tylenol. Drug And Alcohol Treatment Specialist Services: Drug And Alcohol Treatment Specialist Present (Danielle ([id number])) Allergies aspirin [ASPIRIN] Adverse Reaction (Intermediate, Verified 05/28/24 09:08) ULCER; GI UPSET, internal bleeding dextran 40 Adverse Reaction (Verified 05/28/24 09:08) Itching [facility] Medical History Bilateral chronic knee pain ELIJAH I (cervical intraepithelial neoplasia I) Obesity, Class III, BMI 40-49.9 (morbid obesity) Smoker Depression Anxiety Insomnia Esophageal varices Diabetes mellitus Lower abdominal pain Allergic rhinitis Common cold Anxiety and depression Obesity (BMI 30-39.9) Smoker Hypersplenism Pancytopenia Bilateral calcaneal spurs Thrombocytopenia Ascites Iron deficiency anemia due to chronic blood loss History of esophageal varices Chronic pain of both feet Varicose veins of right lower extremity with inflammation Sprain of left knee IBS (irritable bowel syndrome) GERD (gastroesophageal reflux disease) Depression Dementia Liver disease Hypertension Surgical History Hx of colonoscopy History of D&C S/P TIPS (transjugular intrahepatic portosystemic shunt) (~10/2015) History of liver biopsy (~04/2002) History of esophagogastroduodenoscopy (EGD) Family History Father Diabetes mellitus Mother Diabetes mellitus Alzheimer's dementia Pneumothorax Maternal Aunt Ovarian cancer Daughter No problems noted. Maternal Aunt Cervical cancer Maternal Grandfather Pancreatic cancer Other Mental health disorder Social History (Reviewed 05/28/24 @ 09:08 by Felice Mcadams Household Members: Significant Other Housing: Apartment Do you presently have visiting nurse or other home services: No Alcohol intake: current Alcohol intake frequency: holidays/special occasions only Patient Tobacco Use Status: Never used Tobacco Tobacco use type: Cigarette Cigarette Packs Per Day: 0.5 Cigarettes Per Day: 12 Years Smoked: 8 years e-Cigarette/Vaping Use: Never Used Second Hand Smoke Exposure: Yes service: No Current occupational status: unemployed Current occupational exposures/hazards: No Cognitive needs: No Hearing needs: No Vision needs: No Female Reproductive History Menstrual Age of Menarche: 8 Physical Exam Const General: cooperative, healthy appearing and no acute distress Resp Effort & Inspection: normal respiratory effort and able to speak in complete sentences Cardio Rate: regular rate Peripheral pulses: Peripheral pulses 2+ throughout Skin Lesions: no lesions Rashes: no rashes Extrem Other: Right/Left knee: Normal to inspection. No ecchymosis, erythema, or joint effusion. Mild tenderness to palpation along the medial and lateral joint lines. Full knee extension and flexion. NVI. Office Procedures AMB Joint Injection/Aspiration Joint Injection/Aspiration Primary Site: right knee Secondary Site: left knee Prep: site was prepped using aseptic technique and ethochloride spray was applied Injected: 40 mg of, DepoMedrol, with 8 mL of (2% plain lido) and in the joint Approach Used: anterolateral Procedure: The patient tolerated the procedure well, but had some pain with the injection and there was some relief with the local anesthesia Coding 26211 - Bilateral Large Joint Procedure code (CPT) selection complete Assessment & Plan Assessment & Plan (1) Bilateral chronic knee pain: Code(s): M25.561 - Pain in right knee; M25.562 - Pain in left knee; G89.29 - Other chronic pain Category: Medical (2) Diabetes mellitus: Code(s): E11.9 - Type 2 diabetes mellitus without complications Category: Medical Qualifiers: Diabetes mellitus type: type 2 Diabetes mellitus middle or intermediate school principal insulin use: without middle or intermediate school principal use Diabetes mellitus complication status: without complication Qualified Code(s): E11.9 - Type 2 diabetes mellitus without complications Plan The patient was offered a cortisone injection in bilateral knees with 40 mg of DepoMedrol. The patient was explained the risks, benefits, and alternatives to receiving this injection. After receiving consent for the injection, the patient had the procedure done while in the office today. The patient tolerated the procedure well with no complications. Due to the patient?s history of diabetes, they were instructed to monitor their blood glucose level. The patient was informed that they could see a rise in their numbers and if the numbers became too high, they were instructed to call their PCP. The patient was also informed that they could have facial flushing as a side effect of the injection, but this will pass. Follow-up will be p.r.n., or sooner if needed X-rays of bilateral knees which were obtained while in the office today and were reviewed by me, Elise Toney PA-C, revealed no acute fracture dislocation Orders: Orders XR knee standing BI Today G89.29 - Other chronic pain, M25.561 - Pain in right knee, M25.562 - Pain in left knee Coding Level of Care Code New Pt Level 4 (47639) Diagnoses Bilateral chronic knee pain M25.561; M25.562; G89.29 Type 2 diabetes mellitus without complication, without long-term current use of insulin E11.9 Diabetes mellitus type: type 2 Diabetes mellitus middle or intermediate school principal insulin use: without middle or intermediate school principal use Diabetes mellitus complication status: without complication CPT Codes Coding - 72011 - Bilateral Large Joint: 50325 - Bilateral Large Joint ([id number])
== END 2024-05-28 10:45 | disposition home or self-care (01) ==
LOC: HO.HOS 08:47
PROVIDERS: PCP Internal Medicine; Visit Provider Physician Assistant
DX: M25.561 Pain in right knee (principal); M25.562 Pain in left knee; E11.9 Type 2 diabetes mellitus without complications
CPT/HCPCS: 20610; 99204

== ENCOUNTER → 2024-05-28 08:55 | Outpatient (BNV) | payer OTHER, SELFPAY | PROVIDERS: Visit Provider Radiology Diagnostic Radiology | DX: M25.561 Pain in right knee (principal) | CPT/HCPCS: 73565 ==

== ENCOUNTER 2024-06-18 23:10 | Emergency (ER) | payer OTHER, SELFPAY ==
--- NOTE | 2024-06-18 | ECG_ITS ---
Test Reason : DIZZINESS Blood Pressure : */* mmHG Vent. Rate : 65 BPM Atrial Rate : 65 BPM P-R Int : 118 ms QRS Dur : 76 ms QT Int : 418 ms P-R-T Axes : 3 9 54 degrees QTcB Int : 434 ms Normal sinus rhythm Minimal voltage criteria for LVH, may be normal variant ( R in aVL ) Cannot rule out Inferior infarct , age undetermined Abnormal ECG When compared with ECG of 14-Mar-2024 11:04, Minimal criteria for Inferior infarct are now Present Referred By: Generic ED Physician Electronically Signed By: ADA AGRCIA
[2024-06-18 23:21] VITALS: BP 123/54; PULSE 70; RESP 18; TEMP 36.8; O2SAT 98; BMI 37.7
[2024-06-18 23:43] LABS: MANUAL DIFF FLAG NO
[2024-06-18 23:45] LABS: Basophils Percent Auto 0.8 % (0-2); Eosinophils Absolute Auto 0.1 X10*3/uL (0.0-0.4); Eosinophils Percent Auto 1.1 % (0-4); Hematocrit 28.2 % (37.0-47.0); Hemoglobin 8.2 g/dl (12.0-16.0); Imm Gran Abs Auto 0.01 X10*3/uL (0.00-0.03); Imm Gran Pct Auto 0.2 % (0.0-0.4); Lymphocytes Absolute Auto 1.2 X10*3/uL (1.2-4.9); Lymphocytes Percent Auto 23.1 % (20-40); Mean Corpuscular HGB Conc 29.1 g/dl (31.0-35.0); Mean Corpuscular Hemoglobin 18.9 pg (27.0-33.0); Mean Corpuscular Volume 65.1 fL (80.0-98.0); Monocytes Absolute Auto 0.3 X10*3/uL (0.1-1.2); Monocytes Percent Auto 5.3 % (2-11); Neutrophils Absolute Auto 3.7 x10*3/uL (2.0-8.3); Neutrophils Percent Auto 69.5 % (45-73); Platelet Count 103 X10*3/uL (160-400); Red Blood Count 4.33 X10*6/uL (4.20-5.50); Red Cell Distribution Width 17.8 % (11.0-16.0); White Blood Count 5.3 X10*3/uL (4.8-10.8)
[2024-06-18 23:57] LABS: Appearance Urine Turbid; Color Urine RED; Glucose Urine UA 100 mg/dL (Negative); Leukocyte Esterase Urine Negative (Negative); Nitrite Urine Negative (Negative); Specific Gravity - Urine >= 1.030 (1.005-1.025); UMIC TRIGGER UACC YES; Urine Blood Large (3+) (Negative); Urine Ketones Trace mg/dL (Negative); Urine Protein 300 (3+) mg/dL (Neg-Trace)
[2024-06-18 23:58] LABS: Bacteria Urine Trace (None Seen); RBC Urine >20 /HPF (0-2); UACC Culture Trigger YES; UPreg QC Valid YES; Urine Pregnancy NEGATIVE (NEGATIVE)
[2024-06-18 23:59] LABS: Hyaline Casts Urine 0-2 /LPF (0-2)
[2024-06-19] VITALS (8 sets, daily range): BP systolic 113–148; BP diastolic 54–81; PULSE 51–68; RESP 13–18; TEMP 36.5–36.8; O2SAT 95–100
[2024-06-19 00:03] LABS: Alanine Aminotransferase 14 U/L (0-31); Albumin Level 4.1 g/dL (3.5-5.0); Alkaline Phosphatase 65 U/L (39-117); Anion Gap 10 (12-20); Aspartate Amino Transferase 17 U/L (5-31); Bilirubin Total 0.5 mg/dL (0.0-1.0); Blood Urea Nitrogen 11 mg/dL (9-16); Carbon Dioxide 23 mmol/L (22-29); Chloride 109 mmol/L (96-108); Creatinine Clr Calc Pharmacy 92.2; Estimated Glomerular Filt Rate > 60; Glucose Random 214 mg/dL (60-115); Potassium 3.4 mmol/L (3.3-5.1); Sodium 139 mmol/L (135-145); Total Protein 6.7 g/dL (6.5-8.0)
--- NOTE | 2024-06-19 00:51 | PC.NURSE ---
notified providers of pt in room
--- NOTE | 2024-06-19 02:45 | PC.NURSE ---
pt a waiting provider, charge nurse Frieda ramachandran.
--- NOTE | 2024-06-19 03:15 | ED_ITS ---
HPI - General Adult General Chief complaint: Dizziness Stated complaint: dizziness, anemic Time Seen by Provider: 06/19/24 02:42 Source: patient and family Mode of arrival: ambulatory Limitations: no limitations History of Present Illness ED Provider: Dr. Diane Khoury HPI narrative: Patient comes to the emergency room complaining of feeling very tired, unsteady on her feet when she stands up very weak. Patient states that she usually feels like this when she is anemic. Patient states that she is known to have multiple uterine fibroids and she has heavy menstrual periods. Patient denies chest pain or shortness of breath. Related Data Home Medications ?Medication ?Instructions ?Recorded ?Confirmed bupropion HCl 150 mg 24 hr tablet, 150 mg PO DAILY 09/04/23 05/18/24 extended release citalopram 20 mg tablet 20 mg PO DAILY 02/02/24 05/18/24 pantoprazole 40 mg tablet,delayed 40 mg PO BEDTIME PRN Heartburn 03/14/24 05/18/24 release Previous Rx's ?Medication ?Instructions ?Recorded loratadine 10 mg tablet 10 mg PO DAILY PRN allergy 02/19/23 symptoms 90 days #90 tabs hydroxyzine pamoate 25 mg capsule 25 mg PO BID PRN anxiety 30 days 05/19/23 #60 caps prazosin 1 mg capsule 1 mg PO BEDTIME 30 days #30 caps 06/11/23 trazodone 50 mg tablet 50 mg PO BEDTIME PRN insomnia 30 08/12/23 days #30 tabs blood sugar diagnostic (FreeStyle #100 ea 02/02/24 Lite Strips) lancets 28 gauge (FreeStyle #100 ea 02/02/24 Lancets) blood-glucose meter (FreeStyle #1 ea 02/10/24 Lite Meter kit) albuterol sulfate 90 mcg/actuation 2 inh inhalation Q6H PRN shortness 03/12/24 aerosol inhaler of breath 30 days #6.7 grams clonidine HCl 0.2 mg tablet 0.2 mg PO BEDTIME 30 days #30 tabs 03/19/24 albuterol sulfate 2.5 mg/3 mL 2.5 mg (3 mL) continuous 03/22/24 (0.083 %) solution for nebulization nebulization QID PRN shortness of breath or wheezing 30 days #180 mL famotidine 20 mg tablet 20 mg PO DAILY #90 tabs 03/25/24 fluticasone propionate 50 1 spray intranasal DAILY PRN 03/25/24 mcg/actuation nasal allergy symptoms #16 mL spray,suspension nebulizers (AeroEclipse II #1 ea 04/02/24 Nebulizer) Medline Aeromist Nebulizert #1 ea 04/14/24 furosemide 20 mg tablet 20 mg PO DAILY #90 tabs 06/01/24 metformin 500 mg tablet 500 mg PO BID #180 tabs 06/01/24 spironolactone 50 mg tablet 50 mg PO DAILY #90 tabs 06/01/24 Allergies Allergy/AdvReac Type Severity Reaction Status Date / Time aspirin [ASPIRIN] AdvReac Intermediate ULCER; GI Verified 06/18/24 23:25 UPSET, internal bleeding dextran 40 AdvReac Itching Verified 06/18/24 23:25 Review of Systems 2 Review of Systems: Constitutional : No Weight loss, No Fever, No Chills, No Night Sweats, complaining of fatigue, No Malaise ENT/Mouth : No Hearing loss, No Ear Pain, No Nasal Congestion, No Sinus Pain, No Hoarseness, No sore throat, No Rhinorrhea, No Swallowing Difficulty Eyes: No Eye Pain, No Swelling, No Redness, No Foreign Body, No Discharge, No Vision Changes Cardiovascular : No Chest Pain, No SOB, complaining of Dyspnea on Exertion, No Orthopnea, No Edema, No Palpitations, complaining of feeling lightheaded with standing up Respiratory : No Cough, No Sputum, No Wheezing, No Smoke Exposure, No Dyspnea Gastrointestinal : No Nausea, No Vomiting, No Diarrhea, No Constipation, No abdominal Pain, No Hematochezia, No Melena Genitourinary : no irregular bleeding, No Dysuria, No Urinary Frequency, No Hematuria, No Urinary Incontinence, No Urgency, No Flank Pain, No Urinary Flow Changes, No Hesitancy Musculoskeletal : No joint pain, No Myalgias, No Joint Swelling Skin : No Skin Lesions, No rash Neuro : No Weakness, No Numbness, No Paresthesias, No Loss of Consciousness, No Dizziness, No Headache Psych : No Anxiety/Panic, No Depression, No SI/HI/AH/VH, No Social Issues, Heme/Lymph: No Bruising, No Bleeding,No Lymphadenopathy Endocrine : No Polyuria, No Polydipsia, No Temperature Intolerance PMFSH Past Medical History Medical History Bilateral chronic knee pain ELIJAH I (cervical intraepithelial neoplasia I) Obesity, Class III, BMI 40-49.9 (morbid obesity) Smoker Depression Anxiety Insomnia Esophageal varices Diabetes mellitus Lower abdominal pain Allergic rhinitis Common cold Anxiety and depression Obesity (BMI 30-39.9) Smoker Hypersplenism Pancytopenia Bilateral calcaneal spurs Thrombocytopenia Ascites Iron deficiency anemia due to chronic blood loss History of esophageal varices Chronic pain of both feet Varicose veins of right lower extremity with inflammation Sprain of left knee IBS (irritable bowel syndrome) GERD (gastroesophageal reflux disease) Depression Dementia Liver disease Hypertension Surgical History Hx of colonoscopy History of D&C S/P TIPS (transjugular intrahepatic portosystemic shunt) (~10/2015) History of liver biopsy (~04/2002) History of esophagogastroduodenoscopy (EGD) Family History Family History Father Diabetes mellitus Mother Diabetes mellitus Alzheimer's dementia Pneumothorax Maternal Aunt Ovarian cancer Daughter No problems noted. Maternal Aunt Cervical cancer Maternal Grandfather Pancreatic cancer Other Mental health disorder Social History Social History Household Members: Significant Other Housing: Apartment Do you presently have visiting nurse or other home services: No Alcohol intake: current Alcohol intake frequency: does not drink Patient Tobacco Use Status: Never used Tobacco Tobacco use type: Cigarette Cigarette Packs Per Day: 0.5 Cigarettes Per Day: 12 Years Smoked: 8 years e-Cigarette/Vaping Use: Never Used Second Hand Smoke Exposure: Yes Use of substances other than those prescribed or required for medical reasons: No Advance Directives: No Advance Directives Information Provided: Yes service: No Current occupational status: unemployed Current occupational exposures/hazards: No Cognitive needs: No Hearing needs: No Vision needs: No Physical Exam ED Vital Signs: Vital Signs - 24 hr 06/18/24 23:21 06/19/24 00:02 06/19/24 02:02 Temperature 98.2 F 97.9 F 98.0 F Pulse Rate 70 59 58 Respiratory Rate 18 13 15 Blood Pressure 123/54 L 127/54 L 113/57 L Pulse Oximetry 98 100 95 Oxygen Delivery Method Room Air Room Air Room Air 06/19/24 02:13 06/19/24 02:13 06/19/24 02:14 Temperature Pulse Rate 54 55 60 Respiratory Rate Blood Pressure 123/58 L 121/64 137/69 Pulse Oximetry Oxygen Delivery Method 06/19/24 04:45 06/19/24 05:01 06/19/24 06:04 Temperature 97.9 F 98.0 F 97.7 F Pulse Rate 51 67 68 Respiratory Rate 17 17 18 Blood Pressure 148/81 H 146/69 H 131/60 Pulse Oximetry 98 Oxygen Delivery Method Room Air BMI result Body Mass Index 37.7 Const Other: Appearance: Alert. Oriented X3. No acute distress. Eyes: Pupils equal, round and reactive to light. ENT: Pharynx normal. Neck: Normal inspection. Neck supple. No lymph nodes noted. No crepitus CVS: Normal heart rate and rhythm. Pulses normal. Normal S1 and S2 Respiratory: No respiratory distress. Breath sounds normal. No Wheezing. No rales Abdomen: Soft and nontender. No rigidity. No distention. Skin: Skin warm and dry. Pale skin color. Normal skin turgor. Extremities: No lower extremity edema. No Lacerations. No Rash Neuro: Oriented X 3. No motor deficit. No sensory deficit. Moving all extremities. No slurred speech. CN 2 through 12 grossly intact Psych: calm, cooperative, normal affect Course Course Course Narrative: Patient states that she is currently menstruating. Patient states that she has heavily menstruating but that is the baseline for her. I reviewed patient's ultrasound from June of 2023, 1 year ago, patient has multiple uterine fibroids, normal left ovary, the right ovary could not be seen. Endometrial thickness last year 0.7 cm I discussed with the patient the risks versus benefits of doing a blood transfusion, patient states that she is agreeable to proceed with the transfusion. Patient has had transfusions in the past. Also, patient is requesting if we can not give her Benadryl before the blood transfusion as she tends to get diffuse itchiness Medications Administered Discontinued Medications Generic Name Dose Route Start Last Admin Trade Name Freq PRN Reason Stop Dose Admin Diphenhydramine HCl 50 mg 06/19/24 03:12 06/19/24 04:36 Diphenhydramine Hcl 50 Mg/Ml Vial IVPUSH 04/05/25 03:13 50 mg ONCE ONE Administration Medical Decision Making Medical Decision Making [facility] Narrative: My interpretation of labs: Patient's hemoglobin 8 0.2, hematocrit 28.2. Patient's baseline is approximately 9 to 10 Patient receiving 1 unit of blood. Per patient's request, she was premedicated with Benadryl. Patient tolerated well the transfusion. Patient opted to follow-up with the primary care physician. Also, patient instructed to follow-up with OBGYN to get definitive treatment for the fibroids Patient states that she has an appointment in [facility]. Patient's OBGYN has been talking to the patient regarding hysterectomy. Patient states that she can not make it to her appointments because she has no transportation issues. Patient requesting to have a referral to Dr. Khan I discussed with the patient that in her last visit in November of 2023, Dr. Khan referred her to [facility]. Patient states that eventually she would like to be referred to a local OBGYN Differential Diagnosis Differential Diagnoses: The differential diagnosis associated with the presentation includes (Anemia, iron deficiency, fibroma) Lab Data [facility] Lab Attestation statement: I reviewed the patient's lab results. 06/18/24 23:38 06/18/24 23:38 Labs: Lab Results 06/18/24 06/18/24 06/19/24 Range/Units 23:38 23:44 03:27 WBC 5.3 (4.8-10.8) X10*3/uL RBC 4.33 (4.20-5.50) X10*6/uL Hgb 8.2 L (12.0-16.0) g/dl Hct 28.2 L (37.0-47.0) % MCV 65.1 L (80.0-98.0) fL MCH 18.9 L (27.0-33.0) pg MCHC 29.1 L (31.0-35.0) g/dl RDW 17.8 H (11.0-16.0) % Plt Count 103 L (160-400) X10*3/uL MPV Not Reportable Immature Gran % (Auto) 0.2 (0.0-0.4) % Neut % (Auto) 69.5 (45-73) % Lymph % (Auto) 23.1 (20-40) % Merrick % (Auto) 5.3 (2-11) % Eos % (Auto) 1.1 (0-4) % Baso % (Auto) 0.8 (0-2) % Lymph # (Auto) 1.2 (1.2-4.9) X10*3/uL Merrick # (Auto) 0.3 (0.1-1.2) X10*3/uL Eos # (Auto) 0.1 (0.0-0.4) X10*3/uL Baso # (Auto) 0.0 (0.0-0.2) X10*3/uL Abs Immat Gran (auto) 0.01 (0.00-0.03) X10*3/uL Absolute Neuts (auto) 3.7 (2.0-8.3) x10*3/uL Absolute Nucleated RBC 0.000 (0.0-0.012) X10*3/uL Nucleated RBC % (auto) 0.0 (0.0-0.2) /100WBC Sodium 139 (135-145) mmol/L Potassium 3.4 (3.3-5.1) mmol/L Chloride 109 H (96-108) mmol/L Carbon Dioxide 23 (22-29) mmol/L Anion Gap 10 L (12-20) BUN 11 (9-16) mg/dL Creatinine 0.82 (0.5-1.4) mg/dL Estim Creat Clear Calc 92.2 Estimated GFR > 60 Random Glucose 214 H (60-115) mg/dL Calcium 9.0 (8.4-10.2) mg/dL Total Bilirubin 0.5 (0.0-1.0) mg/dL AST 17 (5-31) U/L ALT 14 (0-31) U/L Alkaline Phosphatase 65 (39-117) U/L Total Protein 6.7 (6.5-8.0) g/dL Albumin 4.1 (3.5-5.0) g/dL Urine Color RED Urine Appearance Turbid Urine pH 6.0 (5.0-9.0) Ur Specific [place] >= 1.030 H (1.005-1.025) Urine Protein 300 (3+) H (Neg-Trace) mg/dL Urine Glucose (UA) 100 H (Negative) mg/dL Urine Ketones Trace (Negative) mg/dL Urine Blood Large (3+) H (Negative) Urine Nitrite Negative (Negative) Ur Leukocyte Esterase Negative (Negative) Urine RBC >20 H (0-2) /HPF Urine WBC 6-10 H (0-5) /HPF Ur Squamous Epith Cells 3-5 (0-2) /HPF Urine Bacteria Trace (None Seen) Hyaline Casts 0-2 (0-2) /LPF Urine Test NEGATIVE (NEGATIVE) Blood Type B Negative Antibody Screen POSITIVE Antibody Identification Anti-D Crossmatch (AHG) See Detail Discharge Plan Discharge Clinical Impression: Anemia Patient Disposition: Home, Self-Care Instructions: Anemia (ED) Prescriptions: No Action loratadine 10 mg tablet 10 mg PO DAILY PRN (Reason: allergy symptoms) 90 Days Qty: 90 3RF hydroxyzine pamoate 25 mg capsule 25 mg PO BID PRN (Reason: anxiety) 30 Days Qty: 60 0RF trazodone 50 mg tablet 50 mg PO BEDTIME PRN (Reason: insomnia) 30 Days Qty: 30 2RF (DME) blood-glucose meter [FreeStyle Lite Meter] Kit See Rx Instructions .ROUTE .MEDSUPPLY Qty: 1 0RF Rx Instructions: As directed clonidine HCl 0.2 mg tablet 0.2 mg PO BEDTIME 30 Days Qty: 30 2RF albuterol sulfate 2.5 mg /3 mL (0.083 %) solution for nebulization 2.5 mg continuous nebulization QID PRN (Reason: shortness of breath or wheezing) 30 Days Qty: 180 3RF famotidine 20 mg tablet 20 mg PO DAILY Qty: 90 0RF fluticasone propionate 50 mcg/actuation spray,suspension 1 spray intranasal DAILY PRN (Reason: allergy symptoms) Qty: 16 1RF (DME) nebulizers [AeroEclipse II Nebulizer] Misc See Rx Instructions .Route Qty: 1 0RF Rx Instructions: As directed (DME) Medline Aeromist Nebulizert See Rx Instructions .Route .MEDSUPPLY Qty: 1 0RF Rx Instructions: As directed furosemide 20 mg tablet 20 mg PO DAILY Qty: 90 0RF spironolactone 50 mg tablet 50 mg PO DAILY Qty: 90 0RF metformin 500 mg tablet 500 mg PO BID Qty: 180 0RF albuterol sulfate 90 mcg/actuation HFA aerosol inhaler 2 inh inhalation Q6H PRN (Reason: shortness of breath) 30 Days Qty: 6.7 0RF pantoprazole 40 mg tablet,delayed release (DR/EC) 40 mg PO BEDTIME PRN (Reason: Heartburn) prazosin 1 mg capsule 1 mg PO BEDTIME 30 Days Qty: 30 2RF bupropion HCl 150 mg tablet extended release 24 hr 150 mg PO DAILY citalopram 20 mg tablet 20 mg PO DAILY (DME) lancets [FreeStyle Lancets] 28 gauge misc See Rx Instructions .ROUTE .MEDSUPPLY Qty: 100 12RF Rx Instructions: As directed once a day (DME) FreeStyle Lite Strips Strip See Rx Instructions .ROUTE .MEDSUPPLY Qty: 100 12RF Rx Instructions: As directed once a day Print Language: Divehi
[2024-06-19] MEDS: diphenhydrAMINE HCL 50 MG/ML VIAL IVPUSH (04:36)
--- NOTE | 2024-06-19 05:07 | PC.NURSE ---
pt medicated prior to blood transfusion, no hives note, no sob or chest pain.
--- NOTE | 2024-06-19 05:49 | PC.NURSE ---
second lined place, blood still transfusing.
--- NOTE | 2024-06-19 07:23 | PC.NURSE ---
Assumed care of pt at 0700. Pt resting quietly in bed, a/ox3, respirations even and unlabored, no increased wob/sob noted. Denies any itching/hives, denies pain/cp/sob at this time. Blood finished infusing, ended in TAR- plan for d/c after blood finished infusing. Call lassiter within reach, all needs met at this time.
== END 2024-06-19 07:37 | disposition home or self-care (01) ==
PROVIDERS: Emergency Provider Emergency Medicine; PCP Internal Medicine
DX: D64.9 Anemia, unspecified (principal); R42 Dizziness and giddiness; Z79.899 Other long term (current) drug therapy
CPT/HCPCS: 36415; 36430; 80053; 81001; 81025; 85025; 86850; 86870; 86885; 86900; 86901; 86920; 86922; 87086; 93005; 96374; 99285; J1200; P9016

== ENCOUNTER → 2024-06-18 23:32 | Outpatient (BNV) | payer OTHER, SELFPAY | PROVIDERS: Emergency Provider Emergency Medicine; PCP Internal Medicine; Visit Provider Internal Medicine | DX: R94.31 Abnormal electrocardiogram [ECG] [EKG] (principal); R42 Dizziness and giddiness | CPT/HCPCS: 93010 ==

== ENCOUNTER 2024-06-23 22:09 | Emergency (ER) | payer OTHER, SELFPAY ==
--- NOTE | ~2024-06-23 | US_ITS ---
CLINICAL HISTORY: suprapubic pain, irregular menses, known fibroids US pelvis transabdominal and transvaginal with Doppler Comparison: None Findings: Transabdominal scanning performed for overall anatomy. Transvaginal scanning performed for additional detail. Anteverted uterus is 9.8 cm length. There are multiple hypoechoic masses within the myometrium: hypoechoic mass at the uterine fundus measures 1.1 x 0.9 x 1.0 cm, posterior mid body uterus myometrium measuring 2.0 x 1.4 x 2.5 cm and inferior posterior myometrium just above the cervix measuring 2.9 x 2.0 x 3.1 cm with heterogeneous internal appearance. Endometrium 15 mm thickness. Right ovary 3.3 x 1.7 x 2.8 cm. Left ovary 3.6 x 2.1 x 2.8 cm. Normal color Doppler with arterial/venous spectral tracing of both ovaries. Normal grayscale morphology of both ovaries. No free fluid. IMPRESSION: 1. No evidence of ovarian torsion. 2. There are 3 uterine masses with an appearance consistent with uterine fibroids. This document has been electronically signed by: Jez Vega MD on 06/24/2024 01:37:27
[2024-06-23 22:15] VITALS: BP 111/52; PULSE 66; RESP 19; TEMP 36.6; O2SAT 99; BMI 37.7
[2024-06-23 22:33] LABS: MANUAL DIFF FLAG NO
[2024-06-23 22:45] LABS: Basophils Percent Auto 0.7 % (0-2); Eosinophils Absolute Auto 0.1 X10*3/uL (0.0-0.4); Eosinophils Percent Auto 1.5 % (0-4); Hemoglobin 9.6 g/dl (12.0-16.0); Imm Gran Abs Auto 0.02 X10*3/uL (0.00-0.03); Imm Gran Pct Auto 0.3 % (0.0-0.4); Lymphocytes Absolute Auto 1.6 X10*3/uL (1.2-4.9); Lymphocytes Percent Auto 27.1 % (20-40); Mean Corpuscular Volume 66.7 fL (80.0-98.0); Monocytes Absolute Auto 0.3 X10*3/uL (0.1-1.2); Monocytes Percent Auto 5.7 % (2-11); Neutrophils Absolute Auto 3.8 x10*3/uL (2.0-8.3); Neutrophils Percent Auto 64.7 % (45-73); Platelet Count 119 X10*3/uL (160-400); White Blood Count 5.9 X10*3/uL (4.8-10.8)
[2024-06-23 22:50] LABS: Alanine Aminotransferase 15 U/L (0-31); Albumin Level 4.1 g/dL (3.5-5.0); Alkaline Phosphatase 73 U/L (39-117); Anion Gap 11 (12-20); Aspartate Amino Transferase 30 U/L (5-31); Bilirubin Direct 0.1 mg/dL (0.0-0.5); Bilirubin Total 0.4 mg/dL (0.0-1.0); Blood Urea Nitrogen 19 mg/dL (9-16); Calcium 9.2 mg/dL (8.4-10.2); Carbon Dioxide 21 mmol/L (22-29); Chloride 111 mmol/L (96-108); Creatinine Clr Calc Pharmacy 94.5; Estimated Glomerular Filt Rate > 60; Glucose Random 119 mg/dL (60-115); Potassium 4.5 mmol/L (3.3-5.1); Sodium 138 mmol/L (135-145)
--- OUTSIDE RECORDS SUMMARY | 2024-06-23 23:22 | XMS_ITS | Continuity of Care Document ---
Author Organization [facility] Address [address] [place] [id number] Phone Care Team Providers Care Patent Litigation Associate Name Role Phone Brad Butler MD, MD Unavailable Unavailable Procedures Procedure Date PREV VISIT, EST, AGE 40-64 OFFICE/OUTPATIENT VISIT, EST SPECIMEN HANDLING PREV VISIT, EST, AGE 40-64 Advance Directives Directive Yes / No Effective Date File Name No Information Encounters Encounter Description Practice Location Reason(s) For Visit Diagnoses Date Provider Providers Copied on Encounter PREV VISIT, EST, AGE 40-64 [facility], [address] [place] [address] Dr Mc [address] [place] [address], [id number], tel:[phone] [facility] No Information Luke Salinas. [address] [place] [address], [id number], [place]. tel:[phone] PREV VISIT, EST, AGE 40-[address] Mc [address] [place] [address], [id number], tel:[phone] [facility] No Information Luke Salinas. [address] [place] [address], [id number], . tel:[phone] Family History Family Member Type Diagnosis Age At Onset No Information Payers Payer name Insurance type Covered libertarian ID Authorchristine mckenzie(s) [facility] [id number] Social History Type Description Quantity Date Captured [...]
--- OUTSIDE RECORDS SUMMARY | 2024-06-23 23:22 | XMS_ITS | Continuity of Care Document ---
Author Organization [facility] Address [address] [place] [address] Phone Care Team Providers Care Pocket Setter Name Role Phone Patti BLISS, Nino Unavailable Unavailable Allergies, Adverse Reactions, Alerts Substance Reaction Status Criticality No Known Allergies Active No Inform ation Medications Medication Instructions Dosage Effective Dates (start - stop) Status Comments Eye Allergy Relief (Naphazoline-Pheniram ine) 0.44938 %-0.315 % Drops - Active Singulair 10 mg tablet take 1 tablet (10MG) by oral route every day in the evening 10 MG - Active Procedures Procedure Date Fundus Photos REFRACTION EYE EXAM & TREATMENT REFRACTION EYE EXAM, NEW PATIENT OFFICE/OUTPATIENT VISIT, [...] Provider Providers Copied on Encounter [facility], [address], [place], [place], [id number], [place] tel:[phone] [place] decreased vision (chief complaint) Presbyopia 5 Patti Nino. [address], [place], [address], [place]. tel:[phone] [facility], [address], [place], [place], [id number], [place] tel:[phone] [place] blurry vision (chief complaint) Presbyopia 3 Patti Astudilloon. [address], [place], [address], [place]. tel:[phone] OFFICE/OUTPAT IENT VISIT, EST [facility], [address], [place], [place], [id number], [place] tel:[phone] [place] Watery Eyes (chief complaint) Dry eyes, bilateral 9 Patti Astudilloon. [address], [place], [address], [place]. tel:[phone] [facility], [address], [place], [place], [id number], [place] tel:[phone] [place] Complete exam (chief complaint) Myopia, bilateral 8 Patti Astudilloon. [address], [place], [address], [place]. tel:[phone] [facility], [address], [place], [place], [id number], [place] tel:[phone] [place] decreased vision (chief complaint) Myopia, bilateral 6 Patti Nino. [address], [place], [address], [place]. tel:[phone] [facility], [address] [place] [address], [id number], [place] tel:[phone] [place] No Information 5 No Information [facility], [address] [place] [address], [id number], tel:[phone] [place] Contact lens followup (chief complaint) Myopia 5 No Information [facility], [address] [place] [address], [id number], [place] tel:[phone] [place] decreased vision (chief complaint) Myopia 5 No Information [facility], [address] [place] [address], [id number], [place] tel:[phone] [place] No Information 3 Habib Angeles. [address], [place], [address], [place]. tel:[phone] [facility], [address] [place] [address], [id number], [place] tel:[phone] [place] Myopia 3 Habib Angeles. [address], [place], [address], [place]. tel:[phone] [facility], [address], [id number], [place] tel:[phone] [place] [employer] [facility]/Misc No Information 3 Habib Angeles. [address], [place], [address], [place]. tel:[phone] Family History Family Member Type Diagnosis Age At Onset Mother Problem (finding) HBP Grandmother (m) Problem (finding) Heart Disease Payers Payer name Insurance type Covered constitution party ID Authorchantellea jonah(s) [employer] [facility] 11 [id number] Social History Type Description Quantity Date Captured Comments Alcohol Use Details Unknown Caffeine Use Details Unknown Tobacco Use Status Current non-smoker Smoking Status Never smoker Non-Smoking Tobacco Use Details : No Details Available : No Details Available Sex Female Chief Complaint And Reason For Visit From encounter dated '03/24/2024 15:30'. decreased vision (chief complaint). Description: The 43 year old patient presents for evaluation ofdecreased vision in the right eye and left eye.pt states starting difficulty reading small print c/o allergies itchiness; uses gtts as needed Reason For Referral Reason For Referral No Information Plan Of Treatment Date Type Action Status Patient Education Presbyopia: Care Instru ctions completed Patient Education Nearsightedness (Myopia ): Care Instructions completed Patient Education Nearsightedness (Myopia ): Care Instru~ completed Patient Education Nearsightedness (Myopia ): After Your V completed History Of Present Illness Encounter Date Complaint History Of Prese nt Illness decreased vision The 43 year old patient presents for evaluation of decreased vision in the right eye and left eye.pt states starting difficulty reading small print c/o allergies itchiness; uses gtts as needed blurry vision The 42 year old patient [...] Information Instructions Date Instruction Additional Infor mation Return in 1 year Nino Lira OD for Complete Exam or sooner if any problems Related to Presbyopia Impression/Plan Related to Presb yopia Return in 1 year wit Nino Alexander OD for Complete Exam or sooner if any problems Related to Presbyopia Impression/Plan Related to Presb yopia Return in PRN Related to Dry e yes, bilateral Impression/Plan Related to Dry e yes, bilateral Return in 1 year Nino Lira OD for Complete Exam or sooner if [...]
--- NOTE | 2024-06-23 23:33 | ED.ABDPAIN ---
HPI - Abdominal Pain General Chief Complaint: Abdominal Pain Stated Complaint: bladder pain Time Seen by Provider: 06/23/24 23:23 Source: patient Mode of arrival: ambulatory Limitations: no limitations History of Present Illness ED Provider: Dr. Diane Khoury HPI narrative: Patient comes to the emergency room complaining of suprapubic I am bilateral lower quadrant pain. Patient states that she has very irregular menstrual periods, has needed multiple transfusions due to heavy menstruation , patient known to have fibroids. Patient states that at this time she is not bleeding but the pain is very intense in the lower suprapubic area and lower bilateral quadrant pain. Patient states she has very sharp pains. Patient states that she has been referred to OBGYN at [facility], but she has an appointment pending in 2 weeks. Related Data Home Medications ?Medication ?Instructions ?Recorded ?Confirmed bupropion HCl 150 mg 24 hr tablet, 150 mg PO DAILY 09/04/23 05/18/24 extended release citalopram 20 mg tablet 20 mg PO DAILY 02/02/24 05/18/24 pantoprazole 40 mg tablet,delayed 40 mg PO BEDTIME PRN Heartburn 03/14/24 05/18/24 release Previous Rx's ?Medication ?Instructions ?Recorded loratadine 10 mg tablet 10 mg PO DAILY PRN allergy 02/19/23 symptoms 90 days #90 tabs hydroxyzine pamoate 25 mg capsule 25 mg PO BID PRN anxiety 30 days 05/19/23 #60 caps prazosin 1 mg capsule 1 mg PO BEDTIME 30 days #30 caps 06/11/23 trazodone 50 mg tablet 50 mg PO BEDTIME PRN insomnia 30 08/12/23 days #30 tabs blood sugar diagnostic (FreeStyle #100 ea 02/02/24 Lite Strips) lancets 28 gauge (FreeStyle #100 ea 02/02/24 Lancets) blood-glucose meter (FreeStyle #1 ea 02/10/24 Lite Meter kit) albuterol sulfate 90 mcg/actuation 2 inh inhalation Q6H PRN shortness 03/12/24 aerosol inhaler of breath 30 days #6.7 grams clonidine HCl 0.2 mg tablet 0.2 mg PO BEDTIME 30 days #30 tabs 03/19/24 albuterol sulfate 2.5 mg/3 mL 2.5 mg (3 mL) continuous 03/22/24 (0.083 %) solution for nebulization nebulization QID PRN shortness of breath or wheezing 30 days #180 mL fluticasone propionate 50 1 spray intranasal DAILY PRN 03/25/24 mcg/actuation nasal allergy symptoms #16 mL spray,suspension nebulizers (AeroEclipse II #1 ea 04/02/24 Nebulizer) Medline Aeromist Nebulizert #1 ea 04/14/24 furosemide 20 mg tablet 20 mg PO DAILY #90 tabs 06/01/24 metformin 500 mg tablet 500 mg PO BID #180 tabs 06/01/24 spironolactone 50 mg tablet 50 mg PO DAILY #90 tabs 06/01/24 famotidine 20 mg tablet 20 mg PO DAILY #90 tabs 06/22/24 Allergies Allergy/AdvReac Type Severity Reaction Status Date / Time aspirin [ASPIRIN] AdvReac Intermediate ULCER; GI Verified 06/23/24 22:17 UPSET, internal bleeding dextran 40 AdvReac Itching Verified 06/23/24 22:17 Review of Systems Review of Systems Constitutional : No Weight loss, No Fever, No Chills, No Night Sweats, No Fatigue, No Malaise ENT/Mouth : No Hearing loss, No Ear Pain, No Nasal Congestion, No Sinus Pain, No Hoarseness, No sore throat, No Rhinorrhea, No Swallowing Difficulty Eyes: No Eye Pain, No Swelling, No Redness, No Foreign Body, No Discharge, No Vision Changes Cardiovascular : No Chest Pain, No SOB, No Dyspnea on Exertion, No Orthopnea, No Edema, No Palpitations Respiratory : No Cough, No Sputum, No Wheezing, No Smoke Exposure, No Dyspnea Gastrointestinal : No Nausea, No Vomiting, No Diarrhea, No Constipation, complaining of bilateral lower quadrant pain and suprapubic area with no dysuria Genitourinary : Complaining of irregular menstruation, menometrorrhagia, complaining of sharp suprapubic and bilateral lower quadrant pain. No Dysuria, No Urinary Frequency, No Hematuria, No Urinary Incontinence, No Urgency, No Flank Pain, No Urinary Flow Changes, No Hesitancy Musculoskeletal : No joint pain, No Myalgias, No Joint Swelling Skin : No Skin Lesions, No rash Neuro : No Weakness, No Numbness, No Paresthesias, No Loss of Consciousness, No Dizziness, No Headache Psych : No Anxiety/Panic, No Depression, No SI/HI/AH/VH, No Social Issues, Heme/Lymph: No Bruising, No Bleeding,No Lymphadenopathy Endocrine : No Polyuria, No Polydipsia, No Temperature Intolerance [facility] Past Medical History Medical History Bilateral chronic knee pain ELIJAH I (cervical intraepithelial neoplasia I) Obesity, Class III, BMI 40-49.9 (morbid obesity) Smoker Depression Anxiety Insomnia Esophageal varices Diabetes mellitus Lower abdominal pain Allergic rhinitis Common cold Anxiety and depression Obesity (BMI 30-39.9) Smoker Hypersplenism Pancytopenia Bilateral calcaneal spurs Thrombocytopenia Ascites Iron deficiency anemia due to chronic blood loss History of esophageal varices Chronic pain of both feet Varicose veins of right lower extremity with inflammation Sprain of left knee IBS (irritable bowel syndrome) GERD (gastroesophageal reflux disease) Depression Dementia Liver disease Hypertension Surgical History Hx of colonoscopy History of D&C S/P TIPS (transjugular intrahepatic portosystemic shunt) (~10/2015) History of liver biopsy (~04/2002) History of esophagogastroduodenoscopy (EGD) Family History Family History Father Diabetes mellitus Mother Diabetes mellitus Alzheimer's dementia Pneumothorax Maternal Aunt Ovarian cancer Daughter No problems noted. Maternal Aunt Cervical cancer Maternal Grandfather Pancreatic cancer Other Mental health disorder Social History Social History Household Members: Significant Other Housing: Apartment Do you presently have visiting nurse or other home services: No Alcohol intake: current Alcohol intake frequency: does not drink Patient Tobacco Use Status: Never used Tobacco Tobacco use type: Cigarette Cigarette Packs Per Day: 0.5 Cigarettes Per Day: 12 Years Smoked: 8 years e-Cigarette/Vaping Use: Never Used Second Hand Smoke Exposure: Yes Advance Directives: No Advance Directives Information Provided: Yes Do you have a plan to hurt others: No Plan service: No Current occupational status: unemployed Current occupational exposures/hazards: No Cognitive needs: No Hearing needs: No Vision needs: No Physical Exam ED Vital Signs: Vital Signs - 24 hr 06/23/24 22:15 Temperature 97.9 F Pulse Rate 66 Respiratory Rate 19 Blood Pressure 111/52 L Pulse Oximetry 99 Oxygen Delivery Method Room Air BMI result Body Mass Index 37.7 Const Other: Appearance: Alert. Oriented X3. No acute distress. Eyes: Pupils equal, round and reactive to light. ENT: Pharynx normal. Neck: Normal inspection. Neck supple. No lymph nodes noted. No crepitus CVS: Normal heart rate and rhythm. Pulses normal. Normal S1 and S2 Respiratory: No respiratory distress. Breath sounds normal. No Wheezing. No rales Abdomen: Soft, mild pain to palpation in the bilateral lower quadrants, more over the supra pubic area. Skin: Skin warm and dry. Normal skin color. Normal skin turgor. Extremities: No lower extremity edema. No Lacerations. No Rash Neuro: Oriented X 3. No motor deficit. No sensory deficit. Moving all extremities. No slurred speech. CN 2 through 12 grossly intact Psych: calm, cooperative, normal affect Course Course Course Narrative: Patient is known to have fibroids, patient waiting for her OBGYN consult at [facility]. At this time, not menstruating but patient states that she still having very sharp pains Ultrasound pending Medical Decision Making Medical Decision Making MDM Narrative: My interpretation of labs: Patient's hemoglobin 9.6, hematocrit 32, platelets 119. Overall hematology looks better than in other visits. No significant abnormality in patient's chemistry, LFTs. Normal LFTs Pending: Ultrasound Urinalysis Please follow-up down time she eats Lab Data 06/23/24 22:29 06/23/24 22:29 Labs: Lab Results 06/23/24 06/24/24 Range/Units 22:29 00:03 WBC 5.9 (4.8-10.8) X10*3/uL RBC 4.80 (4.20-5.50) X10*6/uL Hgb 9.6 L (12.0-16.0) g/dl Hct 32.0 L (37.0-47.0) % MCV 66.7 L (80.0-98.0) fL MCH 20.0 L (27.0-33.0) pg MCHC 30.0 L (31.0-35.0) g/dl RDW 21.0 H (11.0-16.0) % Plt Count 119 L (160-400) X10*3/uL MPV 10.0 (9.4-12.3) fL Immature Gran % (Auto) 0.3 (0.0-0.4) % Neut % (Auto) 64.7 (45-73) % Lymph % (Auto) 27.1 (20-40) % [place] % (Auto) 5.7 (2-11) % Eos % (Auto) 1.5 (0-4) % Baso % (Auto) 0.7 (0-2) % Lymph # (Auto) 1.6 (1.2-4.9) X10*3/uL [place] # (Auto) 0.3 (0.1-1.2) X10*3/uL Eos # (Auto) 0.1 (0.0-0.4) X10*3/uL Baso # (Auto) 0.0 (0.0-0.2) X10*3/uL Abs Immat Gran (auto) 0.02 (0.00-0.03) X10*3/uL Absolute Neuts (auto) 3.8 (2.0-8.3) x10*3/uL Absolute Nucleated RBC 0.000 (0.0-0.012) X10*3/uL Nucleated RBC % (auto) 0.0 (0.0-0.2) /100WBC Sodium 138 (135-145) mmol/L Potassium 4.5 D (3.3-5.1) mmol/L Chloride 111 H (96-108) mmol/L Carbon Dioxide 21 L (22-29) mmol/L Anion Gap 11 L (12-20) BUN 19 H (9-16) mg/dL Creatinine 0.80 (0.5-1.4) mg/dL Estim Creat Clear Calc 94.5 Estimated GFR > 60 Random Glucose 119 H (60-115) mg/dL Calcium 9.2 (8.4-10.2) mg/dL Total Bilirubin 0.4 (0.0-1.0) mg/dL Direct Bilirubin 0.1 (0.0-0.5) mg/dL AST 30 (5-31) U/L ALT 15 (0-31) U/L Alkaline Phosphatase 73 (39-117) U/L Total Protein 7.0 (6.5-8.0) g/dL Albumin 4.1 (3.5-5.0) g/dL Urine Color Yellow Urine Appearance Clear Urine pH 6.5 (5.0-9.0) Ur Specific [place] 1.025 (1.005-1.025) Urine Protein Trace (Neg-Trace) mg/dL Urine Glucose (UA) Negative (Negative) mg/dL Urine Ketones Negative (Negative) mg/dL Urine Blood Moderate (2+) H (Negative) Urine Nitrite Negative (Negative) Ur Leukocyte Esterase Trace H (Negative) Urine RBC >20 H (0-2) /HPF Urine WBC 6-10 H (0-5) /HPF Ur Squamous Epith Cells 3-5 (0-2) /HPF Urine Bacteria Trace (None Seen) Hyaline Casts 0-2 (0-2) /LPF Medications Administered Discontinued Medications Generic Name Dose Route Start Last Admin Trade Name Freq PRN Reason Stop Dose Admin Oxycodone HCl 5 mg 06/23/24 23:38 06/24/24 00:00 Oxycodone Hcl Immed Release 5 Mg Tablet PO 06/23/24 23:39 5 mg ONCE ONE Administration Discharge Plan Discharge Clinical Impression: Chronic abdominal pain, Fibroid, uterine Patient Disposition: Home, Self-Care Instructions: Abdominal Pain (ED) Additional Instructions: Discharge papers given to the patient during down time Prescriptions: No Action loratadine 10 mg tablet 10 mg PO DAILY PRN (Reason: allergy symptoms) 90 Days Qty: 90 3RF hydroxyzine pamoate 25 mg capsule 25 mg PO BID PRN (Reason: anxiety) 30 Days Qty: 60 0RF trazodone 50 mg tablet 50 mg PO BEDTIME PRN (Reason: insomnia) 30 Days Qty: 30 2RF (DME) blood-glucose meter [FreeStyle Lite Meter] Kit See Rx Instructions .ROUTE .MEDSUPPLY Qty: 1 0RF Rx Instructions: As directed clonidine HCl 0.2 mg tablet 0.2 mg PO BEDTIME 30 Days Qty: 30 2RF albuterol sulfate 2.5 mg /3 mL (0.083 %) solution for nebulization 2.5 mg continuous nebulization QID PRN (Reason: shortness of breath or wheezing) 30 Days Qty: 180 3RF fluticasone propionate 50 mcg/actuation spray,suspension 1 spray intranasal DAILY PRN (Reason: allergy symptoms) Qty: 16 1RF (DME) nebulizers [AeroEclipse II Nebulizer] Misc See Rx Instructions .Route Qty: 1 0RF Rx Instructions: As directed (DME) Medline Aeromist Nebulizert See Rx Instructions .Route .MEDSUPPLY Qty: 1 0RF Rx Instructions: As directed furosemide 20 mg tablet 20 mg PO DAILY Qty: 90 0RF spironolactone 50 mg tablet 50 mg PO DAILY Qty: 90 0RF metformin 500 mg tablet 500 mg PO BID Qty: 180 0RF famotidine 20 mg tablet 20 mg PO DAILY Qty: 90 0RF albuterol sulfate 90 mcg/actuation HFA aerosol inhaler 2 inh inhalation Q6H PRN (Reason: shortness of breath) 30 Days Qty: 6.7 0RF pantoprazole 40 mg tablet,delayed release (DR/EC) 40 mg PO BEDTIME PRN (Reason: Heartburn) prazosin 1 mg capsule 1 mg PO BEDTIME 30 Days Qty: 30 2RF bupropion HCl 150 mg tablet extended release 24 hr 150 mg PO DAILY citalopram 20 mg tablet 20 mg PO DAILY (DME) lancets [FreeStyle Lancets] 28 gauge misc See Rx Instructions .ROUTE .MEDSUPPLY Qty: 100 12RF Rx Instructions: As directed once a day (DME) FreeStyle Lite Strips Strip See Rx Instructions .ROUTE .MEDSUPPLY Qty: 100 12RF Rx Instructions: As directed once a day Print Language: Citizen Of [place]
[2024-06-24] MEDS: oxyCODONE HCl Immed Release 5 MG TABLET PO
[2024-06-24 00:31] LABS: Appearance Urine Clear; Color Urine Yellow; Glucose Urine UA Negative (Negative); Leukocyte Esterase Urine Trace (Negative); Nitrite Urine Negative (Negative); PH 6.5 (5.0-9.0); Specific Gravity - Urine 1.025 (1.005-1.025); UMIC TRIGGER UACC YES; Urine Blood Moderate (2+) (Negative); Urine Ketones Negative (Negative); Urine Protein Trace mg/dL (Neg-Trace)
[2024-06-24 00:38] LABS: Bacteria Urine Trace (None Seen); Hyaline Casts Urine 0-2 /LPF (0-2); RBC Urine >20 /HPF (0-2)
[2024-06-24 00:45] LABS: UACC Culture Trigger YES
== END 2024-06-24 02:44 | disposition home or self-care (01) ==
PROVIDERS: Emergency Provider Emergency Medicine; PCP Internal Medicine
DX: D25.9 Leiomyoma of uterus, unspecified (principal); R39.89 Other symptoms and signs involving the genitourinary system; R10.30 Lower abdominal pain, unspecified; N94.4 Primary dysmenorrhea; N92.5 Other specified irregular menstruation; R10.2 Pelvic and perineal pain; F17.210 Nicotine dependence, cigarettes, uncomplicated; Z79.899 Other long term (current) drug therapy
CPT/HCPCS: 36415; 76830; 76856; 80048; 80076; 81001; 85025; 87086; 93975; 99283; 99284

== ENCOUNTER → 2024-06-23 23:31 | Outpatient (BNV) | payer OTHER, SELFPAY | PROVIDERS: Emergency Provider Emergency Medicine; PCP Internal Medicine; Visit Provider Radiology Diagnostic Radiology | DX: R10.33 Periumbilical pain (principal); N93.9 Abnormal uterine and vaginal bleeding, unspecified; D25.9 Leiomyoma of uterus, unspecified | CPT/HCPCS: 76830; 76856; 93975 ==

== ENCOUNTER 2024-08-16 15:00 | Outpatient (AMB) | payer OTHER, SELFPAY ==
--- NOTE | 2024-08-16 15:15 | MHC.PC.OV ---
Vital Signs 08/16/24 15:16 Height 5 ft 2 in Weight 203 lb 6 oz BMI 37.2 BP 108/68 Blood Pressure Location Lt brachial Position Sitting Pulse 75 Pulse Source Pulse Oximeter Pulse Oximetry (%) 97 Oxygen Delivery Method Room Air Intake Visit Reasons: dizziness/tiredness Copy Operator Required: No Accompanied by: Self / Same As Patient Allergies aspirin [ASPIRIN] Adverse Reaction (Intermediate, Verified 08/16/24 15:25) ULCER; GI UPSET, internal bleeding dextran 40 Adverse Reaction (Verified 08/16/24 15:25) Itching Medication List - Last Reconciled 08/16/24 by David Elizabeth MD albuterol sulfate 90 mcg/actuation 2 inhalations inhalation Q6H PRN 30 days albuterol sulfate 2.5 mg (3 mL) continuous nebulization QID PRN 30 days blood sugar diagnostic (FreeStyle Lite Strips) As directed once a day blood-glucose meter (FreeStyle Lite Meter kit) As directed bupropion HCl XL 150 mg PO DAILY citalopram 20 mg PO DAILY clonidine HCl 0.2 mg PO BEDTIME 30 days famotidine 20 mg PO DAILY fluticasone propionate 50 mcg/actuation 1 spray intranasal DAILY PRN furosemide 20 mg PO DAILY hydroxyzine pamoate 25 mg PO BID PRN 30 days lancets (FreeStyle Lancets) As directed once a day loratadine 10 mg PO DAILY PRN 90 days [Medline Aeromist Nebulizert As directed] metformin 500 mg PO BID nebulizers (AeroEclipse II Nebulizer) As directed pantoprazole 40 mg PO BEDTIME PRN prazosin 1 mg PO BEDTIME 30 days spironolactone 50 mg PO DAILY trazodone 50 mg PO BEDTIME PRN 30 days Tobacco use date assessed: 08/16/24 Dental Screening Dental Screen Date: 08/16/24 Did you have a dental visit in the last 12 months?: No Did you have a dental problem in the last 6 months where you did not have access to dental care?: No Was dental information given to patient?: No HPI dizziness/tiredness HPI Details Patient comes in today for further evaluation She went to the ER a couple of months ago for increased suprapubic / lower abdominal pain Work ups done at the ER all came back normal She was also seen by Dr. Dickens for follow up a few days ago and will continue to receive IV iron infusion as needed going forward Patient states that she has been experiencing a frequent ringing sensation in her right ear for the past couple of months now She denies any ear pain but feels some decrease in hearing in her right ear recently She denies any headaches or dizziness Denies any chest pains, no increased shortness of breath No nausea/vomiting, no abdominal pain No change in bowel habits noted [facility] Medical History (Updated 08/17/24 @ 06:03 by David Elizabeth MD) Osteoarthritis of knees, bilateral ELIJAH I (cervical intraepithelial neoplasia I) Obesity, Class III, BMI 40-49.9 (morbid obesity) Smoker Depression Anxiety Insomnia Esophageal varices Diabetes mellitus Lower abdominal pain Allergic rhinitis Common cold Anxiety and depression Obesity (BMI 30-39.9) Smoker Hypersplenism Pancytopenia Bilateral calcaneal spurs Thrombocytopenia Ascites Iron deficiency anemia due to chronic blood loss History of esophageal varices Chronic pain of both feet Varicose veins of right lower extremity with inflammation Sprain of left knee IBS (irritable bowel syndrome) GERD (gastroesophageal reflux disease) Depression Dementia Liver disease Hypertension Surgical History Hx of colonoscopy History of D&C S/P TIPS (transjugular intrahepatic portosystemic shunt) (~10/2015) History of liver biopsy (~04/2002) History of esophagogastroduodenoscopy (EGD) Family History Father Diabetes mellitus Mother Diabetes mellitus Alzheimer's dementia Pneumothorax Maternal Aunt Ovarian cancer Daughter No problems noted. Maternal Aunt Cervical cancer Maternal Grandfather Pancreatic cancer Other Mental health disorder Social History Household Members: Significant Other Housing: Apartment Do you presently have visiting nurse or other home services: No Alcohol intake: current Alcohol intake frequency: does not drink Patient Tobacco Use Status: Never used Tobacco Tobacco use type: Cigarette Cigarette Packs Per Day: 0.5 Cigarettes Per Day: 12 Years Smoked: 8 years e-Cigarette/Vaping Use: Never Used Second Hand Smoke Exposure: Yes service: No Current occupational status: unemployed Current occupational exposures/hazards: No Cognitive needs: No Hearing needs: No Vision needs: No Female Reproductive History Menstrual Age of Menarche: 8 Questionnaire PHQ-9 Over the last 2 weeks, how often have you been bothered by any of the following problems? 1. Little interest or pleasure in doing things: more than half the days 2. Feeling down, depressed, or hopeless: not at all 3. Trouble falling or staying asleep, or sleeping too much: not at all 4. Feeling tired or having little energy: more than half the days 5. Poor appetite or overeating: not at all 6. Feeling bad about yourself - or that you are a failure or have let yourself or your family down: not at all 7. Trouble concentrating on things, such as reading the newspaper or watching television: not at all 8. Moving or speaking so slowly that other people could have noticed. Or the opposite - being so fidgety or restless that you have been moving around a lot more than usual: not at all 9. Thoughts that you would be better off or of hurting yourself in some way: not at all Total score: 4 Depression Screening Interpretation: Positive Depression Screening Follow-up: Existing condition and In treatment Depression Screening Done: Yes 19871 - PHQ-9 Billing: Yes Source: Developed by Drs. Rashaad Franklin, Rosana Lechuga, Noé Neil and colleagues, with an educational marika from [employer]. Thrive Questionnaire Date Thrive assessed: 08/16/24 I am a: Patient What is your living situation today?: I have a steady place to live Within the past 12 months, did the food you bought not last and you didn't have the money to get more?: I choose not to answer this question Within the past 12 months, did you worry whether your food would run out before you got money to buy more?: I choose not to answer this question Do you have trouble paying for medicines?: I choose not to answer this question Do you have trouble getting transportation to medical appointments?: No Do you have trouble paying your heating and electricity bill?: I choose not to answer this question Do you have trouble taking care of your child, family member or friend?: Yes Do you have trouble with day-to-day activities such as bathing, preparing meals, shopping, managing finances, etc.?: I choose not to answer this question Are you currently unemployed and looking for a job?: Yes Are you interested in more education?: I choose not to answer this question Please select the resources that you would like help with: Care for elder or disabled Currently or been in a relationship where the following occur: I choose not to answer THRIVE Score: 0 AUDIT C Alcohol Use Questionnaire (AUDIT-C) 1. How often do you have a drink containing alcohol?: 4 or more times a week 2. How many drinks containing alcohol do you have on a typical day when you are drinking?: 1 or 2 3. How often do you have six or more drinks on one occasion?: Less than monthly Total Score: 5 Score Reviewed/Action Taken: Yes CALEB-7 AMB Questionnaire CALEB-7 Date CALEB - 7 assessed: 08/16/24 Feeling nervous, anxious, or on edge: 1 = Several days Not being able to stop or control worryin = Not at all Worrying too much about different things: 3 = Nearly every day Trouble relaxin = Nearly every day Being so restless that it is hard to sit still: 2 = More than half the days Becoming easily annoyed or irritable: 2 = More than half the days Feeling afraid as if something awful might happen: 0 = Not at all Total CALEB-7 score (0-4 normal; 5-9 mild; 10-14 moderate; 15-21 severe): 11 Source: Developed by Drs. Rashaad Franklin, Rosana Lechuga, Noé Neil and colleagues, with an educational marika from [employer]. Review of Systems Const Denies chills, Reports fatigue (recently), Denies fever(s) and Denies headache(s) ENT Denies dysphagia, Denies dizziness, Denies otalgia, Denies headache(s), Denies neck pain, Denies odynophagia, Reports tinnitus (in the right ear) and Denies sore throat Card Denies chest pain, Denies palpitations and Denies dyspnea Resp Denies chest congestion, Denies cough, Denies dyspnea and Denies wheezing GI Denies abdominal pain, Denies constipation, Denies dysphagia, Denies heartburn, Denies diarrhea, Denies nausea, Denies odynophagia and Denies vomiting Denies difficulty voiding, Denies nocturia, Reports menorrhagia, Denies dysuria and Denies urinary urgency Musc Denies back pain, Reports arthralgias (over both knees) and Denies neck pain Skin/Breast Denies rash Neuro Denies dizziness and Denies headache(s) Endo Reports fatigue (recently) and Denies palpitations Aller/Immun Denies wheezing Physical exam (Primary Care) Vital Signs: Last Vital Signs Pulse 75 08/16/24 15:16 BP 108/68 08/16/24 15:16 Pulse Ox 97 08/16/24 15:16 Oxygen Delivery Method Room Air 08/16/24 15:16 BMI result Body Mass Index 37.2 Tobacco/Smoking Status: Tobacco use Status Tobacco use date assessed 08/16/24 08/16/24 15:19 Patient Tobacco Use Status Never used Tobacco 08/16/24 15:19 Tobacco use type Cigarette 08/16/24 15:19 e-Cigarette/Vaping Use Never Used 08/16/24 15:19 PHQ-9: PHQ-9 Score PHQ-9: Total score 4 08/16/24 15:40 Depression Screening Interpretation: Positive Depression Screening Follow-up: Existing condition and In treatment Thrive Assessment: Date of Thrive Assessment Date Thrive assessed 08/16/24 08/16/24 15:19 Currently or been in a relationship where the following occur: I choose not to answer Const General: no acute distress and alert HENMT Ears: TM's normal bilaterally and EAC's normal Throat: Yes posterior oropharynx normal and Yes tonsils normal (no TP congestion) Neck Neck: Yes supple and No lymphadenopathy Thyroid: Thyroid normal Resp Auscultation: no crackles, no rales, no wheezes and diminished lung sounds bilateral Cardio Rate: regular rate Rhythm: regular rhythm Heart sounds: no murmurs GI Palpation (GI): Soft to palpation and nontender Auscultation: normal bowel sounds General: Yes no CVA tenderness Back/Spine/Pelvis Back: no CVA tenderness Thoracic/Lumbar Spine: No lumbar spinal tenderness Skin Rashes: no rashes Extrem General: Yes no clubbing, cyanosis or edema Results AMB Hemoglobin A1c AMB Hemoglobin A1c 5.7 % Last Edit by LYSSA Zhou on 08/16/24 15:40 Results Reviewed Results Reviewed: Laboratory Last Values Hgb A1c (Clinic) 5.7 % (4.0-6.0) 08/16/24 15:25 Laboratory Tests 03/14/24 03/15/24 08/12/24 11:20 06:22 08:20 WBC 5.5 3.7 L Hgb 9.9 L 10.0 L Hct 30.6 L 32.5 L Plt Count 84 L 90 L Sodium 138 Potassium 3.5 Creatinine 0.77 Estimated GFR > 60 Random Glucose 184 H Calcium 8.9 Coding Level of Care Code Est Pt Level 4 (26995) Complex EM visit Add On G2211 Diagnoses Primary osteoarthritis of both knees M17.0 Osteoarthritis type: primary Type 2 diabetes mellitus without complication, without long-term current use of insulin E11.9 Diabetes mellitus type: type 2 Diabetes mellitus watcher [employer] goods insulin use: without watcher [employer] goods use Diabetes mellitus complication status: without complication Primary hypertension I10 Hypertension type: primary hypertension Liver disease K76.9 Thrombocytopenia D69.6 Iron deficiency anemia due to chronic blood loss D50.0 Anemia type: iron deficiency Iron deficiency anemia type: chronic blood loss Dysphagia, unspecified type R13.10 Dysphagia type: unspecified Secondary esophageal varices without bleeding I85.10 Esophageal varices type: secondary Esophageal varices bleeding: without bleeding Allergic rhinitis, unspecified seasonality, unspecified trigger J30.9 Allergic rhinitis trigger: unspecified Allergic rhinitis seasonality: unspecified Tinnitus, right ear H93.11 Insomnia, unspecified type G47.00 Insomnia type: unspecified Anxiety F41.9 Episode of recurrent major depressive disorder, unspecified depression episode severity F33.9 Depression Type: major depressive disorder Major depression recurrence: recurrent Active/Remission status: currently active Major depression episode severity: unspecified Smoker F17.200 Obesity (BMI 30-39.9) E66.9 Additional Codes PHQ-9 - 45318 - PHQ-9 Billing: Yes ([id number]) Assessment & Plan Assessment & Plan (1) Osteoarthritis of knees, bilateral: Code(s): M17.0 - Bilateral primary osteoarthritis of knee Category: Medical Qualifiers: Osteoarthritis type: primary Qualified Code(s): M17.0 - Bilateral primary osteoarthritis of knee Plan: X-rays of both knees done a few months ago revealed (+) mild to moderate medial and mild lateral compartment osteoarthrosis in the right knee and very mild medial compartment osteoarthritis in the left knee Follow up with orthopedics as scheduled (2) Diabetes mellitus: Code(s): E11.9 - Type 2 diabetes mellitus without complications Category: Medical Qualifiers: Diabetes mellitus type: type 2 Diabetes mellitus retirement insulin use: without watcher [employer] goods use Diabetes mellitus complication status: without complication Qualified Code(s): E11.9 - Type 2 diabetes mellitus without complications Plan: Her in-office HgbA1c today is at 5.7% (was at 6.0% a few months ago at 7.3% last year) - goal is at least <7.0% Reinforced diabetic diet Continue Metformin 500 mg BID (3) Hypertension: Code(s): I10 - Essential (primary) hypertension Category: Medical Qualifiers: Hypertension type: primary hypertension Qualified Code(s): I10 - Essential (primary) hypertension Plan: Reinforced low sodium diet - goal is systolic BP of at least 130 mm or less Continue HCTZ 12.5 mg QD (4) Liver disease: Comment: Pre-hepatic portal hypertension Code(s): K76.9 - Liver disease, unspecified Category: Medical Plan: Patient has non-cirrhotic portal hypertension complicated by esophageal varices and with past Hx of GI bleeding She is S/P TIPS placement at [facility] in 10/2015, with no GI bleeding since She is now seeing Dr. Mendoza again for regular GI follow up Abdominal and pelvic CT done in 10/2019 and abdominal US in 09/2019 both showed (+) patent right TIPS stent at the time, with no free fluid or ascites noted She had abdominal and pelvic CT done more recently in November 2023, which revealed no evidence of nephrolithiasis or hydronephrosis/hydroureter; (+) changes of prior TIPS, chronic splenomegaly, cardiomegaly and a small pericardial effusion. Continue Spironolactone 50 mg QD and Furosemide 20 mg QD Follow up with GI as scheduled (5) Thrombocytopenia: Code(s): D69.6 - Thrombocytopenia, unspecified Category: Medical Plan: This is most likely related to her hypersplenism / splenomegaly and liver disease Patient relates no increased bleeding lately Will have her recheck her labs in a couple of months for follow up (6) Anemia: Code(s): D64.9 - Anemia, unspecified Category: Medical Qualifiers: Anemia type: iron deficiency Iron deficiency anemia type: chronic blood loss Qualified Code(s): D50.0 - Iron deficiency anemia secondary to blood loss (chronic) Plan: This is most likely due to iron-deficiency anemia related to chronic blood loss She is still anemic, with H/H at 10.0/ 32.5 on her labs done a few days ago She was supposed to get a hysterectomy at [facility] done a couple of years ago but cancelled this due to the COVID-19 pandemic Follow up with Dr. Dickens as scheduled - she is now receiving IV Venofer as needed for her anemia (7) Dysphagia: Code(s): R13.10 - Dysphagia, unspecified Category: Medical Qualifiers: Dysphagia type: unspecified Qualified Code(s): R13.10 - Dysphagia, unspecified Plan: Her barium swallow done in September 2023 revealed findings suggestive of achalasia - (+) dilated esophagus, with moderate smooth narrowing at the GE junction suggestive of moderate achalasia Follow up with GI as scheduled (8) Esophageal varices: Code(s): I85.00 - Esophageal varices without bleeding Category: Medical Qualifiers: Esophageal varices type: secondary Esophageal varices bleeding: without bleeding Qualified Code(s): I85.10 - Secondary esophageal varices without bleeding Plan: These are most likely secondary to her portal hypertension - has had no active bleeding lately Continue Famotidine 20 mg BID and Pantoprazole 40 mg QD Follow up with GI as scheduled (9) Allergic rhinitis: Code(s): J30.9 - Allergic rhinitis, unspecified Category: Medical Qualifiers: Allergic rhinitis trigger: unspecified Allergic rhinitis seasonality: unspecified Qualified Code(s): J30.9 - Allergic rhinitis, unspecified Plan: Continue Fluticasone nasal spray 50 mcg QD PRN and Loratadine 10 mg QD PRN (10) Tinnitus, right ear: Code(s): H93.11 - Tinnitus, right ear Category: Medical Plan: Patient also reports noticing some hearing decline in her right ear, along with the on and off ringing sensation in the ear that she's had for the past couple of months Will refer her for hearing evaluation If hearing evaluation is unrevealing and her tinnitus persists, will consider referring her to ENT for further evaluation and management (11) Insomnia: Code(s): G47.00 - Insomnia, unspecified Category: Medical Qualifiers: Insomnia type: unspecified Qualified Code(s): G47.00 - Insomnia, unspecified Plan: Sleep hygiene reinforced Continue Trazodone 50 mg Q HS and Prazosin 1 mg Q HS (12) Anxiety: Code(s): F41.9 - Anxiety disorder, unspecified Category: Medical Plan: Continue Hydroxyzine 25 mg BID, Citalopram 20 mg QD, Bupropion XL 150 mg QD and Clonidine 0.2 mg Q HS Follow up with psychiatry as scheduled (13) Depression: Code(s): F32.A - Depression, unspecified Category: Medical Qualifiers: Depression Type: major depressive disorder Major depression recurrence: recurrent Active/Remission status: currently active Major depression episode severity: unspecified Qualified Code(s): F33.9 - Major depressive disorder, recurrent, unspecified Plan: Continue Citalopram 20 mg QD and Bupropion XL 150 mg QD Follow up with psychiatry as scheduled (14) Smoker: Code(s): F17.200 - Nicotine dependence, unspecified, uncomplicated Category: Social Hx Plan: Patient is counseled again on complete smoking cessation (15) Obesity (BMI 30-39.9): Code(s): E66.9 - Obesity, unspecified Category: Medical Plan: Reinforced diet/exercise as tolerated/lose weight Plan Follow up as scheduled in September 2024 Orders: Orders TSH reflex Free T4 09/14/24 E78.00 - Pure hypercholesterolemia, unspecified AMB Hemoglobin A1c 08/16/24 Z13.9 - Encounter for screening, unspecified Vitamin D 25-OH Total 09/14/24 E55.9 - Vitamin D deficiency, unspecified UA CC w/rflx Micro + Cult 09/14/24 R30.0 - Dysuria Referrals Speech and Hearing Referral H91.90 - Unspecified hearing loss, unspecified ear, H93.11 - Tinnitus, right ear
[2024-08-16 15:16] VITALS: BP 108/68; PULSE 75; O2SAT 97; BMI 37.2
== END 2024-08-16 15:44 | disposition home or self-care (01) ==
LOC: HO.HMCH 15:01
PROVIDERS: PCP Internal Medicine; Visit Provider Internal Medicine
DX: Z13.9 Encounter for screening, unspecified (principal)

== ENCOUNTER → 2024-08-16 15:00 | Outpatient (BNVA) | payer OTHER, SELFPAY | PROVIDERS: PCP Internal Medicine; Visit Provider Internal Medicine | DX: M17.0 Bilateral primary osteoarthritis of knee (principal); E11.9 Type 2 diabetes mellitus without complications; I10 Essential (primary) hypertension; R42 Dizziness and giddiness; K76.9 Liver disease, unspecified; D69.6 Thrombocytopenia, unspecified; D50.0 Iron deficiency anemia secondary to blood loss (chronic); R13.10 Dysphagia, unspecified; I85.10 Secondary esophageal varices without bleeding; J30.9 Allergic rhinitis, unspecified; H93.11 Tinnitus, right ear; G47.00 Insomnia, unspecified; F41.9 Anxiety disorder, unspecified; F33.9 Major depressive disorder, recurrent, unspecified; F17.200 Nicotine dependence, unspecified, uncomplicated; E66.9 Obesity, unspecified; H91.90 Unspecified hearing loss, unspecified ear | CPT/HCPCS: 83036; 96127; 99212 ==

== ENCOUNTER 2024-09-05 14:03 | Emergency (ER) | payer OTHER, SELFPAY ==
[2024-09-05 14:26] VITALS: BP 102/39; PULSE 68; RESP 16; TEMP 36.3; O2SAT 96; BMI 36.6
--- NOTE | 2024-09-05 14:34 | ED.GENADULT ---
HPI - General Adult General Chief complaint: Weakness Stated complaint: weakness,dizzness Time Seen by Provider: 09/05/24 14:51 Source: patient, RN notes reviewed, old records reviewed and educational interpreter Mode of arrival: ambulatory Limitations: language barrier History of Present Illness ED Provider: Guru HPI narrative: Patient is a 44-year-old female with history of liver disease, GERD, IBS, WEN, hypersplenism, pancytopenia, DM, anxiety and depression, multiple uterine leiomyomas presenting to the emergency department with complaint of fatigue, lightheadedness, heavy vaginal bleeding and lower abdominal cramping since yesterday. Patient states bleeding coincides with her normal menstrual cycle. Changing pads every 1-2 hours. States this bleeding is baseline for her during menstrual periods. Denies any syncopal episodes. Denies fevers. Sees Dr. Khan, and was referred to [facility] for hysterectomy but does not have initial appointment there until September. MD complaint: lightheadedness, fatigue Onset (ago): day(s) Related Data Home Medications ?Medication ?Instructions ?Recorded ?Confirmed bupropion HCl 150 mg 24 hr tablet, 150 mg PO DAILY 09/04/23 08/16/24 extended release citalopram 20 mg tablet 20 mg PO DAILY 02/02/24 08/16/24 pantoprazole 40 mg tablet,delayed 40 mg PO BEDTIME PRN Heartburn 03/14/24 08/16/24 release Previous Rx's ?Medication ?Instructions ?Recorded loratadine 10 mg tablet 10 mg PO DAILY PRN allergy 02/19/23 symptoms 90 days #90 tabs hydroxyzine pamoate 25 mg capsule 25 mg PO BID PRN anxiety 30 days 05/19/23 #60 caps prazosin 1 mg capsule 1 mg PO BEDTIME 30 days #30 caps 06/11/23 trazodone 50 mg tablet 50 mg PO BEDTIME PRN insomnia 30 08/12/23 days #30 tabs blood sugar diagnostic (FreeStyle #100 ea 02/02/24 Lite Strips) lancets 28 gauge (FreeStyle #100 ea 02/02/24 Lancets) blood-glucose meter (FreeStyle #1 ea 02/10/24 Lite Meter kit) albuterol sulfate 90 mcg/actuation 2 inh inhalation Q6H PRN shortness 03/12/24 aerosol inhaler of breath 30 days #6.7 grams albuterol sulfate 2.5 mg/3 mL 2.5 mg (3 mL) continuous 03/22/24 (0.083 %) solution for nebulization nebulization QID PRN shortness of breath or wheezing 30 days #180 mL fluticasone propionate 50 1 spray intranasal DAILY PRN 03/25/24 mcg/actuation nasal allergy symptoms #16 mL spray,suspension nebulizers (AeroEclipse II #1 ea 04/02/24 Nebulizer) Medline Aeromist Nebulizert #1 ea 04/14/24 famotidine 20 mg tablet 20 mg PO DAILY #90 tabs 06/22/24 clonidine HCl 0.2 mg tablet 0.2 mg PO BEDTIME 30 days #30 tabs 07/21/24 furosemide 20 mg tablet 20 mg PO DAILY #90 tabs 08/31/24 metformin 500 mg tablet 500 mg PO BID #180 tabs 08/31/24 spironolactone 50 mg tablet 50 mg PO DAILY #90 tabs 08/31/24 Allergies Allergy/AdvReac Type Severity Reaction Status Date / Time aspirin (ASPIRIN) AdvReac Intermediate ULCER; GI Verified 09/05/24 14:32 UPSET, internal bleeding dextran 40 AdvReac Itching Verified 09/05/24 14:32 Review of Systems Review of Systems: As per HPI Yes all other systems are reviewed and are negative Constitutional: Constitutional: Reports as per HPI [facility] Past Medical History Medical History (Updated 09/05/24 @ 17:10 by Fay Garvey NP) Osteoarthritis of knees, bilateral ELIJAH I (cervical intraepithelial neoplasia I) Obesity, Class III, BMI 40-49.9 (morbid obesity) Smoker Depression Anxiety Insomnia Esophageal varices Diabetes mellitus Lower abdominal pain Allergic rhinitis Common cold Anxiety and depression Obesity (BMI 30-39.9) Smoker Hypersplenism Pancytopenia Bilateral calcaneal spurs Thrombocytopenia Ascites Iron deficiency anemia due to chronic blood loss History of esophageal varices Chronic pain of both feet Varicose veins of right lower extremity with inflammation Sprain of left knee IBS (irritable bowel syndrome) GERD (gastroesophageal reflux disease) Depression Dementia Liver disease Hypertension Surgical History Hx of colonoscopy History of D&C S/P TIPS (transjugular intrahepatic portosystemic shunt) (~10/2015) History of liver biopsy (~04/2002) History of esophagogastroduodenoscopy (EGD) Family History Family History Father Diabetes mellitus Mother Diabetes mellitus Alzheimer's dementia Pneumothorax Maternal Aunt Ovarian cancer Daughter No problems noted. Maternal Aunt Cervical cancer Maternal Grandfather Pancreatic cancer Other Mental health disorder Social History Social History Household Members: Significant Other Housing: Apartment Do you presently have visiting nurse or other home services: No Alcohol intake: current Alcohol intake frequency: does not drink Patient Tobacco Use Status: Never used Tobacco Tobacco use type: Cigarette Cigarette Packs Per Day: 0.5 Cigarettes Per Day: 12 Years Smoked: 8 years e-Cigarette/Vaping Use: Never Used Second Hand Smoke Exposure: Yes Advance Directives: No Advance Directives Information Provided: Yes Do you have a plan to hurt others: No Plan service: No Current occupational status: unemployed Current occupational exposures/hazards: No Cognitive needs: No Hearing needs: No Vision needs: No Physical Exam ED Vital Signs: Vital Signs - 24 hr 09/05/24 14:26 09/05/24 15:57 09/05/24 16:06 Temperature 97.4 F Pulse Rate 68 60 63 Respiratory Rate 16 Blood Pressure 102/39 L 120/60 115/57 L Pulse Oximetry 96 Oxygen Delivery Method Room Air 09/05/24 16:07 09/05/24 17:26 Temperature 98.1 F Pulse Rate 67 67 Respiratory Rate 18 Blood Pressure 125/65 125/65 Pulse Oximetry 98 Oxygen Delivery Method Room Air BMI result Body Mass Index 36.6 Vital signs have been reviewed and appear to be correct. Blood pressure normal. Heart rate normal. Respiratory rate normal. Temperature normal. Oxygen saturation normal. Const General: cooperative, healthy appearing and no acute distress Orientation/consciousness: oriented to person, oriented to place, oriented to time and patient oriented x3 Limitations: no limitations HENMT Head: Yes normocephalic and Yes atraumatic Ears: external ears normal General nose exam: Normal external nose present Face and sinus: Yes face symmetric Mouth: oropharynx normal and moist mucous membranes Throat: Yes uvula midline Eyes Pupils: Equal, round and reactive pupils present Neck Neck: Yes normal visual inspection and Yes supple Resp Effort & Inspection: normal respiratory effort and able to speak in complete sentences Auscultation: clear to auscultation bilaterally Cardio Rate: regular rate Rhythm: regular rhythm Heart sounds: S1 normal heart sound present and S2 normal heart sound present GI Palpation (GI): Soft to palpation, Tenderness to palpation present (GI) in the LLQ and in the RLQ, no guarding and No Rebound tenderness present Auscultation: normoactive bowel sounds General: Yes no CVA tenderness Back/Spine/Pelvis Back: no CVA tenderness Skin General skin exam: elasticity normal and turgor normal Neuro General: oriented to person, oriented to place, oriented to time, patient oriented x3, moves all extremities, no focal motor deficits and CN's II-XI intact bilaterally Cranial nerves: Yes Equal, round and reactive pupils present Cognition (Neuro): normal cognition Extrem General: Yes full ROM, Yes no pedal edema and Yes no calf tenderness Psych Mental Status: mental status grossly normal Affect: normal affect Thought process: Normal thought process present Course Course Course Narrative: RME: 44-year-old female history of ovarian cyst and heavy menstruations presents to ED for weakness and heavy menstruation with lower abdominal pain that began yesterday. Patient states changing her pads every 2 hours with vaginal bleeding consisting of blood clots. Patient has history of blood transfusion due to profuse bleeding. Patient is being worked up to have hysterectomy at [facility]. Medical Decision Making Medical Decision Making MDM Narrative: Patient is a 44-year-old female with history of liver disease, GERD, IBS, WEN, hypersplenism, pancytopenia, DM, anxiety and depression, multiple uterine leiomyomas presenting to the emergency department with complaint of fatigue, lightheadedness, heavy vaginal bleeding and lower abdominal cramping since yesterday. On exam patient is awake, A+Ox3, VS WNL, afebrile, normal neurological exam without focal deficits, physical exam findings as above. Given reported symptoms and physical exam findings, initial differential includes but is not limited to anemia, abnormal uterine bleeding, leiomyoma. Labs notable for stable H&H, no leukocytosis, neg HCG, otherwise unremarkable. BP initially low, orthostatic VS checked and patient does not have orthostatic intolerance. Case discussed with attending MD, Dr. Dickey who agrees patient is at her baseline and does not require blood transfusion at this time. Advised patient to follow up with Dr. Khan's office in the morning. Return precautions discussed at bedside. Patient verbalized understanding of and agreement with plan. In-person full time staff interpreter was utilized for all interactions, assessments, and discussions. Differential Diagnosis Differential Diagnoses: The differential diagnosis associated with the presentation includes as per [facility] Admission/Observation Consideration of admission/observation: Escalation of care including admission/observation considered Patient would have been admitted to the hospital had their work up had any findings where hospital admission was appropriate and their clinical presentation warranted hospital admission. Lab Data [facility] Lab Attestation statement: I reviewed the patient's lab results. As per [facility] 09/05/24 14:44 09/05/24 14:44 Labs: Lab Results 09/05/24 Range/Units 14:44 WBC 4.9 (4.8-10.8) X10*3/uL RBC 4.24 (4.20-5.50) X10*6/uL Hgb 9.9 L (12.0-16.0) g/dl Hct 31.4 L (37.0-47.0) % MCV 74.1 L (80.0-98.0) fL MCH 23.3 L (27.0-33.0) pg MCHC 31.5 (31.0-35.0) g/dl RDW 18.8 H (11.0-16.0) % Plt Count 112 L (160-400) X10*3/uL MPV 9.9 (9.4-12.3) fL Immature Gran % (Auto) 0.2 (0.0-0.4) % Neut % (Auto) 66.2 (45-73) % Lymph % (Auto) 24.9 (20-40) % Alpine % (Auto) 6.5 (2-11) % Eos % (Auto) 1.8 (0-4) % Baso % (Auto) 0.4 (0-2) % Lymph # (Auto) 1.2 (1.2-4.9) X10*3/uL Alpine # (Auto) 0.3 (0.1-1.2) X10*3/uL Eos # (Auto) 0.1 (0.0-0.4) X10*3/uL Baso # (Auto) 0.0 (0.0-0.2) X10*3/uL Abs Immat Gran (auto) 0.01 (0.00-0.03) X10*3/uL Absolute Neuts (auto) 3.3 (2.0-8.3) x10*3/uL Absolute Nucleated RBC 0.000 (0.0-0.012) X10*3/uL Nucleated RBC % (auto) 0.0 (0.0-0.2) /100WBC PT 13.2 H (10.9-12.4) SEC INR 1.2 H (0.9-1.1) APTT 32.9 (26.0-36.8) SEC Sodium 142 (135-145) mmol/L Potassium 3.8 (3.3-5.1) mmol/L Chloride 113 H (96-108) mmol/L Carbon Dioxide 21 L (22-29) mmol/L Anion Gap 12 (12-20) BUN 13 (9-16) mg/dL Creatinine 0.76 (0.5-1.4) mg/dL Estim Creat Clear Calc 97.8 Estimated GFR > 60 Random Glucose 74 (60-115) mg/dL Calcium 9.0 (8.4-10.2) mg/dL Total Bilirubin 0.3 (0.0-1.0) mg/dL AST 18 (5-31) U/L ALT 18 (0-31) U/L Alkaline Phosphatase 70 (39-117) U/L Total Protein 6.5 (6.5-8.0) g/dL Albumin 4.1 (3.5-5.0) g/dL Beta HCG, Quant < 2 mIU/mL Blood Type B Negative Antibody Screen POSITIVE Antibody Identification Anti-D Crossmatch (AHG) See Detail External Record Review External record reviewed: Inpatient record, Office record and Outpatient record Discharge Plan Discharge Clinical Impression: Abnormal uterine bleeding (AUB) Patient Disposition: Home, Self-Care Instructions: Abnormal (Dysfunctional) Uterine Bleeding (ED) Additional Instructions: You were evaluated in the emergency department today for vaginal bleeding, cramping and fatigue. Your blood levels were reassuring and your vital signs did not change significantly with changes in position. Your symptoms are due to your known uterine fibroids. We recommend that you follow up with Dr. Zerbe in the morning. We recommend that you take Tylenol 650mg every 6 hours as needed for pain. Return to the emergency department if you are bleeding through more than 1 pad per hour, have fainting, fever, or any other new or concerning symptoms. Prescriptions: No Action loratadine 10 mg tablet 10 mg PO DAILY PRN (Reason: allergy symptoms) 90 Days Qty: 90 3RF hydroxyzine pamoate 25 mg capsule 25 mg PO BID PRN (Reason: anxiety) 30 Days Qty: 60 0RF trazodone 50 mg tablet 50 mg PO BEDTIME PRN (Reason: insomnia) 30 Days Qty: 30 2RF (DME) blood-glucose meter [FreeStyle Lite Meter] Kit See Rx Instructions .ROUTE .MEDSUPPLY Qty: 1 0RF Rx Instructions: As directed albuterol sulfate 2.5 mg /3 mL (0.083 %) solution for nebulization 2.5 mg continuous nebulization QID PRN (Reason: shortness of breath or wheezing) 30 Days Qty: 180 3RF fluticasone propionate 50 mcg/actuation spray,suspension 1 spray intranasal DAILY PRN (Reason: allergy symptoms) Qty: 16 1RF (DME) nebulizers [AeroEclipse II Nebulizer] [facility] See Rx Instructions .Route Qty: 1 0RF Rx Instructions: As directed (DME) Medline Aeromist Nebulizert See Rx Instructions .Route .MEDSUPPLY Qty: 1 0RF Rx Instructions: As directed famotidine 20 mg tablet 20 mg PO DAILY Qty: 90 0RF clonidine HCl 0.2 mg tablet 0.2 mg PO BEDTIME 30 Days Qty: 30 2RF furosemide 20 mg tablet 20 mg PO DAILY Qty: 90 0RF metformin 500 mg tablet 500 mg PO BID Qty: 180 0RF spironolactone 50 mg tablet 50 mg PO DAILY Qty: 90 0RF albuterol sulfate 90 mcg/actuation HFA aerosol inhaler 2 inh inhalation Q6H PRN (Reason: shortness of breath) 30 Days Qty: 6.7 0RF pantoprazole 40 mg tablet,delayed release (DR/EC) 40 mg PO BEDTIME PRN (Reason: Heartburn) prazosin 1 mg capsule 1 mg PO BEDTIME 30 Days Qty: 30 2RF bupropion HCl 150 mg tablet extended release 24 hr 150 mg PO DAILY citalopram 20 mg tablet 20 mg PO DAILY (DME) lancets [FreeStyle Lancets] 28 gauge misc See Rx Instructions .ROUTE .MEDSUPPLY Qty: 100 12RF Rx Instructions: As directed once a day (DME) FreeStyle Lite Strips Strip See Rx Instructions .ROUTE .MEDSUPPLY Qty: 100 12RF Rx Instructions: As directed once a day Interventions: ED Discharge Assessment Last Done: 09/05/24 17:26 Discharge Date/Time: 09/05/24 17:26 Print Language: Tamazight
[2024-09-05 14:50] LABS: MANUAL DIFF FLAG NO
[2024-09-05 14:53] LABS: Basophils Percent Auto 0.4 % (0-2); Eosinophils Absolute Auto 0.1 X10*3/uL (0.0-0.4); Eosinophils Percent Auto 1.8 % (0-4); Hematocrit 31.4 % (37.0-47.0); Hemoglobin 9.9 g/dl (12.0-16.0); Imm Gran Abs Auto 0.01 X10*3/uL (0.00-0.03); Imm Gran Pct Auto 0.2 % (0.0-0.4); Lymphocytes Absolute Auto 1.2 X10*3/uL (1.2-4.9); Lymphocytes Percent Auto 24.9 % (20-40); Mean Corpuscular HGB Conc 31.5 g/dl (31.0-35.0); Mean Corpuscular Hemoglobin 23.3 pg (27.0-33.0); Mean Corpuscular Volume 74.1 fL (80.0-98.0); Mean Platelet Volume 9.9 fL (9.4-12.3); Monocytes Absolute Auto 0.3 X10*3/uL (0.1-1.2); Monocytes Percent Auto 6.5 % (2-11); Neutrophils Absolute Auto 3.3 x10*3/uL (2.0-8.3); Neutrophils Percent Auto 66.2 % (45-73); Platelet Count 112 X10*3/uL (160-400); Red Blood Count 4.24 X10*6/uL (4.20-5.50); Red Cell Distribution Width 18.8 % (11.0-16.0); White Blood Count 4.9 X10*3/uL (4.8-10.8)
[2024-09-05 14:58] LABS: INTERNATIONAL NORM RATIO 1.2 (0.9-1.1); Prothrombin Time 13.2 SEC (10.9-12.4)
[2024-09-05 15:00] LABS: Partial Thromboplastin Time 32.9 SEC (26.0-36.8)
[2024-09-05 15:12] LABS: Alanine Aminotransferase 18 U/L (0-31); Albumin Level 4.1 g/dL (3.5-5.0); Alkaline Phosphatase 70 U/L (39-117); Anion Gap 12 (12-20); Aspartate Amino Transferase 18 U/L (5-31); Bilirubin Total 0.3 mg/dL (0.0-1.0); Blood Urea Nitrogen 13 mg/dL (9-16); Carbon Dioxide 21 mmol/L (22-29); Chloride 113 mmol/L (96-108); Creatinine Clr Calc Pharmacy 97.8; Estimated Glomerular Filt Rate > 60; Glucose Random 74 mg/dL (60-115); Potassium 3.8 mmol/L (3.3-5.1); Sodium 142 mmol/L (135-145); Total Protein 6.5 g/dL (6.5-8.0)
[2024-09-05 15:24] LABS: HCG Quantitative < 2 mIU/mL
--- NOTE | 2024-09-05 15:34 | PC.NURSE ---
Fay GarveyBORING MACHINE OPERATOR VERTICAL at bedside, with manufacturing group leader at bedside for evaluation.
[2024-09-05 15:57] VITALS: BP 120/60; PULSE 60
[2024-09-05 16:06] VITALS: BP 115/57; PULSE 63
[2024-09-05 16:07] VITALS: BP 125/65; PULSE 67
[2024-09-05 17:26] VITALS: BP 125/65; PULSE 67; RESP 18; TEMP 36.7; O2SAT 98
== END 2024-09-05 17:26 | disposition home or self-care (01) ==
PROVIDERS: Physician Assistant; Emergency Provider Emergency Medicine; PCP Internal Medicine
DX: N93.8 Other specified abnormal uterine and vaginal bleeding (principal); R53.1 Weakness; R42 Dizziness and giddiness; N93.9 Abnormal uterine and vaginal bleeding, unspecified; R10.2 Pelvic and perineal pain; Z79.899 Other long term (current) drug therapy
CPT/HCPCS: 36415; 80053; 84702; 85025; 85610; 85730; 86850; 86870; 86900; 86901; 86920; 86922; 99283; 99284

== ENCOUNTER 2024-09-20 08:03 | Outpatient (REF) | payer OTHER, SELFPAY ==
--- OUTSIDE RECORDS SUMMARY | 2024-07-19 20:00 | XMS_ITS | Continuity of Care Document ---
Author Organization [facility] re Address [address] [place] [address] Phone Care Team Providers Care Hand Marker Name Role Phone Nino Armstrong OD Unavailable Unavailable Allergies, Adverse Reactions, Alerts Substance Reaction Status Criticality No Known Allergies Active No Inform ation Medications Medication Instructions Dosage Effective Dates (start - stop) Status Comments Eye Allergy Relief (Naphazoline-Pheniram ine) 0.22295 %-0.315 % Drops - Active Singulair 10 [...] Date Provider Providers Copied on Encounter [facility], [address], [place], [place], [id number], [place] tel:[phone] [facility] CTL/Optica l/Misc No Information 5 Patti Oneill. [address], [place], [address], [place]. tel:[phone] [facility], [address], [place], [place], [id number], [place] tel:[phone] Garcia decreased vision (chief complaint) Presbyopia 5 Patti Oneill. [address], [place], [address], [place]. tel:[phone] [facility], [address], [place], [place], [id number], [place] tel:[phone] Garcia blurry vision (chief complaint) Presbyopia 3 Patti Oneill. [address], [place], [address], [place]. tel:[phone] OFFICE/OUTPAT IENT VISIT, EST [facility], [address], [place], [place], [address], [place] tel:[phone] Garcai Watery Eyes (chief complaint) Dry eyes, bilateral Daniele- 9 Patti Oneill. [address], [place], [address], [place]. tel:[phone] [facility], [address], [place], [place], [address], [place] tel:[phone] Garcia Complete exam (chief complaint) Myopia, bilateral Oct- 8 Patti Oneill. [address], [place], [address], [place]. tel:[phone] [facility], [address], [place], [place], [id number], [place] tel:[phone] Garcia decreased vision (chief complaint) Myopia, bilateral 6 Patti Oneill. [address], [place], [address], [place]. tel:[phone] [facility], [address], [place], [place], [id number], [place] tel:[phone] Garcia No Information 5 No Information [facility], [address], [place], [place], [id number], [place] tel:[phone] [facility] Contact lens followup (chief complaint) Myopia 5 No Information [facility], [address], [place], [place], [id number], [place] tel:[phone] Garcia decreased vision (chief complaint) Myopia 5 No Information [facility], [address], [place], [place], [address], [place] tel:[phone] Garcia No Information 3 Habib Angeles. [address], [place], [address], [place]. tel:[phone] [facility], [address], [place], [place], [id number], [place] tel:[phone] Garcia Myopia Sep-0 3 Habib Angeles. [address], [place], [address], [place]. tel:[phone] [facility], [address], [place], [place], [id number], [place] tel:[phone] Garcia CTL/Optica l/Misc No Information 0 3-201 3 Habib Angeles. [address], [place], [address], [place]. tel:[phone] Family History Family Member Type Diagnosis Age [...]
--- OUTSIDE RECORDS SUMMARY | 2024-09-20 08:07 | XMS_ITS | Patient Health Record ---
Author Organization [facility] Address [address] [place] [address] Care Team Providers Care Repeater Chief Name Role Phone Ira Hayes Primary Care Provider Unavailab Enmanuel Lua Jr Unavailable Elba PINA, Radha Unavailable Unavailable Reason For Referral No Information Plan Of Treatment No Information Insurance Providers Payer Name Payer Address Payer Phone Subscriber Number Group Number Insured Name Patient Relationship to Insured Coverage Start Date [facility] End [facility] [address] [address] [place], [place] [id number] RONAK MEEHAN Self - patient is the insured
== END 2024-09-20 08:04 | disposition home or self-care (01) ==
LOC: HO.SH 08:03
PROVIDERS: Visit Provider Internal Medicine
DX: H93.11 Tinnitus, right ear (principal); H91.90 Unspecified hearing loss, unspecified ear
CPT/HCPCS: 92557; 92567

== ENCOUNTER 2024-09-20 14:43 | Outpatient (AMB) | payer OTHER, SELFPAY ==
[2024-09-20 14:44] VITALS: BP 126/74; PULSE 71; O2SAT 97; BMI 37.2
--- NOTE | 2024-09-20 14:44 | MHC.PC.OV ---
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: No Accompanied by: Self / Same As Patient Allergies aspirin (ASPIRIN) Adverse Reaction (Intermediate, Verified 09/20/24 15:39) ULCER; GI UPSET, internal bleeding dextran 40 Adverse Reaction (Verified 09/20/24 15:39) Itching Medication List - Last Reconciled 09/20/24 by David Elizabeth MD albuterol sulfate 90 mcg/actuation 2 inhalations inhalation Q6H PRN 30 days albuterol sulfate 2.5 mg (3 mL) continuous nebulization QID PRN 30 days blood sugar diagnostic (FreeStyle Lite Strips) As directed once a day blood-glucose meter (FreeStyle Lite Meter kit) As directed bupropion HCl XL 150 mg PO DAILY citalopram 20 mg PO DAILY clonidine HCl 0.2 mg PO BEDTIME 30 days famotidine 20 mg PO DAILY fluticasone propionate 50 mcg/actuation 1 spray intranasal DAILY PRN furosemide 20 mg PO DAILY hydroxyzine pamoate 25 mg PO BID PRN 30 days lancets (FreeStyle Lancets) As directed once a day loratadine 10 mg PO DAILY PRN 90 days [Medline Aeromist Nebulizert As directed] metformin 500 mg PO BID nebulizers (AeroEclipse II Nebulizer) As directed pantoprazole 40 mg PO BEDTIME PRN prazosin 1 mg PO BEDTIME 30 days spironolactone 50 mg PO DAILY trazodone 50 mg PO BEDTIME PRN 30 days Tobacco use date assessed: 09/20/24 Dental Screening Dental Screen Date: 09/20/24 Did you have a dental visit in the last 12 months?: No Did you have a dental problem in the last 6 months where you did not have access to dental care?: No Was dental information given to patient?: No HPI Anemia HPI Details Patient comes in today for her follow up visit States that she was referred by Dr. Khan to gynecology at [facility] for consideration for hysterectomy to help address/control her heavy menstrual vaginal bleeding and she is scheduled to be seen at [facility] sometime in the next few weeks She is also currently receiving IV iron infusions for her anemia and is scheduled for a couple of infusions later this month Patient also adds that she had a hearing evaluation done earlier today and would like to know how her test came out Relates (+) fatigue often, likely because she is anemic She denies any headaches but reports experiencing on and off dizziness at times Denies any chest pains, no increased SOB No nausea/vomiting, no abdominal pain No change in bowel habits noted She had her follow-up labs done a couple of weeks ago - to discuss her results [facility] Medical History (Updated 09/20/24 @ 15:45 by David Elizabeth MD) Osteoarthritis of knees, bilateral ELIJAH I (cervical intraepithelial neoplasia I) Obesity, Class III, BMI 40-49.9 (morbid obesity) Smoker Depression Anxiety Insomnia Esophageal varices Diabetes mellitus Lower abdominal pain Allergic rhinitis Common cold Anxiety and depression Obesity (BMI 30-39.9) Smoker Hypersplenism Pancytopenia Bilateral calcaneal spurs Thrombocytopenia Ascites Iron deficiency anemia due to chronic blood loss History of esophageal varices Chronic pain of both feet Varicose veins of right lower extremity with inflammation Sprain of left knee IBS (irritable bowel syndrome) GERD (gastroesophageal reflux disease) Depression Dementia Liver disease Hypertension Surgical History Hx of colonoscopy History of D&C S/P TIPS (transjugular intrahepatic portosystemic shunt) (~10/2015) History of liver biopsy (~04/2002) History of esophagogastroduodenoscopy (EGD) Family History Father Diabetes mellitus Mother Diabetes mellitus Alzheimer's dementia Pneumothorax Maternal Aunt Ovarian cancer Daughter No problems noted. Maternal Aunt Cervical cancer Maternal Grandfather Pancreatic cancer Other Mental health disorder Social History Household Members: Significant Other Housing: Apartment Do you presently have visiting nurse or other home services: No Alcohol intake: current Alcohol intake frequency: does not drink Patient Tobacco Use Status: Never used Tobacco Tobacco use type: Cigarette Cigarette Packs Per Day: 0.5 Cigarettes Per Day: 12 Years Smoked: 8 years e-Cigarette/Vaping Use: Never Used Second Hand Smoke Exposure: Yes service: No Current occupational status: unemployed Current occupational exposures/hazards: No Cognitive needs: No Hearing needs: No Vision needs: No Female Reproductive History Menstrual Age of Menarche: 8 Questionnaire PHQ-9 Over the last 2 weeks, how often have you been bothered by any of the following problems? 1. Little interest or pleasure in doing things: more than half the days 2. Feeling down, depressed, or hopeless: not at all 3. Trouble falling or staying asleep, or sleeping too much: not at all 4. Feeling tired or having little energy: more than half the days 5. Poor appetite or overeating: not at all 6. Feeling bad about yourself - or that you are a failure or have let yourself or your family down: not at all 7. Trouble concentrating on things, such as reading the newspaper or watching television: not at all 8. Moving or speaking so slowly that other people could have noticed. Or the opposite - being so fidgety or restless that you have been moving around a lot more than usual: not at all 9. Thoughts that you would be better off or of hurting yourself in some way: not at all Total score: 4 Depression Screening Interpretation: Positive Depression Screening Follow-up: Existing condition and In treatment Depression Screening Done: Yes 03225 - PHQ-9 Billing: Yes Source: Developed by Drs. Rashaad Franklin, Rosana Lechuga, Noé Neil and colleagues, with an educational marika from [employer]. Thrive Questionnaire Date Thrive assessed: 09/20/24 I am a: Patient What is your living situation today?: I have a steady place to live Within the past 12 months, did the food you bought not last and you didn't have the money to get more?: I choose not to answer this question Within the past 12 months, did you worry whether your food would run out before you got money to buy more?: I choose not to answer this question Do you have trouble paying for medicines?: I choose not to answer this question Do you have trouble getting transportation to medical appointments?: No Do you have trouble paying your heating and electricity bill?: I choose not to answer this question Do you have trouble taking care of your child, family member or friend?: Yes Do you have trouble with day-to-day activities such as bathing, preparing meals, shopping, managing finances, etc.?: I choose not to answer this question Are you currently unemployed and looking for a job?: Yes Are you interested in more education?: I choose not to answer this question Please select the resources that you would like help with: Care for elder or disabled Currently or been in a relationship where the following occur: I choose not to answer THRIVE Score: 0 AUDIT C Alcohol Use Questionnaire (AUDIT-C) 1. How often do you have a drink containing alcohol?: 4 or more times a week 2. How many drinks containing alcohol do you have on a typical day when you are drinking?: 1 or 2 3. How often do you have six or more drinks on one occasion?: Less than monthly Total Score: 5 Score Reviewed/Action Taken: Yes CALEB-7 AMB Questionnaire CALEB-7 Date CALEB - 7 assessed: 09/20/24 Feeling nervous, anxious, or on edge: 1 = Several days Not being able to stop or control worryin = Not at all Worrying too much about different things: 3 = Nearly every day Trouble relaxin = Nearly every day Being so restless that it is hard to sit still: 2 = More than half the days Becoming easily annoyed or irritable: 2 = More than half the days Feeling afraid as if something awful might happen: 0 = Not at all Total CALEB-7 score (0-4 normal; 5-9 mild; 10-14 moderate; 15-21 severe): 11 Source: Developed by Drs. Rashaad Franklin, Rosana Lechuga, Noé Neil and colleagues, with an educational marika from [employer]. Review of Systems Const Denies chills, Reports fatigue (recently), Denies fever(s) and Denies headache(s) ENT Denies dysphagia, Reports dizziness (at times), Denies otalgia, Denies headache(s), Denies neck pain, Denies odynophagia, Reports tinnitus (in the right ear) and Denies sore throat Card Denies chest pain, Denies palpitations and Denies dyspnea Resp Denies chest congestion, Denies cough and Denies dyspnea GI Denies abdominal pain, Denies constipation, Denies dysphagia, Denies heartburn, Denies diarrhea, Denies nausea, Denies odynophagia and Denies vomiting Denies difficulty voiding, Denies nocturia, Reports menorrhagia, Denies dysuria and Denies urinary urgency Musc Denies back pain, Reports arthralgias (over both knees) and Denies neck pain Skin/Breast Denies rash Neuro Reports dizziness (at times) and Denies headache(s) Endo Reports fatigue (recently) and Denies palpitations Physical exam (Primary Care) Vital Signs: Last Vital Signs Pulse 71 09/20/24 14:44 BP 126/74 09/20/24 14:44 Pulse Ox 97 09/20/24 14:44 Oxygen Delivery Method Room Air 09/20/24 14:44 BMI result Body Mass Index 37.2 Tobacco/Smoking Status: Tobacco use Status Tobacco use date assessed 09/20/24 09/20/24 14:50 Patient Tobacco Use Status Never used Tobacco 09/20/24 14:50 Tobacco use type Cigarette 09/20/24 14:50 e-Cigarette/Vaping Use Never Used 09/20/24 14:50 PHQ-9: PHQ-9 Score PHQ-9: Total score 4 09/20/24 15:43 Depression Screening Interpretation: Positive Depression Screening Follow-up: Existing condition and In treatment Thrive Assessment: Date of Thrive Assessment Date Thrive assessed 09/20/24 09/20/24 14:50 Currently or been in a relationship where the following occur: I choose not to answer Const General: no acute distress and alert HENMT Ears: TM's normal bilaterally and EAC's normal Throat: Yes posterior oropharynx normal and Yes tonsils normal (no TP congestion) Neck Neck: Yes supple and No lymphadenopathy Thyroid: Thyroid normal Resp Auscultation: no crackles, no rales, no wheezes and diminished lung sounds bilateral Cardio Rate: regular rate Rhythm: regular rhythm Heart sounds: no murmurs GI Palpation (GI): Soft to palpation and nontender Auscultation: normal bowel sounds General: Yes no CVA tenderness Back/Spine/Pelvis Back: no CVA tenderness Thoracic/Lumbar Spine: No lumbar spinal tenderness Skin Rashes: no rashes Extrem General: Yes no clubbing, cyanosis or edema Results Reviewed Results Reviewed: Laboratory Tests 08/16/24 09/05/24 15:25 14:44 WBC 4.9 Hgb 9.9 L Hct 31.4 L Plt Count 112 L Sodium 142 Potassium 3.8 Creatinine 0.76 Estimated GFR > 60 Random Glucose 74 Hgb A1c (Clinic) 5.7 Calcium 9.0 AST 18 ALT 18 Beta HCG, Quant < 2 Coding Level of Care Code Est Pt Level 4 (87986) Diagnoses Primary osteoarthritis of both knees M17.0 Osteoarthritis type: primary Type 2 diabetes mellitus without complication, without long-term current use of insulin E11.9 Diabetes mellitus type: type 2 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: without termite control technician use Diabetes mellitus complication status: without complication Primary hypertension I10 Hypertension type: primary hypertension Liver disease K76.9 Thrombocytopenia D69.6 Iron deficiency anemia due to chronic blood loss D50.0 Anemia type: iron deficiency Iron deficiency anemia type: chronic blood loss Dysphagia, unspecified type R13.10 Dysphagia type: unspecified Secondary esophageal varices without bleeding I85.10 Esophageal varices type: secondary Esophageal varices bleeding: without bleeding Allergic rhinitis, unspecified seasonality, unspecified trigger J30.9 Allergic rhinitis trigger: unspecified Allergic rhinitis seasonality: unspecified Tinnitus, right ear H93.11 Insomnia, unspecified type G47.00 Insomnia type: unspecified Anxiety F41.9 Episode of recurrent major depressive disorder, unspecified depression episode severity F33.9 Depression Type: major depressive disorder Major depression recurrence: recurrent Active/Remission status: currently active Major depression episode severity: unspecified Smoker F17.200 Obesity (BMI 30-39.9) E66.9 Additional Codes PHQ-9 - 82069 - PHQ-9 Billing: Yes ([id number]) Assessment & Plan Assessment & Plan (1) Osteoarthritis of knees, bilateral: Code(s): M17.0 - Bilateral primary osteoarthritis of knee Category: Medical Qualifiers: Osteoarthritis type: primary Qualified Code(s): M17.0 - Bilateral primary osteoarthritis of knee Plan: X-rays of both knees done a few months ago revealed (+) mild to moderate medial and mild lateral compartment osteoarthrosis in the right knee and very mild medial compartment osteoarthritis in the left knee Follow up with orthopedics as scheduled (2) Diabetes mellitus: Code(s): E11.9 - Type 2 diabetes mellitus without complications Category: Medical Qualifiers: Diabetes mellitus type: type 2 Diabetes mellitus mcc insulin use: without mcc use Diabetes mellitus complication status: without complication Qualified Code(s): E11.9 - Type 2 diabetes mellitus without complications Plan: Her in-office HgbA1c was at 5.7% when checked last month (was previously at 6.0% a few months ago) - goal is at least <7.0% Reinforced diabetic diet Continue Metformin 500 mg BID Will recheck her labs and HgbA1c in 4 months for follow up (3) Hypertension: Code(s): I10 - Essential (primary) hypertension Category: Medical Qualifiers: Hypertension type: primary hypertension Qualified Code(s): I10 - Essential (primary) hypertension Plan: Reinforced low sodium diet - goal is systolic BP of at least 130 mm or less Continue Furosemide 20 mg QD (4) Liver disease: Comment: Pre-hepatic portal hypertension Code(s): K76.9 - Liver disease, unspecified Category: Medical Plan: Patient has non-cirrhotic portal hypertension complicated by esophageal varices and with past Hx of GI bleeding She is S/P TIPS placement at [facility] in 10/2015, with no GI bleeding since She is now seeing Dr. Mendoza again for regular GI follow up Abdominal and pelvic CT done in 10/2019 and abdominal US in 09/2019 both showed (+) patent right TIPS stent at the time, with no free fluid or ascites noted She had abdominal and pelvic CT done more recently in November 2023, which revealed no evidence of nephrolithiasis or hydronephrosis/hydroureter; (+) changes of prior TIPS, chronic splenomegaly, cardiomegaly and a small pericardial effusion. Continue Spironolactone 50 mg QD and Furosemide 20 mg QD Follow up with GI as scheduled (5) Thrombocytopenia: Code(s): D69.6 - Thrombocytopenia, unspecified Category: Medical Plan: This is most likely related to her hypersplenism / splenomegaly and liver disease Patient relates no increased bleeding lately Will continue to monitor her CBC and platelet count regularly (6) Anemia: Code(s): D64.9 - Anemia, unspecified Category: Medical Qualifiers: Anemia type: iron deficiency Iron deficiency anemia type: chronic blood loss Qualified Code(s): D50.0 - Iron deficiency anemia secondary to blood loss (chronic) Plan: This is most likely due to iron-deficiency anemia related to chronic blood loss She is still anemic, with H/H at 9.9/ 31.4 on her labs done a couple of weeks ago She was supposed to get a hysterectomy at [facility] done a couple of years ago but cancelled this due to the COVID-19 pandemic She is currently scheduled to be seen at [facility] now for this in a few weeks Follow up with Dr. Dickens as scheduled - she is now receiving IV Venofer as needed for her anemia (7) Dysphagia: Code(s): R13.10 - Dysphagia, unspecified Category: Medical Qualifiers: Dysphagia type: unspecified Qualified Code(s): R13.10 - Dysphagia, unspecified Plan: Her barium swallow done in September 2023 revealed findings suggestive of achalasia - (+) dilated esophagus, with moderate smooth narrowing at the GE junction suggestive of moderate achalasia Follow up with GI as scheduled (8) Esophageal varices: Code(s): I85.00 - Esophageal varices without bleeding Category: Medical Qualifiers: Esophageal varices type: secondary Esophageal varices bleeding: without bleeding Qualified Code(s): I85.10 - Secondary esophageal varices without bleeding Plan: These are most likely secondary to her portal hypertension - has had no active bleeding lately Continue Famotidine 20 mg BID and Pantoprazole 40 mg QD Follow up with GI as scheduled (9) Allergic rhinitis: Code(s): J30.9 - Allergic rhinitis, unspecified Category: Medical Qualifiers: Allergic rhinitis trigger: unspecified Allergic rhinitis seasonality: unspecified Qualified Code(s): J30.9 - Allergic rhinitis, unspecified Plan: Continue Fluticasone nasal spray 50 mcg QD PRN and Loratadine 10 mg QD PRN (10) Tinnitus, right ear: Code(s): H93.11 - Tinnitus, right ear Category: Medical Plan: Patient also reports noticing some hearing decline in her right ear, along with the on and off ringing sensation in the ear that she's had for the past couple of months She was referred for hearing evaluation, which she had done earlier today Audiogram revealed (+) asymmetrical hearing loss and ENT referral is recommended for further evaluation ENT referral placed (11) Insomnia: Code(s): G47.00 - Insomnia, unspecified Category: Medical Qualifiers: Insomnia type: unspecified Qualified Code(s): G47.00 - Insomnia, unspecified Plan: Sleep hygiene reinforced Continue Trazodone 50 mg Q HS and Prazosin 1 mg Q HS (12) Anxiety: Code(s): F41.9 - Anxiety disorder, unspecified Category: Medical Plan: Continue Hydroxyzine 25 mg BID, Citalopram 20 mg QD, Bupropion XL 150 mg QD and Clonidine 0.2 mg Q HS Follow up with psychiatry as scheduled (13) Depression: Code(s): F32.A - Depression, unspecified Category: Medical Qualifiers: Depression Type: major depressive disorder Major depression recurrence: recurrent Active/Remission status: currently active Major depression episode severity: unspecified Qualified Code(s): F33.9 - Major depressive disorder, recurrent, unspecified Plan: Continue Citalopram 20 mg QD and Bupropion XL 150 mg QD Follow up with psychiatry as scheduled (14) Smoker: Code(s): F17.200 - Nicotine dependence, unspecified, uncomplicated Category: Social Hx Plan: Patient is counseled again on complete smoking cessation (15) Obesity (BMI 30-39.9): Code(s): E66.9 - Obesity, unspecified Category: Medical Plan: Reinforced diet/exercise as tolerated/lose weight Plan Follow up in 4 months Orders: Orders Lipid Panel 4 Months E78.00 - Pure hypercholesterolemia, unspecified Hemoglobin A1c 4 Months E11.9 - Type 2 diabetes mellitus without complications TSH reflex Free T4 4 Months E78.00 - Pure hypercholesterolemia, unspecified UA CC w/rflx Micro + Cult 4 Months R30.0 - Dysuria Vitamin D 25-OH Total 4 Months E55.9 - Vitamin D deficiency, unspecified Complete Blood Count Auto Diff 4 Months D64.9 - Anemia, unspecified Comprehensive [place]. Panel Fast 4 Months E78.00 - Pure hypercholesterolemia, unspecified Referrals Ear/Nose/Throat Referral H91.8X3 - Other specified hearing loss, bilateral
== END 2024-09-20 15:48 | disposition home or self-care (01) ==
LOC: HO.HMCH 14:43
PROVIDERS: PCP Internal Medicine; Visit Provider Internal Medicine
DX: E11.9 Type 2 diabetes mellitus without complications (principal); I85.10 Secondary esophageal varices without bleeding; M17.0 Bilateral primary osteoarthritis of knee; I10 Essential (primary) hypertension; K76.9 Liver disease, unspecified; D69.6 Thrombocytopenia, unspecified; D50.0 Iron deficiency anemia secondary to blood loss (chronic); R13.10 Dysphagia, unspecified; J30.9 Allergic rhinitis, unspecified; H93.11 Tinnitus, right ear; G47.00 Insomnia, unspecified; F41.9 Anxiety disorder, unspecified

== ENCOUNTER → 2024-09-20 14:43 | Outpatient (BNVA) | payer OTHER, SELFPAY | PROVIDERS: PCP Internal Medicine; Visit Provider Internal Medicine | DX: M17.0 Bilateral primary osteoarthritis of knee (principal); D64.9 Anemia, unspecified; E11.9 Type 2 diabetes mellitus without complications; I10 Essential (primary) hypertension; K76.9 Liver disease, unspecified; D69.6 Thrombocytopenia, unspecified; D50.0 Iron deficiency anemia secondary to blood loss (chronic); R13.10 Dysphagia, unspecified; I85.10 Secondary esophageal varices without bleeding; J30.9 Allergic rhinitis, unspecified; H93.11 Tinnitus, right ear; G47.00 Insomnia, unspecified; F41.9 Anxiety disorder, unspecified; F33.9 Major depressive disorder, recurrent, unspecified; F17.210 Nicotine dependence, cigarettes, uncomplicated; E66.9 Obesity, unspecified; H91.8X3 Other specified hearing loss, bilateral; Z68.37 Body mass index [BMI] 37.0-37.9, adult | CPT/HCPCS: 96127; 99212 ==

== ENCOUNTER 2024-09-23 11:53 | Outpatient (REF) | payer OTHER, SELFPAY ==
--- OUTSIDE RECORDS SUMMARY | 2024-09-23 12:23 | XMS_ITS | Patient Health Record ---
Author Organization 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
== END 2024-09-23 11:54 | disposition home or self-care (01) ==
LOC: HO.MAMMO 11:53
PROVIDERS: Visit Provider Internal Medicine
DX: Z12.31 Encounter for screening mammogram for malignant neoplasm of breast (principal)
CPT/HCPCS: 77063; 77067

== ENCOUNTER → 2024-09-23 12:15 | Outpatient (BNV) | payer OTHER, SELFPAY | PROVIDERS: Visit Provider Internal Medicine | DX: Z12.31 Encounter for screening mammogram for malignant neoplasm of breast (principal) | CPT/HCPCS: 77063; 77067 ==

== ENCOUNTER 2024-10-01 21:51 | Emergency (ER) | payer OTHER, SELFPAY ==
[2024-10-01 22:04] VITALS: BP 129/61; PULSE 61; RESP 20; TEMP 36.7; O2SAT 99; BMI 34.9
[2024-10-01 22:56] LABS: MANUAL DIFF FLAG NO
[2024-10-01 22:58] LABS: Hematocrit 29.2 % (37.0-47.0); Hemoglobin 9.3 g/dl (12.0-16.0); Imm Gran Abs Auto 0.00 X10*3/uL (0.00-0.03); Imm Gran Pct Auto 0.0 % (0.0-0.4); Lymphocytes Absolute Auto 1.2 X10*3/uL (1.2-4.9); Mean Corpuscular HGB Conc 31.8 g/dl (31.0-35.0); Mean Corpuscular Hemoglobin 23.0 pg (27.0-33.0); Mean Corpuscular Volume 72.1 fL (80.0-98.0); NRBC Abs Auto 0.000 X10*3/uL (0.0-0.012); NRBC Pct Auto 0.0 /100WBC (0.0-0.2); Platelet Count 118 X10*3/uL (160-400); Red Blood Count 4.05 X10*6/uL (4.20-5.50); White Blood Count 3.9 X10*3/uL (4.8-10.8)
[2024-10-01 23:11] LABS: Alanine Aminotransferase 13 U/L (0-31); Albumin Level 4.1 g/dL (3.5-5.0); Alkaline Phosphatase 66 U/L (39-117); Anion Gap 9 (12-20); Aspartate Amino Transferase 16 U/L (5-31); Blood Urea Nitrogen 11 mg/dL (9-16); Calcium 8.7 mg/dL (8.4-10.2); Carbon Dioxide 23 mmol/L (22-29); Chloride 110 mmol/L (96-108); Creatinine Clr Calc Pharmacy 96.7; Estimated Glomerular Filt Rate > 60; Potassium 3.4 mmol/L (3.3-5.1); Sodium 139 mmol/L (135-145); Total Protein 6.5 g/dL (6.5-8.0)
[2024-10-01 23:34] LABS: Resp Syncy Virus RNA Qual PCR NEGATIVE (Negative); SARS COV2 PCR INHOUSE NEGATIVE (Negative)
--- NOTE | 2024-10-01 23:45 | ED_ITS ---
HPI - Weakness General Chief complaint: Weakness Stated complaint: dizziness Time Seen by Provider: 10/01/24 22:25 Source: patient Mode of arrival: ambulatory Limitations: no limitations History of Present Illness ED Provider: HPI Narrative: Patient's history of menorrhagia been follow up at [facility] product safety coordinator plan for ablation comes here as feeling weak and tired for last few days patient does get iron infusions for last 2 months received 1 unit of blood transfusion in a 07/09 Related Data Home Medications ?Medication ?Instructions ?Recorded ?Confirmed bupropion HCl 150 mg 24 hr tablet, 150 mg PO DAILY 09/20/24 extended release citalopram 20 mg tablet 20 mg PO DAILY 02/02/2410/08 pantoprazole 40 mg tablet,delayed 40 mg PO BEDTIME PRN Heartburn 03/14/24 09/20/24 release Previous Rx's ?Medication ?Instructions ?Recorded loratadine 10 mg tablet 10 mg PO DAILY PRN allergy 1 04/22/22 symptoms 90 days #90 tabs hydroxyzine pamoate 25 mg capsule 25 mg PO BID PRN anx iety 30 days 05/19/23 #60 caps prazosin 1 mg capsule 1 mg PO BEDTIME 30 days #30 caps 06/11/23 trazodone 50 mg tablet 50 mg PO BEDTIME PRN insomni a 30 08/12/23 days #30 tabs blood sugar diagnostic (FreeStyle #100 ea 02/02/24 Lite Strips) lancets 28 gauge (FreeStyle #100 ea 02/02/24 Lancets) blood-glucose meter (FreeStyle #1 ea 02/10/24 Lite Meter kit) albuterol sulfate 90 mcg/actuation 2 inh inhalation Q6 H PRN shortness 03/12/24 aerosol inhaler of breath 30 days #6.7 grams albuterol sulfate 2.5 mg/3 mL 2.5 mg (3 mL) continuous 03/22/24 (0.083 %) solution for nebulization nebulization QID P RN shortness of breath or wheezing 30 days #180 mL fluticasone propionate 50 1 spray intranasal DAILY PRN 03/25/24 mcg/actuation nasal allergy symptoms #16 mL spray,suspension nebulizers (AeroEclipse II #1 ea 04/02/24 Nebulizer) Medline Aeromist Nebulizert #1 ea 04/14/24 clonidine HCl 0.2 mg tablet 0.2 mg PO BEDTIME 30 days #30 tabs 07/21/24 furosemide 20 mg tablet 20 mg PO DAILY #90 tabs 08/15 10/08 metformin 500 mg tablet 500 mg PO BID #180 tabs 08/15 10/08 spironolactone 50 mg tablet 50 mg PO DAILY #90 tabs famotidine 20 mg tablet 20 mg PO DAILY #90 tabs 12/09 Allergies Allergy/AdvReac Type Severity Reaction Status Date / Time aspirin (ASPIRIN) AdvReac Intermediate ULCER; GI Verified 10/01/24 22:09 UPSET, internal bleeding dextran 40 AdvReac Itching Verified 10/01/24 22:09 Review of Systems 2 Review of Systems: Yes all other systems are reviewed and are negative PMFSH Past Medical History Medical History Osteoarthritis of knees, bilateral ELIJAH I (cervical intraepithelial neoplasia I) Obesity, Class III, BMI 40-49.9 (morbid obesity) Smoker Depression Anxiety Insomnia Esophageal varices Diabetes mellitus Lower abdominal pain Allergic rhinitis Common cold Anxiety and depression Obesity (BMI 30-39.9) Smoker Hypersplenism Pancytopenia Bilateral calcaneal spurs Thrombocytopenia Ascites Iron deficiency anemia due to chronic blood loss History of esophageal varices Chronic pain of both feet Varicose veins of right lower extremity with inflammation Sprain of left knee IBS (irritable bowel syndrome) GERD (gastroesophageal reflux disease) Depression Dementia Liver disease Hypertension Surgical History Hx of colonoscopy History of D&C S/P TIPS (transjugular intrahepatic portosystemic shunt) (~10/2015) History of liver biopsy (~04/2002) History of esophagogastroduodenoscopy (EGD) Family History Family History Father Diabetes mellitus Mother Diabetes mellitus Alzheimer's dementia Pneumothorax Maternal Aunt Ovarian cancer Daughter No problems noted. Maternal Aunt Cervical cancer Maternal Grandfather Pancreatic cancer Other Mental health disorder Social History Social History Household Members: Significant Other Housing: Apartment Do you presently have visiting nurse or other home services: No Alcohol intake: current Alcohol intake frequency: holidays/special occasions only Patient Tobacco Use Status: Never used Tobacco Tobacco use type: Cigarette Cigarette Packs Per Day: 0.5 Cigarettes Per Day: 12 Years Smoked: 8 years Smoked in Last 30 Days: Yes e-Cigarette/Vaping Use: Never Used Second Hand Smoke Exposure: Yes Use of substances other than those prescribed or required for medical reasons: No Advance Directives: No Advance Directives Information Provided: No Patient : No service: No Current occupational status: unemployed Current occupational exposures/hazards: No Cognitive needs: No Hearing needs: No Vision needs: No Physical Exam 2 Exam: Exam: Appearance: Alert. Oriented X3. No acute distress. Eyes: 1+ pallor or icterus ENT: Pharynx normal Oral Mucosa moist tympanic membrane intact no erythema, Neck: Normal inspection. Neck supple. CVS: Normal heart rate and rhythm. Pulses normal. Respiratory: No respiratory distress. Equal air entry bilateral, no wheezing/rales/rhonchi Abd: soft, not tender Skin: Skin warm and dry. Normal skin color. Normal skin turgor. Extremities: No lower extremity edema, no calf tenderness Neuro: Oriented X 3. Vital Signs: Vital Signs: Last Vital Signs Temp 98.0 F 10/02/24 00:08 Pulse 50 10/02/24 00:08 Resp 18 10/02/24 00:08 BP 125/48 L 10/02/24 00:08 Pulse Ox 100 10/02/24 00:08 O2 Del Method Room Air 10/02/24 00:08 BMI result Body Mass Index 34.9 Appearance: Alert. Oriented X3. No acute distress. Eyes: PERRLA, No Nystagmus mild pallor ENT: Pharynx normal. Oral Mucosa moist Neck: Normal inspection. Neck supple. CVS: Normal heart rate and rhythm. Pulses normal. Respiratory: No respiratory distress. Equal air entry bilateral, no wheezing/rales/rhonchi Abdomen: Soft and nontender. Bowel sounds are present, no mass palpable, no CVA tenderness Skin: Skin warm and dry. Normal skin color. Normal skin turgor. Extremities: No lower extremity edema. No calf tenderness Neuro: Oriented X 3. No motor deficit. No sensory deficit.No cerebellar signs , cranial nerves II-XII intact Medical Decision Making Medical Decision Making [facility] Narrative: Patient with chronic iron-deficiency anemia secondary to menorrhagia on iron transfusion current hemoglobin is 9.3 hematocrit 29.2 patient advised to continue iron infusions and plan to follow up with [facility] print support specialist for uterine ablation Lab Data [facility] Lab Attestation statement: I reviewed the patient's lab results. 10/01/24 22:52 10/01/24 22:52 Labs: Lab Results 10/01/24 Range/Units 22:52 WBC 3.9 L (4.8-10.8) X10*3/uL RBC 4.05 L (4.20-5.50) X10*6/uL Hgb 9.3 L (12.0-16.0) g/dl Hct 29.2 L (37.0-47.0) % MCV 72.1 L (80.0-98.0) fL MCH 23.0 L (27.0-33.0) pg MCHC 31.8 (31.0-35.0) g/dl RDW 17.2 H (11.0-16.0) % Plt Count 118 L (160-400) X10*3/uL MPV 10.8 (9.4-12.3) fL Immature Gran % (Auto) 0.0 (0.0-0.4) % Neut % (Auto) 61.2 (45-73) % Lymph % (Auto) 29.7 (20-40) % [place] % (Auto) 6.7 (2-11) % Eos % (Auto) 1.6 (0-4) % Baso % (Auto) 0.8 (0-2) % Lymph # (Auto) 1.2 (1.2-4.9) X10*3/uL [place] # (Auto) 0.3 (0.1-1.2) X10*3/uL Eos # (Auto) 0.1 (0.0-0.4) X10*3/uL Baso # (Auto) 0.0 (0.0-0.2) X10*3/uL Abs Immat Gran (auto) 0.00 (0.00-0.03) X10*3/uL Absolute Neuts (auto) 2.4 (2.0-8.3) x10*3/uL Absolute Nucleated RBC 0.000 (0.0-0.012) X10*3/uL Nucleated RBC % (auto) 0.0 (0.0-0.2) /100WBC Sodium 139 (135-145) mmol/L Potassium 3.4 (3.3-5.1) mmol/L Chloride 110 H (96-108) mmol/L Carbon Dioxide 23 (22-29) mmol/L Anion Gap 9 L (12-20) BUN 11 (9-16) mg/dL Creatinine 0.75 (0.5-1.4) mg/dL Estim Creat Clear Calc 96.7 Estimated GFR > 60 Random Glucose 100 (60-115) mg/dL Calcium 8.7 (8.4-10.2) mg/dL Total Bilirubin 0.2 (0.0-1.0) mg/dL AST 16 (5-31) U/L ALT 13 (0-31) U/L Alkaline Phosphatase 66 (39-117) U/L Total Protein 6.5 (6.5-8.0) g/dL Albumin 4.1 (3.5-5.0) g/dL Influenza Type A (PCR) NEGATIVE (Negative) Influenza Type B (PCR) NEGATIVE (Negative) RSV RNA Qual (PCR) NEGATIVE (Negative) SARS-CoV-2 RNA (RT-PCR) NEGATIVE (Negative) Discharge Plan Discharge Clinical Impression: Iron deficiency anemia due to chronic blood loss Patient Disposition: Home, Self-Care Instructions: Iron Rich Diet (ED), Anemia (ED) Additional Instructions: Follow with your PCP continued to have iron infusion and follow up with [facility] gynecology for uterine ablation as planned Prescriptions: No Action loratadine 10 mg tablet 10 mg PO DAILY PRN (Reason: allergy symptoms) 90 Days Qty: 90 3RF hydroxyzine pamoate 25 mg capsule 25 mg PO BID PRN (Reason: anxiety) 30 Days Qty: 60 0RF trazodone 50 mg tablet 50 mg PO BEDTIME PRN (Reason: insomnia) 30 Days Qty: 30 2RF (DME) blood-glucose meter [FreeStyle Lite Meter] Kit See Rx Instructions .ROUTE .MEDSUPPLY Qty: 1 0RF Rx Instructions: As directed albuterol sulfate 2.5 mg /3 mL (0.083 %) solution for nebulization 2.5 mg continuous nebulization QID PRN (Reason: shortness of breath or wheezing) 30 Days Qty: 180 3RF fluticasone propionate 50 mcg/actuation spray,suspension 1 spray intranasal DAILY PRN (Reason: allergy symptoms) Qty: 16 1RF (DME) nebulizers [AeroEclipse II Nebulizer] Mis See Rx Instructions .Route Qty: 1 0RF Rx Instructions: As directed (DME) Medline Aeromist Nebulizert See Rx Instructions .Route .MEDSUPPLY Qty: 1 0RF Rx Instructions: As directed clonidine HCl 0.2 mg tablet 0.2 mg PO BEDTIME 30 Days Qty: 30 2RF furosemide 20 mg tablet 20 mg PO DAILY Qty: 90 0RF metformin 500 mg tablet 500 mg PO BID Qty: 180 0RF spironolactone 50 mg tablet 50 mg PO DAILY Qty: 90 0RF famotidine 20 mg tablet 20 mg PO DAILY Qty: 90 0RF albuterol sulfate 90 mcg/actuation HFA aerosol inhaler 2 inh inhalation Q6H PRN (Reason: shortness of breath) 30 Days Qty: 6.7 0RF pantoprazole 40 mg tablet,delayed release (DR/EC) 40 mg PO BEDTIME PRN (Reason: Heartburn) prazosin 1 mg capsule 1 mg PO BEDTIME 30 Days Qty: 30 2RF bupropion HCl 150 mg tablet extended release 24 hr 150 mg PO DAILY citalopram 20 mg tablet 20 mg PO DAILY (DME) lancets [FreeStyle Lancets] 28 gauge misc See Rx Instructions .ROUTE .MEDSUPPLY Qty: 100 12RF Rx Instructions: As directed once a day (DME) FreeStyle Lite Strips Strip See Rx Instructions .ROUTE .MEDSUPPLY Qty: 100 12RF Rx Instructions: As directed once a day Interventions: ED Discharge Assessment Last Done: 10/02/24 00:08 Discharge Date/Time: 10/02/24 00:11 Print Language: Haitian
[2024-10-02 00:01] VITALS: BP 125/48; PULSE 50; RESP 18; TEMP 36.7; O2SAT 100
[2024-10-02 00:08] VITALS: BP 125/48; PULSE 50; RESP 18; TEMP 36.7; O2SAT 100
== END 2024-10-02 00:11 | disposition home or self-care (01) ==
PROVIDERS: Emergency Provider Internal Medicine; PCP Internal Medicine
DX: D50.0 Iron deficiency anemia secondary to blood loss (chronic) (principal); N92.1 Excessive and frequent menstruation with irregular cycle; R53.1 Weakness; E11.9 Type 2 diabetes mellitus without complications; J45.909 Unspecified asthma, uncomplicated; Z03.818 Encounter for observation for suspected exposure to other biological agents ruled out; Z79.84 Long term (current) use of oral hypoglycemic drugs; Z79.899 Other long term (current) drug therapy
CPT/HCPCS: 36415; 80053; 85025; 87637; 99283; 99284

== ENCOUNTER 2024-11-17 14:31 | Outpatient (AMB) | payer OTHER, SELFPAY ==
--- NOTE | 2024-11-17 14:37 | MHC.PC.OV ---
Vital Signs 11/17/24 14:39 Height 5 ft 2 in Weight 206 lb 4 oz BMI 37.7 BP 126/80 Blood Pressure Location Lt brachial Position Sitting Respiration 18 Pulse 72 Pulse Source Pulse Oximeter Temp 97.3 F Temp Source Temporal Artery Scan Pulse Oximetry (%) 99 Oxygen Delivery Method Room Air Intake Visit Reasons: Pain in both hands Automatic Splicing Machine Operator Required: Yes Automatic Splicing Machine Operator Language: Albanian Accompanied by: Self / Same As Patient Allergies aspirin (ASPIRIN) Adverse Reaction (Intermediate, Verified 11/21/24 22:17) ULCER; GI UPSET, internal bleeding dextran 40 Adverse Reaction (Verified 11/21/24 22:17) Itching Medication List - Last Reconciled 11/21/24 by David Elizabeth MD albuterol sulfate 90 mcg/actuation 2 inhalations inhalation Q6H PRN 30 days albuterol sulfate 2.5 mg (3 mL) continuous nebulization QID PRN 30 days blood sugar diagnostic (FreeStyle Lite Strips) As directed once a day blood-glucose meter (FreeStyle Lite Meter kit) As directed bupropion HCl XL 150 mg PO DAILY citalopram 20 mg PO DAILY clonidine HCl 0.2 mg PO BEDTIME 30 days famotidine 20 mg PO DAILY fluticasone propionate 50 mcg/actuation 1 spray intranasal DAILY PRN furosemide 20 mg PO DAILY hydroxyzine pamoate 25 mg PO BID PRN 30 days lancets (FreeStyle Lancets) As directed once a day loratadine 10 mg PO DAILY PRN 90 days [Medline Aeromist Nebulizert As directed] metformin 500 mg PO BID nebulizers (AeroEclipse II Nebulizer) As directed pantoprazole 40 mg PO BEDTIME PRN prazosin 1 mg PO BEDTIME 30 days spironolactone 50 mg PO DAILY trazodone 50 mg PO BEDTIME PRN 30 days Tobacco use date assessed: 11/17/24 Dental Screening Dental Screen Date: 11/17/24 Did you have a dental visit in the last 12 months?: No Did you have a dental problem in the last 6 months where you did not have access to dental care?: No Was dental information given to patient?: No HPI Pain in both hands HPI Details Patient comes in today complaining of increased pain in both hands often lately States that she feels that her hand pains have gotten worse over the past few months and that she sometimes have a hard time sleeping at night due to her head pain States that her hands feel swollen at times - she currently has difficulty making a fist with her hand as there is mild edema noted bilaterally She has had no x-rays done on her hands in the past States that she feels okay otherwise She denies any headaches or dizziness Denies any chest pains, no increased shortness of breath No nausea/vomiting, no abdominal pain No change in bowel habits noted [facility] Medical History Osteoarthritis of knees, bilateral ELIJAH I (cervical intraepithelial neoplasia I) Obesity, Class III, BMI 40-49.9 (morbid obesity) Smoker Depression Anxiety Insomnia Esophageal varices Diabetes mellitus Lower abdominal pain Allergic rhinitis Common cold Anxiety and depression Obesity (BMI 30-39.9) Smoker Hypersplenism Pancytopenia Bilateral calcaneal spurs Thrombocytopenia Ascites Iron deficiency anemia due to chronic blood loss History of esophageal varices Chronic pain of both feet Varicose veins of right lower extremity with inflammation Sprain of left knee IBS (irritable bowel syndrome) GERD (gastroesophageal reflux disease) Depression Dementia Liver disease Hypertension Surgical History Hx of colonoscopy History of D&C S/P TIPS (transjugular intrahepatic portosystemic shunt) (~10/2015) History of liver biopsy (~04/2002) History of esophagogastroduodenoscopy (EGD) Family History Father Diabetes mellitus Mother Diabetes mellitus Alzheimer's dementia Pneumothorax Maternal Aunt Ovarian cancer Daughter No problems noted. Maternal Aunt Cervical cancer Maternal Grandfather Pancreatic cancer Other Mental health disorder Social History Household Members: Significant Other Housing: Apartment Do you presently have visiting nurse or other home services: No Alcohol intake: current Alcohol intake frequency: holidays/special occasions only Patient Tobacco Use Status: Never used Tobacco Tobacco use type: Cigarette Cigarette Packs Per Day: 0.5 Cigarettes Per Day: 12 Years Smoked: 8 years e-Cigarette/Vaping Use: Never Used Second Hand Smoke Exposure: Yes service: No Current occupational status: unemployed Current occupational exposures/hazards: No Cognitive needs: No Hearing needs: No Vision needs: No Female Reproductive History Menstrual Age of Menarche: 8 Questionnaire PHQ-9 Over the last 2 weeks, how often have you been bothered by any of the following problems? 1. Little interest or pleasure in doing things: more than half the days 2. Feeling down, depressed, or hopeless: not at all 3. Trouble falling or staying asleep, or sleeping too much: not at all 4. Feeling tired or having little energy: more than half the days 5. Poor appetite or overeating: not at all 6. Feeling bad about yourself - or that you are a failure or have let yourself or your family down: not at all 7. Trouble concentrating on things, such as reading the newspaper or watching television: not at all 8. Moving or speaking so slowly that other people could have noticed. Or the opposite - being so fidgety or restless that you have been moving around a lot more than usual: not at all 9. Thoughts that you would be better off or of hurting yourself in some way: not at all Total score: 4 Depression Screening Interpretation: Positive Depression Screening Follow-up: Existing condition and In treatment Depression Screening Done: Yes 50435 - PHQ-9 Billing: Yes Source: Developed by Drs. Rashaad Franklin, Rosana Lechuga, Noé Neil and colleagues, with an educational marika from [employer]. Thrive Questionnaire Date Thrive assessed: 11/17/24 I am a: Patient What is your living situation today?: I have a steady place to live Within the past 12 months, did the food you bought not last and you didn't have the money to get more?: I choose not to answer this question Within the past 12 months, did you worry whether your food would run out before you got money to buy more?: I choose not to answer this question Do you have trouble paying for medicines?: I choose not to answer this question Do you have trouble getting transportation to medical appointments?: No Do you have trouble paying your heating and electricity bill?: I choose not to answer this question Do you have trouble taking care of your child, family member or friend?: Yes Do you have trouble with day-to-day activities such as bathing, preparing meals, shopping, managing finances, etc.?: I choose not to answer this question Are you currently unemployed and looking for a job?: Yes Are you interested in more education?: I choose not to answer this question Please select the resources that you would like help with: Care for elder or disabled Currently or been in a relationship where the following occur: I choose not to answer THRIVE Score: 0 AUDIT C Alcohol Use Questionnaire (AUDIT-C) 1. How often do you have a drink containing alcohol?: 4 or more times a week 2. How many drinks containing alcohol do you have on a typical day when you are drinking?: 1 or 2 3. How often do you have six or more drinks on one occasion?: Less than monthly Total Score: 5 Score Reviewed/Action Taken: Yes CALEB-7 AMB Questionnaire CALEB-7 Date CALEB - 7 assessed: 11/17/24 Feeling nervous, anxious, or on edge: 1 = Several days Not being able to stop or control worryin = Not at all Worrying too much about different things: 3 = Nearly every day Trouble relaxin = Nearly every day Being so restless that it is hard to sit still: 2 = More than half the days Becoming easily annoyed or irritable: 2 = More than half the days Feeling afraid as if something awful might happen: 0 = Not at all Total CALEB-7 score (0-4 normal; 5-9 mild; 10-14 moderate; 15-21 severe): 11 Source: Developed by Drs. Rashaad Franklin, Rosana Lechuga, Noé Neil and colleagues, with an educational marika from [employer]. Review of Systems Const Denies chills, Reports fatigue, Denies fever(s) and Denies headache(s) ENT Denies dysphagia, Denies dizziness, Denies otalgia, Denies headache(s), Denies neck pain, Denies odynophagia, Reports tinnitus (in the right ear) and Denies sore throat Card Denies chest pain, Denies palpitations and Denies dyspnea Resp Denies chest congestion, Denies cough and Denies dyspnea GI Denies abdominal pain, Denies constipation, Denies dysphagia, Denies heartburn, Denies diarrhea, Denies nausea, Denies odynophagia and Denies vomiting Denies difficulty voiding, Denies nocturia, Reports menorrhagia, Denies dysuria and Denies urinary urgency Musc Denies back pain, Reports arthralgias (over both knees; in both hands lately), Reports joint swelling (in both hands/fingers) and Denies neck pain Skin/Breast Denies rash Neuro Denies dizziness and Denies headache(s) Endo Reports fatigue and Denies palpitations Physical exam (Primary Care) Vital Signs: Last Vital Signs Temp 97.3 F 11/17/24 14:39 Pulse 72 11/17/24 14:39 Resp 18 11/17/24 14:39 BP 126/80 11/17/24 14:39 Pulse Ox 99 11/17/24 14:39 Oxygen Delivery Method Room Air 11/17/24 14:39 BMI result Body Mass Index 37.7 Tobacco/Smoking Status: Tobacco use Status Tobacco use date assessed 11/17/24 11/17/24 14:44 Patient Tobacco Use Status Never used Tobacco 11/17/24 14:38 Tobacco use type Cigarette 11/17/24 14:38 e-Cigarette/Vaping Use Never Used 11/17/24 14:38 PHQ-9: PHQ-9 Score PHQ-9: Total score 4 11/17/24 15:13 Depression Screening Interpretation: Positive Depression Screening Follow-up: Existing condition and In treatment Thrive Assessment: Date of Thrive Assessment Date Thrive assessed 11/17/24 11/17/24 14:44 Currently or been in a relationship where the following occur: I choose not to answer Const General: no acute distress and alert HENMT Ears: TM's normal bilaterally and EAC's normal Throat: Yes posterior oropharynx normal and Yes tonsils normal (no TP congestion) Neck Neck: Yes supple and No lymphadenopathy Thyroid: Thyroid normal Resp Auscultation: no crackles, no rales, no wheezes and diminished lung sounds (slightly) bilateral Cardio Rate: regular rate Rhythm: regular rhythm Heart sounds: no murmurs GI Palpation (GI): Soft to palpation and nontender Auscultation: normal bowel sounds General: Yes no CVA tenderness Back/Spine/Pelvis Back: no CVA tenderness Thoracic/Lumbar Spine: No lumbar spinal tenderness Skin Rashes: no rashes Extrem Other: (+) mild edema of both hands, with involvement of the fingers General: Yes no clubbing, cyanosis or edema Coding Level of Care Code Est Pt Level 4 (73555) Diagnoses Arthralgia of hands, bilateral M25.541; M25.542 Primary osteoarthritis of both knees M17.0 Osteoarthritis type: primary Type 2 diabetes mellitus without complication, without long-term current use of insulin E11.9 Diabetes mellitus type: type 2 Diabetes mellitus fdc insulin use: without fdc use Diabetes mellitus complication status: without complication Primary hypertension I10 Hypertension type: primary hypertension Liver disease K76.9 Thrombocytopenia D69.6 Iron deficiency anemia due to chronic blood loss D50.0 Anemia type: iron deficiency Iron deficiency anemia type: chronic blood loss Secondary esophageal varices without bleeding I85.10 Esophageal varices type: secondary Esophageal varices bleeding: without bleeding Insomnia, unspecified type G47.00 Insomnia type: unspecified Anxiety F41.9 Episode of recurrent major depressive disorder, unspecified depression episode severity F33.9 Depression Type: major depressive disorder Major depression recurrence: recurrent Active/Remission status: currently active Major depression episode severity: unspecified Smoker F17.200 Obesity (BMI 30-39.9) E66.9 Dysphagia, unspecified type R13.10 Dysphagia type: unspecified Allergic rhinitis, unspecified seasonality, unspecified trigger J30.9 Allergic rhinitis trigger: unspecified Allergic rhinitis seasonality: unspecified Additional Codes PHQ-9 - 98824 - PHQ-9 Billing: Yes ([id number]) Assessment & Plan Assessment & Plan (1) Arthralgia of hands, bilateral: Code(s): M25.541 - Pain in joints of right hand; M25.542 - Pain in joints of left hand Category: Medical Plan: Will send patient for x-rays of both hands for further evaluation We will also send patient for some additional labs as well as EMG and NCV of both upper extremities/hands for further evaluation (2) Osteoarthritis of knees, bilateral: Code(s): M17.0 - Bilateral primary osteoarthritis of knee Category: Medical Qualifiers: Osteoarthritis type: primary Qualified Code(s): M17.0 - Bilateral primary osteoarthritis of knee Plan: X-rays of both knees done a few months ago revealed (+) mild to moderate medial and mild lateral compartment osteoarthrosis in the right knee and very mild medial compartment osteoarthritis in the left knee Follow up with orthopedics as scheduled (3) Diabetes mellitus: Code(s): E11.9 - Type 2 diabetes mellitus without complications Category: Medical Qualifiers: Diabetes mellitus type: type 2 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 insulin use: without fdc use Diabetes mellitus complication status: without complication Qualified Code(s): E11.9 - Type 2 diabetes mellitus without complications Plan: Her in-office HgbA1c was at 5.7% when checked a couple of months ago (was previously at 6.0% a few months ago) - goal is at least <7.0% Reinforced diabetic diet Continue Metformin 500 mg BID (4) Hypertension: Code(s): I10 - Essential (primary) hypertension Category: Medical Qualifiers: Hypertension type: primary hypertension Qualified Code(s): I10 - Essential (primary) hypertension Plan: Reinforced low sodium diet - goal is systolic BP of at least 130 mm or less Continue Furosemide 20 mg QD (5) Liver disease: Comment: Pre-hepatic portal hypertension Code(s): K76.9 - Liver disease, unspecified Category: Medical Plan: Patient has non-cirrhotic portal hypertension complicated by esophageal varices and with past Hx of GI bleeding She is S/P TIPS placement at [facility] in 10/2015, with no GI bleeding since She is now seeing Dr. Mendoza again for regular GI follow up Abdominal and pelvic CT done in 10/2019 and abdominal US in 09/2019 both showed (+) patent right TIPS stent at the time, with no free fluid or ascites noted She had abdominal and pelvic CT done more recently in November 2023, which revealed no evidence of nephrolithiasis or hydronephrosis/hydroureter; (+) changes of prior TIPS, chronic splenomegaly, cardiomegaly and a small pericardial effusion. Continue Spironolactone 50 mg QD and Furosemide 20 mg QD Follow up with GI as scheduled (6) Thrombocytopenia: Code(s): D69.6 - Thrombocytopenia, unspecified Category: Medical Plan: This is most likely related to her hypersplenism / splenomegaly and liver disease Patient relates no increased bleeding lately Will continue to monitor her CBC and platelet count regularly (7) Anemia: Code(s): D64.9 - Anemia, unspecified Category: Medical Qualifiers: Anemia type: iron deficiency Iron deficiency anemia type: chronic blood loss Qualified Code(s): D50.0 - Iron deficiency anemia secondary to blood loss (chronic) Plan: This is most likely due to iron-deficiency anemia related to chronic blood loss She is still anemic, with H/H at 9.9/ 31.4 on her labs done a couple of weeks ago She was supposed to get a hysterectomy at [facility] done a couple of years ago but cancelled this due to the COVID-19 pandemic She is currently scheduled to be seen at [facility] now for this in a few weeks Follow up with Dr. Dickens as scheduled - she is now receiving IV Venofer as needed for her anemia (8) Esophageal varices: Code(s): I85.00 - Esophageal varices without bleeding Category: Medical Qualifiers: Esophageal varices type: secondary Esophageal varices bleeding: without bleeding Qualified Code(s): I85.10 - Secondary esophageal varices without bleeding Plan: These are most likely secondary to her portal hypertension - has had no active bleeding lately Continue Famotidine 20 mg BID and Pantoprazole 40 mg QD Follow up with GI as scheduled (9) Insomnia: Code(s): G47.00 - Insomnia, unspecified Category: Medical Qualifiers: Insomnia type: unspecified Qualified Code(s): G47.00 - Insomnia, unspecified Plan: Sleep hygiene reinforced Continue Trazodone 50 mg Q HS and Prazosin 1 mg Q HS (10) Anxiety: Code(s): F41.9 - Anxiety disorder, unspecified Category: Medical Plan: Continue Hydroxyzine 25 mg BID, Citalopram 20 mg QD, Bupropion XL 150 mg QD and Clonidine 0.2 mg Q HS Follow up with psychiatry as scheduled (11) Depression: Code(s): F32.A - Depression, unspecified Category: Medical Qualifiers: Depression Type: major depressive disorder Major depression recurrence: recurrent Active/Remission status: currently active Major depression episode severity: unspecified Qualified Code(s): F33.9 - Major depressive disorder, recurrent, unspecified Plan: Continue Citalopram 20 mg QD and Bupropion XL 150 mg QD Follow up with psychiatry as scheduled (12) Smoker: Code(s): F17.200 - Nicotine dependence, unspecified, uncomplicated Category: Social Hx Plan: Patient is counseled again on complete smoking cessation (13) Obesity (BMI 30-39.9): Code(s): E66.9 - Obesity, unspecified Category: Medical Plan: Reinforced diet/exercise as tolerated/lose weight (14) Dysphagia: Code(s): R13.10 - Dysphagia, unspecified Category: Medical Qualifiers: Dysphagia type: unspecified Qualified Code(s): R13.10 - Dysphagia, unspecified Plan: Her barium swallow done in September 2023 revealed findings suggestive of achalasia - (+) dilated esophagus, with moderate smooth narrowing at the GE junction suggestive of moderate achalasia Follow up with GI as scheduled (15) Allergic rhinitis: Code(s): J30.9 - Allergic rhinitis, unspecified Category: Medical Qualifiers: Allergic rhinitis trigger: unspecified Allergic rhinitis seasonality: unspecified Qualified Code(s): J30.9 - Allergic rhinitis, unspecified Plan: Continue Fluticasone nasal spray 50 mcg QD PRN and Loratadine 10 mg QD PRN Plan Follow up as scheduled in January 2025 Orders: Orders Complete Blood Count Auto Diff 11/17/24 M25.541 - Pain in joints of right hand, M25.542 - Pain in joints of left hand Comprehensive Met. Panel 11/17/24 M25.541 - Pain in joints of right hand, M25.542 - Pain in joints of left hand C Reactive Protein 11/17/24 M25.541 - Pain in joints of right hand, M25.542 - Pain in joints of left hand RONAK Reflex Titer and Pattern 11/17/24 M25.541 - Pain in joints of right hand, M25.542 - Pain in joints of left hand Rheumatoid Factor 11/17/24 M25.541 - Pain in joints of right hand, M25.542 - Pain in joints of left hand XR Hand Bilat min 3v 11/17/24 M79.641 - Pain in right hand, M79.642 - Pain in left hand NE electromyogram (EMG) 11/17/24 M25.541 - Pain in joints of right hand, M25.542 - Pain in joints of left hand NE nerve conduction velocity 11/17/24 M25.541 - Pain in joints of right hand, M25.542 - Pain in joints of left hand Erythrocyte Sedimentation Rate 11/17/24 M25.541 - Pain in joints of right hand, M25.542 - Pain in joints of left hand
[2024-11-17 14:39] VITALS: BP 126/80; PULSE 72; RESP 18; TEMP 36.3; O2SAT 99; BMI 37.7
--- OUTSIDE RECORDS SUMMARY | 2024-11-17 16:49 | XMS_ITS | Patient Health Record ---
Author Organization [facility] Address [address] [place] [address] Care Team Providers Care Maintenance Technician [address] Shift Name Role Phone Ira Hayes Primary Care Provider Unavailab Enmanuel Lua Jr Unavailable [phone] Elba PINA, Radha Unavailable Unavailable Reason For Referral No Information Plan Of Treatment No Information Insurance Providers Payer Name Payer Address Payer Phone Subscriber Number Group Number Insured Name Patient Relationship to Insured Coverage Start Date Coverage End Date [facility] [address] [address] [place], [place] [id number] RONAK MEEHAN Self - patient is the insured
--- OUTSIDE RECORDS SUMMARY | 2024-11-17 16:49 | XMS_ITS | Clinical Summary ---
Author Organization [facility] Address [address] [facility] [address] [address] [place] [id number] Phone Care Team Providers Care Financial Representative Name Role Phone Pcp, Unknown Primary Care Provider Unavailabl e Allergies Active Allergy Reactions Criticality Noted Date Comments Aspirin 10/23/2024 Medications naproxen (NAPROSYN) 500 MG tablet Take 1 tablet (500 mg total) by mouth 2 (two) times a day with meals. 8 tablet 5 Active naproxen (NAPROSYN) 500 MG tablet Take 1 tablet (500 mg total) by mouth 2 (two) times a day with meals. 8 tablet 5 10/24/19 25 Discontinued Encounters Date Type Department Care Team Description 10/23/2024 12:38 PM EDT - 10/23/2024 6:48 PM EDT Emergency [facility] [address] [place] [address] Blake Guzman MD Discharge Disposition: Home or Self Care from Last 3 Months Social History Tobacco Use Types Packs/Day Years Used Date Smoking Tobacco: Never Assessed Education Answer Date Recorded Are you interested in more education? Not on mitzi e 10/23/2024 Are you concerned about learning? Not on file 10/23/2024 No 10/23/2024 No 10/23/2024 Digital Access Answer Date Recorded No 10/23/2024 No 10/23/2024 Reliable internet access at home? Not on file 10/23/2024 Device with a working camera? Not on file Intimate Partner Violence Answer Date R ecorded Are you denied basic needs s uch as food, clothing, or medical care? No 10/23/2024 In the past 12 months have y ou been in a relationship with a person who hurts, threatens, or tries to control you? No 10/23/2024 Are you denied basic needs s uch as food, clothing, or medical care? No 10/23/2024 In the past 12 months have y ou been in a relationship with a person who hurts, threatens, or tries to control you? No 10/23/2024 Comments Unknown Sex and Gender Information Value Date Recorded Sex Assigned at Female 10/23/2024 11:21 AM EDT Legal Sex Female 11:11 AM EDT Gender Identity Female 10/23/2024 11:21 AM EDT Sexual Orientation Straight 10/23/2024 11 :21 AM EDT Last Filed Vital Signs Vital Sign Reading Time Taken Comments Blood Pressure 133/61 10/23/2024 6:22 PM EDT Pulse 62 10/23/2024 6:22 PM EDT Temperature 36.4 C (97.5 F) 10/23/2024 6:22 PM EDT Respiratory Rate 18 10/23/2024 6:22 PM EDT Oxygen Saturation 100% 10/23/2024 6:22 PM EDT Inhaled Oxygen Concentration - - Weight 93.4 kg (206 lb) 10/23/2024 11:34 AM EDT Height 157.5 cm (5' 2 ) 10/23/2024 11:34 AM EDT Body Mass Index 37.68 10/23/2024 11:34 AM EDT Plan of Treatment Health Maintenance Due Date Last Done Comments Adult Td,Tdap Booster 1979 LIPID PANEL 1979 DEPRESSION SCREENING 1991 SMOKING Hx and SMOKELESS TOB ACCO SCREENING 1992 HEPATITIS C SCREENING 1997 HIV ONE-TIME SCREENING (18-6 5 YEARS) 1997 PAP SMEAR 2000 SCREENING FOR DIABETES 2014 MAMMOGRAM 2019 COVID-19 VACCINE ( - 2023-2 5 season) 2023 COLOGUARD 2024 COLONOSCOPY 2024 COLORECTAL CANCER SCREENING 2024 FIT TEST 2024 FOBT 2024 SIGMOIDOSCOPY 2024 VIRTUAL COLONOSCOPY 2024 HEPATITIS A VACCINES Aged Out No long er eligible based on patient's age to complete this topic HIB VACCINES Aged Out No longer eligi ble based on patient's age to complete this topic MENINGOCOCCAL VACCINES (ACWY) Aged Out No longer eligible based on patient's age to complete this topic MENINGOCOCCAL VACCINES (B) Aged Out N o longer eligible based on patient's age to complete this topic PNEUMOCOCCAL VACCINES (0-49 years) Aged Out No longer eligible based on patient's age to complete this topic Medical Devices Not on file Procedures Procedure Name Priority Date/Time Associated Diagnosis Comments US PELVIS TRANSABDOMINAL PLUS TRANSVAGINAL Routine 10/23/2024 3:38 PM EDT URINE SEDIMENT STAT 10/23/2024 3:21 PM EDT URINALYSIS W/REFLEX URINE CULTURE STAT 10/23/2024 3:21 PM EDT URINE CULTURE Routine 10/23/2024 3:21 PM EDT Hold Specimen In Blood Bank (No Testing Performed) STAT 10/23/2024 1:56 PM EDT BASIC METABOLIC PANEL STAT 10/23/2024 1:56 PM EDT HCG, SERUM QUALITATIVE STAT 1:56 PM EDT CBC AND DIFFERENTIAL STAT 10/23/2024 1:56 PM EDT from Last 3 Months Results * US PELVIS TRANSABDOMINAL PLUS TRANSVAGINAL (10/23/2024 3:38 PM EDT) Anatomical Region Laterality Modality Pelvis, Uterus/Adnexa Ultrasound 10/23/2024 4:23 PM EDT Impressions 10/23/2024 4:30 PM EDT 1. Appropriately positioned intrauterine device. 2. Uterine fibroids. 3. Normal right ovary. Left ovary not visualized. Narrative 10/23/2024 4:30 PM EDT US PELVIS TRANSABDOMINAL AND TRANSVAGINAL Referring clinician's provided indication for this examination in [facility]: Pain; severe pain/bleeding s/p IUD TECHNIQUE: Pelvic Ultrasound Transabdominal performed for global imaging of the pelvis. Pelvic Ultrasound Transvaginal performed for detailed imaging of the endometrium and/or adnexa. COMPARISON: None FINDINGS: Uterus: Size: 10.5 x 5.3 x 7.9 cm. Orientation: Myometrium: Heterogeneous hypoechoic lesion, 2.2 x 1.6 x 1.9 cm in the fundus, and heterogeneous lesion 3.0 x 2.5 x 3.0 cm along the left uterine body, consistent with fibroids. Endometrium: Normal. Intrauterine device in appropriate position. Thickness: 13 mm. Right adnexa: Ovary: Normal. Left adnexa: Ovary: Not visualized. Free fluid: No significant free fluid. Procedure Note Clayton June MD - 10/23/2024 US PELVIS TRANSABDOMINAL AND TRANSVAGINAL Referring clinician's provided indication for this examination in Epic:Pain; severe pain/bleeding s/p IUD TECHNIQUE: Pelvic Ultrasound Transabdominal performed for global imagingof the pelvis. Pelvic Ultrasound Transvaginal performed for detailedimaging of the endometrium and/or adnexa. COMPARISON: None FINDINGS: Uterus: Size: 10.5 x 5.3 x 7.9 cm. Orientation: Myometrium: Heterogeneous hypoechoic lesion, 2.2 x 1.6 x 1.9 cm in thefundus, and heterogeneous lesion 3.0 x 2.5 x 3.0 cm along the left uterinebody, consistent with fibroids. Endometrium: Normal. Intrauterine device in appropriate position. Thickness: 13 mm. Right adnexa: Ovary: Normal. Left adnexa: Ovary: Not visualized. Free fluid: No significant free fluid. IMPRESSION: 1. Appropriately positioned intrauterine device. 2. Uterine fibroids. 3. Normal right ovary. Left ovary not visualized. us Cielo Webb PA-C IMG US PELVIS Final Resul t * (ABNORMAL) Urinalysis w/reflex Urine Culture (10/23/2024 3:21 PM EDT) COLOR Yellow Yellow [facility] CLARITY HAZY [facility] GLUCOSE Negative Negative [facility] BILI Negative Negative [facility] KETONES Negative Negative [facility] SPECIFIC GRAVITY 1.025 1.005 - 1.030 [facility] BLOOD 3+(A) Negative [facility] PH 6.0 5.0 - 8.0 [facility] Protein-UA 2+(A) Negative [facility] NITRITE Negative Negative [facility] Leukocyte esterase, ur 1+(A) Negative [facility] Urine (Urine) 10/23/2024 3:2 1 PM EDT 10/23/2024 4:14 PM EDT Lizzie Mccoy PA-C URINE ORDERABLES Final Resul t Performing Organization Address [facility] de Phone Number [address] [address] * (ABNORMAL) Urine Culture (10/23/2024 3:21 PM EDT) Special Requests None Reflexed from [id number] 10/23/2024 4:38 PM EDT [facility] Urine Culture >100,000 colony forming units per mL MIXED KELL (3 OR MORE COLONY TYPES) Culture indicates contamination . Please resubmit if necessary.(A) 10/24/2024 11:12 AM EDT [facility] Urine 10/23/2024 3:21 PM EDT 10/23/2024 4:14 PM EDT Lizzie Mccoy PA-C MICROBIOLOGY - GENERAL ORDER MARSHA Final Result Performing Organization Address City/[facility] Co de Phone Number [address] [address] * (ABNORMAL) Urine sediment (10/23/2024 3:21 PM EDT) WBC 11-20(A) NONE SEEN /hpf [facility] RBC TOO NUMEROUS TO COUNT(A) NONE SEEN /hpf [facility] URINE EPITHELIAL 11-20(A) NONE SEEN [facility] MUCUS Trace(A) NONE SEEN /hpf [facility] BACTERIA 1+(A) NONE SEEN /hpf [facility] 10/23/2024 3:21 PM EDT 10/23/2024 4:14 PM EDT Lizzie Mccoy PA-C URINE ORDERABLES Final Resul t Performing Organization Address City/[facility]/ZIP Co de Phone Number [address] [address] * HCG, serum qualitative (10/23/2024 1:56 PM EDT) HCG, QUALITATIVE Negative Negative IU/L [facility] Blood 10/23/2024 1:56 PM EDT 10/23/2024 2:13 PM EDT us Lizzie Mccoy PA-C LAB BLOOD ORDERABLES Final R esult Performing Organization Address [facility] Co de Phone Number [address] [address] * Hold Specimen In Blood Bank (10/23/2024 1:56 PM EDT) Expiration Date of Sample 10/26/2024 ,2359 [facility] Resulting Agency [facility] Blood 10/23/2024 1:56 PM EDT 10/23/2024 2:13 PM EDT us Cielo Webb PA-C BLOOD BANK TEST ORDERABLES Final Result Performing Organization Address [facility] Co de Phone Number [address] [address] * (ABNORMAL) CBC and differential (10/23/2024 1:56 PM EDT) WBC 5.25 4.00 - 11.00 K/uL [facility] RBC 4.51 4.00 - 5.20 M/uL [facility] HGB 10.0(L) 12.0 - 16.0 g/dL [facility] HCT 32.1(L) 36.0 - 46.0 % [facility] PLT 92(L) 150 - 450 K/uL [facility] Comment: Microscopic estimate: Platelets decreased. Checked sample for clots MCV 71.2(L) 80.0 - 100.0 fL [facility] MCH 22.2(L) 27.0 - 31.0 pg [facility] MCHC 31.2(L) 32.0 - 36.0 g/dL [facility] RDW 16.6(H) 11.5 - 14.5 % [facility] MPV 11.1 8.4 - 12.0 fL [facility] NRBC 0.00 0.00 /100 WBCs [facility] ABSOLUTE NRBC 0.00 0.00 K/uL [facility] DIFF METHOD Auto [facility] NEUTS 73.8 48.0 - 76.0 % [facility] LYMPHS 19.4 18.0 - 41.0 % [facility] MONOS 5.0 4.0 - 11.0 % [facility] EOS 1.0 0.0 - 5.0 % [facility] BASOS 0.6 0.0 - 1.5 % [facility] Granulocytes, immature (%) 0.2 0.0 - 0.9 % [facility] ABSOLUTE NEUTS 3.88 1.92 - 7.60 K/uL [facility] ABSOLUTE LYMPHS 1.02 0.72 - 4.10 K/uL [facility] ABSOLUTE MONOS 0.26 0.16 - 1.10 K/uL [facility] ABSOLUTE EOS 0.05 0.00 - 0.50 K/uL [facility] ABSOLUTE BASOS 0.03 0.00 - 0.15 K/uL [facility] Granulocytes, immature 0.01 0.00 - 0.09 K/uL [facility] Blood 10/23/2024 1:56 PM EDT 10/23/2024 2:13 PM EDT Lizzie Mccoy PA-C LAB BLOOD ORDERABLES Final R esult [address] [address] * (ABNORMAL) Basic metabolic panel (10/23/2024 1:56 PM EDT) SODIUM 140 133 - 146 mmol/L [facility] CHLORIDE 102 96 - 108 mmol/L [facility] POTASSIUM 3.6 3.3 - 5.1 mmol/L [facility] CO2 21 21 - 35 mmol/L [facility] BUN 15 6 - 19 mg/dL [facility] CREATININE 0.60 0.5 - 1.5 mg/dL [facility] GLUCOSE 210(H) 70 - 99 mg/dL [facility] CALCIUM 9.3 8.4 - 10.3 mg/dL [facility] EGFR 113 >59 mL/min/1.7 3m2 [facility] Comment:Estimated glomerular filtration rate calculated using the CKD-EPI refit equation. ANION GAP 21(H) 10 - 20 mmol/L [facility] Blood 10/23/2024 1:56 PM EDT 10/23/2024 2:13 PM EDT us Cielo Webb PA-C LAB BLOOD ORDERABLES Final Result Performing Organization Address [facility] Co de Phone Number [address] [address] from Last 3 Months Insurance [facility] ACO [facility] ACO [id number] [place] [address] ACO [facility] ACO [facility] ACO [facility] ACO Care Teams Financial Representative Relationship Specialty Start Date End Date Pcp, Unknown PCP - General 10/23/24 Additional Source Comments The information contained in this document represents components of the legal health record. It is not the complete legal health record.[facility]
== END 2024-11-17 15:14 | disposition home or self-care (01) ==
LOC: HO.HMCH 14:32
PROVIDERS: PCP Internal Medicine; Visit Provider Internal Medicine
DX: E11.9 Type 2 diabetes mellitus without complications (principal); I85.10 Secondary esophageal varices without bleeding; Z68.37 Body mass index [BMI] 37.0-37.9, adult; E66.9 Obesity, unspecified; M25.541 Pain in joints of right hand; M25.542 Pain in joints of left hand; M17.0 Bilateral primary osteoarthritis of knee; I10 Essential (primary) hypertension; K76.9 Liver disease, unspecified; D69.6 Thrombocytopenia, unspecified; D50.0 Iron deficiency anemia secondary to blood loss (chronic); G47.00 Insomnia, unspecified

== ENCOUNTER 2024-11-17 14:31 | Outpatient (REF) | payer OTHER, SELFPAY ==
--- NOTE | ~2024-11-17 | XR_ITS ---
Exam: Three-view x-ray bilateral hands. INDICATION: Hand pain. Greater on the right TECHNIQUE: AP, lateral, and oblique views upper extremity, bilateral hands INDICATION: M79.641 - Pain in right hand , right greater than left COMPARISON: None available. FINDINGS: RIGHT HAND: Joint spaces are preserved. No osteophytes are noted. No other bony proliferative changes are apparent. There are no fractures. LEFT HAND: Joint spaces are preserved. No osteophytes are noted. No other bony proliferative changes are apparent. There are no fractures. XR/XR Hand Bilat min 3v IMPRESSION: Unremarkable bilateral hand x-rays. Electronically signed by: Alfonso Kinsey MD 11/17/2024 04:03 PM EDT
== END 2024-11-17 14:32 | disposition home or self-care (01) ==
LOC: HO.XRAY 14:31
PROVIDERS: PCP Internal Medicine; Visit Provider Internal Medicine
DX: M79.641 Pain in right hand (principal); M79.642 Pain in left hand; M17.0 Bilateral primary osteoarthritis of knee; E11.9 Type 2 diabetes mellitus without complications; I10 Essential (primary) hypertension; K76.9 Liver disease, unspecified; D69.6 Thrombocytopenia, unspecified; D50.0 Iron deficiency anemia secondary to blood loss (chronic); I85.10 Secondary esophageal varices without bleeding; G47.00 Insomnia, unspecified; F41.9 Anxiety disorder, unspecified; F33.9 Major depressive disorder, recurrent, unspecified; E66.9 Obesity, unspecified; R13.10 Dysphagia, unspecified; J30.9 Allergic rhinitis, unspecified; F17.210 Nicotine dependence, cigarettes, uncomplicated; Z79.84 Long term (current) use of oral hypoglycemic drugs; Z79.899 Other long term (current) drug therapy; Z68.37 Body mass index [BMI] 37.0-37.9, adult
CPT/HCPCS: 73130; 96127; 99212

== ENCOUNTER → 2024-11-17 15:32 | Outpatient (BNV) | payer OTHER, SELFPAY | PROVIDERS: PCP Internal Medicine; Visit Provider Radiology Diagnostic Radiology | DX: M79.671 Pain in right foot (principal) | CPT/HCPCS: 73130 ==

== ENCOUNTER 2024-11-25 08:55 | Outpatient (AMB) | payer OTHER, SELFPAY ==
--- NOTE | 2024-11-25 09:04 | MHC.OFFVIS ---
Vital Signs 11/25/24 09:14 Height 5 ft 2 in Weight 207 lb BMI 37.9 BP 140/66 H Blood Pressure Location Lt brachial Position Sitting Pulse 76 Pulse Oximetry (%) 98 Oxygen Delivery Method Room Air Intake Visit Reasons: FU of liver disease and colon polyps Intake Note: Patient follow up for of liver disease and colon polyps Patient cc: Heartburn after eating, diarrhea and abdominal pain with bloating on and off. Patient needed refill for Pantoprazole 40 mg. Electrical Line Worker Required: Yes Electrical Line Worker Name: [facility] Interpeter Accompanied by: Self / Same As Patient Allergies aspirin (ASPIRIN) Adverse Reaction (Intermediate, Verified 11/25/24 08:58) ULCER; GI UPSET, internal bleeding dextran 40 Adverse Reaction (Verified 11/25/24 08:58) Itching Medication List - Last Reconciled 11/25/24 by Obed Mendoza MD albuterol sulfate 90 mcg/actuation 2 inhalations inhalation Q6H PRN 30 days albuterol sulfate 2.5 mg (3 mL) continuous nebulization QID PRN 30 days blood sugar diagnostic (FreeStyle Lite Strips) As directed once a day blood-glucose meter (FreeStyle Lite Meter kit) As directed bupropion HCl XL 150 mg PO DAILY citalopram 20 mg PO DAILY clonidine HCl 0.2 mg PO BEDTIME 30 days famotidine 20 mg PO DAILY fluticasone propionate 50 mcg/actuation 1 spray intranasal DAILY PRN furosemide 20 mg PO DAILY hydroxyzine pamoate 25 mg PO BID PRN 30 days lancets (FreeStyle Lancets) As directed once a day loratadine 10 mg PO DAILY PRN 90 days [Medline Aeromist Nebulizert As directed] metformin 500 mg PO BID nebulizers (AeroEclipse II Nebulizer) As directed pantoprazole 40 mg PO BEDTIME PRN prazosin 1 mg PO BEDTIME 30 days spironolactone 50 mg PO DAILY trazodone 50 mg PO BEDTIME PRN 30 days HPI HPI FU of liver disease and colon polyps: Details: GI CLINIC VISIT FOR THIS 44-YEAR-OLD UKRAINIAN-SPEAKING FEMALE FOR for FU of NONCIRRHOTIC PORTAL HYPERTENSION COMPLICATED BY ESOPHAGEAL VARICES AND PAST HISTORY OF GI BLEEDING. Patient is status post TIPPS placement at [facility] in 10/2015 without subsequent bleeding. Patient returns after hiatus of 3 years (Last seen in 12/2020) Patient was advised to follow up in the GI clinic by Dr. Dickens for recurrent anemia: In September her hemoglobin dropped significantly and she required blood transfusion. She has iron deficiency, she is intolerant of oral iron. She has tolerated iron infusions well in the past. She received Venofer infusions which she tolerated well in April 2023. She was also advised to follow-up with GI she may have occult GI bleeding secondary to esophageal varices. She will be closely for recurrent anemia . CHRONIC ILLNESSES:?hypertension, liver disease - pre hepatic portal hypertension, dementia, depression, GERD (gastroesophageal reflux disease), Sprain of left knee and IBS (irritable bowel syndrome) TODAY'S VISIT [facility] PUBLIC AFFAIRS MANAGER # Shira Patient cc: Heartburn after eating, diarrhea and abdominal pain with bloating on and off. Patient needed refill for Pantoprazole 40 mg. Taking Famotidine 20 mg in the am and notes horrible reflux after she eats her evening meal - Advised to resume taking Pantoprazole at bedtime Complains of dysphagia to solids and liquids x 2 years. Drinks water or eats something harder to help move it down. Notes intermittent pulsating RUQ pain approx once a month without clear precipitating factors Pain can last about an hour and resolves spontaneously Notes intermittent diarrhea and denies constipation. PAST VISITS: EGD and colon results reviewed with the patient Continues to have heavy menstrual bleeding (lasted 4 days this month) Pt states she was in [place] x 3 years. Pt complains of intermittent RUQ pain sometimes associated with constipation. Denies taking any medications for constipation Denies black stools or rectal bleeding. Admits to wt gain ? Did not go for [facility] due to lack of transportation - willing to reschedule ?In September her hemoglobin dropped significantly and she required blood transfusion.? She has iron deficiency, she is intolerant of oral iron.? Since her recent iron infusion, her blood counts have improved, anemia is better.? Platelet counts are stable. ? Doing so so.? Did not have a hysterectomy due to COVID 19 pandemic. ? Continues to feel tired with low energy.? Stopped taking iron pills two months ago due to side effects (upset stomach and abdominal pain) ? I have pains in my legs and pain in my belly - present for past several yrs. ? Notes burning and stinging in the legs and unable to sleep due to the pain. ? Pt was transfused 2 units of PRBC end of September/ early October. ? Fatigue improved after blood transfusion. ? ? ? Pt was seen by Ring Attacher and is waiting for a call from [facility] to schedule a hysterectomy. ?? ? Complains of upset stomach due to iron and was advised to decrease iron from twice daily to once a day and monitor labs. ?? ? current weight is 175 lbs? -? increased from 145 lbs a year ago ? LABS IN [facility]:?09/22/19 H & H of 10.5 & 35.6, plt 48 K, Haptoglobin was 47 - normal, INR 1.3, ? LFTs were normal, Iron studies cw WEN ? 08/02 Liver Fibrosis Score of 0.16 with Fibrosis Stage of F0, RONAK was negative ?IMAGING STUDIES: 06/30/[address] SCAN SHOWED: No acute intra-abdominal/intrapelvic abnormality. The TIPS stent is redemonstrated. The spleen remains moderately enlarged, measuring up to 17 cm in length. It does appear, however, smaller than on the prior CT examination. No renal calculi. The appendix is normal in appearance. No adnexal mass lesion. 09/29/19 abdominal ultrasound showed: ? Small gallbladder echogenic polyps. No lytic stones or hydronephrosis seen. ? Echogenic liver without focal lesion. A focal lesion seen. ? Mild splenomegaly. ? Widely patent stent with normal velocities visualized through the stent and distally at the hepatic/IVC confluence. The splenic vein and hepatic veins are patent 04/16/24 EGD AND COLON SHOWED: Endoscopy Findings: ESOPHAGUS: Dilated esophagus without stricture or ring. Two columns of Grade 1 varices from 30 to 36 cms without high risk stigmata for bleeding (band ligation not needed) STOMACH: Moderate diffuse gastric erythema - biopsies were obtained from the antrum. DUODENUM: Normal - biopsied to check for celiac sprue Colonoscopy Findings: Four medium sized polyps were removed Iron def anemia - possibly related to slow GI blood loss from 4 medium sized polyps Repeat Colonoscopy in 1 year if polyps are adenomatous and 10 year if polyps are hyperplastic. (Dulcolax 10 mg daily starting 5 days prior to next colon appt) BIOPSIES SHOWED: A. Small bowel, biopsy: Small bowel mucosa within normal limits; preserved villous architecture and no increased intraepithelial lymphocytes seen. B. Stomach, antrum, biopsy: Gastric antral mucosa within normal limits; negative for Helicobacter pylori, intestinal metaplasia and dysplasia. C. Colon, transverse at 70 cm, polypectomy: Tubular adenoma; negative for high-grade dysplasia. D. Colon, descending at 60 cm, polypectomy: Tubular adenoma; negative for high-grade dysplasia [facility] Medical History Osteoarthritis of knees, bilateral ELIJAH I (cervical intraepithelial neoplasia I) Obesity, Class III, BMI 40-49.9 (morbid obesity) Smoker Depression Anxiety Insomnia Esophageal varices Diabetes mellitus Lower abdominal pain Allergic rhinitis Common cold Anxiety and depression Obesity (BMI 30-39.9) Smoker Hypersplenism Pancytopenia Bilateral calcaneal spurs Thrombocytopenia Ascites Iron deficiency anemia due to chronic blood loss History of esophageal varices Chronic pain of both feet Varicose veins of right lower extremity with inflammation Sprain of left knee IBS (irritable bowel syndrome) GERD (gastroesophageal reflux disease) Depression Dementia Liver disease Hypertension Surgical History Hx of colonoscopy History of D&C S/P TIPS (transjugular intrahepatic portosystemic shunt) (~10/2015) History of liver biopsy (~04/2002) History of esophagogastroduodenoscopy (EGD) Family History Father Diabetes mellitus Mother Diabetes mellitus Alzheimer's dementia Pneumothorax Maternal Aunt Ovarian cancer Daughter No problems noted. Maternal Aunt Cervical cancer Maternal Grandfather Pancreatic cancer Other Mental health disorder Social History Household Members: Significant Other Housing: Apartment Do you presently have visiting nurse or other home services: No Alcohol intake: current Alcohol intake frequency: holidays/special occasions only Patient Tobacco Use Status: Never used Tobacco Tobacco use type: Cigarette Cigarette Packs Per Day: 0.5 Cigarettes Per Day: 12 Years Smoked: 8 years e-Cigarette/Vaping Use: Never Used Second Hand Smoke Exposure: Yes service: No Current occupational status: unemployed Current occupational exposures/hazards: No Cognitive needs: No Hearing needs: No Vision needs: No Female Reproductive History Menstrual Age of Menarche: 8 Review of Systems Const All systems reviewed & are unremarkable except as noted in HPI and below Physical Exam Vital Signs: Last Vital Signs Pulse 76 11/25/24 09:14 BP 140/66 H 11/25/24 09:14 Pulse Ox 98 11/25/24 09:14 Oxygen Delivery Method Room Air 11/25/24 09:14 BMI result Body Mass Index 37.9 Const General: healthy appearing and no acute distress Nutritional Appearance: obese Orientation/consciousness: patient oriented x3 Limitations: language barrier HEENT Head: Yes normal to inspection Ears: hearing grossly normal bilaterally Eyes Sclerae: sclerae normal Pupils: Equal, round and reactive pupils present Neck Neck: Yes normal visual inspection Chest Chest palpation & inspection: normal inspection of the chest Resp Effort & Inspection: normal respiratory effort Auscultation: clear to auscultation bilaterally Cardio Palpation: normal PMI Rate: regular rate Rhythm: regular rhythm Heart sounds: S1 normal heart sound present, S2 normal heart sound present and no murmurs GI Palpation (GI): Soft to palpation, nontender and No hepatosplenomegaly present Auscultation: normal bowel sounds Rectal Exam - Female: deferred Skin General skin exam: no rashes or lesions noted Neuro General: patient oriented x3, gait normal and moves all extremities Cranial nerves: Yes Equal, round and reactive pupils present Psych Appearance: grossly normal Mental Status: mental status grossly normal Assessment & Plan Assessment & Plan (1) Liver disease: Comment: prehepatic portal hypertension Code(s): K76.9 - Liver disease, unspecified Category: Medical (2) GERD (gastroesophageal reflux disease): Code(s): K21.9 - Gastro-esophageal reflux disease without esophagitis Category: Medical Qualifiers: Esophagitis presence: without esophagitis Qualified Code(s): K21.9 - Gastro-esophageal reflux disease without esophagitis (3) IBS (irritable bowel syndrome): Code(s): K58.9 - Irritable bowel syndrome, unspecified Category: Medical (4) S/P TIPS (transjugular intrahepatic portosystemic shunt): Onset Date: ~10/2015 Comment: at U Mass Code(s): Z95.828 - Presence of other vascular implants and grafts Category: Surgical (5) Ascites: Code(s): R18.8 - Other ascites Category: Medical (6) Chronic constipation: Code(s): K59.09 - Other constipation Category: Medical (7) Esophageal varices: Code(s): I85.00 - Esophageal varices without bleeding Category: Medical Qualifiers: Esophageal varices bleeding: without bleeding Esophageal varices type: secondary Qualified Code(s): I85.10 - Secondary esophageal varices without bleeding (8) Dysphagia: Code(s): R13.10 - Dysphagia, unspecified Category: Medical Qualifiers: Dysphagia type: unspecified Qualified Code(s): R13.10 - Dysphagia, unspecified (9) RUQ abdominal pain: Code(s): R10.11 - Right upper quadrant pain Category: Medical Plan 44 year-old Hungarian-speaking female followed in GI for non cirrhotic portal hypertension complicated by esophageal varices with past history of GI Bleed. Patient is status post TIPPS placement at [facility] in 10/2015 without subsequent bleeding. She likely has early cirrhosis since past abdominal US showed ascites - no ascites seen on recent US. Patient has had intermittent GI FU and has not been taking her medications. Liver Fibrosis Score of 0.16 with Fibrosis Stage of F0, INR is 1.3. Plan is to monitor labs to assess her liver disease. A duplex US confirmed TIPPS patency and no free fluid was seen - she is over due for FU US. History of esophageal varices with bleeding: Likely resolved after TIPPS placement. Iron deficiency anemia is likely related to menstrual blood loss. Follow-up with the OBGYN. Pt postponed her hysterectomy due to COVID-19 pandemic 09/04/23 Pt states she was in [place] x 3 years. Pt complains of intermittent RUQ pain sometimes associated with constipation. 04/16/24 Pt had an EGD and colon and findings as noted above Repeat Colonoscopy in 1 year (Dulcolax 10 mg daily starting 5 days prior to next colon appt) 05/11/[address] Dickens for pancytopenia with worsening anemia and is being scheduled for Venofer infusions for worsening WEN. 11/25/24 Complains of dysphagia to solids and liquids x 2 years. Drinks water or eats something harder to help move it down. Notes intermittent pulsating RUQ pain approx once a month without clear precipitating factors Pt advised to resume Pantoprazole for GERD and schedule an abd US She will be referred to [facility] motility lab for esophageal manometry to confirm presence of achalasia suspected on barium swallow GI follow-up in 6 months - schedule 03/31/25 Orders: Orders Complete Blood Count Auto Diff Today R10.11 - Right upper quadrant pain Lipase Today R10.11 - Right upper quadrant pain Liver Panel Today R10.11 - Right upper quadrant pain US abdomen limited Today K76.9 - Liver disease, unspecified, Z95.828 - Presence of other vascular implants and grafts Referrals Gastroenterology Referral R93.3 - Abnormal findings on diagnostic imaging of other parts of digestive tract Medications: Changed From pantoprazole 40 mg PO BEDTIME PRN Heartburn K21.9 - Gastro-esophageal reflux disease without esophagitis To pantoprazole 40 mg PO BEDTIME 90 tabs 1RF Heartburn 90 days K21.9 - Gastro-esophageal reflux disease without esophagitis Coding Level of Care Code Est Pt Level 4 (25895) Diagnoses Liver disease K76.9 Gastroesophageal reflux disease without esophagitis K21.9 Esophagitis presence: without esophagitis IBS (irritable bowel syndrome) K58.9 S/P TIPS (transjugular intrahepatic portosystemic shunt) Z95.828 Ascites R18.8 Chronic constipation K59.09 Secondary esophageal varices without bleeding I85.10 Esophageal varices bleeding: without bleeding Esophageal varices type: secondary Dysphagia, unspecified type R13.10 Dysphagia type: unspecified RUQ abdominal pain R10.11 Time Spent (min) 23
[2024-11-25 09:14] VITALS: BP 140/66; PULSE 76; O2SAT 98; BMI 37.9
--- OUTSIDE RECORDS SUMMARY | 2024-11-25 10:06 | XMS_ITS | Clinical Summary ---
Author Organization [facility] Address [address] [place] [phone] Phone Care Team Providers Care Erp Analyst Name Role Phone Pcp, Unknown Primary Care Provider Unavailabl e Allergies Active Allergy Reactions Criticality Noted Date Comments Aspirin 10/23/2024 Medications naproxen (NAPROSYN) 500 MG tablet Take 1 tablet (500 mg total) by mouth 2 (two) times a day with meals. 8 tablet 10/23/2024 Active Encounters Date Type Department Care Team Description 10/23/2024 12:38 PM EDT - 10/23/2024 6:48 PM EDT Emergency [facility] [address] [place] [address] Blake Guzman MD Discharge Disposition: Home or [...] 2000 SCREENING FOR DIABETES 2014 MAMMOGRAM 2019 COLOGUARD 2024 COLONOSCOPY 2024 COLORECTAL CANCER SCREENING 2024 FIT TEST 2024 FOBT 2024 SIGMOIDOSCOPY 2024 VIRTUAL COLONOSCOPY 2024 INFLUENZA VACCINE (#1) 2024 COVID-19 VACCINE ( - 2023-2 5 season) 2024 HEPATITIS A VACCINES Aged Out No [...] clinician's provided indication for this examination in Epic: Pain; severe pain/bleeding s/p IUD TECHNIQUE: Pelvic [...] (10/23/2024 3:21 PM EDT) COLOR Yellow Yellow [facility] CLARITY HAZY [facility] GLUCOSE Negative Negative [facility] BILI Negative Negative [facility] KETONES Negative Negative [facility] SPECIFIC GRAVITY 1.025 1.005 - 1.030 [facility] BLOOD 3+(A) Negative [facility] PH 6.0 5.0 - 8.0 [facility] Protein-UA 2+(A) Negative [facility] NITRITE Negative Negative [facility] Leukocyte esterase, ur 1+(A) Negative [facility] Urine (Urine) 10/23/2024 3:2 1 PM EDT 10/23/2024 4:14 PM EDT Lizzie Mccoy PA-C URINE ORDERABLES Final Resul t Performing Organization Address [facility] Co de Phone Number [address] [address] * (ABNORMAL) Urine Culture (10/23/2024 3:21 PM EDT) Special Requests None Reflexed from [id number] 10/23/2024 4:38 PM EDT [facility] Urine Culture >100,000 colony forming units per mL MIXED KELL (3 OR MORE COLONY TYPES) Culture indicates contamination . Please resubmit if necessary.(A) 10/24/2024 11:12 AM EDT [facility] Urine 10/23/2024 3:21 PM EDT 10/23/2024 4:14 PM EDT Lizzie Mccoy PA-C MICROBIOLOGY - GENERAL ORDER MARSHA Final Result Performing Organization Address City/[facility]/ZIP Co de Phone Number [address] [address] * (ABNORMAL) Urine sediment (10/23/2024 3:21 PM EDT) WBC 11-20(A) NONE SEEN /hpf [facility] RBC TOO NUMEROUS TO COUNT(A) NONE SEEN /hpf [facility] URINE EPITHELIAL 11-20(A) NONE SEEN [facility] MUCUS Trace(A) NONE SEEN /hpf [facility] BACTERIA 1+(A) NONE SEEN /hpf [facility] 10/23/2024 3:21 PM EDT 10/23/2024 4:14 PM EDT Lizzie Mccoy PA-C URINE ORDERABLES Final Resul t Performing Organization Address [facility]/ZIP Co de Phone Number [address] [address] * HCG, serum qualitative (10/23/2024 1:56 PM EDT) HCG, QUALITATIVE Negative Negative IU/L [facility] Blood 10/23/2024 1:56 PM EDT 10/23/2024 2:13 PM EDT Lizzie Mccoy PA-C LAB BLOOD ORDERABLES Final R esult Performing Organization Address [facility] Co de Phone Number [address] [address] * Hold Specimen In Blood Bank (10/23/2024 1:56 PM EDT) Expiration Date of Sample 10/26/2024 ,2359 [facility] Resulting Agency [facility] Blood 10/23/2024 1:56 PM EDT 10/23/2024 2:13 PM EDT Cielo Webb PA-C BLOOD BANK TEST ORDERABLES Final Result Performing Organization Address [facility] Co de Phone Number [address] [address] * (ABNORMAL) CBC and differential (10/23/2024 1:56 PM EDT) WBC 5.25 4.00 - 11.00 K/uL [facility] RBC 4.51 4.00 - 5.20 M/uL [facility] HGB 10.0(L) 12.0 - 16.0 g/dL [facility] HCT 32.1(L) 36.0 - 46.0 % [facility] PLT 92(L) 150 - 450 K/uL [facility] Comment: Microscopic estimate: Platelets decreased. Checked sample for clots MCV 71.2(L) 80.0 - 100.0 fL [facility] MCH 22.2(L) 27.0 - 31.0 pg [facility] MCHC 31.2(L) 32.0 - 36.0 g/dL [facility] RDW 16.6(H) 11.5 - 14.5 % [facility] MPV 11.1 8.4 - 12.0 fL [facility] NRBC 0.00 0.00 /100 WBCs [facility] ABSOLUTE NRBC 0.00 0.00 K/uL [facility] DIFF METHOD Auto [facility] NEUTS 73.8 48.0 - 76.0 % [facility] LYMPHS 19.4 18.0 - 41.0 % [facility] MONOS 5.0 4.0 - 11.0 % [facility] EOS 1.0 0.0 - 5.0 % [facility] BASOS 0.6 0.0 - 1.5 % [facility] Granulocytes, immature (%) 0.2 0.0 - 0.9 % [facility] ABSOLUTE NEUTS 3.88 1.92 - 7.60 K/uL [facility] ABSOLUTE LYMPHS 1.02 0.72 - 4.10 K/uL [facility] ABSOLUTE MONOS 0.26 0.16 - 1.10 K/uL [facility] ABSOLUTE EOS 0.05 0.00 - 0.50 K/uL [facility] ABSOLUTE BASOS 0.03 0.00 - 0.15 K/uL [facility] Granulocytes, immature 0.01 0.00 - 0.09 K/uL [facility] Blood 10/23/2024 1:56 PM EDT 10/23/2024 2:13 PM EDT us Lizzie Mccoy PA-C LAB BLOOD ORDERABLES Final R esult [facility] [address] [place] [address] * (ABNORMAL) Basic metabolic panel (10/23/2024 1:56 PM EDT) SODIUM 140 133 - 146 mmol/L [facility] CHLORIDE 102 96 - 108 mmol/L [facility] POTASSIUM 3.6 3.3 - 5.1 mmol/L [facility] CO2 21 21 - 35 mmol/L [facility] BUN 15 6 - 19 mg/dL [facility] CREATININE 0.60 0.5 - 1.5 mg/dL [facility] GLUCOSE 210(H) 70 - 99 mg/dL [facility] CALCIUM 9.3 8.4 - 10.3 mg/dL [facility] EGFR 113 >59 mL/min/1.7 3m2 [facility] Comment:Estimated glomerular filtration rate calculated using the CKD-EPI refit equation. ANION GAP 21(H) 10 - 20 mmol/L [facility] Blood 10/23/2024 1:56 PM EDT 10/23/2024 2:13 PM EDT us Cielo Webb PA-C LAB BLOOD ORDERABLES Final Result [facility] [address] [place], [place] [id number] from Last 3 Months Insurance [employer] [id number] [employer] [id number] [place] [address] [employer] Care Teams Erp Analyst Relationship Specialty Start Date End Date Pcp, Unknown PCP - General 10/23/24 Additional Source Comments The information contained in this document represents components of the legal health record. It is not the complete legal health record.[facility]
--- OUTSIDE RECORDS SUMMARY | 2024-11-25 10:06 | XMS_ITS | Patient Health Record ---
Author Organization [facility] Address [address] [place] [address] Care Team Providers Care Senior Supply Chain Analyst Name Role Phone Ira Hayes Primary Care Provider Unavailab Enmanuel Lua Jr Unavailable Elba PINA, Radha Unavailable Unavailable Reason For Referral No Information Plan Of Treatment No Information Insurance Providers Payer Name Payer Address Payer Phone Subscriber Number Group Number Insured Name Patient Relationship to Insured Coverage Start Date Coverage End Date [facility] [address] [address] [place], [place] [id number] RONAK MEEHAN Self - patient is the insured
== END 2024-11-25 09:44 | disposition home or self-care (01) ==
LOC: HO.HGI 08:56
PROVIDERS: PCP Internal Medicine; Visit Provider Internal Medicine Gastroenterology
DX: K76.9 Liver disease, unspecified (principal); K21.9 Gastro-esophageal reflux disease without esophagitis; K58.9 Irritable bowel syndrome, unspecified; Z95.828 Presence of other vascular implants and grafts; R18.8 Other ascites; K59.09 Other constipation; I85.10 Secondary esophageal varices without bleeding; R13.10 Dysphagia, unspecified; R10.11 Right upper quadrant pain
CPT/HCPCS: 99214

== ENCOUNTER → 2024-11-25 08:55 | Outpatient (BNVA) | payer OTHER, SELFPAY | PROVIDERS: PCP Internal Medicine; Visit Provider Internal Medicine Gastroenterology | DX: K76.9 Liver disease, unspecified (principal); K21.9 Gastro-esophageal reflux disease without esophagitis; K58.9 Irritable bowel syndrome, unspecified; R18.8 Other ascites; K59.09 Other constipation; I85.10 Secondary esophageal varices without bleeding; R13.10 Dysphagia, unspecified; R10.11 Right upper quadrant pain; Z95.828 Presence of other vascular implants and grafts | CPT/HCPCS: 99212 ==

== ENCOUNTER 2024-12-12 14:13 | Emergency (ER) | payer OTHER, SELFPAY ==
--- NOTE | ~2024-12-12 | XR_ITS ---
CLINICAL HISTORY: atraumatic elbow pain Three views of the right elbow. COMPARISON: None provided. FINDINGS: No appreciable elbow joint effusion. Anterior humeral and radiocapitellar lines are maintained. Visualized portions of the humerus, radius and ulna appear intact. No lytic or sclerotic lesion. No erosions identified. IMPRESSION: 1. No radiographic evidence of acute injury to the right elbow. This document has been electronically signed by: Jeyson Hanna MD on 12/12/2024 16:01:00
[2024-12-12 14:19] VITALS: BP 143/65; PULSE 79; RESP 18; TEMP 36.6; O2SAT 98; BMI 36.6
--- NOTE | 2024-12-12 14:20 | ED.GENADULT ---
HPI - General Adult General Chief complaint: Extremity Injury, Upper Stated complaint: elbow pain Time Seen by Provider: 12/12/24 16:11 Source: patient and header up (north korean) Mode of arrival: ambulatory Limitations: language barrier (north korean speaking) History of Present Illness ED Provider: FORREST NICK PA-C HPI narrative: 44-year-old female presents to the ED today for evaluation of right elbow pain x1 week. Patient states that the pain began after picking up her heavy grandchild multiple times in 1 day. Pain is localized to the posterolateral aspect of the right elbow worse with movement. No radiation. Denies numbness /tingling/weakness of the right upper extremity. Denies blunt injury/trauma. No recent travel/long car rides. No hx VTE. Taking motri and applying icy hot at home without relief. Related Data Home Medications ?Medication ?Instructions ?Recorded ?Confirmed bupropion HCl 150 mg 24 hr tablet, 150 mg PO DAILY 09/04/23 11/25/24 extended release citalopram 20 mg tablet 20 mg PO DAILY 02/02/24 11/25/24 Previous Rx's ?Medication ?Instructions ?Recorded loratadine 10 mg tablet 10 mg PO DAILY PRN allergy 02/19/23 symptoms 90 days #90 tabs hydroxyzine pamoate 25 mg capsule 25 mg PO BID PRN anxiety 30 days 05/19/23 #60 caps prazosin 1 mg capsule 1 mg PO BEDTIME 30 days #30 caps 06/11/23 trazodone 50 mg tablet 50 mg PO BEDTIME PRN insomnia 30 08/12/23 days #30 tabs blood sugar diagnostic (FreeStyle #100 ea 02/02/24 Lite Strips) lancets 28 gauge (FreeStyle #100 ea 02/02/24 Lancets) blood-glucose meter (FreeStyle #1 ea 02/10/24 Lite Meter kit) albuterol sulfate 90 mcg/actuation 2 inh inhalation Q6H PRN shortness 03/12/24 aerosol inhaler of breath 30 days #6.7 grams albuterol sulfate 2.5 mg/3 mL 2.5 mg (3 mL) continuous 03/22/24 (0.083 %) solution for nebulization nebulization QID PRN shortness of breath or wheezing 30 days #180 mL fluticasone propionate 50 1 spray intranasal DAILY PRN 03/25/24 mcg/actuation nasal allergy symptoms #16 mL spray,suspension nebulizers (AeroEclipse II #1 ea 04/02/24 Nebulizer) Medline Aeromist Nebulizert #1 ea 04/14/24 famotidine 20 mg tablet 20 mg PO DAILY #90 tabs 09/22/24 clonidine HCl 0.2 mg tablet 0.2 mg PO BEDTIME 30 days #30 tabs 10/28/24 pantoprazole 40 mg tablet,delayed 40 mg PO BEDTIME Heartburn 90 days 11/25/24 release #90 tabs furosemide 20 mg tablet 20 mg PO DAILY #90 tabs 11/27/24 metformin 500 mg tablet 500 mg PO BID #180 tabs 11/27/24 spironolactone 50 mg tablet 50 mg PO DAILY #90 tabs 11/27/24 prednisone 20 mg tablet 40 mg (2 x 20 mg) PO DAILY 5 days 12/12/24 #10 tabs Allergies Allergy/AdvReac Type Severity Reaction Status Date / Time aspirin (ASPIRIN) AdvReac Intermediate ULCER; GI Verified 12/12/24 14:20 UPSET, internal bleeding dextran 40 AdvReac Itching Verified 12/12/24 14:20 [facility] Past Medical History Attestation statement: The following information was validated with the patient. Source: old records reviewed and nursing notes reviewed Medical History Osteoarthritis of knees, bilateral ELIJAH I (cervical intraepithelial neoplasia I) Obesity, Class III, BMI 40-49.9 (morbid obesity) Smoker Depression Anxiety Insomnia Esophageal varices Diabetes mellitus Lower abdominal pain Allergic rhinitis Common cold Anxiety and depression Obesity (BMI 30-39.9) Smoker Hypersplenism Pancytopenia Bilateral calcaneal spurs Thrombocytopenia Ascites Iron deficiency anemia due to chronic blood loss History of esophageal varices Chronic pain of both feet Varicose veins of right lower extremity with inflammation Sprain of left knee IBS (irritable bowel syndrome) GERD (gastroesophageal reflux disease) Depression Dementia Liver disease Hypertension Surgical History Hx of colonoscopy History of D&C S/P TIPS (transjugular intrahepatic portosystemic shunt) (~10/2015) History of liver biopsy (~04/2002) History of esophagogastroduodenoscopy (EGD) Family History Family History Father Diabetes mellitus Mother Diabetes mellitus Alzheimer's dementia Pneumothorax Maternal Aunt Ovarian cancer Daughter No problems noted. Maternal Aunt Cervical cancer Maternal Grandfather Pancreatic cancer Other Mental health disorder Social History Social History Household Members: Significant Other Housing: Apartment Do you presently have visiting nurse or other home services: No Alcohol intake: current Alcohol intake frequency: holidays/special occasions only Patient Tobacco Use Status: Never used Tobacco Tobacco use type: Cigarette Cigarette Packs Per Day: 0.5 Cigarettes Per Day: 12 Years Smoked: 8 years Smoked in Last 30 Days: Yes e-Cigarette/Vaping Use: Never Used Second Hand Smoke Exposure: Yes Use of substances other than those prescribed or required for medical reasons: No Advance Directives: No Advance Directives Information Provided: Yes Do you have a plan to hurt others: No Plan service: No Current occupational status: unemployed Current occupational exposures/hazards: No Cognitive needs: No Hearing needs: No Vision needs: No Physical Exam ED Vital Signs: Vital Signs - 24 hr 12/12/24 14:19 12/12/24 16:09 Temperature 98 F Pulse Rate 79 69 Respiratory Rate 18 18 Blood Pressure 143/65 H 129/60 Pulse Oximetry 98 99 Oxygen Delivery Method Room Air Room Air BMI result Body Mass Index 36.6 hypertensive, vitals otherwise wnl General: Well appearing, in no acute distress. Skin: Warm, dry, intact. No rashes or lesions. Head: Normocephalic, atraumatic. EENT: Hearing is intact b/l. Conjunctiva clear. Sclera is anicteric. PERRLA. EOM intact. Moist mucous membranes.? Cardiac: Chest wall symmetric. RRR Lungs: Normal respiratory effort without accessory muscle use Ext: +right elbow without overlying deformity, skin changes, swelling. Full ROM intact with active and passive range of motion of right elbow with mild pain on extension. Tender to palpation over lateral epicondyle without palpable deformity, crepitus. No palpable fluctuance. No other joint tenderness. Executive Director Of Marketing strength intact. 2+ radial pulse intact. Sensation intact to light touch. Neuro: AOx3. Normal speech. Ambulating with steady gait. 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 Deferred additional HPI, ROS, PE to primary provider. 44 yo female right hand dominant here with right elbow pain after picking up her daughter 1 week ago. Will obtain x-rays VSS Reevaluation(s) Reevaluation #1: xrs unremarkable - no fracture, no joint effusion. presentation not consistent w/ DVT. Concern for lateral epicondylitis. will prescribe short course of prednisone - advised pt to closly monitor her sugars at home and dc meds if they elevate. sling provided for comfort. educated on RICE therapy. Patient has remained stable throughout ED visit today. Discussed worrisome signs and symptoms and when to return to the ED. All questions answered at this time. Patient is agreeable with disposition and stable for discharge. Procedures Orthopedic Splinting/Casting Injury #1: Side: right Upper Extremity Injury Location: elbow Upper Extremity Immobilizer: sling/shoulder immobilizer Medical Decision Making Medical Decision Making MDM Narrative: 44-year-old female presents to the ED today for evaluation of right elbow pain x1 week. hypertensive, vitals are otherwise wnl. she is well appearing and in NAD. on exam, right elbow without overlying deformity, skin changes, swelling. Full ROM intact with active and passive range of motion of right elbow with mild pain on extension. Tender to palpation over lateral epicondyle without palpable deformity, crepitus. No palpable fluctuance. No other joint tenderness. Executive Director Of Marketing strength intact. 2+ radial pulse intact. Sensation intact to light touch. Differential diagnosis includes msk sprain/strain, fracture, lateral v medial epicondylitis, tendonitis, bursitis. Unlikely nv compromise, threat to limb, compartment syndrome, dvt, septic joint. Plan for xrays and disposition. Differential Diagnosis Differential Diagnoses: The differential diagnosis associated with the presentation includes as above. Admission/Observation not indicated. Independent Interpretation I performed an independent interpretation of an: Plain X-Ray Interpretation: xr right elbow without fracture Radiology Impression Discussion of test interpretation with radiology: I have reviewed the radiologist's reading. Radiologist Impression: Date of Service: 12/12/24 Procedure(s): XR elbow RT min 3V Accession Number(s): [id number] cc: David Elizabeth MD; Pascucci,Belkis PRE OWNED SALES CONSULTANT~ Reason for Exam: atraumatic elbow pain CLINICAL HISTORY: atraumatic elbow pain Three views of the right elbow. COMPARISON: None provided. FINDINGS: No appreciable elbow joint effusion. Anterior humeral and radiocapitellar lines are maintained. Visualized portions of the humerus, radius and ulna appear intact. No lytic or sclerotic lesion. No erosions identified. IMPRESSION: 1. No radiographic evidence of acute injury to the right elbow. This document has been electronically signed by: Jeyson Hanna MD on 12/12/2024 16:01:00 Independent Historian Clinical information obtained from an independent historian. History obtained from or confirmed by: Spouse External Record Review External record reviewed: Inpatient record Prescription Management I considered prescription management with: Other (prednisone) Social Determinants Patient?s care significantly limited by Social Determinants of Health including: Other Social Determinant of Health Critical Care Time Critical Care Time Critical Care Time: No Discharge Plan Discharge Clinical Impression: Lateral epicondylitis Patient Disposition: Home, Self-Care Instructions: Tennis Elbow (ED), P.R.I.C.E. Treatment (ED) Additional Instructions: You were evaluated in the ED today for right elbow pain. The x-rays of your right elbow do not demonstrate acute fracture. Your exam is concerning for lateral epicondylitis. See home care instructions. I am prescribing you a short course of prednisone (steroid). Take this as prescribed. As discussed, monitor your sugars closely at home. If they start to elevate above your normal levels, please discontinue use. Follow up with PCP. Return with new / worsening symptoms. In the case of an emergency call 911. Prescriptions: New prednisone 20 mg tablet 40 mg PO DAILY 5 Days Qty: 10 0RF No Action loratadine 10 mg tablet 10 mg PO DAILY PRN (Reason: allergy symptoms) 90 Days Qty: 90 3RF hydroxyzine pamoate 25 mg capsule 25 mg PO BID PRN (Reason: anxiety) 30 Days Qty: 60 0RF trazodone 50 mg tablet 50 mg PO BEDTIME PRN (Reason: insomnia) 30 Days Qty: 30 2RF (DME) blood-glucose meter [FreeStyle Lite Meter] Kit See Rx Instructions .ROUTE .MEDSUPPLY Qty: 1 0RF Rx Instructions: As directed albuterol sulfate 2.5 mg /3 mL (0.083 %) solution for nebulization 2.5 mg continuous nebulization QID PRN (Reason: shortness of breath or wheezing) 30 Days Qty: 180 3RF fluticasone propionate 50 mcg/actuation spray,suspension 1 spray intranasal DAILY PRN (Reason: allergy symptoms) Qty: 16 1RF (DME) nebulizers [AeroEclipse II Nebulizer] [facility] See Rx Instructions .Route Qty: 1 0RF Rx Instructions: As directed (DME) Medline Aeromist Nebulizert See Rx Instructions .Route .MEDSUPPLY Qty: 1 0RF Rx Instructions: As directed famotidine 20 mg tablet 20 mg PO DAILY Qty: 90 0RF clonidine HCl 0.2 mg tablet 0.2 mg PO BEDTIME 30 Days Qty: 30 2RF spironolactone 50 mg tablet 50 mg PO DAILY Qty: 90 0RF furosemide 20 mg tablet 20 mg PO DAILY Qty: 90 0RF metformin 500 mg tablet 500 mg PO BID Qty: 180 0RF albuterol sulfate 90 mcg/actuation HFA aerosol inhaler 2 inh inhalation Q6H PRN (Reason: shortness of breath) 30 Days Qty: 6.7 0RF prazosin 1 mg capsule 1 mg PO BEDTIME 30 Days Qty: 30 2RF bupropion HCl 150 mg tablet extended release 24 hr 150 mg PO DAILY citalopram 20 mg tablet 20 mg PO DAILY (DME) lancets [FreeStyle Lancets] 28 gauge misc See Rx Instructions .ROUTE .MEDSUPPLY Qty: 100 12RF Rx Instructions: As directed once a day (DME) FreeStyle Lite Strips Strip See Rx Instructions .ROUTE .MEDSUPPLY Qty: 100 12RF Rx Instructions: As directed once a day pantoprazole 40 mg tablet,delayed release (DR/EC) 40 mg PO BEDTIME 90 Days Qty: 90 1RF Referrals: David Elizabeth MD [Primary Care Provider, Internal Medicine] Print Language: Cypriot
--- OUTSIDE RECORDS SUMMARY | 2024-12-12 15:50 | XMS_ITS | Patient Health Record ---
Author Organization [facility] Address [address] [place] [address] Care Team Providers Care Data Control Assistant Name Role Phone Ira Hayes Primary Care Provider Unavailab Enmanuel Lua Jr Unavailable Elba PINA, Radha Unavailable Unavailable Reason For Referral No Information Plan Of Treatment No Information Insurance Providers Payer Name Payer Address Payer Phone Subscriber Number Group Number Insured Name Patient Relationship to Insured Coverage Start Date Coverage End Date [facility] [address] [address] [place], [place] [id number] RONAK MEEHAN Self - patient is the insured
--- OUTSIDE RECORDS SUMMARY | 2024-12-12 15:50 | XMS_ITS | Clinical Summary ---
Author Organization [facility] Address [address] [place] [address] Phone Care Team Providers Care Box Lining Machine Operator Name Role Phone Pcp, Unknown Primary Care [...] 6:48 PM EDT Emergency [facility] [address] [place] [address] Blake Guzman MD Discharge Disposition: Home or [...] (10/23/2024 3:21 PM EDT) COLOR Yellow Yellow [facility] CLARITY HAZY [facility] GLUCOSE Negative Negative [facility] BILI Negative Negative [facility] KETONES Negative Negative [facility] SPECIFIC GRAVITY 1.025 1.005 - 1.030 [facility] BLOOD 3+(A) Negative [facility] PH 6.0 5.0 - 8.0 [facility] Protein-UA 2+(A) Negative [facility] NITRITE Negative Negative [facility] Leukocyte esterase, ur 1+(A) Negative [facility] Urine (Urine) 10/23/2024 3:2 1 PM EDT 10/23/2024 4:14 PM EDT Lizzie Mccoy PA-C URINE ORDERABLES Final Resul t Performing Organization Address [facility] Co de Phone Number [address] [address] * (ABNORMAL) Urine Culture (10/23/2024 3:21 PM EDT) Special Requests None Reflexed from [id number] 10/23/2024 4:38 PM EDT [facility] Urine Culture >100,000 colony forming units per mL MIXED KELL (3 OR MORE COLONY TYPES) Culture indicates contamination . Please resubmit if necessary.(A) 10/24/2024 11:12 AM EDT [facility] Urine 10/23/2024 3:21 PM EDT 10/23/2024 4:14 PM EDT Lizzie Mccoy PA-C MICROBIOLOGY - GENERAL ORDER MARSHA Final Result Performing Organization Address City/[facility]/ZIP Co de Phone Number [address] [address] * (ABNORMAL) Urine sediment (10/23/2024 3:21 PM EDT) WBC 11-20(A) NONE SEEN /hpf [facility] RBC TOO NUMEROUS TO COUNT(A) NONE SEEN /hpf [facility] URINE EPITHELIAL 11-20(A) NONE SEEN [facility] MUCUS Trace(A) NONE SEEN /hpf [facility] BACTERIA 1+(A) NONE SEEN /hpf [facility] 10/23/2024 3:21 PM EDT 10/23/2024 4:14 PM EDT Lizzie Mccoy PA-C URINE ORDERABLES Final Resul t Performing Organization Address [facility]/ZIP Co de Phone Number [address] [address] * HCG, serum qualitative (10/23/2024 1:56 PM EDT) HCG, QUALITATIVE Negative Negative IU/L [facility] Blood 10/23/2024 1:56 PM EDT 10/23/2024 2:13 PM EDT Lizzie Mccoy PA-C LAB BLOOD ORDERABLES Final R esult Performing Organization Address [facility] Co de Phone Number [address] [address] * Hold Specimen In Blood Bank (10/23/2024 1:56 PM EDT) Expiration Date of Sample 10/26/2024 ,2359 [facility] Resulting Agency [facility] Blood 10/23/2024 1:56 PM EDT 10/23/2024 2:13 PM EDT Cielo Webb PA-C BLOOD BANK TEST ORDERABLES Final Result Performing Organization Address [facility] Co de Phone Number [address] [address] * (ABNORMAL) CBC and differential (10/23/2024 1:56 PM EDT) WBC 5.25 4.00 - 11.00 K/uL [facility] RBC 4.51 4.00 - 5.20 M/uL [facility] HGB 10.0(L) 12.0 - 16.0 g/dL [facility] HCT 32.1(L) 36.0 - 46.0 % [facility] PLT 92(L) 150 - 450 K/uL [facility] Comment: Microscopic estimate: Platelets decreased. Checked sample for clots MCV 71.2(L) 80.0 - 100.0 fL [facility] MCH 22.2(L) 27.0 - 31.0 pg [facility] MCHC 31.2(L) 32.0 - 36.0 g/dL [facility] RDW 16.6(H) 11.5 - 14.5 % [facility] MPV 11.1 8.4 - 12.0 fL [facility] NRBC 0.00 0.00 /100 WBCs [facility] ABSOLUTE NRBC 0.00 0.00 K/uL [facility] DIFF METHOD Auto [facility] NEUTS 73.8 48.0 - 76.0 % [facility] LYMPHS 19.4 18.0 - 41.0 % [facility] MONOS 5.0 4.0 - 11.0 % [facility] EOS 1.0 0.0 - 5.0 % [facility] BASOS 0.6 0.0 - 1.5 % [facility] Granulocytes, immature (%) 0.2 0.0 - 0.9 % [facility] ABSOLUTE NEUTS 3.88 1.92 - 7.60 K/uL [facility] ABSOLUTE LYMPHS 1.02 0.72 - 4.10 K/uL [facility] ABSOLUTE MONOS 0.26 0.16 - 1.10 K/uL [facility] ABSOLUTE EOS 0.05 0.00 - 0.50 K/uL [facility] ABSOLUTE BASOS 0.03 0.00 - 0.15 K/uL [facility] Granulocytes, immature 0.01 0.00 - 0.09 K/uL [facility] Blood 10/23/2024 1:56 PM EDT 10/23/2024 2:13 PM EDT us Lizzie Mccoy PA-C LAB BLOOD ORDERABLES Final R esult [facility] [address] [place] [address] * (ABNORMAL) Basic metabolic panel (10/23/2024 1:56 PM EDT) SODIUM 140 133 - 146 mmol/L [facility] CHLORIDE 102 96 - 108 mmol/L [facility] POTASSIUM 3.6 3.3 - 5.1 mmol/L [facility] CO2 21 21 - 35 mmol/L [facility] BUN 15 6 - 19 mg/dL [facility] CREATININE 0.60 0.5 - 1.5 mg/dL [facility] GLUCOSE 210(H) 70 - 99 mg/dL [facility] CALCIUM 9.3 8.4 - 10.3 mg/dL [facility] EGFR 113 >59 mL/min/1.7 3m2 [facility] Comment:Estimated glomerular filtration rate calculated using the CKD-EPI refit equation. ANION GAP 21(H) 10 - 20 mmol/L [facility] Blood 10/23/2024 1:56 PM EDT 10/23/2024 2:13 PM EDT us Cielo Webb PA-C LAB BLOOD ORDERABLES Final Result [facility] [address], [place] [id number] from Last 3 Months Insurance [facility] [employer] [id number] [employer] [id number] [place] [address] ACO [facility] [employer] [facility] [employer] Care Teams Box Lining Machine Operator Relationship Specialty Start Date End Date Pcp, Unknown PCP - General 10/23/24 Additional Source Comments The information contained in this document represents components of the legal health record. It is not the complete legal health record.[facility]
[2024-12-12 16:09] VITALS: BP 129/60; PULSE 69; RESP 18; O2SAT 99
[2024-12-12 17:32] VITALS: BP 129/60; PULSE 69; RESP 18; TEMP 36.7; O2SAT 99
== END 2024-12-12 17:34 | disposition home or self-care (01) ==
PROVIDERS: Emergency Provider Emergency Medicine Emergency Medical Services; PCP Internal Medicine
DX: M77.11 Lateral epicondylitis, right elbow (principal); M25.521 Pain in right elbow
CPT/HCPCS: 73080; 99283; 99284

== ENCOUNTER → 2024-12-12 14:19 | Outpatient (BNV) | payer OTHER, SELFPAY | PROVIDERS: Emergency Provider Emergency Medicine Emergency Medical Services; PCP Internal Medicine; Visit Provider Radiology Diagnostic Radiology | DX: M25.521 Pain in right elbow (principal) | CPT/HCPCS: 73080 ==

== ENCOUNTER 2024-12-20 22:39 | Emergency (ER) | payer OTHER, SELFPAY ==
[2024-12-20 22:54] VITALS: BP 124/65; PULSE 77; RESP 18; TEMP 36.7; O2SAT 98; BMI 38.3
--- NOTE | 2024-12-21 00:54 | PC.NURSE ---
patient seen leaving ED. notified registration she was leaving. ambulated with steady gait
--- OUTSIDE RECORDS SUMMARY | 2024-12-21 01:00 | XMS_ITS | Clinical Summary ---
Author Organization [facility] Address [address] [facility] [address] [place] [address] Phone Care Team Providers Care Allergist/Immunologist Name Role Phone Pcp, Unknown Primary Care [...] 6:48 PM EDT Emergency [facility] [address] [place] [address] Blake Guzman MD Discharge Disposition: Home or [...] VACCINE (#1) 2024 COVID-19 VACCINE ( - 2024-2 6 season) 2024 HEPATITIS A VACCINES Aged Out [...] (10/23/2024 3:21 PM EDT) COLOR Yellow Yellow [facility] CLARITY HAZY [facility] GLUCOSE Negative Negative [facility] BILI Negative Negative [facility] KETONES Negative Negative [facility] SPECIFIC GRAVITY 1.025 1.005 - 1.030 [facility] BLOOD 3+(A) Negative [facility] PH 6.0 5.0 - 8.0 [facility] Protein-UA 2+(A) Negative [facility] NITRITE Negative Negative [facility] Leukocyte esterase, ur 1+(A) Negative [facility] Urine (Urine) 10/23/2024 3:2 1 PM EDT 10/23/2024 4:14 PM EDT Lizzie Mccoy PA-C URINE ORDERABLES Final Resul t Performing Organization Address [facility] Co de Phone Number [address] [address] * (ABNORMAL) Urine Culture (10/23/2024 3:21 PM EDT) Special Requests None Reflexed from [id number] 10/23/2024 4:38 PM EDT [facility] Urine Culture >100,000 colony forming units per mL MIXED KELL (3 OR MORE COLONY TYPES) Culture indicates contamination . Please resubmit if necessary.(A) 10/24/2024 11:12 AM EDT [facility] Urine 10/23/2024 3:21 PM EDT 10/23/2024 4:14 PM EDT Lizzie Mccoy PA-C MICROBIOLOGY - GENERAL ORDER MARSHA Final Result Performing Organization Address City/[facility]/ZIP Co de Phone Number [address] [address] * (ABNORMAL) Urine sediment (10/23/2024 3:21 PM EDT) WBC 11-20(A) NONE SEEN /hpf [facility] RBC TOO NUMEROUS TO COUNT(A) NONE SEEN /hpf [facility] URINE EPITHELIAL 11-20(A) NONE SEEN [facility] MUCUS Trace(A) NONE SEEN /hpf [facility] BACTERIA 1+(A) NONE SEEN /hpf [facility] 10/23/2024 3:21 PM EDT 10/23/2024 4:14 PM EDT Lizzie Mccoy PA-C URINE ORDERABLES Final Resul t Performing Organization Address [facility]/ZIP Co de Phone Number [address] [address] * HCG, serum qualitative (10/23/2024 1:56 PM EDT) HCG, QUALITATIVE Negative Negative IU/L [facility] Blood 10/23/2024 1:56 PM EDT 10/23/2024 2:13 PM EDT Lizzie Mccoy PA-C LAB BLOOD ORDERABLES Final R esult Performing Organization Address [facility] Co de Phone Number [address] [address] * Hold Specimen In Blood Bank (10/23/2024 1:56 PM EDT) Expiration Date of Sample 10/26/2024 ,2359 [facility] Resulting Agency [facility] Blood 10/23/2024 1:56 PM EDT 10/23/2024 2:13 PM EDT Cielo Webb PA-C BLOOD BANK TEST ORDERABLES Final Result Performing Organization Address [facility] Co de Phone Number [address] [address] * (ABNORMAL) CBC and differential (10/23/2024 1:56 PM EDT) WBC 5.25 4.00 - 11.00 K/uL [facility] RBC 4.51 4.00 - 5.20 M/uL [facility] HGB 10.0(L) 12.0 - 16.0 g/dL [facility] HCT 32.1(L) 36.0 - 46.0 % [facility] PLT 92(L) 150 - 450 K/uL [facility] Comment: Microscopic estimate: Platelets decreased. Checked sample for clots MCV 71.2(L) 80.0 - 100.0 fL [facility] MCH 22.2(L) 27.0 - 31.0 pg [facility] MCHC 31.2(L) 32.0 - 36.0 g/dL [facility] RDW 16.6(H) 11.5 - 14.5 % [facility] MPV 11.1 8.4 - 12.0 fL [facility] NRBC 0.00 0.00 /100 WBCs [facility] ABSOLUTE NRBC 0.00 0.00 K/uL [facility] DIFF METHOD Auto [facility] NEUTS 73.8 48.0 - 76.0 % [facility] LYMPHS 19.4 18.0 - 41.0 % [facility] MONOS 5.0 4.0 - 11.0 % [facility] EOS 1.0 0.0 - 5.0 % [facility] BASOS 0.6 0.0 - 1.5 % [facility] Granulocytes, immature (%) 0.2 0.0 - 0.9 % [facility] ABSOLUTE NEUTS 3.88 1.92 - 7.60 K/uL [facility] ABSOLUTE LYMPHS 1.02 0.72 - 4.10 K/uL [facility] ABSOLUTE MONOS 0.26 0.16 - 1.10 K/uL [facility] ABSOLUTE EOS 0.05 0.00 - 0.50 K/uL [facility] ABSOLUTE BASOS 0.03 0.00 - 0.15 K/uL [facility] Granulocytes, immature 0.01 0.00 - 0.09 K/uL [facility] Blood 10/23/2024 1:56 PM EDT 10/23/2024 2:13 PM EDT us Lizzie Mccoy PA-C LAB BLOOD ORDERABLES Final R esult [facility] [address] [place] [address] * (ABNORMAL) Basic metabolic panel (10/23/2024 1:56 PM EDT) SODIUM 140 133 - 146 mmol/L [facility] CHLORIDE 102 96 - 108 mmol/L [facility] POTASSIUM 3.6 3.3 - 5.1 mmol/L [facility] CO2 21 21 - 35 mmol/L [facility] BUN 15 6 - 19 mg/dL [facility] CREATININE 0.60 0.5 - 1.5 mg/dL [facility] GLUCOSE 210(H) 70 - 99 mg/dL [facility] CALCIUM 9.3 8.4 - 10.3 mg/dL [facility] EGFR 113 >59 mL/min/1.7 3m2 [facility] Comment:Estimated glomerular filtration rate calculated using the CKD-EPI refit equation. ANION GAP 21(H) 10 - 20 mmol/L [facility] Blood 10/23/2024 1:56 PM EDT 10/23/2024 2:13 PM EDT us Cielo Webb PA-C LAB BLOOD ORDERABLES Final Result [facility] [address] [place], [place] [id number] from Last 3 Months Insurance [facility] [place] [address] [facility] [id number] [id number] [place] [address] ACO [facility] ACO [facility] [employer] Care Teams Allergist/Immunologist Relationship Specialty Start Date End Date Pcp, Unknown PCP - General 10/23/24 Additional Source Comments The information contained in this document represents components of the legal health record. It is not the complete legal health record.[facility]
--- OUTSIDE RECORDS SUMMARY | 2024-12-21 01:00 | XMS_ITS | Patient Health Record ---
Author Organization [facility] Address [address] [place] [address] Care Team Providers Care Marketing Outreach Coordinator Name Role Phone Ira Hayes Primary Care Provider Unavailab Enmanuel Lua Jr Unavailable Elba PINA, Radha Unavailable Unavailable Reason For Referral No Information Plan Of Treatment No Information Insurance Providers Payer Name Payer Address Payer Phone Subscriber Number Group Number Insured Name Patient Relationship to Insured Coverage Start Date Coverage End Date [facility] [address] [address] [place], [place] [id number] RONAK MEEHAN Self - patient is the insured
== END 2024-12-21 00:58 | disposition left against medical advice (07) ==
PROVIDERS: Emergency Provider Emergency Medicine; PCP Internal Medicine
DX: M25.511 Pain in right shoulder (principal); M79.601 Pain in right arm
CPT/HCPCS: 99281

== ENCOUNTER → 2025-01-18 12:41 | Outpatient (BNV) | payer OTHER, SELFPAY | PROVIDERS: PCP Internal Medicine; Visit Provider Psychiatry & Neurology Neurology | DX: M25.541 Pain in joints of right hand (principal) | CPT/HCPCS: 95886; 95911 ==

== ENCOUNTER 2025-01-18 12:47 | Outpatient (REF) | payer OTHER, SELFPAY ==
--- NOTE | 2025-01-18 12:41 | EMG_ITS ---
Chief complaint:? M25.541 pain in joints of right hand, M25.542 pain in joints of left hand Reason for referral: Evaluate for Carpal Tunnel Syndrome Referred by:? David Elizabeth MD Procedure done:? Bilateral upper extremities NCS/EMG [place] [address], x2 extremities Bilateral median and ulnar motor studies were performed. Bilateral median and ulnar mixed sensory studies were performed. Bilateral radial sensory studies were performed an EMG needle examination was performed. Findings: Median studies did not reveal any significant abnormality. Similarly ulnar studies also did not reveal any significant abnormality. Impression: This is an unremarkable study with no evidence of median or ulnar neuropathy or a radiculopathy. MTDD
--- OUTSIDE RECORDS SUMMARY | 2025-01-18 15:26 | XMS_ITS | Clinical Summary ---
Author Organization [facility] Address [address] [facility] [address] [place] [address] Phone Care Team Providers Care Delinquency Counselor Name Role Phone Pcp, Unknown Primary Care [...] 6:48 PM EDT Emergency [facility] [address] [place] [address] Blake Guzman MD Discharge Disposition: Home or [...] SEDIMENT STAT 10/23/2024 3:21 PM EDT URINALYSIS WITH REFLEX TO URINE CULTURE STAT 10/23/2024 3:21 PM EDT URINE CULTURE Routine 10/23/2024 3:21 PM EDT BLOOD BANK HOLD SPECIMEN STAT 10/23/2024 1:56 PM EDT BASIC METABOLIC PANEL (BMP) STAT 10/23/2024 1:56 PM EDT HCG, SERUM [...] (10/23/2024 3:21 PM EDT) COLOR Yellow Yellow [facility] CLARITY HAZY [facility] GLUCOSE Negative Negative [facility] BILI Negative Negative [facility] KETONES Negative Negative [facility] SPECIFIC GRAVITY 1.025 1.005 - 1.030 [facility] BLOOD 3+(A) Negative [facility] PH 6.0 5.0 - 8.0 [facility] Protein-UA 2+(A) Negative [facility] NITRITE Negative Negative [facility] Leukocyte esterase, ur 1+(A) Negative [facility] Urine (Urine) 10/23/2024 3:2 1 PM EDT 10/23/2024 4:14 PM EDT [facility] LOR[facility]-C LAB URINE ORDERABLES Final R esult Performing Organization Address [facility] Co de Phone Number [address] [address] * (ABNORMAL) Urine Culture (10/23/2024 3:21 PM EDT) Special Requests None Reflexed from [id number] 10/23/2024 4:38 PM EDT [facility] Urine Culture >100,000 colony forming units per mL MIXED KELL (3 OR MORE COLONY TYPES) Culture indicates contamination . Please resubmit if necessary.(A) 10/24/2024 11:12 AM EDT [facility] Urine 10/23/2024 3:21 PM EDT 10/23/2024 4:14 PM EDT [facility] LOR[facility]-C LAB MICROBIOLOGY CULTURE ORD ERABLES Final Result Performing Organization Address [facility]/ZIP Co de Phone Number [address] [address] * (ABNORMAL) Urine sediment (10/23/2024 3:21 PM EDT) WBC 11-20(A) NONE SEEN /hpf [facility] RBC TOO NUMEROUS TO COUNT(A) NONE SEEN /hpf [facility] URINE EPITHELIAL 11-20(A) NONE SEEN [facility] MUCUS Trace(A) NONE SEEN /hpf [facility] BACTERIA 1+(A) NONE SEEN /hpf [facility] 10/23/2024 3:21 PM EDT 10/23/2024 4:14 PM EDT Lizzie Mccoy PA-C LAB URINE ORDERABLES Final R esult Performing Organization Address [facility]/ZIP Co de Phone Number [address] [address] * HCG, serum qualitative (10/23/2024 1:56 PM EDT) HCG, QUALITATIVE Negative Negative IU/L [facility] Blood 10/23/2024 1:56 PM EDT 10/23/2024 2:13 PM EDT Lizzie Mccoy PA-C LAB BLOOD BKR ORDERABLES Fin al Result Performing Organization Address [facility] Co de Phone Number [address] [address] * Hold Specimen In Blood Bank (10/23/2024 1:56 PM EDT) Expiration Date of Sample 10/26/2024 ,2359 [facility] Resulting Agency [facility] Blood 10/23/2024 1:56 PM EDT 10/23/2024 2:13 PM EDT Cielo Webb PA-C LAB BLOOD BANK TEST ORDERAB LES Final Result Performing Organization Address [facility] Co de Phone Number [address] [address] * (ABNORMAL) CBC and differential (10/23/2024 1:56 PM EDT) WBC 5.25 4.00 - 11.00 K/uL [facility] RBC 4.51 4.00 - 5.20 M/uL [facility] HGB 10.0(L) 12.0 - 16.0 g/dL [facility] HCT 32.1(L) 36.0 - 46.0 % [facility] PLT 92(L) 150 - 450 K/uL [facility] Comment: Microscopic estimate: Platelets decreased. Checked sample for clots MCV 71.2(L) 80.0 - 100.0 fL [facility] MCH 22.2(L) 27.0 - 31.0 pg [facility] MCHC 31.2(L) 32.0 - 36.0 g/dL [facility] RDW 16.6(H) 11.5 - 14.5 % [facility] MPV 11.1 8.4 - 12.0 fL [facility] NRBC 0.00 0.00 /100 WBCs [facility] ABSOLUTE NRBC 0.00 0.00 K/uL [facility] DIFF METHOD Auto [facility] NEUTS 73.8 48.0 - 76.0 % [facility] LYMPHS 19.4 18.0 - 41.0 % [facility] MONOS 5.0 4.0 - 11.0 % [facility] EOS 1.0 0.0 - 5.0 % [facility] BASOS 0.6 0.0 - 1.5 % [facility] Granulocytes, immature (%) 0.2 0.0 - 0.9 % [facility] ABSOLUTE NEUTS 3.88 1.92 - 7.60 K/uL [facility] ABSOLUTE LYMPHS 1.02 0.72 - 4.10 K/uL [facility] ABSOLUTE MONOS 0.26 0.16 - 1.10 K/uL [facility] ABSOLUTE EOS 0.05 0.00 - 0.50 K/uL [facility] ABSOLUTE BASOS 0.03 0.00 - 0.15 K/uL [facility] Granulocytes, immature 0.01 0.00 - 0.09 K/uL [facility] Blood 10/23/2024 1:56 PM EDT 10/23/2024 2:13 PM EDT us Lizzie Mccoy PA-C LAB BLOOD BKR ORDERABLES Fin al Result [facility] [address] [place] [address] * (ABNORMAL) Basic metabolic panel (10/23/2024 1:56 PM EDT) SODIUM 140 133 - 146 mmol/L [facility] CHLORIDE 102 96 - 108 mmol/L [facility] POTASSIUM 3.6 3.3 - 5.1 mmol/L [facility] CO2 21 21 - 35 mmol/L [facility] BUN 15 6 - 19 mg/dL [facility] CREATININE 0.60 0.5 - 1.5 mg/dL [facility] GLUCOSE 210(H) 70 - 99 mg/dL [facility] CALCIUM 9.3 8.4 - 10.3 mg/dL [facility] EGFR 113 >59 mL/min/1.7 3m2 [facility] Comment:Estimated glomerular filtration rate calculated using the CKD-EPI refit equation. ANION GAP 21(H) 10 - 20 mmol/L [facility] Blood 10/23/2024 1:56 PM EDT 10/23/2024 2:13 PM EDT us Cielo Webb PA-C LAB BLOOD BKR ORDERABLES Fi nal Result [facility] [address] [place] [address] from Last 3 Months Insurance [facility] ACO [facility] [employer] [id number] [place] [address] [address] [id number] A[employer] [facility] A[employer] Care Teams Delinquency Counselor Relationship Specialty Start Date End Date Pcp, Unknown PCP - General 10/23/24 Additional Source Comments The information contained in this document represents components of the legal health record. It is not the complete legal health record.[facility]
--- OUTSIDE RECORDS SUMMARY | 2025-01-18 15:26 | XMS_ITS | Patient Health Record ---
Author Organization [facility] Address [address] [place] [address] Care Team Providers Care Food Trades Assistants Name Role Phone Ira Hayes Primary Care Provider Unavailab Enmanuel Lua Jr Unavailable [phone] Elba PINA, Radha Unavailable Unavailable Reason For Referral No Information Plan Of Treatment No Information Insurance Providers Payer Name Payer Address Payer Phone Subscriber Number Group Number Insured Name Patient Relationship to Insured Coverage Start Date Coverage End Date [facility] [address] [address] [place], [place] [id number] RONAK MEEHAN Self - patient is the insured
== END 2025-01-18 12:48 | disposition home or self-care (01) ==
LOC: HO.NEURO 12:47
PROVIDERS: PCP Internal Medicine; Visit Provider Internal Medicine
DX: M25.541 Pain in joints of right hand (principal); M25.542 Pain in joints of left hand
CPT/HCPCS: 95886; 95911

== ENCOUNTER 2025-01-21 13:05 | Outpatient (AMB) | payer OTHER, SELFPAY ==
--- NOTE | 2025-01-21 13:19 | MHC.OFFVIS ---
Vital Signs 01/21/25 13:27 Height 5 ft 2 in Weight 206 lb BMI 37.7 Intake Visit Reasons: New prob - B/L hand pain, EMG done 01/18/25 Intake Note: Georgie is a 44 year old right hand dominant female who presents today for a New Problem Visit for evaluation of Bilateral Hand Pain. States her right is worse. States she is having pain, numbness and tingling in the palm of her hand with heavy lifting or when she is cooking. Symptoms are on and off every other day. Denies injury or locking of any finger. She is also having pain on her right thumb which is worsen by twisting of wrist and with gripping motions. Last A1C taken 08/16/24 - 7.5 EMG Impression: This is an unremarkable study with no evidence of median or ulnar neuropathy or a radiculopathy. Allergies aspirin (ASPIRIN) Adverse Reaction (Intermediate, Verified 01/21/25 13:31) ULCER; GI UPSET, internal bleeding dextran 40 Adverse Reaction (Verified 01/21/25 13:31) Itching HPI HPI New prob - B/L hand pain, EMG done 01/18/25: Details: Georgie is a 44 year old right hand dominant female who presents today for a New Problem Visit for evaluation of Bilateral Hand Pain. States her right is worse. States she is having pain, numbness and tingling in the palm of her hand with heavy lifting or when she is cooking. Symptoms are on and off every other day. Denies injury or locking of any finger. She is also having pain on her right thumb which is worsen by twisting of wrist and with gripping motions. Last A1C taken 08/16/24 - 7.5 EMG Impression: This is an unremarkable study with no evidence of median or ulnar neuropathy or a radiculopathy. [facility] Medical History Osteoarthritis of knees, bilateral ELIJAH I (cervical intraepithelial neoplasia I) Obesity, Class III, BMI 40-49.9 (morbid obesity) Smoker Depression Anxiety Insomnia Esophageal varices Diabetes mellitus Lower abdominal pain Allergic rhinitis Common cold Anxiety and depression Obesity (BMI 30-39.9) Smoker Hypersplenism Pancytopenia Bilateral calcaneal spurs Thrombocytopenia Ascites Iron deficiency anemia due to chronic blood loss History of esophageal varices Chronic pain of both feet Varicose veins of right lower extremity with inflammation Sprain of left knee IBS (irritable bowel syndrome) GERD (gastroesophageal reflux disease) Depression Dementia Liver disease Hypertension Surgical History Hx of colonoscopy History of D&C S/P TIPS (transjugular intrahepatic portosystemic shunt) (~10/2015) History of liver biopsy (~04/2002) History of esophagogastroduodenoscopy (EGD) Family History Father Diabetes mellitus Mother Diabetes mellitus Alzheimer's dementia Pneumothorax Maternal Aunt Ovarian cancer Daughter No problems noted. Maternal Aunt Cervical cancer Maternal Grandfather Pancreatic cancer Other Mental health disorder Social History Household Members: Significant Other Housing: Apartment Do you presently have visiting nurse or other home services: No Alcohol intake: current Alcohol intake frequency: holidays/special occasions only Patient Tobacco Use Status: Never used Tobacco Tobacco use type: Cigarette Cigarette Packs Per Day: 0.5 Years Smoked: 8 years e-Cigarette/Vaping Use: Never Used Second Hand Smoke Exposure: Yes service: No Current occupational status: unemployed Current occupational exposures/hazards: No Cognitive needs: No Hearing needs: No Vision needs: No Female Reproductive History Menstrual Age of Menarche: 8 Physical Exam Vital Signs: BMI result Body Mass Index 37.7 Extrem Other: Neuro: Normal sensation of the tips of all digits of bilateral hands in the office today No thenar or intrinsic wasting. Good APB muscle firing and good finger cross. Vascular: Capillary refill brisk. ROM: Patient can make a fist and extend all their digits. Skin: No lacerations or abrasions noted. General: No ecchymosis. No erythema or evidence of infection. Assessment & Plan Assessment & Plan (1) Arthralgia of hands, bilateral: Code(s): M25.541 - Pain in joints of right hand; M25.542 - Pain in joints of left hand Category: Medical Plan 1. Bilateral hand pain, numbness, tingling Intermittent, daily, worse at night Negative EMG Patient is educated about this condition Patient is educated about the typical treatment course At this time, patient is provided with a referral to occupational therapy for range of motion and strengthening of bilateral hands Patient is educated that if in 6 months, she is still experiencing numbness and tingling, she should call our office for reassessment and repeat EMG Patient understands this and is amenable to this plan Follow-up as needed Orders: Orders OT Evaluation and Treatment Today M25.541 - Pain in joints of right hand, M25.542 - Pain in joints of left hand Coding Level of Care Code New Pt Level 3 (79972) Diagnoses Arthralgia of hands, bilateral M25.541; M25.542
[2025-01-21 13:27] VITALS: BMI 37.7
--- OUTSIDE RECORDS SUMMARY | 2025-01-21 15:15 | XMS_ITS | Clinical Summary ---
Author Organization [facility] Address [address] [place] [address] Phone Care Team Providers Care Instructor Knitting Name Role Phone Pcp, Unknown Primary Care [...] 6:48 PM EDT Emergency [facility] [address] [place] [address] Blake Guzman MD Discharge Disposition: Home or [...] (10/23/2024 3:21 PM EDT) COLOR Yellow Yellow [facility] CLARITY HAZY [facility] GLUCOSE Negative Negative [facility] BILI Negative Negative [facility] KETONES Negative Negative [facility] SPECIFIC GRAVITY 1.025 1.005 - 1.030 [facility] BLOOD 3+(A) Negative [facility] PH 6.0 5.0 - 8.0 [facility] Protein-UA 2+(A) Negative [facility] NITRITE Negative Negative [facility] Leukocyte esterase, ur 1+(A) Negative [facility] Urine (Urine) 10/23/2024 3:2 1 PM EDT 10/23/2024 4:14 PM EDT [facility] URINE ORDERABLES Final R esult Performing Organization Address [facility] Co de Phone Number [address] [address] * (ABNORMAL) Urine Culture (10/23/2024 3:21 PM EDT) Special Requests None Reflexed from [id number] 10/23/2024 4:38 PM EDT [facility] Urine Culture >100,000 colony forming units per mL MIXED KELL (3 OR MORE COLONY TYPES) Culture indicates contamination . Please resubmit if necessary.(A) 10/24/2024 11:12 AM EDT [facility] Urine 10/23/2024 3:21 PM EDT 10/23/2024 4:14 PM EDT [facility] MICROBIOLOGY CULTURE ORD ERABLES Final Result Performing Organization Address [facility]/ZIP Co de Phone Number [address] [address] * (ABNORMAL) Urine sediment (10/23/2024 3:21 PM EDT) WBC 11-20(A) NONE SEEN /hpf [facility] RBC TOO NUMEROUS TO COUNT(A) NONE SEEN /hpf [facility] URINE EPITHELIAL 11-20(A) NONE SEEN [facility] MUCUS Trace(A) NONE SEEN /hpf [facility] BACTERIA 1+(A) NONE SEEN /hpf [facility] 10/23/2024 3:21 PM EDT 10/23/2024 4:14 PM EDT Lizzie Mccoy PA-C LAB URINE ORDERABLES Final R esult Performing Organization Address [facility]/ZIP Co de Phone Number [address] [address] * HCG, serum qualitative (10/23/2024 1:56 PM EDT) HCG, QUALITATIVE Negative Negative IU/L [facility] Blood 10/23/2024 1:56 PM EDT 10/23/2024 2:13 PM EDT Lizzie Mccoy PA-C LAB BLOOD BKR ORDERABLES Fin al Result Performing Organization Address [facility] Co de Phone Number [address] [address] * Hold Specimen In Blood Bank (10/23/2024 1:56 PM EDT) Expiration Date of Sample 10/26/2024 ,2359 [facility] Resulting Agency [facility] Blood 10/23/2024 1:56 PM EDT 10/23/2024 2:13 PM EDT Cielo Webb PA-C LAB BLOOD BANK TEST ORDERAB LES Final Result Performing Organization Address [facility] Co de Phone Number [address] [address] * (ABNORMAL) CBC and differential (10/23/2024 1:56 PM EDT) WBC 5.25 4.00 - 11.00 K/uL [facility] RBC 4.51 4.00 - 5.20 M/uL [facility] HGB 10.0(L) 12.0 - 16.0 g/dL [facility] HCT 32.1(L) 36.0 - 46.0 % [facility] PLT 92(L) 150 - 450 K/uL [facility] Comment: Microscopic estimate: Platelets decreased. Checked sample for clots MCV 71.2(L) 80.0 - 100.0 fL [facility] MCH 22.2(L) 27.0 - 31.0 pg [facility] MCHC 31.2(L) 32.0 - 36.0 g/dL [facility] RDW 16.6(H) 11.5 - 14.5 % [facility] MPV 11.1 8.4 - 12.0 fL [facility] NRBC 0.00 0.00 /100 WBCs [facility] ABSOLUTE NRBC 0.00 0.00 K/uL [facility] DIFF METHOD Auto [facility] NEUTS 73.8 48.0 - 76.0 % [facility] LYMPHS 19.4 18.0 - 41.0 % [facility] MONOS 5.0 4.0 - 11.0 % [facility] EOS 1.0 0.0 - 5.0 % [facility] BASOS 0.6 0.0 - 1.5 % [facility] Granulocytes, immature (%) 0.2 0.0 - 0.9 % [facility] ABSOLUTE NEUTS 3.88 1.92 - 7.60 K/uL [facility] ABSOLUTE LYMPHS 1.02 0.72 - 4.10 K/uL [facility] ABSOLUTE MONOS 0.26 0.16 - 1.10 K/uL [facility] ABSOLUTE EOS 0.05 0.00 - 0.50 K/uL [facility] ABSOLUTE BASOS 0.03 0.00 - 0.15 K/uL [facility] Granulocytes, immature 0.01 0.00 - 0.09 K/uL [facility] Blood 10/23/2024 1:56 PM EDT 10/23/2024 2:13 PM EDT us Lizzie Mccoy PA-C LAB BLOOD BKR ORDERABLES Fin al Result [facility] [address] [place] [address] * (ABNORMAL) Basic metabolic panel (10/23/2024 1:56 PM EDT) SODIUM 140 133 - 146 mmol/L [facility] CHLORIDE 102 96 - 108 mmol/L [facility] POTASSIUM 3.6 3.3 - 5.1 mmol/L [facility] CO2 21 21 - 35 mmol/L [facility] BUN 15 6 - 19 mg/dL [facility] CREATININE 0.60 0.5 - 1.5 mg/dL [facility] GLUCOSE 210(H) 70 - 99 mg/dL [facility] CALCIUM 9.3 8.4 - 10.3 mg/dL [facility] EGFR 113 >59 mL/min/1.7 3m2 [facility] Comment:Estimated glomerular filtration rate calculated using the CKD-EPI refit equation. ANION GAP 21(H) 10 - 20 mmol/L [facility] Blood 10/23/2024 1:56 PM EDT 10/23/2024 2:13 PM EDT us Cielo Webb PA-C LAB BLOOD BKR ORDERABLES Fi nal Result [facility] [address] [place] [address] from Last 3 Months Insurance [facility] ACO [facility] [employer] [id number] [id number] [place] [id number] [employer] [facility] A[employer] Care Teams Instructor Knitting Relationship Specialty Start Date End Date Pcp, Unknown PCP - General 10/23/24 Additional Source Comments The information contained in this document represents components of the legal health record. It is not the complete legal health record.[facility]
--- OUTSIDE RECORDS SUMMARY | 2025-01-21 15:15 | XMS_ITS | Patient Health Record ---
Author Organization [facility] Address [address] [place] [address] Care Team Providers Care Sybase Developer Name Role Phone Ira Hayes Primary Care Provider Unavailab Enmanuel Lua Jr Unavailable Elba PINA, Radha Unavailable Unavailable Reason For Referral No Information Plan Of Treatment No Information Insurance Providers Payer Name Payer Address Payer Phone Subscriber Number Group Number Insured Name Patient Relationship to Insured Coverage Start Date Coverage End Date [facility] [address] [address] [place], [place] [id number] RONAK MEEHAN Self - patient is the insured
== END 2025-01-21 13:59 | disposition home or self-care (01) ==
LOC: HO.HOS 13:06
PROVIDERS: PCP Internal Medicine
DX: M25.541 Pain in joints of right hand (principal); M25.542 Pain in joints of left hand
CPT/HCPCS: 99213

== ENCOUNTER → 2025-01-21 13:05 | Outpatient (BNVA) | payer OTHER, SELFPAY | PROVIDERS: PCP Internal Medicine | DX: M25.541 Pain in joints of right hand (principal); M25.542 Pain in joints of left hand | CPT/HCPCS: 99212 ==

== ENCOUNTER 2025-01-26 11:30 | Outpatient (RCR) | payer OTHER, SELFPAY ==
[2024-06-25 08:13] VITALS: BP 134/43; PULSE 57; RESP 16; TEMP 36.7; O2SAT 100
[2024-06-25] MEDS: 0.9 % Sodium Chloride Flush 10 ML SYRINGE 5 ML IVFLUSH (08:22)
--- NOTE | 2024-06-25 08:49 | HO.INF ---
pt c/o painful cramping above iv site during venofer push. pushed for >10 min and still painful. pharmacy notified to make venofer admin in bags
[2024-07-02 10:01] VITALS: BP 133/78; PULSE 64; RESP 16; TEMP 36.6; O2SAT 100
[2024-07-09 10:06] VITALS: BP 129/64; PULSE 73; RESP 16; TEMP 36.8; O2SAT 97
[2024-09-16 09:08] VITALS: BP 142/121; PULSE 79; RESP 16; TEMP 36.6; O2SAT 98
[2024-12-23 08:48] VITALS: BP 137/74; PULSE 74; RESP 16; TEMP 36.6; O2SAT 96
[2024-12-28 09:31] VITALS: BP 132/75; PULSE 72; RESP 16; TEMP 36.6; O2SAT 98
[2025-01-05 10:45] VITALS: BP 139/61; PULSE 78; RESP 16; TEMP 36.6; O2SAT 99
[2025-01-13 10:40] VITALS: BP 148/81; PULSE 74; RESP 16; TEMP 36.6; O2SAT 98
[2025-01-21 08:48] VITALS: BP 142/71; PULSE 79; RESP 16; TEMP 36.7; O2SAT 98
[2025-01-26 11:37] VITALS: BP 154/68; PULSE 78; RESP 16; TEMP 36.3; O2SAT 99
== END 2025-01-26 12:01 | disposition home or self-care (01) ==
LOC: HO.INF 11:30
PROVIDERS: Visit Provider Internal Medicine
DX: D50.9 Iron deficiency anemia, unspecified (principal)
CPT/HCPCS: 96365; 96374; J1756

== ENCOUNTER 2025-02-02 07:46 | Outpatient (REF) | payer OTHER, SELFPAY ==
--- OUTSIDE RECORDS SUMMARY | 2024-01-19 04:30 | XMS_ITS | Continuity of Care Document ---
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 Name Role Phone Brad Butler MD, MD Unavailable Unavailable Procedures Procedure Date PREV VISIT, EST, AGE 40-64 OFFICE/OUTPATIENT VISIT, EST SPECIMEN HANDLING PREV VISIT, EST, AGE 40-64 Advance Directives Directive Yes / No Effective Date File Name No Information Encounters Encounter Description Practice Location Reason(s) For Visit Diagnoses Date Provider Providers Copied on Encounter PREV VISIT, EST, AGE 40-64 [facility], [address] [place] [address] Dr Mc [address] [place] [address], [id number], tel:[phone] [facility] No Information Luke Salinas. [address] [place] [address], [id number], [place]. tel:[phone] PREV VISIT, EST, AGE 40-64 [facility], [address] [place] [address] Dr Mc [address] [place] [address], [id number], tel:[phone] [facility] No Information Luke Salinas. [address] [place] [address], [id number], [place]. tel:[phone] Family History Family Member Type Diagnosis Age At Onset No Information Payers Payer name Insurance type Covered republican ID Authoriza tijason(s) [facility] [id number] Social History Type Description Quantity Date Captured Comments Sex Female Smoking Status No Information Chief Complaint And Reason For Visit No Information Reason For Referral Reason For Referral No Information Plan Of Treatment Date Type Action Status Appointment Georgie Anderson BOOKED History Of Present Illness Encounter Date Complaint History Of Prese nt Illness No Information Functional Status Date Functional Assessmen t No Information Instructions Date Instruction Additional Infor mation No Information Assessments Type Assessment Date No Information Patient Care Teams Name Effective Dates (start - stop) Status Members No Information
--- OUTSIDE RECORDS SUMMARY | 2024-01-19 04:30 | XMS_ITS | Continuity of Care Document ---
Author Organization [facility] Address [address] [place] [address] [address] Phone Care Team Providers Care Patient Placement Coordinator Name Role Phone Brad Butler MD, MD Unavailable Unavailable Procedures Procedure Date PREV VISIT, EST, AGE 40-64 OFFICE/OUTPATIENT VISIT, EST SPECIMEN HANDLING PREV VISIT, EST, AGE 40-64 Advance Directives Directive Yes / No Effective Date File Name No Information Encounters Encounter Description Practice Location Reason(s) For Visit Diagnoses Date Provider Providers Copied on Encounter PREV VISIT, EST, AGE 40-64 [facility], [address] [place] [address] Dr Mc [address] [place] [address], [id number], tel:[phone] [facility] No Information Luke Salinas. [address] [place] [address], [id number], [place]. tel:[phone] PREV VISIT, EST, AGE 40-64 [facility], [address] [place] [address] Dr Mc [address] [place] [address], [id number], tel:[phone] [facility] No Information Luke Salinas. [address] [place] [address], [id number], [place]. tel:[phone] Family History Family Member Type Diagnosis Age At Onset No Information Payers Payer name Insurance type Covered constitution party ID Authoriza tijason(s) [facility] [id number] Social History Type Description Quantity Date Captured [...]
--- OUTSIDE RECORDS SUMMARY | 2024-01-19 04:30 | XMS_ITS | Continuity of Care Document ---
Author Organization [facility] Address [address] [place] [address] [address] Phone Care Team Providers Care Beeswax Bleacher Name Role Phone Brad Butler MD, MD Unavailable Unavailable Procedures Procedure Date PREV VISIT, EST, AGE 40-64 OFFICE/OUTPATIENT VISIT, EST SPECIMEN HANDLING PREV VISIT, EST, AGE 40-64 Advance Directives Directive Yes / No Effective Date File Name No Information Encounters Encounter Description Practice Location Reason(s) For Visit Diagnoses Date Provider Providers Copied on Encounter PREV VISIT, EST, AGE 40-64 [facility], [address] [place] [address] Dr Mc [address] [place] [address], [id number], tel:[phone] [facility] No Information Luke Salinas. [address] [place] [address], [id number], [place]. tel:[phone] PREV VISIT, EST, AGE 40-64 [facility], [address] [place] [address] Dr Mc [address] [place] [address], [id number], tel:[phone] [facility] No Information Luke Salinas. [address] [place] [address], [id number], [place]. tel:[phone] Family History Family Member Type Diagnosis Age At Onset No Information Payers Payer name Insurance type Covered libertarian ID Authoriza tijason(s) [facility] [id number] Social History Type Description Quantity Date Captured [...]
--- OUTSIDE RECORDS SUMMARY | 2024-01-19 04:30 | XMS_ITS | Continuity of Care Document ---
Author Organization [facility] Address [address] [place] [address] [address] Phone Care Team Providers Care Auto Adjudication Specialist Name Role Phone Brad Butler MD, MD Unavailable Unavailable Procedures Procedure Date PREV VISIT, EST, AGE 40-64 OFFICE/OUTPATIENT VISIT, EST SPECIMEN HANDLING PREV VISIT, EST, AGE 40-64 Advance Directives Directive Yes / No Effective Date File Name No Information Encounters Encounter Description Practice Location Reason(s) For Visit Diagnoses Date Provider Providers Copied on Encounter PREV VISIT, EST, AGE 40-64 [facility], [address] [place] [address] Dr Mc [address] [place] [address], [id number], tel:[phone] [facility] No Information Luke Salinas. [address] [place] [address], [id number], [place]. tel:[phone] PREV VISIT, EST, AGE 40-64 [facility], [address] [place] [address] Dr Mc [address] [place] [address], [id number], tel:[phone] [facility] No Information Luke Salinas. [address] [place] [address], [id number], [place]. tel:[phone] Family History Family Member Type Diagnosis Age At Onset No Information Payers Payer name Insurance type Covered democrat ID Authoriza tijason(s) [facility] [id number] Social History Type Description Quantity Date Captured [...]
--- OUTSIDE RECORDS SUMMARY | 2024-01-19 04:30 | XMS_ITS | Continuity of Care Document ---
Author Organization [facility] Address [address] [place] [address] [address] Phone Care Team Providers Care Trip Rider Name Role Phone Brad Butler MD, MD Unavailable Unavailable Procedures Procedure Date PREV VISIT, EST, AGE 40-64 OFFICE/OUTPATIENT VISIT, EST SPECIMEN HANDLING PREV VISIT, EST, AGE 40-64 Advance Directives Directive Yes / No Effective Date File Name No Information Encounters Encounter Description Practice Location Reason(s) For Visit Diagnoses Date Provider Providers Copied on Encounter PREV VISIT, EST, AGE 40-64 [facility], [address] [place] [address] Dr Mc [address] [place] [address], [id number], tel:[phone] [facility] No Information Luke Salinas. [address] [place] [address], [id number], [place]. tel:[phone] PREV VISIT, EST, AGE 40-64 [facility], [address] [place] [address] Dr Mc [address] [place] [address], [id number], tel:[phone] [facility] No Information Luke Salinas. [address] [place] [address], [id number], [place]. tel:[phone] Family History Family Member Type Diagnosis Age At Onset No Information Payers Payer name Insurance type Covered alliance party ID Authoriza tijason(s) [facility] [id number] Social History Type Description Quantity Date Captured [...]
--- OUTSIDE RECORDS SUMMARY | 2024-01-19 04:30 | XMS_ITS | Continuity of Care Document ---
Author Organization [facility] Address [address] [place] [address] [address] Phone Care Team Providers Care Food Production Worker Name Role Phone Brad Butler MD, MD Unavailable Unavailable Procedures Procedure Date PREV VISIT, EST, AGE 40-64 OFFICE/OUTPATIENT VISIT, EST SPECIMEN HANDLING PREV VISIT, EST, AGE 40-64 Advance Directives Directive Yes / No Effective Date File Name No Information Encounters Encounter Description Practice Location Reason(s) For Visit Diagnoses Date Provider Providers Copied on Encounter PREV VISIT, EST, AGE 40-63 [facility], [address] [place] [address] Dr Mc [address] [place] [address], [id number], tel:[phone] [facility] No Information Luke Salinas. [address] [place] [address], [id number], [place]. tel:[phone] PREV VISIT, EST, AGE 40-63 [facility], [address] [place] [address] Dr Mc [address] [place] [address], [id number], tel:[phone] [facility] No Information Luke Salinas. [address] [place] [address], [id number], [place]. tel:[phone] Family History Family Member Type Diagnosis Age At Onset No Information Payers Payer name Insurance type Covered constitution party ID Authoriza tijason(s) [facility] [id number] Social History Type Description Quantity Date Captured [...]
--- OUTSIDE RECORDS SUMMARY | 2024-07-19 19:00 | XMS_ITS | Continuity of Care Document ---
Author Organization [facility] re Address [address] [place] [address] Phone Care Team Providers Care Grinder Set Up Operator Centerless Name Role Phone Nino Armstrong OD Unavailable Unavailable Allergies, Adverse Reactions, Alerts Substance Reaction Status Criticality No Known Allergies Active No Inform ation Medications Medication Instructions Dosage Effective Dates (start - stop) Status Comments Eye Allergy Relief (Naphazoline-Pheniram ine) 0.76172 %-0.315 % Drops - Active Singulair 10 mg tablet take 1 tablet (10MG) by oral route every day in the evening 10 MG - Active Procedures Procedure Date Lens Warranty Processing Fee Fundus Photos REFRACTION EYE EXAM & TREATMENT [...] Date Provider Providers Copied on En[facility], [address], [place], [place], [id number], [place] tel:[phone] Garcia CTL/Optica l/Misc No Information 5 Patti Oneill. [address], [place], [address], [place]. tel:[phone] [facility], [address], [place], [place], [id number], [place] tel:[phone] Garcia decreased vision (chief complaint) Presbyopia 5 Patti Oneill. [address], [place], [address], [place]. tel:[phone] [facility], [address], [place], [place], [id number], [place] tel:[phone] Garcia blurry vision (chief complaint) Presbyopia 3 Patti Oneill. [address], [place], [address], [place]. tel:[phone] OFFICE/OUTPAT IENT VISIT, EST [facility], [address], [place], [place], [id number], [place] tel:[phone] Garcia Watery Eyes (chief complaint) Dry eyes, bilateral Daniele- 9 Patti Oneill. [address], [place], [address], [place]. tel:[phone] [facility], [address], [place], [place], [id number], [place] tel:[phone] Garcia Complete exam (chief complaint) Myopia, bilateral Oct- 8 Patti Oneill. [address], [place], [address], [place]. tel:[phone] [facility], [address], [place], [place], [id number], [place] tel:[phone] Garcia decreased vision (chief complaint) Myopia, bilateral 6 Patti Oneill. [address], [place], [address], [place]. tel:[phone] [facility], [address], [place], [place], [id number], [place] tel:[phone] Garcia No Information 5 No Information [facility], [address], [place], [place], [id number], [place] tel:[phone] Garcia Contact lens followup (chief complaint) Myopia 5 No Information [facility], [address], [place], [place], [id number], [place] tel:[phone] Garcia decreased vision (chief complaint) Myopia 5 No Information [facility], [address], [place], [place], [id number], [place] tel:[phone] Garcia No Information 3 Habib Angeles. [address], [place], [address], [place]. tel:[phone] [facility], [address], [place], [place], [id number], [place] tel:[phone] Garcia Myopia Sep-0 3 Habib Angeles. [address], [place], [address], [place]. tel:[phone] [facility], [address], [place], [place], [id number], [place] tel:[phone] Garcia CTL/Optica l/Misc No Information 0 3-201 3 Habib Angeles. [address], [place], [address], [place]. tel:[phone] Family History Family Member Type Diagnosis Age At Onset Mother Problem (finding) HBP Grandmother (m) Problem (finding) Heart Disease Payers Payer name Insurance type Covered alliance party ID Authoriza tion(s) No Information Social History Type Description Quantity Date Captured [...] to Presb yopia Return in 1 year Nino Lira OD [...] today. - Return in 1 year w ith Habib, Angeles OD for Complete Exam. Related to Myopia Myopia - Discussed d iagnosis in detail with patient. New glasses Rx was given today. Educational materials provided:Refractive error. Related to Myopia Assessments Type Assessment Date No Information Patient Care Teams Name Effective Dates (start - stop) Status Members No Information
--- OUTSIDE RECORDS SUMMARY | 2024-07-19 19:00 | XMS_ITS | Continuity of Care Document ---
Author Organization [facility] re Address [address] [place] [address] Phone Care Team Providers Care Embedded Software Architect Name Role Phone Nino Armstrong OD Unavailable Unavailable Allergies, Adverse Reactions, Alerts Substance Reaction Status Criticality No Known Allergies Active No Inform ation Medications Medication Instructions Dosage Effective Dates (start - stop) Status Comments Eye Allergy Relief (Naphazoline-Pheniram ine) 0.49933 %-0.315 % Drops - Active Singulair 10 [...] Date Provider Providers Copied on [facility], [address], [place], [place], [id number], [place] tel:[phone] Garcia CTL/Optica l/Misc No Information 5 Patti Oneill. [address], [place], [address], [place]. tel:[phone] [facility], [address], [place], [place], [id number], [place] tel:[phone] Garcia decreased vision (chief complaint) Presbyopia 5 Patti Oneill. [address], [place], [address], [place]. tel:[phone] [facility], [address], [place], [place], [id number], [place] tel:[phone] Garcia blurry vision (chief complaint) Presbyopia 3 Patti Oneill. [address], [place], [address], [place]. tel:[phone] OFFICE/OUTPAT IENT VISIT, EST [facility], [address], [place], [place], [id number], [place] tel:[phone] Garcia Watery Eyes (chief complaint) Dry eyes, bilateral Daniele- 9 Patti Oneill. [address], [place], [address], [place]. tel:[phone] [facility], [address], [place], [place], [id number], [place] tel:[phone] Garcia Complete exam (chief complaint) Myopia, bilateral Oct- 8 Patti Oneill. [address], [place], [address], [place]. tel:[phone] [facility], [address], [place], [place], [id number], [place] tel:[phone] Garcia decreased vision (chief complaint) Myopia, bilateral 6 Patti Oneill. [address], [place], [address], [place]. tel:[phone] [facility], [address], [place], [place], [id number], [place] tel:[phone] Garcia No Information 5 No Information [facility], [address], [place], [place], [id number], [place] tel:[phone] Garcia Contact lens followup (chief complaint) Myopia 5 No Information [facility], [address], [place], [place], [id number], [place] tel:[phone] Garcia decreased vision (chief complaint) Myopia 5 No Information [facility], [address], [place], [place], [id number], [place] tel:[phone] Garcia No Information 3 Habib Angeles. [address], [place], [address], [place]. tel:[phone] [facility], [address], [place], [place], [id number], [place] tel:[phone] Garcia Myopia Sep-0 3 Habib Angeles. [address], [place], [address], [place]. tel:[phone] [facility], [address], [place], [place], [id number], [place] tel:[phone] Garcia CTL/Optica l/Misc No Information 0 3-201 3 Habib Angeles. [address], [place], [address], [place]. tel:[phone] Family History Family Member Type Diagnosis Age At Onset Mother Problem (finding) HBP Grandmother (m) Problem (finding) Heart Disease Payers Payer name Insurance type Covered constitution party ID Authoriza tion(s) No Information Social [...]
--- OUTSIDE RECORDS SUMMARY | 2024-07-19 19:00 | XMS_ITS | Continuity of Care Document ---
Author Organization [facility] re Address [address] [place] [address] Phone Care Team Providers Care Communications Marketing Intern Name Role Phone Nino Armstrong OD Unavailable Unavailable Allergies, Adverse Reactions, Alerts Substance Reaction Status Criticality No Known Allergies Active No Inform ation Medications Medication Instructions Dosage Effective Dates (start - stop) Status Comments Eye Allergy Relief (Naphazoline-Pheniram ine) 0.11868 %-0.315 % Drops - Active Singulair 10 [...] Date Provider Providers Copied on Encounter [facility], [address], [place], [place], [id number], [place] tel:[phone] Garcia CTL/Optica l/Misc No Information 5 Patti Oneill. [address], [place], [address], [place]. tel:[phone] [facility], [address], [place], [place], [id number], [place] tel:[phone] Garcia decreased vision (chief complaint) Presbyopia 5 Patti Oneill. [address], [place], [address], [place]. tel:[phone] [facility], [address], [place], [place], [id number], [place] tel:[phone] Garcia blurry vision (chief complaint) Presbyopia 3 Patti Oneill. [address], [place], [address], [place]. tel:[phone] OFFICE/OUTPAT IENT VISIT, EST [facility], [address], [place], [place], [id number], [place] tel:[phone] Garcia Watery Eyes (chief complaint) Dry eyes, bilateral Daniele- 9 Patti Oneill. [address], [place], [address], [place]. tel:[phone] [facility], [address], [place], [place], [id number], [place] tel:[phone] Garcia Complete exam (chief complaint) Myopia, bilateral Oct- 8 Patti Oneill. [address], [place], [address], [place]. tel:[phone] [facility], [address], [place], [place], [id number], [place] tel:[phone] Garcia decreased vision (chief complaint) Myopia, bilateral 6 Patti Oneill. [address], [place], [address], [place]. tel:[phone] [facility], [address], [place], [place], [id number], [place] tel:[phone] Garcia No Information 5 No Information [facility], [address], [place], [place], [id number], [place] tel:[phone] Garcia Contact lens followup (chief complaint) Myopia 5 No Information [facility], [address], [place], [place], [id number], [place] tel:[phone] Garcia decreased vision (chief complaint) Myopia 5 No Information [facility], [address], [place], [place], [id number], [place] tel:[phone] Garcia No Information 3 Habib Angeles. [address], [place], [address], [place]. tel:[phone] [facility], [address], [place], [place], [id number], [place] tel:[phone] Garcia Myopia Sep-0 3 Habib Angeles. [address], [place], [address], [place]. tel:[phone] [facility], [address], [place], [id number], [place] tel:[phone] Garcia CTL/Optica l/Misc No Information 0 3-201 3 Habib Angeles. [address], [place], [address], [place]. tel:[phone] Family History Family Member Type Diagnosis Age [...]
--- OUTSIDE RECORDS SUMMARY | 2024-07-19 19:00 | XMS_ITS | Continuity of Care Document ---
Author Organization [facility] re Address [address] [place] [address] Phone Care Team Providers Care Knot Tier Name Role Phone Nino Armstrong OD Unavailable Unavailable Allergies, Adverse Reactions, Alerts Substance Reaction Status Criticality No Known Allergies Active No Inform ation Medications Medication Instructions Dosage Effective Dates (start - stop) Status Comments Eye Allergy Relief (Naphazoline-Pheniram ine) 0.33445 %-0.315 % Drops - Active Singulair 10 [...] Date Provider Providers Copied on Encounter [facility], [address], [place], [place], [id number], [place] tel:[phone] Garcia CTL/Optica l/Misc No Information 5 Patti Oneill. [address], [place], [address], [place]. tel:[phone] [facility], [address], [place], [place], [id number], [place] tel:[phone] Garcia decreased vision (chief complaint) Presbyopia 5 Patti Oneill. [address], [place], [address], [place]. tel:[phone] [facility], [address], [place], [place], [id number], [place] tel:[phone] Garcia blurry vision (chief complaint) Presbyopia 3 Patti Oneill. [address], [place], [address], [place]. tel:[phone] OFFICE/OUTPAT IENT VISIT, EST [facility], [address], [place], [place], [id number], [place] tel:[phone] Garcia Watery Eyes (chief complaint) Dry eyes, bilateral Daniele- 9 Patti Oneill. [address], [place], [address], [place]. tel:[phone] [facility], [address], [place], [place], [id number], [place] tel:[phone] Garcia Complete exam (chief complaint) Myopia, bilateral Oct- 8 Patti Oneill. [address], [place], [address], [place]. tel:[phone] [facility], [address], [place], [id number], [place] tel:[phone] Garcia decreased vision (chief complaint) Myopia, bilateral 6 Patti Oneill. [address], [place], [address], [place]. tel:[phone] [facility], [address], [place], [id number], [place] tel:[phone] Garcia No Information 5 No Information [facility], [address], [place], [id number], [place] tel:[phone] Garcia Contact lens followup (chief complaint) Myopia 5 No Information [facility], [address], [place], [id number], [place] tel:[phone] Garcia decreased vision (chief complaint) Myopia 5 No Information [facility], [address], [place], [id number], [place] tel:[phone] Garcia No Information 3 Habib Angeles. [address], [place], [address], [place]. tel:[phone] [facility], [address], [place], [id number], [place] tel:[phone] Garcia Myopia Sep-0 3 Habib Angeles. [address], [place], [address], [place]. tel:[phone] [facility], [address], [place], [place], [address], [place] tel:[phone] Garcia CTL/Optica l/Misc No Information 0 3-201 3 Habib Angeles. [address], [place], [address], [place]. tel:[phone] Family History Family Member Type Diagnosis Age At Onset Mother Problem (finding) HBP Grandmother (m) Problem (finding) Heart Disease Payers Payer name Insurance type Covered libertarian ID Authoriza tion(s) No Information Social History [...]
--- OUTSIDE RECORDS SUMMARY | 2024-07-19 19:00 | XMS_ITS | Continuity of Care Document ---
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 [address], [place], [address], [place]. tel:[phone] [facility], [address], [place], [place], [id number], [place] tel:[phone] Garcia decreased vision (chief complaint) Presbyopia 5 Patti Oneill. [address], [place], [address], [place]. tel:[phone] [facility], [address], [place], [id number], [place] tel:[phone] Garcia blurry vision (chief complaint) Presbyopia 3 Patti Oneill. [address], [place], [address], [place]. tel:[phone] OFFICE/OUTPAT IENT VISIT, EST [facility], [address], [place], [place], [id number], [place] tel:[phone] Garcia Watery Eyes (chief complaint) Dry eyes, bilateral Daniele- 9 Patti Oneill. [address], [place], [address], [place]. tel:[phone] [facility], [address], [place], [place], [id number], [place] tel:[phone] Garcia Complete exam (chief complaint) Myopia, bilateral Oct- 8 Patti Oneill. [address], [place], [address], [place]. tel:[phone] [facility], [address], [place], [place], [address], [place] tel:[phone] Garcia decreased vision (chief complaint) Myopia, bilateral 6 Patti Oneill. [address], [place], [address], [place]. tel:[phone] [facility], [address], [place], [place], [id number], [place] tel:[phone] Garcia No Information 5 No Information [facility], [address], [place], [place], [id number], [place] tel:[phone] Garcia Contact lens followup (chief complaint) Myopia 5 No Information [facility], [address], [place], [place], [address], [place] tel:[phone] Garcia decreased vision (chief complaint) Myopia 5 No Information [facility], [address], [place], [place], [id number], [place] tel:[phone] Garcia No Information 3 Habib Angeles. [address], [place], [address], [place]. tel:[phone] [facility], [address], [place], [place], [id number], [place] tel:[phone] Garcia Myopia Sep-0 3 Habib Angeles. [address], [place], [address], [place]. tel:[phone] [facility], [address], [place], [place], [address], [place] tel:[phone] Garcia CTL/Optica l/Misc No Information 0 3-201 3 Habib Angeles. [address], [place], [address], [place]. tel:[phone] Family History Family Member Type Diagnosis Age At Onset Mother Problem (finding) HBP Grandmother (m) Problem (finding) Heart Disease Payers Payer name Insurance type Covered democrat ID Authoriza tion(s) No Information Social History [...]
--- OUTSIDE RECORDS SUMMARY | 2024-07-19 19:00 | XMS_ITS | Continuity of Care Document ---
Author Organization [facility] re Address [address] [place] [address] Phone Care Team Providers Care Privacy Compliance Manager Name Role Phone Nino Armstrong OD Unavailable Unavailable Allergies, Adverse Reactions, Alerts Substance Reaction Status Criticality No Known Allergies Active No Inform ation Medications Medication Instructions Dosage Effective Dates (start - stop) Status Comments Eye Allergy Relief (Naphazoline-Pheniram ine) 0.01048 %-0.315 % Drops - Active Singulair 10 [...] Date Provider Providers Copied on [facility]counter [facility], [address], [place], [place], [id number], [place] tel:[phone] Garcia CTL/Optica l/Misc No Information 5 Patti Oneill. [address], [place], [address], [place]. tel:[phone] [facility], [address], [place], [place], [id number], [place] tel:[phone] Garcia decreased vision (chief complaint) Presbyopia 5 Patti Oneill. [address], [place], [address], [place]. tel:[phone] [facility], [address], [place], [place], [address], [place] tel:[phone] Garcia blurry vision (chief complaint) Presbyopia 3 Patti Oneill. [address], [place], [address], [place]. tel:[phone] OFFICE/OUTPAT IENT VISIT, EST [facility], [address], [place], [place], [id number], [place] tel:[phone] Garcia Watery Eyes (chief complaint) Dry eyes, bilateral Daniele- 9 Patti Oneill. [address], [place], [address], [place]. tel:[phone] [facility], [address], [place], [place], [address], [place] tel:[phone] Garcia Complete exam (chief complaint) Myopia, bilateral Oct- 8 Patti Oneill. [address], [place], [address], [place]. tel:[phone] [facility], [address], [place], [place], [id number], [place] tel:[phone] Garcia decreased vision (chief complaint) Myopia, bilateral 6 Patti Oneill. [address], [place], [address], [place]. tel:[phone] [facility], [address], [place], [place], [id number], [place] tel:[phone] Garcia No Information 5 No Information [facility], [address], [place], [place], [id number], [place] tel:[phone] Garcia Contact lens followup (chief complaint) Myopia 5 No Information [facility], [address], [place], [place], [id number], [place] tel:[phone] Garcia decreased vision (chief complaint) Myopia 5 No Information [facility], [address], [place], [place], [id number], [place] tel:[phone] Garcia No Information 3 Habib Angeles. [address], [place], [address], [place]. tel:[phone] [facility], [address], [place], [place], [id number], [place] tel:[phone] Garcia Myopia Sep-0 3 Habib Angeles. [address], [place], [address], [place]. tel:[phone] [facility], [address], [place], [place], [address], [place] tel:[phone] Garcia CTL/Optica l/Misc No Information 0 3-201 3 Habib Angeles. [address], [place], [address], [place]. tel:[phone] Family History Family Member Type Diagnosis Age [...]
--- NOTE | ~2025-02-02 | US_ITS ---
EXAMINATION: US ABDOMEN DOPPLER CLINICAL INFORMATION: Status post TIPS. Evaluation for patency. COMPARISON: September 29, 2019. Correlated to CT abdomen and pelvis dated December 01, 2023. TECHNIQUE: Color Doppler spectral analysis through the TIPS. FINDINGS: The shunt is patent. The portal vein side is patent with a peak systolic velocity of 52 cm/s. The mid segment of the shunt peak systolic velocities 39 cm/s. The hepatic vein side peak systolic velocity is 39 cm/s. Splenic vessels are patent with normal flow direction. Incidental findings: No ascites. Splenomegaly (15 cm). Probable uterine fibroids. US/US duplex arterial venous comp IMPRESSION: Normal patency and peak systolic velocities throughout the TIPS Electronically signed by: Zain Swanson MD 02/02/2025 09:45 AM EST
--- OUTSIDE RECORDS SUMMARY | 2025-02-02 15:17 | XMS_ITS | Patient Health Record ---
Author Organization [facility] Address [address] [place] [address] Care Team Providers Care Die Fitter Name Role Phone Ira Hayes Primary Care Provider Unavailab Enmanuel Lua Jr Unavailable [phone] Elba PINA, Radha Unavailable Unavailable Reason For Referral No Information Plan Of Treatment No Information Insurance Providers Payer Name Payer Address Payer Phone Subscriber Number Group Number Insured Name Patient Relationship to Insured Coverage Start Date Coverage End Date [facility] [address] [address] [place], [place] [id number] RONAK MEEHAN Self - patient is the insured
--- OUTSIDE RECORDS SUMMARY | 2025-02-02 15:17 | XMS_ITS | Clinical Summary ---
Author Organization [facility] Address [address] [place] [address] Phone Care Team Providers Care Warehouse Production Worker Name Role Phone Pcp, Unknown Primary Care Provider Unavailabl e Allergies Active Allergy Reactions Criticality Noted Date Comments Aspirin 10/23/2024 Medications naproxen (NAPROSYN) 500 MG tablet Take 1 tablet (500 mg total) by mouth 2 (two) times a day with meals. 8 tablet 10/23/2024 Active Social History Tobacco Use Types Packs/Day Years [...] 2024 INFLUENZA VACCINE (#1) 2024 COVID-19 VACCINE (2024-2 6 season) 2024 HEPATITIS A VACCINES Aged Out No long er eligible based on patient's age to complete this topic HIB VACCINES Aged Out No longer eligi ble based on patient's age to complete this topic IPV VACCINES Aged Out No longer eligi ble [...] this topic Medical Devices Not on file Insurance [id number] [place] [address] [id number] [place] [address] [address] [id number] [place] [address] [id number] [place] [id number] [id number] [place] [address] ACO Care Teams Warehouse Production Worker Relationship Specialty Start Date End Date Pcp, Unknown PCP - General 10/23/24 Additional Source Comments The information contained in this document represents components of the legal health record. It is not the complete legal health record.[facility]
== END 2025-02-02 07:47 | disposition home or self-care (01) ==
LOC: HO.US 07:46
PROVIDERS: PCP Internal Medicine; Visit Provider Internal Medicine Gastroenterology
DX: K76.9 Liver disease, unspecified (principal); Z95.828 Presence of other vascular implants and grafts
CPT/HCPCS: 93975

== ENCOUNTER → 2025-02-02 07:47 | Outpatient (BNV) | payer OTHER, SELFPAY | PROVIDERS: PCP Internal Medicine; Visit Provider Radiology Diagnostic Radiology | DX: Z95.828 Presence of other vascular implants and grafts (principal) | CPT/HCPCS: 93975 ==

== ENCOUNTER 2025-02-02 11:20 | Outpatient (RCR) | payer OTHER, SELFPAY ==
--- NOTE | 2025-01-28 10:26 | MHC.OT.EP ---
[facility] Office [address] [phone] F: [phone] F: [phone] Occupational Therapy Plan of Care Patient Name: Georgie Hearn Date of Evaluation: 01/28/25 Diagnosis: B hand pain Pain Location: DORSAL SIDE OF HAND PIP J'S Pain Score: 5 Pain Scale Used: Numeric (0 - 10) Aggravating Factors: Alleviating Factors: NONE Assessment: Frequency and Duration: The patient will be seen 2xs aweek for 4 weeks Short Term Goals: Usp Goals: Pt will report 2/10 pain w/ active use of her hands Pt will be compliant w/ her HEP Pt will have a R hand subway guard of 20 lbs w/out pain Treatment Plan: Therapeutic Exercise Therapeutic Activity Home Exercise Program Splinting Neuro Re-ed Patient Education Desensitization/Sensory Re-ed Ultrasound Iontophoresis Fluidotherapy MHP Joint Mobilization Soft Tissue Mobilization Kinesiotaping Other (see comments) jt protection Electronically Signed By: Anne Marie Armenta OTR/L Please Sign and return to therapist. Thank you once again for your referral.
--- NOTE | 2025-02-14 13:16 | MHC.OT.DC ---
[facility] Office [address] [phone] F: [phone] F: [phone] Occupational Therapy Discharge Note Patient Name: Georgie Hearn Provider: Christopher Cast PA-C Diagnosis: B hand pain Date of Surgery: Date of Evaluation: 01/28/25 Date of Discharge: 02/14/25 Treatments to Date: 2 Cancellations to Date: 1 No Shows to Date: 2 Discharge Status: Visit Non-compliance Discharge Summary: Georgie was referred to OT for B/L hand pain and weakness. She initiated OT and attended one follow up visit, but has missed last three visits. We will be discharging per policy. She has been given home program and tolerated therapy well during attended session. Electronically Signed By: DEVON Mccormack/Kenji CHT Reviewed/agree with student documentation: Therapist: Please Sign and return to therapist, thank you for your referral.
== END 2025-02-14 13:16 | disposition home or self-care (01) ==
LOC: HO.OT 11:20
PROVIDERS: PCP Internal Medicine
DX: M25.541 Pain in joints of right hand (principal); M25.542 Pain in joints of left hand
CPT/HCPCS: 97110; 97140; 97166; 97535

== ENCOUNTER 2025-02-28 11:19 | Outpatient (AMB) | payer OTHER, SELFPAY ==
--- NOTE | 2025-02-28 11:24 | MHC.OFFVIS ---
Intake Visit Reasons: B/L knee injection-last inj 05/28/24 Intake Note: Georgie is a 44 year old right hand dominant female who presents today for repeat injections for both of her knee. Patient reports her last injection gave her relief and would like to repeat. Allergies aspirin (ASPIRIN) Adverse Reaction (Intermediate, Verified 01/21/25 13:31) ULCER; GI UPSET, internal bleeding dextran 40 Adverse Reaction (Verified 01/21/25 13:31) Itching HPI HPI B/L knee injection-last inj 05/28/24: Details: Patient is a 44-year-old female who presents to the office today for repeat bilateral knee cortisone injection. Last injection was 05/28/2024. Patient has good relief with this. [facility] Medical History Osteoarthritis of knees, bilateral ELIJAH I (cervical intraepithelial neoplasia I) Obesity, Class III, BMI 40-49.9 (morbid obesity) Smoker Depression Anxiety Insomnia Esophageal varices Diabetes mellitus Lower abdominal pain Allergic rhinitis Common cold Anxiety and depression Obesity (BMI 30-39.9) Smoker Hypersplenism Pancytopenia Bilateral calcaneal spurs Thrombocytopenia Ascites Iron deficiency anemia due to chronic blood loss History of esophageal varices Chronic pain of both feet Varicose veins of right lower extremity with inflammation Sprain of left knee IBS (irritable bowel syndrome) GERD (gastroesophageal reflux disease) Depression Dementia Liver disease Hypertension Surgical History Hx of colonoscopy History of D&C S/P TIPS (transjugular intrahepatic portosystemic shunt) (~10/2015) History of liver biopsy (~04/2002) History of esophagogastroduodenoscopy (EGD) Family History Father Diabetes mellitus Mother Diabetes mellitus Alzheimer's dementia Pneumothorax Maternal Aunt Ovarian cancer Daughter No problems noted. Maternal Aunt Cervical cancer Maternal Grandfather Pancreatic cancer Other Mental health disorder Social History Household Members: Significant Other Housing: Apartment Do you presently have visiting nurse or other home services: No Alcohol intake: current Alcohol intake frequency: holidays/special occasions only Patient Tobacco Use Status: Never used Tobacco Tobacco use type: Cigarette Cigarette Packs Per Day: 0.5 Years Smoked: 8 years e-Cigarette/Vaping Use: Never Used Second Hand Smoke Exposure: Yes service: No Current occupational status: unemployed Current occupational exposures/hazards: No Cognitive needs: No Hearing needs: No Vision needs: No Female Reproductive History Menstrual Age of Menarche: 8 Review of Systems Const All systems reviewed & are unremarkable except as noted in HPI and below Physical Exam Const General: cooperative, healthy appearing and no acute distress Resp Effort & Inspection: normal respiratory effort and able to speak in complete sentences Cardio Rate: regular rate Peripheral pulses: Peripheral pulses 2+ throughout Skin Lesions: no lesions Rashes: no rashes Extrem Other: Right/Left knee: Normal to inspection. No ecchymosis, erythema, or joint effusion. Mild tenderness to palpation along the medial and lateral joint lines. Full knee extension and flexion. NVI. Psych Appearance: grossly normal Mental Status: mental status grossly normal Attitude: cooperative Office Procedures AMB Joint Injection/Aspiration Joint Injection/Aspiration Primary Site: Right Knee Secondary Site: Left Knee Prep: site was prepped using aseptic technique, ethochloride spray was applied and injection warnings given Injected: 40 mg of, Decadron, with 3 mL of, 1% plain Lidocaine, 0.25% Bupivacaine and in the joint Approach Used: anterolateral Procedure: The patient tolerated the procedure well, but had some pain with the injection and there was some relief with the local anesthesia Coding 14181 - Bilateral Large Joint Procedure code (CPT) selection complete Assessment & Plan Assessment & Plan (1) Osteoarthritis of knees, bilateral: Code(s): M17.0 - Bilateral primary osteoarthritis of knee Category: Medical Qualifiers: Osteoarthritis type: primary Qualified Code(s): M17.0 - Bilateral primary osteoarthritis of knee Plan The patient was offered a cortisone injection in bilateral knees. The patient was explained the risks, benefits, and alternatives to receiving this injection. After receiving consent for the injection, the patient had the procedure done while in the office today. The patient tolerated the procedure well with no complications. The risks, benefits, and alternatives to a corticosteroid injection were discussed with the patient, including the potential benefits of decreased inflammation and pain, improved function, and diagnostic value. Risks were reviewed, including post-injection flare, skin or fat atrophy, transient facial flushing, temporary elevation in blood glucose, bruising, and rare but serious complications such as infection, tendon weakening or rupture, and cartilage damage with repeated injections. Procedure-related discomfort and possible vasovagal symptoms were also explained. Alternatives were reviewed, including NSAIDs, physical therapy, activity modification, bracing, ice/heat, weight management, hyaluronic acid injections when appropriate, PRP or other orthobiologics, oral steroids, surgery depending on pathology, and observation. The patient verbalized understanding and elected to proceed. After receiving consent for the injection, the patient had the procedure done while in the office today. The patient tolerated the procedure well with no complications. Follow-up will be PRN, or sooner if needed Coding Level of Care Code Est Pt Level 3 (68395) Add On Problem Visit Only Diagnoses Primary osteoarthritis of both knees M17.0 Osteoarthritis type: primary CPT Codes Coding - 00256 - Bilateral Large Joint: 19769 - Bilateral Large Joint ([id number])
== END 2025-02-28 11:39 | disposition home or self-care (01) ==
LOC: HO.HOS 11:20
PROVIDERS: PCP Internal Medicine; Visit Provider Physician Assistant
DX: M17.0 Bilateral primary osteoarthritis of knee (principal)
CPT/HCPCS: 20610; 99213

== ENCOUNTER → 2025-02-28 11:19 | Outpatient (BNVA) | payer OTHER, SELFPAY | PROVIDERS: PCP Internal Medicine; Visit Provider Physician Assistant | DX: M17.0 Bilateral primary osteoarthritis of knee (principal) | CPT/HCPCS: 20610; 99212; J0665; J1100; J2003 ==